=== PATIENT | female | born 1930 | race Caucasian/White ===

== ENCOUNTER → 2017-02-18 | Outpatient (CLI) | payer MEDICARE, BC ==
[2015-11-19 14:40] VITALS: BP 183/67
[~2017-02-18] MED LIST: AMLO10TA2 PO; ASPI-482 PO; ASPI325T8 PO; AZIT250T6 PO; CLOP75TA PO; DOXA2TAB2 PO; DOXA4TAB3 PO; ESOM20CA PO; EZET10TA18 PO; FURO-69 PO; FURO20TA3 PO; GABA-585 PO; GLIP-112 PO; GLIP10TA13 PO; INSU100C SQ; INSU100I13 SQ; LEVO125T5 PO; MECL25TA3 PO; METO100T5 PO; OLME40TA12 PO; SPIR25TA3 PO
[2017-02-18 12:57] LABS: BASO # 0.2 x10^3/uL (0.0-0.2); BASO % 2 % (0-3); EOS # 0.4 x10^3/uL (0.0-0.7); EOS % 6 % (0-3); HEMATOCRIT 36.6 % (36.0-47.0); HEMOGLOBIN 12.2 g/dL (12.0-15.5); LYMPH # 1.9 x10^3/uL (1.0-4.8); LYMPH % 26 % (24-48); MEAN CORPUSCULAR HEMOGLOBIN 30 pg (25-35); MEAN CORPUSCULAR HGB CONC 33 g/dL (31-37); MEAN CORPUSCULAR VOLUME 90 fL (79-100); MONO # 0.6 x10^3/uL (0.0-1.1); MONO % 9 % (0-9); NEUT % 57 % (31-73); PLATELET COUNT 223 x10^3/uL (140-400); RED BLOOD COUNT 4.05 x10^6/uL (3.50-5.40)
[2017-02-18 13:04] LABS: ALBUMIN 2.9 g/dL (3.4-5.0); CALCIUM 8.4 mg/dL (8.5-10.1); GFR 23.7; PHOSPHORUS 4.8 mg/dL (2.6-4.7); POTASSIUM 4.6 mmol/L (3.5-5.1)
[2017-02-19 05:13] LABS: CREAT RD UR 74.9 mg/dL (Not Estab.); MICRO CREAT RATIO 3200.8 mg/g creat (0.0-30.0); MICROALB RD UR 2397.4 ug/mL (Not Estab.)
[2017-02-19 08:10] LABS: CALCIUM PTH 8.7 mg/dL (8.7-10.3); CREATININE PTH 1.92 mg/dL (0.57-1.00); PTH INTACT 76 pg/mL (15-65)
== END | disposition home or self-care (01) ==
LOC: LAB 11:40
PROVIDERS: ATTEND Internal Medicine Nephrology
DX: I12.9 Hypertensive chronic kidney disease with stage 1 through stage 4 chronic kidney disease, or unspecified chronic kidney disease (principal); E11.29 Type 2 diabetes mellitus with other diabetic kidney complication; N18.4 Chronic kidney disease, stage 4 (severe); E21.3 Hyperparathyroidism, unspecified; E55.9 Vitamin D deficiency, unspecified; D50.9 Iron deficiency anemia, unspecified; D64.9 Anemia, unspecified; R80.9 Proteinuria, unspecified; R60.0 Localized edema; Z68.33 Body mass index [BMI] 33.0-33.9, adult
CPT/HCPCS: 36415; 80069; 82043; 82306; 82570; 82728; 83540; 83550; 83735; 83970; 84156; 85027

== ENCOUNTER → 2017-04-14 | Outpatient (CLI) | payer MEDICARE, BC ==
[2015-11-19 14:40] VITALS: BP 183/67
[2017-04-14 15:27] LABS: HEMOGLOBIN 12.2 g/dL (12.0-15.5)
[2017-04-14 15:35] LABS: ALBUMIN 2.8 g/dL (3.4-5.0); CALCIUM 8.2 mg/dL (8.5-10.1); GFR 23.7; PHOSPHORUS 4.6 mg/dL (2.6-4.7); POTASSIUM 4.8 mmol/L (3.5-5.1)
[2017-04-15 06:13] LABS: UR CREATININE RD 53.8 mg/dL (Not Estab.); UR PROTEIN RD 222.6 mg/dL (Not Estab.)
== END | disposition home or self-care (01) ==
LOC: LAB 14:39
PROVIDERS: ATTEND Internal Medicine Nephrology
DX: I12.9 Hypertensive chronic kidney disease with stage 1 through stage 4 chronic kidney disease, or unspecified chronic kidney disease (principal); N18.4 Chronic kidney disease, stage 4 (severe); E11.21 Type 2 diabetes mellitus with diabetic nephropathy; E16.2 Hypoglycemia, unspecified; E21.1 Secondary hyperparathyroidism, not elsewhere classified; E55.9 Vitamin D deficiency, unspecified; D50.9 Iron deficiency anemia, unspecified; R60.0 Localized edema; R80.9 Proteinuria, unspecified; Z68.33 Body mass index [BMI] 33.0-33.9, adult
CPT/HCPCS: 36415; 80069; 82306; 82570; 84156; 85014; 85018

== ENCOUNTER 2017-06-08 19:41 | Emergency (ER) | payer MEDICARE, BC ==
[~2017-06-08] VITALS: Ht 152.4 cm; Wt 71.4 kg
--- NOTE | 2017-06-08 19:59 | PHYS DOC ---
Past History Past Medical History: CVA, Diabetes, GERD, Hypertension, Hypothyroid, [place] Past Surgical History: Appendectomy, Coronary Bypass Surgery, Hysterectomy, Other Alcohol Use: Occasionally Drug Use: None Adult General HPI HPI Patient is a 86 year old F who presents with fall. Patient fell while carrying a bowl and sustained injuries to her head and left hand. Patient is currently on eloquent requests. Patient had no loss of consciousness. Patient had abrasions to her foreheadand a laceration to her left pinky. Patient denied any other injuries. Patient has no other complaints. Discussed the case and events with the daughters who state that the patient has been falling more and is weak and they're concerned she had a syncopal episode. Patient has been worked up for her elevated kidney function over the past couple months by her PCP. Family is concerned about the patient's unsteadiness on her feet. Review of Systems Review of Systems GEN: Denies fevers, chills, sweats HEENT: Abrasion to the forehead and nose CV: Denies chest pain RESP: Denies shortness of air, cough GI: Denies n/v/d NEURO: Denies confusion, dizziness MSK: Laceration to left pinky Allergies Allergies Allergies Coded Allergies Type Severity Reaction Last Updated Verified Sulfa (Sulfonamide Antibiotics) Adverse Reaction Intermediate 09/16/14 No captopril Adverse Reaction Intermediate 09/16/14 Yes Physical Exam Physical Exam GEN.: No apparent distress. Alert and oriented. HEENT: Minor abrasions to the forehead, swelling to the nose with bleeding from the left naris, no septal hematoma noted the left or right naris, swelling to the right upper lip, no identifiable oral lesions noted NECK: Supple. LUNGS: CTAB. HEART: Irregular irregular, S1, S2 present. Peripheral pulses intact ABDOMEN: Soft, nontender. Positive bowel sounds. EXTREMITIES: Without any cyanosis. 1 cm laceration over the distal phalanx of the left fifth digit NEUROLOGIC: Normal speech, normal tone PSYCHIATRIC: Normal affect, normal mood. SKIN: No ulcerations Current Patient Data Vital Signs Laboratory Tests Test 06/08/17 20:08 White Blood Count 6.6 x10^3/uL Red Blood Count 3.62 x10^6/uL Hemoglobin 11.0 g/dL Hematocrit 32.4 % Mean Corpuscular Volume 89 fL Mean Corpuscular Hemoglobin 31 pg Mean Corpuscular Hemoglobin Concent 34 g/dL Red Cell Distribution Width 14.4 % Platelet Count 230 x10^3/uL Neutrophils (%) (Auto) 56 % Lymphocytes (%) (Auto) 28 % Monocytes (%) (Auto) 11 % Eosinophils (%) (Auto) 4 % Basophils (%) (Auto) 1 % Neutrophils # (Auto) 3.7 x10^3uL Lymphocytes # (Auto) 1.9 x10^3/uL Monocytes # (Auto) 0.7 x10^3/uL Eosinophils # (Auto) 0.3 x10^3/uL Basophils # (Auto) 0.1 x10^3/uL Sodium Level 134 mmol/L Potassium Level 5.1 mmol/L Chloride Level 100 mmol/L Carbon Dioxide Level 25 mmol/L Anion Gap 9 Blood Urea Nitrogen 42 mg/dL Creatinine 2.1 mg/dL Estimated GFR (Cockcroft-Gault) 22.4 Glucose Level 144 mg/dL Calcium Level 8.3 mg/dL Current Medications Medications (Trade) Dose Ordered Sig/Brendan Route PRN Reason Start Time Stop Time Status Last Admin Dose Admin Diphtheria/ Tetanus/Acell Pertussis (Boostrix) 0.5 ml ONCE ONCE VAX IM 06/08/17 20:20 06/08/17 23:18 DC Fentanyl Citrate (Fentanyl 2ml Vial) 50 mcg 1X ONCE IV 06/08/17 22:15 06/08/17 22:27 DC 06/08/17 22:11 Lidocaine HCl 20 ml STK-MED ONCE .ROUTE 06/08/17 22:39 06/08/17 22:40 DC Lidocaine/Sodium Bicarbonate (Buffered Lidocaine 1%) 3 ml 1X ONCE IJ 06/08/17 22:45 06/08/17 22:46 DC 06/08/17 22:45 Tetanus/ Diphtheria Toxoids Adsorbed (Tenivac Vial) 0.5 ml ONCE ONCE VAX IM 06/08/17 23:30 06/08/17 23:31 DC 06/08/17 23:29 EKG EKG 0101: EKG shows A. fib rate of 69 no STEMI[] Radiology/Procedures Radiology/Procedures Left pinky ring was removed with a ring cutter[] Indication: Left fifth digit laceration Procedure: The patient was placed in the appropriate position and anesthesia around the was a digital block of the left fifth digit with 10 ML's of buffered 1% lidocaine. The area was then irrigated extensively with 2 L normal saline and scrubbed with a surgical scrub brush.. The laceration was closed with 5-0 nylon and 7 simple interrupted sutures were placed. The wound area was then dressed with Xeroform and gauze. Total repaired wound length: 3 cm. Other Items: None The patient tolerated the procedure none. Complications: [COMPLICATIONS]. CT maxillofacial Impression: 1. Acute bilateral nasal bone fractures. Comminuted nasal septum fracture. CT head/C-spine No intracranial bleed and no C-spine fracture Course & Med Decision Making Course & Med Decision Making Pertinent Labs and Imaging studies reviewed. (See chart for details) ED course: Patient was seen and examined emergency room CBC, CMP, CT scan of the head/ maxillofacial/C-spine and x-ray of the left hand were ordered Laceration to left fifth digit was sutured at bedside 2320: Discuss concerns with patient and family in regards to her having a syncopal episode and her persistent bleeding and nasal swelling. Family felt comfortable patient be admitted to the hospital 2327: Discussed CC/HP/PMH with Dr. Jacobs and recommends transfer 0000: Discussed CC/HP/PMH with Dr. Bond and recommends admit and accepts transfer MDM: After reviewing the chart, CC/HPI/PMH, physical exam, [lab results], [ radiological results], I do not believe the patient has intracranial bleed however has concerns with increased swelling and persistent bleeding from her to quite like medication I believe she needs to be observed for the hospital with serial H/H. Patient is stable for transfer. A [] Dragon Disclaimer Dragon Disclaimer This chart was dictated in whole or in part using Voice Recognition software in a busy, high-work load, and often noisy Emergency Department environment. It may contain unintended and wholly unrecognized errors or omissions. Departure Departure: Impression: Primary Impression: Nasal bones, closed fracture Additional Impressions: Anemia Laceration of finger of left hand Disposition: 02 XFER SHT-TRM HOSP (Dr. Bond) Condition: STABLE Referrals: CALIN MA MD (PCP) Problem Qualifiers ELLEN GILES DO Jun 08, 2017 19:59
[2017-06-08] MEDS ORDERED: DIPHTH,PERTUSS(ACELL),TET TOX 0.5 ML DISP.SYRIN. VAX IM ONE (20:20)
[2017-06-08 20:27] LABS: BASO # 0.1 x10^3/uL (0.0-0.2); BASO % 1 % (0-3); EOS # 0.3 x10^3/uL (0.0-0.7); EOS % 4 % (0-3); HEMATOCRIT 32.4 % (36.0-47.0); LYMPH # 1.9 x10^3/uL (1.0-4.8); LYMPH % 28 % (24-48); MEAN CORPUSCULAR HEMOGLOBIN 31 pg (25-35); MEAN CORPUSCULAR HGB CONC 34 g/dL (31-37); MEAN CORPUSCULAR VOLUME 89 fL (79-100); MONO # 0.7 x10^3/uL (0.0-1.1); MONO % 11 % (0-9); NEUT # 3.7 x10^3uL (1.8-7.7); NEUT % 56 % (31-73); PLATELET COUNT 230 x10^3/uL (140-400); RED BLOOD COUNT 3.62 x10^6/uL (3.50-5.40); RED CELL DISTRIBUTION WIDTH 14.4 % (11.5-14.5); WHITE BLOOD COUNT 6.6 x10^3/uL (4.0-11.0)
[2017-06-08 20:32] LABS: CALCIUM 8.3 mg/dL (8.5-10.1); CREATININE 2.1 mg/dL (0.6-1.0); GFR 22.4; POTASSIUM 5.1 mmol/L (3.5-5.1)
--- NOTE | 2017-06-08 21:27 | RAD ---
CT head without intravenous contrast History: Fall. Comparison: CT head January 07, 2015. Technique: Axial images are obtained of the head from the skull base through the vertex without IV contrast. Exposure: One or more of the following individualized dose reduction techniques were utilized for this examination: 1. Automated exposure control 2. Adjustment of the mA and/or kV according to patient size 3. Use of iterative reconstruction technique Findings: The ventricles are appropriate in size, shape, and location for the patient's age. No obvious intracranial mass, mass-effect, midline shift, hemorrhage or obvious acute infarction is identified. Basilar cisterns are patent. Nonspecific white matter low-attenuation is seen, probably from chronic microvascular ischemic disease. Bone windows demonstrate no acute calvarial abnormality. Impression: 1. No acute intracranial process. Please note that CT can be relatively insensitive to acute ischemic infarction for up to 24 hours after symptom onset. 2. Advanced nonspecific white matter changes, probably from chronic microvascular ischemic disease. CT cervical spine Comparison: None. Technique: Noncontrast CT of the cervical spine was performed using helical technique. Axial, sagittal, coronal reconstructions were obtained. Exposure: One or more of the following individualized dose reduction techniques were utilized for this examination: 1. Automated exposure control 2. Adjustment of the mA and/or kV according to patient size 3. Use of iterative reconstruction technique Findings: There is no evidence of acute fracture or acute malalignment involving the cervical spine. No prevertebral soft tissue swelling is identified. Multilevel degeneration is seen with facet and uncovertebral hypertrophy as well as degenerative disc disease. Impression: 1. No evidence of acute traumatic injury involving the cervical spine. 2. Degeneration. Electronically signed by: Willian Rodriguez MD (06/08/2017 9:24 PM) [facility]
--- NOTE | 2017-06-08 21:32 | RAD ---
CT face without contrast History: Fall. Technique: CT of the face was performed without intravenous contrast. Axial, sagittal, and coronal reconstructions were obtained. Exposure: One or more of the following individualized dose reduction techniques were utilized for this examination: 1. Automated exposure control 2. Adjustment of the mA and/or kV according to patient size 3. Use of iterative reconstruction technique Findings: Mildly displaced bilateral nasal bone fractures are seen. There is also comminuted fracture of the nasal septum. Hemorrhage product is seen involving the nasal passages as well as nasopharynx and oropharynx. Bilateral orbits and orbital contents appear intact. Small amount of hemorrhage involves the right maxillary sinus and sphenoid sinus. Patient is edentulous. Impression: 1. Acute bilateral nasal bone fractures. Comminuted nasal septum fracture. Electronically signed by: Willian Rodriguez MD (06/08/2017 9:28 PM) [facility]
[2017-06-08] MEDS ORDERED: LIDOCAINE 1% Multi-Dose 20 ML VIAL. ONE (22:39)
[2017-06-08 22:40] VITALS: BP 114/45
[2017-06-08] MEDS ORDERED: LIDOCAINE WITH 8.4% SOD BICARB 3 ML DISP.SYRIN. IJ ONE (22:45)
[2017-06-08] MEDS ORDERED: TETANUS AND DIPHTHERIA TOX/PF 0.5 ML VIAL. VAX IM ONE (23:30)
[2017-06-09] MEDS ORDERED: OXYMETAZOLINE 0.05% NASAL SPRAY 15ML BOTTLE. NS ONE (00:58)
--- NOTE | 2017-06-09 08:04 | RAD ---
Indication deep laceration to the fifth digit. AP oblique and lateral views of the left hand were obtained. Soft tissue injury associated with the distal aspect of the small finger is noted. On the lateral view there punctate opacities in the soft tissues. Some embedded debris in the soft tissues is not excluded. There are degenerative changes involving the hand. An acute bony finding is not seen. IMPRESSION: No acute bony finding. Soft tissue injury. Possible minimal debris in the soft tissues as outlined above
--- NOTE | 2017-06-09 10:04 | EKG ---
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
== END 2017-06-09 02:07 | disposition short-term general hospital (02) ==
LOC: ER 19:41
DX: S02.2XXA Fracture of nasal bones, initial encounter for closed fracture (principal); S61.217A Laceration without foreign body of left little finger without damage to nail, initial encounter; D64.9 Anemia, unspecified; E03.9 Hypothyroidism, unspecified; E11.9 Type 2 diabetes mellitus without complications; I10 Essential (primary) hypertension; K21.9 Gastro-esophageal reflux disease without esophagitis; I25.810 Atherosclerosis of coronary artery bypass graft(s) without angina pectoris; Z86.73 Personal history of transient ischemic attack (TIA), and cerebral infarction without residual deficits; Z88.2 Allergy status to sulfonamides; Z88.8 Allergy status to other drugs, medicaments and biological substances; W19.XXXA Unspecified fall, initial encounter; Y93.89 Activity, other specified; Y99.8 Other external cause status; Y92.89 Other specified places as the place of occurrence of the external cause
CPT/HCPCS: 12002; 36415; 70450; 70486; 72125; 73130; 80048; 82947; 85025; 90471; 90714; 93005; 96374; 99285; J3010

== ENCOUNTER 2017-07-06 12:34 | Emergency (ER) | payer MEDICARE, BC ==
[2017-07-06] MEDS ORDERED: FUROSEMIDE 40 MG/4 ML VIAL IVP ONE (13:00)
--- NOTE | 2017-07-06 14:34 | EKG ---
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 T ABNORMALITY IN INFEROLATERAL LEADS ABNORMAL ECG RI6.01 Unconfirmed report Electronically Signed On 07-06-2017 16:11:15 NEGATIVE RESTORER by Praveen aEgle
[2017-07-06] MEDS ORDERED: FURO-69 PO (14:49)
--- NOTE | 2017-07-06 15:02 | PHYS DOC ---
Past History Past Medical History: A-Fib, CVA, Diabetes, GERD, Hypertension, Hypothyroid, [place] Past Surgical History: Appendectomy, Coronary Bypass Surgery, Hysterectomy, Other Alcohol Use: Occasionally Drug Use: None Adult General Chief Complaint Chief Complaint: SHORTNESS OF BREATH HPI HPI Patient is a 87 year old F who presents with shortness of breath and weight gain over the past 2 weeks. 3 weeks ago she had a fall and was admitted to [facility]. While she is [facility] she had a stent placed in her coronary arteries. Thereafter she was discharged to [facility] for rehabilitation. Over the past 2 weeks she has gained 12 pounds and feels that her shortness of breath has been progressively worsening. She feels that her symptoms are worse when lying flat and with activity. She feels that her symptoms are improved by sitting up or standing. She denies chest pain. She has no other associated symptoms. She has no other exacerbating or alleviating factors. Review of Systems Review of Systems Constitutional: Denies fever or chills [] Eyes: Denies change in visual acuity, redness, or eye pain [] HENT: Denies nasal congestion or sore throat [] Respiratory: Negative except in history of present illness Cardiovascular: No additional information not addressed in HPI [] GI: Denies abdominal pain, nausea, vomiting, bloody stools or diarrhea [] : Denies dysuria or hematuria [] Musculoskeletal: Denies back pain or joint pain [] Integument: Denies rash or skin lesions [] Neurologic: Denies headache, focal weakness or sensory changes [] Endocrine: Denies polyuria or polydipsia [] All other systems were reviewed and found to be within normal limits, except as documented in this note. Family History Family History History reviewed Current Medications Current Medications Medications reviewed Current Medications Medications (Trade) Dose Ordered Sig/Brendan Start Time Stop Time Status Last Admin Dose Admin Furosemide (Lasix) 40 mg 1X ONCE 07/06/17 13:00 07/06/17 13:01 DC 07/06/17 13:24 40 MG Allergies Allergies Allergies Coded Allergies Type Severity Reaction Last Updated Verified Sulfa (Sulfonamide Antibiotics) Adverse Reaction Intermediate 09/16/14 No captopril Adverse Reaction Intermediate 09/16/14 Yes Physical Exam Physical Exam Constitutional: Well developed, well nourished, no acute distress, non-toxic appearance. [] HENT: Normocephalic, atraumatic Eyes: EOMI, conjunctiva normal, no discharge. [] Neck: Normal range of motion, no tenderness, supple, no stridor. [] Cardiovascular:Heart rate regular rhythm, trace edema Lungs & Thorax: Bilateral breath sounds clear to auscultation [] Crackles in both bases Abdomen: Bowel sounds normal, soft, no tenderness, no masses, no pulsatile masses. [] Skin: Warm, dry, no erythema, no rash. [] Back: No tenderness, no CVA tenderness. [] Extremities: No tenderness, no cyanosis, no clubbing, ROM intact, no edema. [] Neurologic: Alert and oriented X 3, normal motor function, normal sensory function, no focal deficits noted. [] Psychologic: Affect normal, judgement normal, mood normal. [] Current Patient Data Vital Signs Vital Signs Date Time Temp Pulse Resp B/P (MAP) Pulse Ox O2 Delivery O2 Flow Rate FiO2 07/06/17 13:45 60 12 165/77 (106) 94 07/06/17 12:34 97.9 Room Air Lab Results Laboratory Tests Test 07/06/17 13:00 Troponin I Quantitative 0.033 ng/mL (0-0.055) Radiology/Procedures Radiology/Procedures [] Course & Med Decision Making Course & Med Decision Making Pertinent Labs and Imaging studies reviewed. (See chart for details) Outside labs and imaging reviewed. Both Dr. Ma or and Dr. Mcginnis with cardiology was contacted and Margaret' s case was reviewed. Dragon Disclaimer Dragon Disclaimer This electronic medical record was generated, in whole or in part, using a voice recognition dictation system. Departure Departure: Impression: Primary Impression: Congestive heart failure Disposition: 01 HOME, SELF-CARE Condition: STABLE Referrals: CALIN MA MD (PCP) Patient Instructions: Heart Failure Additional Instructions: Margaret was seen in the emergency department for shortness of breath. No emergency medical condition was found on history or physical exam. Her labs from [place] were reviewed as well as the x-ray findings from [place]. She did have a normal EKG. Both her primary care doctor and her personal computer network analyst for contacted by phone. Her symptoms are most consistent with congestive heart failure for which she was started on Lasix, a water pill. She was advised to monitor her weight daily and follow-up with her primary care doctor tomorrow for further management. Scripts Furosemide (LASIX) 20 Mg Tablet 1 TAB PO DAILY for 7 Days, #7 TAB 1 Refill Prov: VITALIY YOUNG MD 07/06/17 Problem Qualifiers Primary Impression: Congestive heart failure Congestive heart failure type: unspecified congestive heart failure type Congestive heart failure chronicity: unspecified congestive heart failure chronicity Qualified Codes: I50.9 - Heart failure, unspecified VITALIY YOUNG MD Jul 06, 2017 15:02
[2017-07-06 15:10] VITALS: BP 163/57
== END 2017-07-06 15:10 | disposition home or self-care (01) ==
LOC: ER 12:34
DX: I11.0 Hypertensive heart disease with heart failure (principal); I50.9 Heart failure, unspecified; I48.91 Unspecified atrial fibrillation; E11.9 Type 2 diabetes mellitus without complications; K21.9 Gastro-esophageal reflux disease without esophagitis; E03.9 Hypothyroidism, unspecified; I25.2 Old myocardial infarction; Z86.73 Personal history of transient ischemic attack (TIA), and cerebral infarction without residual deficits; Z95.1 Presence of aortocoronary bypass graft; Z88.2 Allergy status to sulfonamides; Z88.8 Allergy status to other drugs, medicaments and biological substances
CPT/HCPCS: 36415; 84484; 93005; 96374; 99285; J1940

== ENCOUNTER → 2017-07-18 | Outpatient (CLI) | payer MEDICARE, BC ==
[2017-07-06 15:10] VITALS: BP 163/57
[2017-07-18 15:31] LABS: ALBUMIN 3.3 g/dL (3.4-5.0); CALCIUM 8.9 mg/dL (8.5-10.1); CREATININE 2.5 mg/dL (0.6-1.0); GFR 18.3; MAGNESIUM 2.8 mg/dL (1.8-2.4); PHOSPHORUS 3.9 mg/dL (2.6-4.7); POTASSIUM 4.4 mmol/L (3.5-5.1)
[2017-07-18 15:47] LABS: HEMATOCRIT 36.6 % (36.0-47.0)
[2017-07-19 04:12] LABS: CALCIUM PTH 8.8 mg/dL (8.7-10.3); CREATININE PTH 2.23 mg/dL (0.57-1.00); PTH INTACT 178 pg/mL (15-65)
[2017-07-20 06:10] LABS: MICRO CREAT RATIO 2256.8 mg/g creat (0.0-30.0); MICROALB RD UR 4125.4 ug/mL (Not Estab.); UR CREATININE RD 186.1 mg/dL (Not Estab.); UR PROTEIN RD 523.5 mg/dL (Not Estab.)
== END | disposition home or self-care (01) ==
LOC: LAB 14:34
PROVIDERS: ATTEND Internal Medicine Nephrology
DX: I12.9 Hypertensive chronic kidney disease with stage 1 through stage 4 chronic kidney disease, or unspecified chronic kidney disease (principal); N18.4 Chronic kidney disease, stage 4 (severe); E11.22 Type 2 diabetes mellitus with diabetic chronic kidney disease; E55.9 Vitamin D deficiency, unspecified; D64.9 Anemia, unspecified; Z68.32 Body mass index [BMI] 32.0-32.9, adult
CPT/HCPCS: 36415; 80069; 82043; 82570; 83735; 83970; 84156; 85014; 85018

== ENCOUNTER → 2017-10-06 | Outpatient (CLI) | payer MEDICARE, BC ==
--- NOTE | 2017-10-06 16:19 | RAD ---
EXAM: Carotid Doppler sonogram. HISTORY: Smoking history, cerebrovascular accident. TECHNIQUE: [place] scale and color Doppler sonographic evaluation of the neck with spectral waveform analysis was performed and static images are submitted for review. FINDINGS: RIGHT: The peak systolic velocity within the common carotid artery is 80 cm/sec. The peak systolic velocity within the internal carotid artery is 145 cm/sec and the end diastolic velocity within the internal carotid artery is 21 cm/sec. The ICA/CCA ratio is 1.81. Grayscale images demonstrate moderate calcified plaquing at the carotid bulb and proximal internal carotid artery. LEFT: The peak systolic velocity within the common carotid artery is 67 cm/sec. The peak systolic velocity within the internal carotid artery is 102 cm/sec and the end diastolic velocity within the internal carotid artery is 13 cm/sec. The ICA/CCA ratio is 1.5. Grayscale images demonstrate moderate calcified plaquing at the carotid bulb and proximal internal carotid artery. There is antegrade flow within both vertebral arteries. IMPRESSION: 1. 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 PQRS Compliance Statement - Stenosis calculations for CT, MR and conventional angiography are based upon measurement of the distal ICA diameter in accordance with the NASCET methodology. Stenosis calculations for carotid ultrasound studies are derived from validated velocity criteria which are known to correlate with the NASCET methodology.
== END | disposition home or self-care (01) ==
LOC: US 14:50
PROVIDERS: ATTEND Family Medicine
DX: I65.21 Occlusion and stenosis of right carotid artery (principal); Z86.73 Personal history of transient ischemic attack (TIA), and cerebral infarction without residual deficits; Z87.891 Personal history of nicotine dependence
CPT/HCPCS: 93880

== ENCOUNTER 2017-10-21 15:59 | Emergency (ER) | payer MEDICARE, BC ==
[~2017-10-21] VITALS: Ht 152.4 cm; Wt 75.5 kg
[2017-10-21] MEDS ORDERED: SODIUM POLYSTYRENE SULFONATE 15 GM/60 ML ORAL.SUSP. PO ONE (16:30)
[2017-10-21] MEDS ORDERED: DEXTROSE 50% 25 GM / 50ML DISP.SYRIN. IV ONE (16:30)
[2017-10-21] MEDS ORDERED: ALBUTEROL SULFATE 2.5 MG/3 ML NEBU. CONT NEB ONE (16:30)
[2017-10-21] MEDS ORDERED: INSULIN REGULAR 100 UNIT/ML 10ML VIAL. IV ONE (16:30)
[2017-10-21 16:37] LABS: BASO # 0.1 x10^3/uL (0.0-0.2); BASO % 1 % (0-3); EOS # 0.4 x10^3/uL (0.0-0.7); EOS % 5 % (0-3); HEMATOCRIT 35.2 % (36.0-47.0); HEMOGLOBIN 11.7 g/dL (12.0-15.5); LYMPH % 29 % (24-48); MEAN CORPUSCULAR HEMOGLOBIN 29 pg (25-35); MEAN CORPUSCULAR HGB CONC 33 g/dL (31-37); MEAN CORPUSCULAR VOLUME 87 fL (79-100); MONO # 0.6 x10^3/uL (0.0-1.1); MONO % 8 % (0-9); NEUT # 3.9 x10^3uL (1.8-7.7); NEUT % 57 % (31-73); PLATELET COUNT 232 x10^3/uL (140-400); RED BLOOD COUNT 4.03 x10^6/uL (3.50-5.40); RED CELL DISTRIBUTION WIDTH 15.8 % (11.5-14.5); WHITE BLOOD COUNT 6.9 x10^3/uL (4.0-11.0)
[2017-10-21 16:45] LABS: ALBUMIN 3.1 g/dL (3.4-5.0); ALBUMIN/GLOBULIN RATIO 0.8 (1.0-1.7); CALCIUM 8.4 mg/dL (8.5-10.1); CREATININE 1.9 mg/dL (0.6-1.0); GFR 25.1; MAGNESIUM 2.1 mg/dL (1.8-2.4); PHOSPHORUS 4.5 mg/dL (2.6-4.7); POTASSIUM 5.6 mmol/L (3.5-5.1); TOTAL BILIRUBIN 0.2 mg/dL (0.2-1.0); TOTAL PROTEIN 7.1 g/dL (6.4-8.2)
--- NOTE | 2017-10-21 17:05 | PHYS DOC ---
Past History Past Medical History: A-Fib, CVA, Diabetes, GERD, Hypertension, Hypothyroid, [place] Past Surgical History: Appendectomy, Coronary Bypass Surgery, Hysterectomy, Other Alcohol Use: Occasionally Drug Use: None Adult General Chief Complaint Chief Complaint: ABNORMAL LABS HPI HPI 87-year-old female patient with history of diabetes, atrial fibrillation on Xarelto, chronic renal insufficiency had blood test today by her primary care physician with potassium of 6.1 and instructed to come to emergency room. Patient denies nausea, vomiting, fever and chills, chest pain, shortness of breath, palpitation. Patient is on spironolactone and her engagement director recommended to decrease the dose of spironolactone from 50 mg to 25 mg but patient still taking 50 mg daily. Review of Systems Review of Systems Constitutional: Denies fever or chills [] Eyes: Denies change in visual acuity, redness, or eye pain [] HENT: Denies nasal congestion or sore throat [] Respiratory: Denies cough or shortness of breath [] Cardiovascular: No additional information not addressed in HPI [] GI: Denies abdominal pain, nausea, vomiting, bloody stools or diarrhea [] : Denies dysuria or hematuria [] Musculoskeletal: Denies back pain or joint pain [] Integument: Denies rash or skin lesions [] Neurologic: Denies headache, focal weakness or sensory changes [] Endocrine: Denies polyuria or polydipsia [] All other systems were reviewed and found to be within normal limits, except as documented in this note. Current Medications Current Medications Current Medications Medications (Trade) Dose Ordered Sig/Brendan Start Time Stop Time Status Last Admin Dose Admin Albuterol Sulfate (Ventolin) 10 mg 1X ONCE 10/21/17 16:30 10/21/17 16:31 DC 10/21/17 16:45 10 MG Dextrose 25 gm 1X ONCE 10/21/17 16:30 10/21/17 16:31 DC 10/21/17 16:41 25 GM Insulin Human Regular (NovoLIN R) 10 unit 1X ONCE 10/21/17 16:30 10/21/17 16:31 DC 10/21/17 16:43 10 UNIT Sodium Polystyrene Sulfonate (Kayexalate) 30 gm 1X ONCE 10/21/17 16:30 10/21/17 16:31 DC 10/21/17 16:45 30 GM Allergies Allergies Allergies Coded Allergies Type Severity Reaction Last Updated Verified Sulfa (Sulfonamide Antibiotics) Adverse Reaction Intermediate 09/16/14 No captopril Adverse Reaction Intermediate 09/16/14 Yes Physical Exam Physical Exam Constitutional: Well developed, well nourished, no acute distress, non-toxic appearance. [] HENT: Normocephalic, atraumatic, bilateral external ears normal, oropharynx moist, no oral exudates, nose normal. [] Eyes: PERRLA, EOMI, conjunctiva normal, no discharge. [] Neck: Normal range of motion, no tenderness, supple, no stridor. [] Cardiovascular:Heart rate regular rhythm, no murmur [] Lungs & Thorax: Bilateral breath sounds clear to auscultation [] Abdomen: Bowel sounds normal, soft, no tenderness, no masses, no pulsatile masses. [] Skin: Warm, dry, no erythema, no rash. [] Back: No tenderness, no CVA tenderness. [] Extremities: No tenderness, no cyanosis, no clubbing, ROM intact, no edema. [] Neurologic: Alert and oriented X 3, normal motor function, normal sensory function, no focal deficits noted. [] Psychologic: Affect normal, judgement normal, mood normal. [] Current Patient Data Lab Results Laboratory Tests Test 10/21/17 16:15 White Blood Count 6.9 x10^3/uL (4.0-11.0) Red Blood Count 4.03 x10^6/uL (3.50-5.40) Hemoglobin 11.7 g/dL (12.0-15.5) L Hematocrit 35.2 % (36.0-47.0) L Mean Corpuscular Volume 87 fL (79-100) Mean Corpuscular Hemoglobin 29 pg (25-35) Mean Corpuscular Hemoglobin Concent 33 g/dL (31-37) Red Cell Distribution Width 15.8 % (11.5-14.5) H Platelet Count 232 x10^3/uL (140-400) Neutrophils (%) (Auto) 57 % (31-73) Lymphocytes (%) (Auto) 29 % (24-48) Monocytes (%) (Auto) 8 % (0-9) Eosinophils (%) (Auto) 5 % (0-3) H Basophils (%) (Auto) 1 % (0-3) Neutrophils # (Auto) 3.9 x10^3uL (1.8-7.7) Lymphocytes # (Auto) 2.0 x10^3/uL (1.0-4.8) Monocytes # (Auto) 0.6 x10^3/uL (0.0-1.1) Eosinophils # (Auto) 0.4 x10^3/uL (0.0-0.7) Basophils # (Auto) 0.1 x10^3/uL (0.0-0.2) Sodium Level 135 mmol/L (136-145) L Potassium Level 5.6 mmol/L (3.5-5.1) H Chloride Level 102 mmol/L (98-107) Carbon Dioxide Level 22 mmol/L (21-32) Anion Gap 11 (6-14) Blood Urea Nitrogen 37 mg/dL (7-20) H Creatinine 1.9 mg/dL (0.6-1.0) H Estimated GFR (Cockcroft-Gault) 25.1 BUN/Creatinine Ratio 19 (6-20) Glucose Level 123 mg/dL (70-99) H Calcium Level 8.4 mg/dL (8.5-10.1) L Phosphorus Level 4.5 mg/dL (2.6-4.7) Magnesium Level 2.1 mg/dL (1.8-2.4) Total Bilirubin 0.2 mg/dL (0.2-1.0) Aspartate Amino Transferase (AST) 18 U/L (15-37) Alanine Aminotransferase (ALT) 15 U/L (14-59) Alkaline Phosphatase 66 U/L (46-116) Total Protein 7.1 g/dL (6.4-8.2) Albumin 3.1 g/dL (3.4-5.0) L Albumin/Globulin Ratio 0.8 (1.0-1.7) L EKG EKG EKG at 1641 showed sinus bradycardia at rate of 56, C6, no acute distress he abnormality, QTC 422 Radiology/Procedures Radiology/Procedures [] Course & Med Decision Making Course & Med Decision Making Pertinent Labs reviewed. (See chart for details) Evaluation of patient in ER showed 87-year-old female patient brought in because of high potassium of 6.1 that was done at PCP office today. Patient treated albuterol, Kayexalate, D50 and insulin and her repeat potassium was 4.9. Dr. Ma informed [id number] and agreed with discharge of patient. Patient instructed to take only 25 mg of spironolactone. Dragon Disclaimer Dragon Disclaimer This electronic medical record was generated, in whole or in part, using a voice recognition dictation system. Departure Departure: Impression: Primary Impression: Hyperkalemia Additional Impression: Chronic renal insufficiency Disposition: HOME, SELF-CARE (At 1742) Condition: IMPROVED Referrals: CALIN MA MD (PCP) Patient Instructions: Chronic Renal Insufficiency, Hyperkalemia Additional Instructions: Take spironolactone only 25 mg Follow-up with your doctor in one or 2 days Return to ER if not getting better Problem Qualifiers CHUCHO BROWN MD Oct 21, 2017 17:04
[2017-10-21 17:41] LABS: HEMOGLOBIN ISTAT 10.9 gm/dL; POTASSIUM ISTAT 4.9 mmol/L (3.5-5.0)
[2017-10-21 18:11] VITALS: BP 124/62
--- NOTE | 2017-10-23 11:24 | EKG ---
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
== END 2017-10-21 18:11 | disposition home or self-care (01) ==
LOC: ER 15:59
DX: E87.5 Hyperkalemia (principal); E11.22 Type 2 diabetes mellitus with diabetic chronic kidney disease; I12.9 Hypertensive chronic kidney disease with stage 1 through stage 4 chronic kidney disease, or unspecified chronic kidney disease; N18.9 Chronic kidney disease, unspecified; E03.9 Hypothyroidism, unspecified; I48.91 Unspecified atrial fibrillation; K21.9 Gastro-esophageal reflux disease without esophagitis; I25.2 Old myocardial infarction; Z86.73 Personal history of transient ischemic attack (TIA), and cerebral infarction without residual deficits; Z95.1 Presence of aortocoronary bypass graft; Z79.01 Long term (current) use of anticoagulants; Z88.2 Allergy status to sulfonamides; Z88.8 Allergy status to other drugs, medicaments and biological substances
CPT/HCPCS: 36415; 80047; 80053; 83735; 84100; 85025; 93005; 94640; 96374; 96375; 99285; J1815; J7613; 99284-25

== ENCOUNTER → 2017-10-21 | Outpatient (CLI) | payer MEDICARE, BC ==
[2017-10-21 14:11] LABS: ALBUMIN 2.9 g/dL (3.4-5.0); CALCIUM 8.2 mg/dL (8.5-10.1); GFR 23.7; MAGNESIUM 1.9 mg/dL (1.8-2.4); PHOSPHORUS 4.8 mg/dL (2.6-4.7)
[2017-10-21 14:12] LABS: HEMATOCRIT 34.7 % (36.0-47.0); HEMOGLOBIN 11.5 g/dL (12.0-15.5)
[2017-10-21 14:15] LABS: POTASSIUM 6.1 mmol/L (3.5-5.1)
== END | disposition home or self-care (01) ==
LOC: LAB 13:12
PROVIDERS: ATTEND Nurse Practitioner Family
DX: I12.9 Hypertensive chronic kidney disease with stage 1 through stage 4 chronic kidney disease, or unspecified chronic kidney disease (principal); E11.21 Type 2 diabetes mellitus with diabetic nephropathy; N18.4 Chronic kidney disease, stage 4 (severe); E55.9 Vitamin D deficiency, unspecified; D64.9 Anemia, unspecified; Z79.4 Long term (current) use of insulin; Z68.30 Body mass index [BMI] 30.0-30.9, adult
CPT/HCPCS: 80069; 83735; 85014; 85018

== ENCOUNTER → 2017-10-24 | Outpatient (CLI) | payer MEDICARE, BC ==
[2017-10-21 18:11] VITALS: BP 124/62
[2017-10-24 21:29] LABS: BILIRUBIN,URINE NEG (NEG); CLARITY,URINE HAZY; COLOR,URINE YELLOW; GLUCOSE,URINE 100 mg/dL (NEG)
[2017-10-24 21:30] LABS: BACTERIA,URINE 0 /HPF (0-FEW); NITRITE,URINE NEG (NEG); SQUAMOUS EPITHELIAL CELL,UR MOD /LPF; UROBILINOGEN,URINE 0.2 mg/dL (0.2 mg/dL); WBC,URINE OCC /HPF (0-4)
[2017-10-24 21:31] LABS: HYALINE CASTS, URINE FEW /HPF
[2017-10-25 10:09] LABS: UR CREATININE RD 127.8 mg/dL (Not Estab.)
== END | disposition home or self-care (01) ==
LOC: SPEC 16:15
PROVIDERS: ATTEND Nurse Practitioner Family
DX: I12.9 Hypertensive chronic kidney disease with stage 1 through stage 4 chronic kidney disease, or unspecified chronic kidney disease (principal); E11.21 Type 2 diabetes mellitus with diabetic nephropathy; N18.4 Chronic kidney disease, stage 4 (severe); E55.9 Vitamin D deficiency, unspecified; D64.9 Anemia, unspecified; Z79.4 Long term (current) use of insulin; Z68.30 Body mass index [BMI] 30.0-30.9, adult
CPT/HCPCS: 36415; 81001; 82570; 84156

== ENCOUNTER 2018-01-05 11:16 | Emergency (ER) | payer MEDICARE, BC ==
[~2018-01-05] VITALS: Ht 152.4 cm; Wt 73.9 kg
[2018-01-05] MEDS ORDERED: NITROGLYCERIN SUBLINGUAL 0.4 MG BOTTLE OF 25. SL PRN (11:30)
[2018-01-05] MEDS ORDERED: ASPIRIN 81 MG TAB.CHEW PO ONE (11:45)
--- NOTE | 2018-01-05 11:59 | RAD ---
INDICATION: Chest pain. TECHNIQUE: Upright portable chest radiograph was obtained. Comparison is from November 19, 2015. FINDINGS: Heart is upper limits of normal in size. There is no definite heart failure. There is atheromatous disease in the thoracic aorta. Median sternotomy wires are noted. There is no definite airway disease. There is scatter artifact from body habitus. IMPRESSION: Borderline cardiomegaly. Electronically signed by: Herbert Hobson MD (01/05/2018 11:55 AM) [id number]
[2018-01-05 12:10] LABS: BASO # 0.1 x10^3/uL (0.0-0.2); BASO % 1 % (0-3); EOS # 0.3 x10^3/uL (0.0-0.7); EOS % 5 % (0-3); HEMATOCRIT 33.8 % (36.0-47.0); HEMOGLOBIN 11.4 g/dL (12.0-15.5); LYMPH # 1.3 x10^3/uL (1.0-4.8); LYMPH % 23 % (24-48); MEAN CORPUSCULAR HEMOGLOBIN 30 pg (25-35); MEAN CORPUSCULAR HGB CONC 34 g/dL (31-37); MEAN CORPUSCULAR VOLUME 90 fL (79-100); MONO # 0.5 x10^3/uL (0.0-1.1); MONO % 9 % (0-9); NEUT # 3.5 x10^3uL (1.8-7.7); NEUT % 62 % (31-73); PLATELET COUNT 232 x10^3/uL (140-400); RED BLOOD COUNT 3.76 x10^6/uL (3.50-5.40); RED CELL DISTRIBUTION WIDTH 14.2 % (11.5-14.5); WHITE BLOOD COUNT 5.6 x10^3/uL (4.0-11.0)
--- NOTE | 2018-01-05 12:30 | EKG ---
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
[2018-01-05 12:33] LABS: ALBUMIN/GLOBULIN RATIO 0.8 (1.0-1.7); CALCIUM 8.4 mg/dL (8.5-10.1); GFR 23.7; MAGNESIUM 1.7 mg/dL (1.8-2.4); POTASSIUM 5.3 mmol/L (3.5-5.1); TOTAL BILIRUBIN 0.2 mg/dL (0.2-1.0); TOTAL PROTEIN 6.9 g/dL (6.4-8.2)
--- NOTE | 2018-01-05 13:02 | PHYS DOC ---
Past History Past Medical History: A-Fib, CVA, Diabetes, GERD, Hypertension, Hypothyroid, MD Past Surgical History: Appendectomy, Coronary Bypass Surgery, Hysterectomy, Other Alcohol Use: Rarely Drug Use: None Adult General Chief Complaint Chief Complaint: CHEST PAIN [facility] HPI 87-year-old female patient complaining of intermittent episodes of right chest pain as uncomfortable feeling for the last 3 days to check with activity and associated with mild shortness of breath. Patient denies radiation of pain, dizziness, generalized weakness, fever and chills, cough and congestion, urinary symptom. Patient was seen by her primary care physician yesterday but did not mention about her pain because it wasn't bothering her. Review of Systems Review of Systems Constitutional: Denies fever or chills [] Eyes: Denies change in visual acuity, redness, or eye pain [] HENT: Denies nasal congestion or sore throat [] Respiratory: Denies cough or shortness of breath [] Cardiovascular: No additional information not addressed in HPI [] GI: Denies abdominal pain, nausea, vomiting, bloody stools or diarrhea [] : Denies dysuria or hematuria [] Musculoskeletal: Denies back pain or joint pain [] Integument: Denies rash or skin lesions [] Neurologic: Denies headache, focal weakness or sensory changes [] Endocrine: Denies polyuria or polydipsia [] All other systems were reviewed and found to be within normal limits, except as documented in this note. Current Medications Current Medications Current Medications Medications (Trade) Dose Ordered Sig/Brendan Start Time Stop Time Status Last Admin Dose Admin Aspirin (Children'S Aspirin) 324 mg 1X ONCE 01/05/18 11:45 01/05/18 11:46 DC 01/05/18 11:35 324 MG Nitroglycerin (Nitrostat) 0.4 mg PRN Q5MIN PRN 01/05/18 11:30 01/06/18 11:29 01/05/18 11:37 0.4 MG Allergies Allergies Allergies Coded Allergies Type Severity Reaction Last Updated Verified Sulfa (Sulfonamide Antibiotics) Adverse Reaction Intermediate 09/16/14 No captopril Adverse Reaction Intermediate 09/16/14 Yes Physical Exam Physical Exam Constitutional: Well developed, well nourished, mild distress, non-toxic appearance. [] HENT: Normocephalic, atraumatic, bilateral external ears normal, oropharynx moist, no oral exudates, nose normal. [] Eyes: PERRLA, EOMI, conjunctiva normal, no discharge. [] Neck: Normal range of motion, no tenderness, supple, no stridor. [] Cardiovascular:Heart rate regular rhythm, no murmur [] Lungs & Thorax: Bilateral breath sounds clear to auscultation with mild right- sided chest wall reproducible pain[] Abdomen: Bowel sounds normal, soft, no tenderness, no masses, no pulsatile masses. [] Skin: Warm, dry, no erythema, no rash. [] Back: No tenderness, no CVA tenderness. [] Extremities: No tenderness, no cyanosis, no clubbing, ROM intact, no edema. [] Neurologic: Alert and oriented X 3, normal motor function, normal sensory function, no focal deficits noted. [] Psychologic: Affect normal, judgement normal, mood normal. [] Current Patient Data Vital Signs Vital Signs Date Time Temp Pulse Resp B/P (MAP) Pulse Ox O2 Delivery O2 Flow Rate FiO2 01/05/18 12:42 65 16 128/66 (86) 95 Room Air 01/05/18 11:20 98.4 Lab Results Laboratory Tests Test 01/05/18 11:50 White Blood Count 5.6 x10^3/uL (4.0-11.0) Red Blood Count 3.76 x10^6/uL (3.50-5.40) Hemoglobin 11.4 g/dL (12.0-15.5) L Hematocrit 33.8 % (36.0-47.0) L Mean Corpuscular Volume 90 fL (79-100) Mean Corpuscular Hemoglobin 30 pg (25-35) Mean Corpuscular Hemoglobin Concent 34 g/dL (31-37) Red Cell Distribution Width 14.2 % (11.5-14.5) Platelet Count 232 x10^3/uL (140-400) Neutrophils (%) (Auto) 62 % (31-73) Lymphocytes (%) (Auto) 23 % (24-48) L Monocytes (%) (Auto) 9 % (0-9) Eosinophils (%) (Auto) 5 % (0-3) H Basophils (%) (Auto) 1 % (0-3) Neutrophils # (Auto) 3.5 x10^3uL (1.8-7.7) Lymphocytes # (Auto) 1.3 x10^3/uL (1.0-4.8) Monocytes # (Auto) 0.5 x10^3/uL (0.0-1.1) Eosinophils # (Auto) 0.3 x10^3/uL (0.0-0.7) Basophils # (Auto) 0.1 x10^3/uL (0.0-0.2) Prothrombin Time 11.0 SEC (9.4-11.4) Prothrombin Time INR 1.1 (0.9-1.1) Sodium Level 136 mmol/L (136-145) Potassium Level 5.3 mmol/L (3.5-5.1) H Chloride Level 104 mmol/L (98-107) Carbon Dioxide Level 23 mmol/L (21-32) Anion Gap 9 (6-14) Blood Urea Nitrogen 34 mg/dL (7-20) H Creatinine 2.0 mg/dL (0.6-1.0) H Estimated GFR (Cockcroft-Gault) 23.7 BUN/Creatinine Ratio 17 (6-20) Glucose Level 166 mg/dL (70-99) H Calcium Level 8.4 mg/dL (8.5-10.1) L Magnesium Level 1.7 mg/dL (1.8-2.4) L Total Bilirubin 0.2 mg/dL (0.2-1.0) Aspartate Amino Transferase (AST) 17 U/L (15-37) Alanine Aminotransferase (ALT) 17 U/L (14-59) Alkaline Phosphatase 80 U/L (46-116) Creatine Kinase 166 U/L (26-192) Creatine Kinase MB (Mass) 4.5 ng/mL (0.0-3.6) H Creatine Kinase MB Relative Index 2.7 % (0-4) Troponin I Quantitative < 0.017 ng/mL (0-0.055) EX-Lok-U-Type Natriuretic Peptide 519 pg/mL (0-449) H Total Protein 6.9 g/dL (6.4-8.2) Albumin 3.0 g/dL (3.4-5.0) L Albumin/Globulin Ratio 0.8 (1.0-1.7) L EKG EKG EKG interpreted by me. EKG at 1128 showed normal sinus rhythm at rate of 80, left fourth axis deviation, ST and T wave abnormality in anteroseptal leads, poor R-wave progress in anterior leads, high lateral ischemia or left ventricular strain,[ acute ST and T wave abnormality] Radiology/Procedures Radiology/Procedures [][address] [address] IMAGING REPORT Signed PATIENT: YUNIOR GUIDO V ACCOUNT: [id number] : 1930 LOCATION: ER AGE: 87 SEX: F EXAM STATUS: REG ER ORD. PHYSICIAN: CHUCHO BROWN MD REASON: chest pain PROCEDURE: PORTABLE CHEST 1V INDICATION: Chest pain. TECHNIQUE: Upright portable chest radiograph was obtained. Comparison is from November 19, 2015. FINDINGS: Heart is upper limits of normal in size. There is no definite heart failure. There is atheromatous disease in the thoracic aorta. Median sternotomy wires are noted. There is no definite airway disease. There is scatter artifact from body habitus. IMPRESSION: Borderline cardiomegaly. Electronically signed by: Herbert Hobson MD (01/05/2018 11:55 AM) [id number] DICTATED AND SIGNED BY: HERBERT HOBSON MD DATE: 01/05/18 1153 CC: CALIN MA MD; CHUCHO BROWN MD ~ Course & Med Decision Making Course & Med Decision Making Pertinent Labs and Imaging studies reviewed. (See chart for details) Evaluation of patient in ER showed 87-year-old female patient with history of atrial fibrillation on Plavix and Eliquis complaining of right side of chest pain intermittently for the last 2 days that usually happen with activity. Patient had unremarkable physical exam. Labs showed chronic renal insufficiency without abnormal enzyme. Patient had stable O2 sat and potassium was 5.3 and treated with albuterol. I offered patient hospitalization but she wanted to go home and follow-up with her primary care physician. Dragon Disclaimer Dragon Disclaimer This electronic medical record was generated, in whole or in part, using a voice recognition dictation system. Departure Departure: Impression: Primary Impression: Right-sided chest pain Additional Impressions: Chronic renal insufficiency Hyperkalemia Disposition: HOME, SELF-CARE (At 1312) Condition: IMPROVED Referrals: CALIN MA MD (PCP) Patient Instructions: Chest Pain (Nonspecific), Chest Wall Pain, Hyperkalemia Additional Instructions: Follow-up with your primary care physician in 3-5 days Return to ER if not getting better Problem Qualifiers CHUCHO BROWN MD January 05, 2018 13:02
[2018-01-05 13:15] VITALS: BP 133/70
[2018-01-05] MEDS ORDERED: ALBUTEROL SULFATE 2.5 MG/3 ML NEBU. NEB ONE (13:15)
== END 2018-01-05 13:22 | disposition home or self-care (01) ==
LOC: ER 11:16
DX: R07.89 Other chest pain (principal); E87.5 Hyperkalemia; E11.22 Type 2 diabetes mellitus with diabetic chronic kidney disease; I12.9 Hypertensive chronic kidney disease with stage 1 through stage 4 chronic kidney disease, or unspecified chronic kidney disease; N18.9 Chronic kidney disease, unspecified; E03.9 Hypothyroidism, unspecified; I48.91 Unspecified atrial fibrillation; K21.9 Gastro-esophageal reflux disease without esophagitis; I25.2 Old myocardial infarction; Z86.73 Personal history of transient ischemic attack (TIA), and cerebral infarction without residual deficits; Z95.1 Presence of aortocoronary bypass graft; Z88.2 Allergy status to sulfonamides; Z88.8 Allergy status to other drugs, medicaments and biological substances
CPT/HCPCS: 36415; 71045; 80053; 82553; 83735; 83880; 84484; 85025; 85610; 93005; 94640; 99285; J7613

== ENCOUNTER → 2018-01-25 | Outpatient (CLI) | payer MEDICARE, BC ==
[2018-01-05 13:15] VITALS: BP 133/70
[2018-01-25 16:45] LABS: BASO # 0.1 x10^3/uL (0.0-0.2); BASO % 2 % (0-3); EOS # 0.3 x10^3/uL (0.0-0.7); EOS % 5 % (0-3); HEMATOCRIT 34.7 % (36.0-47.0); HEMOGLOBIN 11.5 g/dL (12.0-15.5); LYMPH # 1.9 x10^3/uL (1.0-4.8); LYMPH % 31 % (24-48); MEAN CORPUSCULAR HEMOGLOBIN 30 pg (25-35); MEAN CORPUSCULAR HGB CONC 33 g/dL (31-37); MEAN CORPUSCULAR VOLUME 91 fL (79-100); MONO # 0.6 x10^3/uL (0.0-1.1); MONO % 11 % (0-9); NEUT # 3.1 x10^3uL (1.8-7.7); NEUT % 51 % (31-73); PLATELET COUNT 239 x10^3/uL (140-400); RED BLOOD COUNT 3.84 x10^6/uL (3.50-5.40); RED CELL DISTRIBUTION WIDTH 14.5 % (11.5-14.5)
[2018-01-25 16:57] LABS: ALBUMIN 3.1 g/dL (3.4-5.0); CALCIUM 8.5 mg/dL (8.5-10.1); CREATININE 2.1 mg/dL (0.6-1.0); GFR 22.4; MAGNESIUM 1.8 mg/dL (1.8-2.4); PHOSPHORUS 4.4 mg/dL (2.6-4.7); POTASSIUM 4.4 mmol/L (3.5-5.1)
[2018-01-26 06:12] LABS: CALCIUM PTH 8.6 mg/dL (8.7-10.3); CREATININE PTH 1.97 mg/dL (0.57-1.00); PTH INTACT 119 pg/mL (15-65)
== END | disposition home or self-care (01) ==
LOC: LAB 16:06
PROVIDERS: ATTEND Internal Medicine Nephrology
DX: I12.9 Hypertensive chronic kidney disease with stage 1 through stage 4 chronic kidney disease, or unspecified chronic kidney disease (principal); N18.4 Chronic kidney disease, stage 4 (severe); Z68.31 Body mass index [BMI] 31.0-31.9, adult
CPT/HCPCS: 36415; 80069; 82306; 83735; 83970; 85025

== ENCOUNTER 2018-04-19 17:37 | Emergency (ER) | payer MEDICARE, BC ==
[~2018-04-19] VITALS: Ht 157.5 cm; Wt 71.1 kg
[~2018-04-19 17:37] MED LIST changes: -AMLO10TA2 PO; +AMLO10TA6 PO; -SPIR25TA3 PO; +SPIR25TA5 PO
--- NOTE | 2018-04-19 18:39 | ED.ADGEN ---
Past History Past Medical History: A-Fib, CVA, Diabetes, GERD, High Cholesterol, Hypertension, Hypothyroid, CA Past Surgical History: Appendectomy, Coronary Bypass Surgery, Hysterectomy, Other Alcohol Use: Rarely Drug Use: None Adult General Chief Complaint Chief Complaint Elevated blood pressure HPI HPI Patient presents with elevated blood pressure and lower extremity weakness( chronic). She was sent over from Dr. Espinosa's office for hypertension evaluation. The patient has a history of hypertension, atrial fibrillation, neuropathy and has not taken her medication properly for the past month or so. She's not taking her blood pressure medication this week. She denies any headache, shortness breath or chest pain. She's had difficulty walking since last May 2017 which is gotten worse over the last 2 days. She notes difficulty with her right lower extremity where she has weakness. She stop taking a cholesterol medication months ago secondary to muscle cramping. Review of Systems Review of Systems Constitutional: Denies fever or chills Eyes: Denies change in visual acuity, redness, or eye pain HENT: Denies nasal congestion or sore throat Respiratory: Denies cough or shortness of breath Cardiovascular: Denies chest pain or SOB GI: Denies abdominal pain, nausea, vomiting, bloody stools or diarrhea : Denies dysuria or hematuria Musculoskeletal: Denies back pain or joint pain. there is no LE edema. Integument: Denies rash or skin lesions Neurologic: Denies headache, focal weakness or sensory changes. Patient has chronic right LE weakness Endocrine: Denies polyuria or polydipsia All other systems were reviewed and found to be within normal limits, except as documented in this note. Current Medications Current Medications Current Medications Medications (Trade) Dose Ordered Sig/Brendan Start Time Stop Time Status Last Admin Dose Admin Amlodipine Besylate (Norvasc) 5 mg 1X ONCE 04/19/18 19:15 04/19/18 19:16 DC 04/19/18 19:26 5 MG Metoprolol Tartrate (Lopressor) 50 mg 1X ONCE 04/19/18 21:15 04/19/18 21:16 DC 04/19/18 21:29 50 MG Allergies Allergies Allergies Coded Allergies Type Severity Reaction Last Updated Verified Sulfa (Sulfonamide Antibiotics) Adverse Reaction Intermediate 09/16/14 No captopril Adverse Reaction Intermediate 09/16/14 Yes Physical Exam Physical Exam Constitutional: Well developed, well nourished, no acute distress, non-toxic appearance. HENT: Normocephalic, atraumatic, bilateral external ears normal, oropharynx moist, no oral exudates, nose normal. Eyes: PERRLA, EOMI, conjunctiva normal, no discharge. Neck: Normal range of motion, no tenderness, supple, no stridor. Cardiovascular:Heart rate regular rhythm, no murmur Lungs & Thorax: Bilateral breath sounds clear to auscultation Abdomen: Bowel sounds normal, soft, no tenderness, no masses, no pulsatile masses. Skin: Warm, dry, no erythema, no rash. Back: No tenderness, no CVA tenderness. Extremities: No tenderness, no cyanosis, no clubbing, ROM intact, no edema. Neurologic: Alert and oriented X 3, normal motor function, normal sensory function, no focal deficits noted. Cranial nerves II-XII are intact, strength 5 /5 upper extremity lower extremity symmetric bilaterally. Patient has no pronator drift. Sensation is intact to light touch and position sense, upper extremity, lower extremity symmetric bilaterally. Gait intact with assistance Psychologic: Affect normal, judgement normal, mood normal. Current Patient Data Vital Signs Vital Signs Date Time Temp Pulse Resp B/P (MAP) Pulse Ox O2 Delivery O2 Flow Rate FiO2 04/19/18 21:29 59 223/96 04/19/18 20:42 16 95 Room Air 04/19/18 17:56 98.2 Lab Results Laboratory Tests Test 04/19/18 17:45 04/19/18 18:53 04/19/18 18:55 Urine Collection Type Unknown Urine Color Straw Urine Clarity Clear Urine pH 6.5 Urine Specific Greer 1.020 Urine Protein >100 mg/dl (NEG-TRACE) Urine Glucose (UA) Neg mg/dL (NEG) Urine Ketones (Stick) Neg mg/dL (NEG) Urine Blood Small (NEG) Urine Nitrite Neg (NEG) Urine Bilirubin Neg (NEG) Urine Urobilinogen Dipstick 0.2 mg/dL (0.2 mg/dL) Urine Leukocyte Esterase Neg (NEG) Urine RBC Occ /HPF (0-2) Urine WBC Rare /HPF (0-4) Urine Squamous Epithelial Cells Occ /LPF Urine Bacteria 0 /HPF (0-FEW) Troponin I Quantitative < 0.017 ng/mL (0-0.055) White Blood Count 6.8 x10^3/uL (4.0-11.0) Red Blood Count 4.22 x10^6/uL (3.50-5.40) Hemoglobin 12.6 g/dL (12.0-15.5) Hematocrit 37.3 % (36.0-47.0) Mean Corpuscular Volume 88 fL (79-100) Mean Corpuscular Hemoglobin 30 pg (25-35) Mean Corpuscular Hemoglobin Concent 34 g/dL (31-37) Red Cell Distribution Width 13.6 % (11.5-14.5) Platelet Count 243 x10^3/uL (140-400) Neutrophils (%) (Auto) 59 % (31-73) Lymphocytes (%) (Auto) 26 % (24-48) Monocytes (%) (Auto) 10 % (0-9) H Eosinophils (%) (Auto) 4 % (0-3) H Basophils (%) (Auto) 1 % (0-3) Neutrophils # (Auto) 4.1 x10^3uL (1.8-7.7) Lymphocytes # (Auto) 1.8 x10^3/uL (1.0-4.8) Monocytes # (Auto) 0.7 x10^3/uL (0.0-1.1) Eosinophils # (Auto) 0.3 x10^3/uL (0.0-0.7) Basophils # (Auto) 0.1 x10^3/uL (0.0-0.2) Sodium Level 140 mmol/L (136-145) Potassium Level 3.9 mmol/L (3.5-5.1) Chloride Level 105 mmol/L (98-107) Carbon Dioxide Level 27 mmol/L (21-32) Anion Gap 8 (6-14) Blood Urea Nitrogen 42 mg/dL (7-20) H Creatinine 2.2 mg/dL (0.6-1.0) H Estimated GFR (Cockcroft-Gault) 21.2 BUN/Creatinine Ratio 19 (6-20) Glucose Level 137 mg/dL (70-99) H Calcium Level 9.0 mg/dL (8.5-10.1) Total Bilirubin 0.3 mg/dL (0.2-1.0) Aspartate Amino Transferase (AST) 21 U/L (15-37) Alanine Aminotransferase (ALT) 19 U/L (14-59) Alkaline Phosphatase 73 U/L (46-116) Creatine Kinase 249 U/L (26-192) H Total Protein 7.7 g/dL (6.4-8.2) Albumin 3.3 g/dL (3.4-5.0) L Albumin/Globulin Ratio 0.8 (1.0-1.7) L EKG EKG 18:08 ECG NSR @ 62 with LVH, poor R wave progression and T wave changes Radiology/Procedures Radiology/[place] [address] IMAGING REPORT Signed PATIENT: YUNIOR GUIDO V ACCOUNT: [id number] : 1930 LOCATION: ER AGE: 87 SEX: F EXAM STATUS: REG ER ORD. PHYSICIAN: JUDSON JONES MD REASON: Right LE weakness, headache, chills PROCEDURE: CT HEAD WO CONTRAST PQRS Compliance statement: One or more of the following individualized dose reduction techniques were utilized for this examination: 1. Automated exposure control. 2. Adjustment of the mA and/or kV according to patient size. 3. Use of iterative reconstruction technique. Indication:Right LE weakness, headache, chills TECHNIQUE: CT head without IV contrast COMPARISON:06/08/2017 FINDINGS: No pathologic extra-axial or intra-axial fluid collection. Mild diffuse cerebral atrophy with ex vacuo dilation of the ventricles. The basal cisterns are within normal limits. Confluent low-attenuation is seen in the periventricular and deep white matter. No acute intracranial bleed. No focal loss of lugo-white differentiation. Orbits within normal limits. No suspicious calvarial lesions. Visualized paranasal sinuses and mastoid air cells are clear. IMPRESSION: 1. No acute intracranial process. If concern for acute ischemic stroke is high, please consider MRI brain. 2. Advanced white matter changes likely secondary to chronic microvascular ischemic disease. Electronically signed by: Vince Robb DO (04/19/2018 7:43 PM) [facility] DICTATED AND SIGNED BY: VINCE ROBB DO DATE: 04/19/181939 CC: CALIN ESPINOSA MD; JUDSON JONES MD ~ Course & Med Decision Making Course & Med Decision Making Emergency Department course Patient presents with elevated blood pressure and RLE neuropathy DDx- hypertensive emergency, CVA, TIA, dehydration, electrolyte abnormality The patient was hypertensive emergency department. She had no complaints. She was ambulatory with assistance. Patient walk with walker. Labs remarkable for elevated BUN/creatinine unchanged from baseline. Head CT showed no acute process. ECG and troponin showed no evidence of acute coronary syndrome. Patient was given her daily blood pressure medications with Norvasc and metoprolol. She had improved BP and was sent home. Patient advised to follow-u with Dr. Espinosa tomorrow for repeat blood pressure testing. Patient was advised to comply with her medication regimen Final Impression Final Impression Clinical Impression Uncontrolled Hypertension Renal Insufficiency Chronic neuropathy Dragon Disclaimer Dragon Disclaimer This electronic medical record was generated, in whole or in part, using a voice recognition dictation system. Departure Departure: Impression: Primary Impression: Uncontrolled hypertension Additional Impressions: Renal insufficiency Chronic neuropathic pain Disposition: HOME, SELF-CARE Condition: STABLE Referrals: CALIN ESPINOSA MD Follow-up tomorrow for further evaluation Patient Instructions: Hypertension, Kidney Failure Additional Instructions: Follow-up with Dr. Espinosa tomorrow for further evaluation and recheck her blood pressure Take your blood pressure medication and other medications as prescribed If you develop pain, shortness of breath, weakness, numbness, lightheadedness return to the emergency department immediately JUDSON JONES MD Apr 19, 2018 18:39
[2018-04-19 18:54] LABS: BILIRUBIN,URINE NEG (NEG); CLARITY,URINE CLEAR; COLOR,URINE STRAW; GLUCOSE,URINE NEG (NEG)
[2018-04-19 18:55] LABS: BACTERIA,URINE 0 /HPF (0-FEW); NITRITE,URINE NEG (NEG); RBC,URINE OCC /HPF (0-2); SQUAMOUS EPITHELIAL CELL,UR OCC /LPF; UROBILINOGEN,URINE 0.2 mg/dL (0.2 mg/dL); WBC,URINE RARE /HPF (0-4)
[2018-04-19] MEDS ORDERED: amLODIPine BESYLATE 5 MG TABLET PO ONE (19:15)
[2018-04-19 19:20] LABS: BASO # 0.1 x10^3/uL (0.0-0.2); BASO % 1 % (0-3); EOS # 0.3 x10^3/uL (0.0-0.7); EOS % 4 % (0-3); HEMATOCRIT 37.3 % (36.0-47.0); HEMOGLOBIN 12.6 g/dL (12.0-15.5); LYMPH # 1.8 x10^3/uL (1.0-4.8); LYMPH % 26 % (24-48); MEAN CORPUSCULAR HEMOGLOBIN 30 pg (25-35); MEAN CORPUSCULAR HGB CONC 34 g/dL (31-37); MEAN CORPUSCULAR VOLUME 88 fL (79-100); MONO # 0.7 x10^3/uL (0.0-1.1); MONO % 10 % (0-9); NEUT # 4.1 x10^3uL (1.8-7.7); NEUT % 59 % (31-73); PLATELET COUNT 243 x10^3/uL (140-400); RED BLOOD COUNT 4.22 x10^6/uL (3.50-5.40); RED CELL DISTRIBUTION WIDTH 13.6 % (11.5-14.5); WHITE BLOOD COUNT 6.8 x10^3/uL (4.0-11.0)
[2018-04-19 19:26] LABS: ALBUMIN 3.3 g/dL (3.4-5.0); ALBUMIN/GLOBULIN RATIO 0.8 (1.0-1.7); CREATININE 2.2 mg/dL (0.6-1.0); GFR 21.2; POTASSIUM 3.9 mmol/L (3.5-5.1); TOTAL BILIRUBIN 0.3 mg/dL (0.2-1.0); TOTAL PROTEIN 7.7 g/dL (6.4-8.2)
--- NOTE | 2018-04-19 19:46 | RAD ---
PQRS Compliance statement: One or more of the following individualized dose reduction techniques were utilized for this examination: 1. Automated exposure control. 2. Adjustment of the mA and/or kV according to patient size. 3. Use of iterative reconstruction technique. Indication:Right LE weakness, headache, chills TECHNIQUE: CT head without IV contrast COMPARISON:06/08/2017 FINDINGS: No pathologic extra-axial or intra-axial fluid collection. Mild diffuse cerebral atrophy with ex vacuo dilation of the ventricles. The basal cisterns are within normal limits. Confluent low-attenuation is seen in the periventricular and deep white matter. No acute intracranial bleed. No focal loss of lugo-white differentiation. Orbits within normal limits. No suspicious calvarial lesions. Visualized paranasal sinuses and mastoid air cells are clear. IMPRESSION: 1. No acute intracranial process. If concern for acute ischemic stroke is high, please consider MRI brain. 2. Advanced white matter changes likely secondary to chronic microvascular ischemic disease. Electronically signed by: Vince Robb DO (04/19/2018 7:43 PM) [facility]
[2018-04-19] MEDS ORDERED: METOPROLOL TART IMMED RELEASE 50 MG TABLET PO ONE (20:45)
[2018-04-19] MEDS ORDERED: METOPROLOL TART IMMED RELEASE 25 MG TABLET PO ONE (21:15)
[2018-04-19 21:29] VITALS: BP 223/96
--- NOTE | 2018-04-19 22:01 | EKG ---
[address] [address] Test Date: 2018-04-19 Test Time: 18:06:53 Pat Name: YUNIOR GUIDO Department: Room: Gender: F Offline Editor: : 1930 Requested By: JUDSON JONES Order Number: [id number] Reading MD: Slim Dalton Measurements Intervals [place] Rate: 62 P: 161 HI: 192 QRS: -24 QRSD: 94 T: 160 QT: 422 QTc: 431 Interpretive Statements SINUS RHYTHM LEFTWARD AXIS LVH WITH REPOLARIZATION ABNORMALITY QRS(T) CONTOUR ABNORMALITY CONSIDER ANTEROSEPTAL MYOCARDIAL DAMAGE ABNORMAL ECG Electronically Signed On 04-21-2018 13:06:53 CDT by Slim Dalton
== END 2018-04-19 21:35 | disposition home or self-care (01) ==
LOC: ER 17:37
DX: I10 Essential (primary) hypertension (principal); N28.9 Disorder of kidney and ureter, unspecified; G62.89 Other specified polyneuropathies; I48.91 Unspecified atrial fibrillation; E11.9 Type 2 diabetes mellitus without complications; K21.9 Gastro-esophageal reflux disease without esophagitis; E78.00 Pure hypercholesterolemia, unspecified; E03.9 Hypothyroidism, unspecified; I25.2 Old myocardial infarction; Z86.73 Personal history of transient ischemic attack (TIA), and cerebral infarction without residual deficits; Z95.1 Presence of aortocoronary bypass graft; Z88.2 Allergy status to sulfonamides; Z88.8 Allergy status to other drugs, medicaments and biological substances
CPT/HCPCS: 36415; 70450; 80053; 81001; 82550; 84484; 85025; 93005; 99285

== ENCOUNTER → 2018-05-08 | Outpatient (CLI) | payer MEDICARE, BC ==
[2018-04-19 21:29] VITALS: BP 223/96
[2018-05-08 17:11] LABS: HEMATOCRIT 33.8 % (36.0-47.0); HEMOGLOBIN 11.4 g/dL (12.0-15.5)
[2018-05-08 17:27] LABS: CALCIUM 8.5 mg/dL (8.5-10.1); CREATININE 2.1 mg/dL (0.6-1.0); GFR 22.4; PHOSPHORUS 4.6 mg/dL (2.6-4.7); POTASSIUM 4.5 mmol/L (3.5-5.1)
[2018-05-09 05:09] LABS: CALCIUM PTH 8.8 mg/dL (8.7-10.3); CREATININE PTH 1.93 mg/dL (0.57-1.00); PTH INTACT 63 pg/mL (15-65)
== END | disposition home or self-care (01) ==
LOC: LAB 16:30
PROVIDERS: ATTEND Internal Medicine Nephrology
DX: I13.0 Hypertensive heart and chronic kidney disease with heart failure and stage 1 through stage 4 chronic kidney disease, or unspecified chronic kidney disease (principal); E11.22 Type 2 diabetes mellitus with diabetic chronic kidney disease; I50.9 Heart failure, unspecified; N18.4 Chronic kidney disease, stage 4 (severe); N04.9 Nephrotic syndrome with unspecified morphologic changes; E87.5 Hyperkalemia; D64.9 Anemia, unspecified; E03.9 Hypothyroidism, unspecified; E78.00 Pure hypercholesterolemia, unspecified; I25.2 Old myocardial infarction; K21.9 Gastro-esophageal reflux disease without esophagitis; E66.9 Obesity, unspecified; N25.81 Secondary hyperparathyroidism of renal origin; E55.9 Vitamin D deficiency, unspecified; Z68.31 Body mass index [BMI] 31.0-31.9, adult; Z86.73 Personal history of transient ischemic attack (TIA), and cerebral infarction without residual deficits; Z68.30 Body mass index [BMI] 30.0-30.9, adult
CPT/HCPCS: 36415; 80069; 82306; 82607; 82728; 83540; 83550; 83735; 83970; 84100; 85014; 85018

== ENCOUNTER → 2018-06-21 | Outpatient (CLI) | payer MEDICARE, BC ==
[2018-06-21 12:50] LABS: HEMATOCRIT 35.4 % (36.0-47.0); HEMOGLOBIN 11.9 g/dL (12.0-15.5)
[2018-06-21 13:17] LABS: ALBUMIN 2.9 g/dL (3.4-5.0); CALCIUM 8.2 mg/dL (8.5-10.1); CREATININE 2.3 mg/dL (0.6-1.0); GFR 20.2; PHOSPHORUS 4.7 mg/dL (2.6-4.7); POTASSIUM 4.3 mmol/L (3.5-5.1)
[2018-06-22 04:22] LABS: CALCIUM PTH 8.4 mg/dL (8.7-10.3); CREATININE PTH 2.09 mg/dL (0.57-1.00); PTH INTACT 116 pg/mL (15-65)
== END | disposition home or self-care (01) ==
LOC: LAB 11:33
PROVIDERS: ATTEND Internal Medicine Nephrology
DX: I12.9 Hypertensive chronic kidney disease with stage 1 through stage 4 chronic kidney disease, or unspecified chronic kidney disease (principal); E11.22 Type 2 diabetes mellitus with diabetic chronic kidney disease; N18.4 Chronic kidney disease, stage 4 (severe); E87.5 Hyperkalemia; D64.9 Anemia, unspecified; N25.81 Secondary hyperparathyroidism of renal origin; E55.9 Vitamin D deficiency, unspecified; Z68.31 Body mass index [BMI] 31.0-31.9, adult
CPT/HCPCS: 36415; 80069; 82306; 82607; 82728; 83540; 83550; 83735; 83970; 85014; 85018

== ENCOUNTER → 2018-09-16 | Outpatient (CLI) | payer MEDICARE, BC ==
[~2018-09-16] MED LIST changes: -GLIP-112 PO; +GLIP10TA24 PO
[2018-09-16 10:33] LABS: BASO # 0.1 x10^3/uL (0.0-0.2); BASO % 1 % (0-3); EOS # 0.4 x10^3/uL (0.0-0.7); EOS % 7 % (0-3); HEMATOCRIT 36.3 % (36.0-47.0); LYMPH # 1.6 x10^3/uL (1.0-4.8); LYMPH % 27 % (24-48); MEAN CORPUSCULAR HEMOGLOBIN 29 pg (25-35); MEAN CORPUSCULAR HGB CONC 33 g/dL (31-37); MEAN CORPUSCULAR VOLUME 89 fL (79-100); MONO # 0.6 x10^3/uL (0.0-1.1); MONO % 10 % (0-9); NEUT # 3.3 x10^3uL (1.8-7.7); NEUT % 55 % (31-73); PLATELET COUNT 206 x10^3/uL (140-400); RED BLOOD COUNT 4.09 x10^6/uL (3.50-5.40); RED CELL DISTRIBUTION WIDTH 14.3 % (11.5-14.5)
[2018-09-16 10:43] LABS: ALBUMIN 2.9 g/dL (3.4-5.0); ALBUMIN/GLOBULIN RATIO 0.7 (1.0-1.7); CALCIUM 8.5 mg/dL (8.5-10.1); CREATININE 2.3 mg/dL (0.6-1.0); GFR 20.1; MAGNESIUM 2.2 mg/dL (1.8-2.4); POTASSIUM 4.7 mmol/L (3.5-5.1); TOTAL BILIRUBIN 0.2 mg/dL (0.2-1.0); TOTAL PROTEIN 7.3 g/dL (6.4-8.2)
[2018-09-16 22:09] LABS: CALCIUM PTH 8.5 mg/dL (8.7-10.3); PTH INTACT 136 pg/mL (15-65)
[2018-09-17 00:09] LABS: HEMOGLOBIN A1C 7.6 % (4.8-5.6)
== END | disposition home or self-care (01) ==
LOC: LAB 09:46
PROVIDERS: ATTEND Family Medicine
DX: E11.40 Type 2 diabetes mellitus with diabetic neuropathy, unspecified (principal); N25.81 Secondary hyperparathyroidism of renal origin
CPT/HCPCS: 36415; 80053; 80061; 83036; 83735; 83970; 85025

== ENCOUNTER 2018-10-18 19:17 | Inpatient (IN) | payer MEDICARE, BC ==
[~2018-10-18] VITALS: Ht 157.5 cm; Wt 76.2 kg
[~2018-10-18 19:17] MED LIST changes: -AMLO10TA6 PO; +AMLO10TA8 PO
--- NOTE | 2018-10-18 19:38 | PHYS DOC ---
Past History Past Medical History: A-Fib, CVA, Diabetes, GERD, High Cholesterol, Hypertension, Hypothyroid, MS Past Surgical History: Appendectomy, Coronary Bypass Surgery, Hysterectomy, Other Alcohol Use: Rarely Drug Use: None Adult General Chief Complaint Chief Complaint: WEAKNESS/GENERALIZED HPI HPI 88-year-old female presents via EMS with strokelike symptoms. The patient was sitting at her kitchen table eating when her daughter turned and looked at her and noticed that the right side of her face was drooping and the patient was drooling. The only thing the patient noticed was that she had a mouthful of age and could not swallow. The patient also made some strange movements with her right arm with all of her fingers together, but she was able to move all 4 extremities. She was having difficulty speaking even after spitting out the eighth. At the time EMS arrived, the patient's symptoms were getting better. During transport she seemed to go back to baseline. This entire episode started at 1845. The patient feels completely normal now. Her daughter states that her voice sounds normal and she appears to be at baseline. The patient has had a stroke in the past that left her with decreased coordination, but no other focal findings. Patient has been feeling well lately. She denies fever or chills. Review of Systems Review of Systems Constitutional: Denies fever or chills [] Eyes: Denies change in visual acuity, redness, or eye pain [] HENT: Denies nasal congestion or sore throat [] Respiratory: Denies cough or shortness of breath [] Cardiovascular: No additional information not addressed in HPI [] GI: Denies abdominal pain, nausea, vomiting, bloody stools or diarrhea [] : Denies dysuria or hematuria [] Musculoskeletal: Denies back pain or joint pain [] Integument: Denies rash or skin lesions [] Neurologic: Denies headache. Facial droop, slurred speech [] Endocrine: Denies polyuria or polydipsia [] All other systems were reviewed and found to be within normal limits, except as documented in this note. Allergies Allergies Allergies Coded Allergies Type Severity Reaction Last Updated Verified Sulfa (Sulfonamide Antibiotics) Adverse Reaction Intermediate 09/16/14 No captopril Adverse Reaction Intermediate 09/16/14 Yes Physical Exam Physical Exam Constitutional: Well developed, well nourished, no acute distress, non-toxic appearance. [] HENT: Normocephalic, atraumatic, bilateral external ears normal, oropharynx moist, no oral exudates, nose normal. [] Eyes: PERRLA, EOMI, conjunctiva normal, no discharge. [] Neck: Normal range of motion, no tenderness, supple, no stridor. [] Cardiovascular:Heart rate regular rhythm, no murmur [] Lungs & Thorax: Bilateral breath sounds clear to auscultation [] Abdomen: Bowel sounds normal, soft, no tenderness, no masses, no pulsatile masses. [] Skin: Warm, dry, no erythema, no rash. [] Back: No tenderness, no CVA tenderness. [] Extremities: No tenderness, no cyanosis, no clubbing, ROM intact, no edema. [] Neurologic: Alert and oriented X 3, normal motor function, normal sensory function, no focal deficits noted. [] Psychologic: Affect normal, judgement normal, mood normal. [] Current Patient Data Vital Signs Vital Signs Date Time Temp Pulse Resp B/P (MAP) Pulse Ox O2 Delivery O2 Flow Rate FiO2 10/18/18 19:24 98.2 72 18 96 Room Air EKG EKG Sinus rhythm, rate 65, normal axis, no ST elevations or depressions.[] Radiology/Procedures Radiology/Procedures [] Impressions: PQRS Compliance statement: One or more of the following individualized dose reduction techniques were utilized for this examination: 1. Automated exposure control. 2. Adjustment of the mA and/or kV according to patient size. 3. Use of iterative reconstruction technique. Indication:RIGHT SIDED FACIAL DROOPING, MENTAL STATUS CHANGES TECHNIQUE: CT head without IV contrast COMPARISON:04/19/2018 FINDINGS: No pathologic extra-axial or intra-axial fluid collection. Stable ventriculomegaly. No acute intracranial bleed. The basal cisterns are within normal limits. Confluent low-attenuation is seen in the periventricular and deep white matter. No focal loss of lugo-white differentiation. Visualized orbits within normal limits. No suspicious bony lesion. Visualized paranasal sinuses and mastoid air cells are clear. IMPRESSION: 1. No acute intracranial bleed. 2. Advanced white matter changes likely secondary to chronic microvascular ischemic disease. If concern for acute ischemic stroke is high, please consider MRI brain. Electronically signed by: Vince Robb DO (10/18/2018 8:19 PM) [facility] DICTATED AND SIGNED BY: VINCE ROBB DO DATE: 10/18/182016 CC: CALIN MA MD; BRANDAN ALMONTE DO PROCEDURE: CHEST AP ONLY CLINICAL INDICATION: RIGHT SIDED FACIAL DROOPING, MENTAL STATUS CHANGES COMPARISON: 01/05/2018 FINDINGS: CABG changes noted. No pneumothorax identified. Cardiac and mediastinal contours unremarkable. No pulmonary consolidation or acute airspace disease. No acute osseous abnormalities identified. IMPRESSION: No pulmonary consolidation or acute airspace disease. Electronically signed by: Vince Robb DO (10/18/2018 8:42 PM) [facility] DICTATED AND SIGNED BY: VINCE ROBB DO DATE: 10/18/182040 CC: CALIN MA MD; BRANDAN ALMONTE DO Course & Med Decision Making Course & Med Decision Making Pertinent Labs and Imaging studies reviewed. (See chart for details) On arrival the patient's NIH score was 0. She does not have any findings at this time. Her labs and workup are pending. Asians head CT is negative for acute findings. Labs are unremarkable. Her chest x-ray is negative for acute findings. I discussed the patient with Dr. Diaz and he has accepted the patient for further observation and workup. [] Dragon Disclaimer Dragon Disclaimer This electronic medical record was generated, in whole or in part, using a voice recognition dictation system. Departure Departure: Impression: Primary Impression: TIA (transient ischemic attack) Disposition: ADMITTED INPATIENT Admitting Physician: Sofia Diaz Condition: STABLE Referrals: CALIN MA MD (PCP) BRANDAN ALMONTE DO Oct 18, 2018 19:38
[2018-10-18 19:40] LABS: BASO # 0.1 x10^3/uL (0.0-0.2); BASO % 1 % (0-3); EOS # 0.4 x10^3/uL (0.0-0.7); EOS % 6 % (0-3); HEMATOCRIT 35.4 % (36.0-47.0); LYMPH # 1.7 x10^3/uL (1.0-4.8); LYMPH % 28 % (24-48); MEAN CORPUSCULAR HEMOGLOBIN 31 pg (25-35); MEAN CORPUSCULAR HGB CONC 34 g/dL (31-37); MEAN CORPUSCULAR VOLUME 91 fL (79-100); MONO # 0.6 x10^3/uL (0.0-1.1); MONO % 10 % (0-9); NEUT # 3.3 x10^3uL (1.8-7.7); NEUT % 55 % (31-73); PLATELET COUNT 228 x10^3/uL (140-400); RED BLOOD COUNT 3.91 x10^6/uL (3.50-5.40); WHITE BLOOD COUNT 5.9 x10^3/uL (4.0-11.0)
[2018-10-18 19:53] LABS: ALBUMIN 2.9 g/dL (3.4-5.0); ALBUMIN/GLOBULIN RATIO 0.8 (1.0-1.7); CALCIUM 8.3 mg/dL (8.5-10.1); CREATININE 2.3 mg/dL (0.6-1.0); GFR 20.1; POTASSIUM 4.6 mmol/L (3.5-5.1); TOTAL BILIRUBIN 0.2 mg/dL (0.2-1.0); TOTAL PROTEIN 6.5 g/dL (6.4-8.2)
--- NOTE | 2018-10-18 20:22 | RAD ---
PQRS Compliance statement: One or more of the following individualized dose reduction techniques were utilized for this examination: 1. Automated exposure control. 2. Adjustment of the mA and/or kV according to patient size. 3. Use of iterative reconstruction technique. Indication:RIGHT SIDED FACIAL DROOPING, MENTAL STATUS CHANGES TECHNIQUE: CT head without IV contrast COMPARISON:04/19/2018 FINDINGS: No pathologic extra-axial or intra-axial fluid collection. Stable ventriculomegaly. No acute intracranial bleed. The basal cisterns are within normal limits. Confluent low-attenuation is seen in the periventricular and deep white matter. No focal loss of lugo-white differentiation. Visualized orbits within normal limits. No suspicious bony lesion. Visualized paranasal sinuses and mastoid air cells are clear. IMPRESSION: 1. No acute intracranial bleed. 2. Advanced white matter changes likely secondary to chronic microvascular ischemic disease. If concern for acute ischemic stroke is high, please consider MRI brain. Electronically signed by: Vince Robb DO (10/18/2018 8:19 PM) [facility]
[2018-10-18 20:45] LABS: BILIRUBIN,URINE NEG (NEG); CLARITY,URINE CLOUDY; COLOR,URINE YELLOW; GLUCOSE,URINE NEG (NEG); UROBILINOGEN,URINE 0.2 mg/dL (0.2 mg/dL)
--- NOTE | 2018-10-18 20:45 | RAD ---
PROCEDURE: CHEST AP ONLY CLINICAL INDICATION: RIGHT SIDED FACIAL DROOPING, MENTAL STATUS CHANGES COMPARISON: 01/05/2018 FINDINGS: CABG changes noted. No pneumothorax identified. Cardiac and mediastinal contours unremarkable. No pulmonary consolidation or acute airspace disease. No acute osseous abnormalities identified. IMPRESSION: No pulmonary consolidation or acute airspace disease. Electronically signed by: Vince Robb DO (10/18/2018 8:42 PM) [facility]
[2018-10-18 20:46] LABS: BACTERIA,URINE MANY /HPF (0-FEW); NITRITE,URINE NEG (NEG); SQUAMOUS EPITHELIAL CELL,UR MOD /LPF; WBC,URINE 20-40 /HPF (0-4)
[2018-10-18] MEDS ORDERED: ONDANSETRON PF 4 MG/2 ML VIAL. IV PRN (21:00)
[2018-10-18 22:09] VITALS: BP 150/70
[2018-10-18] MEDS ORDERED: DOCUSATE SODIUM 100 MG CAPSULE PO PRN (22:30)
[2018-10-18] MEDS ORDERED: SIMV20TA3 PO (23:12)
[2018-10-18] MEDS ORDERED: GABA600T7 PO (23:12)
[2018-10-18] MEDS ORDERED: DOXA4TAB3 PO (23:12)
[2018-10-18] MEDS ORDERED: ERGO500027 PO (23:12)
[2018-10-18] MEDS ORDERED: POLY17PO5 PO (23:12)
[2018-10-18] MEDS ORDERED: HYDR-2868 PO (23:12)
[2018-10-18] MEDS ORDERED: APIX2.5T PO (23:12)
[2018-10-18] MEDS ORDERED: DOCU-109 PO (23:12)
[2018-10-18] MEDS ORDERED: METO-247 PO (23:12)
[2018-10-18] MEDS ORDERED: MECL25TA3 PO (23:12)
[2018-10-18] MEDS ORDERED: GABA300C8 PO (23:12)
[2018-10-18] MEDS ORDERED: MECLIZINE 12.5 MG TABLET. PO PRN (23:30)
[2018-10-18] MEDS: METOPROLOL SUCC 24HR ER 50 MG TAB.ER.24H. PO SCH (23:43)
[2018-10-18] MEDS: APIXABAN 2.5 MG TABLET PO SCH (23:43)
[2018-10-19] MEDS ORDERED: POLYETHYLENE GLYCOL 3350 17 GM PACKET. PO PRN
[2018-10-19] MEDS ORDERED: GABAPENTIN 300 MG CAPSULE. PO SCH
[2018-10-19] MEDS ORDERED: INSULIN GLARGINE 300 UNITS/3 ML INSULN.PEN. SQ SCH
[2018-10-19] MEDS ORDERED: SIMVASTATIN 20 MG TABLET PO SCH
[2018-10-19] MEDS ORDERED: hydrALAZINE 25 MG TABLET PO PRN
[2018-10-19] MEDS ORDERED: ANTI-COAG MONITOR BY PHARMACY. MC PRN (00:15)
[2018-10-19 04:46] VITALS: BP 176/63
[2018-10-19] MEDS ORDERED: LEVOTHYROXINE 125 MCG TABLET PO SCH (06:00)
[2018-10-19 06:50] LABS: ALBUMIN 2.6 g/dL (3.4-5.0); ALBUMIN/GLOBULIN RATIO 0.7 (1.0-1.7); CALCIUM 8.4 mg/dL (8.5-10.1); CREATININE 2.2 mg/dL (0.6-1.0); GFR 21.2; POTASSIUM 4.3 mmol/L (3.5-5.1); TOTAL BILIRUBIN 0.2 mg/dL (0.2-1.0); TOTAL PROTEIN 6.4 g/dL (6.4-8.2)
[2018-10-19 06:51] LABS: BASO # 0.1 x10^3/uL (0.0-0.2); BASO % 2 % (0-3); EOS # 0.3 x10^3/uL (0.0-0.7); EOS % 6 % (0-3); HEMATOCRIT 32.6 % (36.0-47.0); HEMOGLOBIN 11.1 g/dL (12.0-15.5); LYMPH # 1.6 x10^3/uL (1.0-4.8); LYMPH % 32 % (24-48); MEAN CORPUSCULAR HEMOGLOBIN 31 pg (25-35); MEAN CORPUSCULAR HGB CONC 34 g/dL (31-37); MEAN CORPUSCULAR VOLUME 90 fL (79-100); MONO # 0.6 x10^3/uL (0.0-1.1); MONO % 11 % (0-9); NEUT # 2.4 x10^3uL (1.8-7.7); NEUT % 49 % (31-73); PLATELET COUNT 192 x10^3/uL (140-400); RED BLOOD COUNT 3.61 x10^6/uL (3.50-5.40); WHITE BLOOD COUNT 4.9 x10^3/uL (4.0-11.0)
[2018-10-19] MEDS: INSULIN LISPRO 300 UNITS/3 ML INSULN.PEN. SQ SCH ×3 (07:54→17:07)
[2018-10-19] MEDS ORDERED: NON FORMULARY ITEM (Gabapentin 300 MG) PO SCH (08:00)
[2018-10-19] MEDS ORDERED: FUROSEMIDE 20 MG TABLET PO SCH (09:00)
[2018-10-19] MEDS ORDERED: amLODIPine BESYLATE 10 MG TABLET PO SCH (09:00)
[2018-10-19] MEDS ORDERED: CLOPIDOGREL BISULFATE 75 MG TABLET PO SCH (09:00)
[2018-10-19] MEDS ORDERED: LOSARTAN 50 MG TABLET. PO SCH (09:00)
[2018-10-19] MEDS ORDERED: DOXAZOSIN MESYLATE 4 MG TABLET PO SCH (09:00)
[2018-10-19] MEDS: APIXABAN 2.5 MG TABLET PO SCH (09:22)
[2018-10-19] MEDS: METOPROLOL SUCC 24HR ER 50 MG TAB.ER.24H. PO SCH (09:23)
[2018-10-19 11:17] VITALS: BP 164/68
--- NOTE | 2018-10-19 12:02 | HP ---
ADMIT DATE: 10/18/2018 HISTORY OF PRESENT ILLNESS: The patient is an 88-year-old female patient, who came to the Emergency Room with stroke-like symptom. The patient was sitting at her kitchen table eating when her daughter there and looked at her noted that her right side of her face was drooping. The patient was drooling. The only thing the patient noticed was that she had a mouthful of egg that she could not swallow. The patient also made some strange movements with her right arm and with all of her fingers together and she was able to move all her extremities. She was having difficulty speaking even after spitting out the eggs. At that time, EMS arrived, the patient's symptom was getting better. During transport, she seemed to go back to baseline. This entire episode started at 1845. The patient feels completely normal by the time she arrived to the Emergency Room. Her daughter stated that her voice sounds normal and she appears to be at baseline. The patient had strokes in the past that left her with decreased coordination, but no other focal finding. She was extensively investigated in the Emergency Room. She has had a CT scan done, which showed no acute intracranial bleed, advanced white matter changes, likely secondary to chronic microvascular ischemic disease. She has had a chest x-ray, which showed no pneumothorax, cardiac and mediastinal contours unremarkable. The patient was admitted with possible transient ischemic attack. We will arrange for her to have check her fasting lipid profile as well as check the carotid Doppler and consult Dr. Mejia. PAST MEDICAL HISTORY: Significant for type 2 diabetes mellitus, hypertension, hyperlipidemia, and coronary artery disease, status post coronary artery bypass graft surgery in 2000. She had PCI with stent deployment in 2009 and 2016. She has chronic kidney disease, hypothyroidism, TIAs and osteoarthritis. She also has deafness, chronic constipation and urinary incontinence. PAST SURGICAL HISTORY: Significant for coronary artery bypass graft surgery and stent deployment, bilateral cataract extraction, total abdominal hysterectomy, bilateral salpingo-oophorectomy, appendectomy as well as colonoscopy. ALLERGIES: She is allergic to Capoten. MEDICATIONS: She is currently on following medications: She is on apixaban 2.5 mg twice a day, Plavix 75 mg once a day, simvastatin 20 mg p.o. at bedtime, hydralazine 25 mg 3 times a day, doxazosin 4 mg daily, metoprolol succinate 100 mg twice a day, amlodipine besylate 10 mg daily, olmesartan medoxomil for Benicar 40 mg once a day, gabapentin 300 mg 3 times a day, gabapentin 600 mg at bedtime. She is on furosemide 20 mg daily, Colace 100 mg twice a day, polyethylene glycol 17 grams daily p.r.n. for constipation. She is on meclizine 25 mg 3 times a day. She is on Lantus insulin 20 units at bedtime, Humalog insulin 4-12 units before meals. She is on levothyroxine sodium 125 mcg once a day, vitamin D for ergocalciferol 50,000 units p.o. weekly. REVIEW OF SYSTEMS: The patient has had bilateral cataract extraction, but denied any glaucoma or macular degeneration. She is deaf in her ears. Denied any nosebleeds, stuffy nose or postnasal drip. Denied any sore throat, sore tongue, toothache, hoarseness of voice or difficulty swallowing. Denied any nausea, vomiting, or diarrhea, but did complain that she has chronic constipation. Denied any hematemesis, melena or hematochezia. Denied any dysuria, frequency or hematuria. Denied any chest pain, shortness of breath, orthopnea, or paroxysmal nocturnal dyspnea. Denied any cough, phlegm or hemoptysis. Denied any chills, rigors, or fever. Denied any dizziness, lightheadedness, or vertigo. PHYSICAL EXAMINATION: GENERAL: On arrival to the Emergency Room, the patient looked pale. No jaundice, cyanosis, or thyromegaly. No jugular venous distension. No lower limb edema. VITAL SIGNS: Her heart rate was 72, blood pressure was 121/75, temperature was 96.2, respiratory rate was 18 and oxygen saturation was 96% on room air. HEAD, EYES, EARS, NOSE, and THROAT: Showed normocephalic, atraumatic. NECK: Supple. HEART: Showed normal first and second heart sounds. No gallop, rub or murmur. CHEST: Clear to auscultation. No crepitation or rhonchi. ABDOMEN: Distended, soft, and nontender. No guarding or rigidity. No organomegaly. Hernial orifice intact. Bowel sounds normal. NEUROLOGIC: She was apparently awake, alert, responding appropriately. All her symptoms according to the ER physician have largely subsided and she has no obvious neurological deficits. LABORATORY DATA: Her EKG showed that she was in sinus rhythm with a heart rate of 65 beats per minute, with no ST segment elevation or depression. Her chest x-ray showed that no pulmonary consolidation or acute airspace disease and CT scan of the head showed no acute intracranial bleed. ASSESSMENT AND PLAN: The patient was admitted with transient ischemic attack as on arrival, her [place] of Health score was only 0. She was not having any finding at that time. Her labs and workup were unremarkable and her CT scan was negative. We will continue with all her medication. We will consult Dr. Mejia. We will arrange for her to have bilateral carotid Doppler as well as fasting lipid profile and decide the further management accordingly. We will also consult PT, OT and speech therapy. JAIRO GRANT MD DR: ANGEL/ludmila JOB#: [id number] / [id number]
[2018-10-19 15:23] VITALS: BP 152/67
--- NOTE | 2018-10-19 18:18 | RAD ---
DOPPLER CAROTID BILAT Clinical Indication: RIGHT FACIAL DROOP. Procedure: Pulsed wave and color-flow duplex imaging was utilized to evaluate the extracranial carotid arteries. Comparison: None. Findings: RIGHT SIDE: Moderate atherosclerotic plaque on lugo-scale images. Distal CCA peak systolic velocity 67 cm/sec. ICA peak systolic velocity 128 cm/sec. The right ICA/CCA ratio is 2.0. Flow within the right vertebral artery and right ECA is directed antegrade. Mildly elevated velocity seen in the ECA. LEFT SIDE: Moderate atherosclerotic plaque on lugo-scale images. Distal CCA peak systolic velocity 69 cm/sec. ICA peak systolic velocity 103 cm/sec. The left ICA/CCA ratio is 1.5. Flow within the left vertebral artery and left ECA is directed antegrade. Mildly elevated velocity seen in the ECA. Carotid legend: CCA = common carotid artery ICA = internal carotid artery ECA = external carotid artery IMPRESSION: 1. Moderate bilateral atherosclerotic disease with approximately 50-69 percent stenosis in the right ICA. Less than 50 percent stenosis in the left ICA. Electronically signed by: Vicne Robb DO (10/19/2018 6:16 PM) [facility]
--- NOTE | 2018-10-20 02:34 | CONS ---
DATE OF CONSULTATION: 10/18/2018 NEUROLOGY CONSULTATION REFERRING PHYSICIAN: Sofia Diaz MD REASON FOR CONSULTATION: Rule out stroke versus TIA. HISTORY OF PRESENT ILLNESS: This is an 88-year-old right-handed female who was admitted through Emergency Room after she presented with a sudden onset of right facial drooping and right upper extremity weakness associated with fine movements of the right hand. The symptoms started around 6:45 p.m. yesterday and lasted approximately 10-15 minutes. The patient was sitting at the dinner table and her mouth was full of food when the episode started. She spilled all her food out. The patient did recall the event. She was somewhat confused and disoriented. She denies any chest pain, shortness of breath or palpitation. Her speech was a little bit dysarthric at that time. The daughter activated EMS, but when the paramedics arrived, the symptoms had completely resolved. Currently, the patient denies any other medical or neurological complaints; however, she has had intermittent numbness and paresthesia of the lower extremities, more prominent on the right side. Initial nonenhanced head CT scan revealed no evidence of acute intracranial process, but shows chronic small vessel ischemic changes. PAST MEDICAL HISTORY: Past medical history significant for stroke 10 year ago and possible new TIAs a few months ago. The patient had multiple medical problems that include atrial fibrillation, coronary artery disease, diabetes mellitus, GERD, hyperlipidemia, hypertension and hypothyroidism. PAST SURGICAL HISTORY: Significant for appendectomy, coronary artery bypass graft, and hysterectomy. SOCIAL HISTORY: The patient lives with her daughter. She denies smoking, alcohol drinking, or illicit drug use. CURRENT HOME MEDICATIONS: Vitamin D, losartan 100 mg daily, Cardura 4 mg daily, amlodipine 10 mg p.o. daily, furosemide 20 mg daily, Plavix 75 mg daily, insulin, levothyroxine 125 mcg daily, simvastatin 20 mg daily, metoprolol 100 mg b.i.d., hydralazine 25 mg t.i.d., gabapentin 600 mg at bedtime, Eliquis 2.5 mg b.i.d., meclizine 25 mg t.i.d. ALLERGIES: SULFA DRUGS. REVIEW OF SYSTEMS: A 10-point review of systems as mentioned above was performed as mentioned above in history of present illness, otherwise unremarkable. PHYSICAL EXAMINATION: GENERAL: A well-developed, well-nourished female, not in acute distress. She weighs 168 pounds, height 62 inches. VITAL SIGNS: Blood pressure 176/63, respiratory rate 55, oxygen saturation is 94% on room air and temperature 98.1 with respiratory rate of 20. HEENT: Normocephalic, atraumatic, otherwise unremarkable. NECK: Supple. Negative for carotid bruit, lymphadenopathy or thyromegaly. LUNGS: Clear to A and P. CARDIOVASCULAR: Regular rhythm, normal S1, S2, without murmur. ABDOMEN: Soft. Bowel sounds positive. EXTREMITIES: Negative for cyanosis, clubbing or edema. NEUROLOGICAL EXAM: Mental Status: The patient is alert and oriented x 3. Speech is fluent. There is no language dysfunction. Memory, judgment, and abstracting thinking are fair. The patient denies hallucination or delusion. CRANIAL NERVES: Visual nelson are full. The pupils are reactive to light and accommodation. The extraocular movements are intact. There is no nystagmus. There is no facial motor or sensory deficit. Hearing is intact bilaterally. The palate is elevated symmetrically. Sternocleidomastoid muscles are powerful bilaterally. The patient shrugs her shoulders symmetrically, protrudes her tongue in the midline without fasciculation or atrophy. MOTOR: No focal muscle bulk was seen. The strength was 4/5 throughout. Sensory examination revealed diminished pinprick and light touch senses in patchy distributions in both lower extremities. Deep tendon reflexes were symmetric and hypoactive with absent Achilles responses bilaterally. Gait: The stance is steady; however, the patient sometimes uses a walker for ambulation. LABORATORY DATA: CBC revealed white blood cells of 4.9 thousand, hemoglobin 11.1, hematocrit 32.6, platelet count 192,000. Chemistry revealed sodium of 142, potassium 4.3, chloride 108, CO2 of 26, BUN 38, creatinine 2.2, glucose 126, calcium 8.4. Troponin level is normal and albumin level is low at 2.6. Urinalysis is consistent with urinary tract infections with white blood cells of 20-40 and trace urine leukocyte esterase. DIAGNOSTIC: Initial nonenhanced head CT scan revealed no acute intracranial process, but shows chronic small vessel ischemic changes and chest x-ray revealed no evidence of acute cardiopulmonary process. IMPRESSION: 1. Acute onset of right facial drooping and upper extremity paresis with abnormal movements, lasted 10-15 minutes, rule out transient ischemic attack and rule out focal seizure. 2. Multiple medical problems include multiple risks of stroke as diabetes mellitus, hypertension, hyperlipidemia, age, and recurrent transient ischemic attack along with coronary artery disease. 3. 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 RECOMMENDATIONS: 1. We will continue with current management and home medications. 2. To obtain previous carotid Doppler study if it has been done in the last 6 months. Otherwise, if it is not available, we will obtain a new carotid Doppler study. 3. Physical therapy evaluation. 4. We will arrange for EEG/EMG/nerve conduction study of the lower extremities to rule out peripheral neuropathy and seizure. M Bret CISNEROS MD DR: ELISA/ludmila JOB#: [id number] / [id number]
--- NOTE | 2018-10-20 16:34 | DS ---
DATE OF DISCHARGE: 10/19/2018 HOSPITAL COURSE: The patient is an 88-year-old female patient who presented to the Emergency Room with sudden onset of right facial drooping, right upper extremity weakness ____ movement of her right hand. Her symptoms started around 6:45 p.m., lasted approximately 10-15 minutes. The patient was sitting at the dinner table and her mouth was full of food. When the emesis started, she spilled all of her food out. She did recall these events and she was somewhat confused and disoriented. Her speech was also dysarthric. Her daughter called the emergency medical service, but when the center director arrived, her symptom had completely resolved and the patient was seen and evaluated in the Emergency Room. Her CT scan was unremarkable. Her CT scan was done which showed no acute intracranial bleed, advanced white matter changes likely secondary to chronic microvascular ischemic disease. Her chest x-ray showed no pneumothorax. Cardiac and mediastinal contours unremarkable. The patient was admitted for possible transient ischemic attack. We have arranged for her to check her fasting lipid profile, carotid Doppler and consulted Dr. Mejia. By the time I saw her, obviously her symptoms are completely subsided. Her lab work showed that her triglycerides were 107, total cholesterol 195, LDL was 119, VLDL was 21, and HDL cholesterol 55, ratio was 3. She did have a bilateral carotid Doppler, which showed that the patient has moderate bilateral atherosclerotic disease with approximately 50-69% stenosis in the right internal carotid artery, less than 50% stenosis in the left internal carotid artery. Her neurological status was back to normal and in consultation with Dr. Mejia, the patient was discharged home to continue on her Plavix as well as her apixaban 2.5 mg twice a day. PHYSICAL EXAMINATION: GENERAL: When she was discharged home, she looked well and was clearly in no apparent respiratory failure. VITAL SIGNS: Her heart rate was 95, blood pressure was 152/67, temperature was 98.2, respiratory rate 20 and oxygen saturation was 93%. HEENT: Examination of the head, eyes, ears, nose and throat showed normocephalic, atraumatic. NECK: Supple. HEART: Showed normal first and second heart sounds. No gallop, rub or murmur. CHEST: Clear to auscultation. No crepitation or rhonchi. ABDOMEN: Distended, soft, nontender. NEUROLOGIC: She is awake, alert, responding appropriately. All her cranial nerves are intact. EXTREMITIES: She moves extremities without difficulty. She ambulates without assistance or assistive devices. DISCHARGE MEDICATIONS: The patient was discharged home to continue on her apixaban 2.5 mg twice a day, Plavix 75 mg once a day, simvastatin 20 mg at bedtime, hydralazine 25 mg 3 times a day, doxazosin mesylate 4 mg daily, metoprolol succinate 100 mg twice a day, amlodipine 10 mg once a day, olmesartan medoxomil 40 mg once a day, gabapentin 300 mg 3 times a day, gabapentin 600 mg at bedtime, furosemide 20 mg daily, and docusate sodium 100 mg daily. She was also discharged on MiraLax 17 grams daily as needed for constipation, meclizine 25 mg 3 times a day, Lantus insulin 20 units at bedtime and NovoLog insulin 42 units, levothyroxine 125 mcg once a day, and ergocalciferol 50,000 international units once a week. FINAL DISCHARGE DIAGNOSES: 1. Transient ischemic attack, resolved. 2. Type 2 diabetes mellitus. 3. Hypertension. 4. Hyperlipidemia. 5. Coronary artery disease, status post coronary bypass graft surgery as well as percutaneous coronary intervention with stent deployment, chronic kidney disease, hypothyroidism, transient ischemic attack as well as chronic constipation. JAIRO GRANT MD DR: ANGEL/ludmila JOB#: [id number] / [id number]
--- NOTE | 2018-10-20 21:43 | EKG ---
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
[2018-10-25] MEDS ORDERED: CHOLECALCIFEROL (VITAMIN D3) 50,000 UNIT CAPSULE PO SCH (09:00)
== END 2018-10-19 18:59 | disposition home or self-care (01) | DRG 69 ==
LOC: ER 19:17 → 1 SOUTH 21:00 → ER 21:34
PROVIDERS: ADMIT Internal Medicine; ATTEND Internal Medicine
DX: G45.9 Transient cerebral ischemic attack, unspecified (principal); N18.4 Chronic kidney disease, stage 4 (severe); E03.9 Hypothyroidism, unspecified; E11.22 Type 2 diabetes mellitus with diabetic chronic kidney disease; E78.00 Pure hypercholesterolemia, unspecified; E78.5 Hyperlipidemia, unspecified; H91.90 Unspecified hearing loss, unspecified ear; I12.9 Hypertensive chronic kidney disease with stage 1 through stage 4 chronic kidney disease, or unspecified chronic kidney disease; I25.10 Atherosclerotic heart disease of native coronary artery without angina pectoris; I48.91 Unspecified atrial fibrillation; K21.9 Gastro-esophageal reflux disease without esophagitis; Z79.01 Long term (current) use of anticoagulants; Z79.02 Long term (current) use of antithrombotics/antiplatelets; Z79.890 Hormone replacement therapy; Z79.4 Long term (current) use of insulin; M19.90 Unspecified osteoarthritis, unspecified site; Z79.899 Other long term (current) drug therapy; Z86.73 Personal history of transient ischemic attack (TIA), and cerebral infarction without residual deficits; Z90.49 Acquired absence of other specified parts of digestive tract; Z90.710 Acquired absence of both cervix and uterus; Z95.1 Presence of aortocoronary bypass graft; Z98.41 Cataract extraction status, right eye; Z98.42 Cataract extraction status, left eye; K59.09 Other constipation
CPT/HCPCS: 36415; 70450; 71045; 80053; 80061; 81001; 82947; 84484; 85025; 87086; 87186; 93005; 93880; J1815; 92610

== ENCOUNTER 2019-05-01 16:15 | Inpatient (IN) | payer MEDICARE, BC ==
[~2019-05-01] VITALS: Ht 157.5 cm; Wt 75.3 kg
[~2019-05-01 16:15] MED LIST changes: +APIX2.5T PO; +DOCU-109 PO; +ERGO500027 PO; -EZET10TA18 PO; +EZET10TA20 PO; +GABA300C8 PO; +GABA600T7 PO; +HYDR-2868 PO; +METO-247 PO; +POLY17PO5 PO; +SIMV20TA3 PO
[2019-05-01 17:16] LABS: BASO # 0.1 x10^3/uL (0.0-0.2); BASO % 1 % (0-3); EOS # 0.5 x10^3/uL (0.0-0.7); EOS % 6 % (0-3); HEMOGLOBIN 12.2 g/dL (12.0-15.5); LYMPH # 1.7 x10^3/uL (1.0-4.8); LYMPH % 21 % (24-48); MEAN CORPUSCULAR HEMOGLOBIN 29 pg (25-35); MEAN CORPUSCULAR HGB CONC 33 g/dL (31-37); MEAN CORPUSCULAR VOLUME 89 fL (79-100); MONO # 0.7 x10^3/uL (0.0-1.1); MONO % 9 % (0-9); NEUT # 5.1 x10^3uL (1.8-7.7); NEUT % 63 % (31-73); PLATELET COUNT 281 x10^3/uL (140-400); RED BLOOD COUNT 4.16 x10^6/uL (3.50-5.40); RED CELL DISTRIBUTION WIDTH 14.8 % (11.5-14.5)
--- NOTE | 2019-05-01 17:17 | RAD ---
Exam: CT head INDICATION: Weakness, history of A. fib, intermittent word difficulty TECHNIQUE: Sequential axial images through the head were obtained without the administration of IV contrast. Comparisons: 10/18/2018 FINDINGS: No focal parenchymal lesion or hemorrhage is identified. There is no midline shift or sulcal effacement. Since patchy hypodensity within the periventricular and subcortical white matter bilaterally which appears similar when compared to the prior exam. No acute vascular territory infarction is identified. [place]-white distinction is preserved. The ventricular system is within normal limits without compression hydrocephalus. The basal cisterns are well maintained. The visualized portions of the paranasal sinuses and mastoid air cells are well-pneumatized. No acute fractures. IMPRESSION: Extensive Chronic small vessel ischemic change which appears similar when compared to prior exam however given heavy burden of disease if there is concern for acute ischemia MRI should be performed. Exposure: One or more of the following in the visualized dose reduction techniques were utilized for this examination: 1. Automated exposure control 2. Adjustment of the MA and/or KV according to patient size Use of iterative of reconstructive technique Electronically signed by: Justice Tomlin MD (05/01/2019 5:14 PM) [facility]
--- NOTE | 2019-05-01 17:22 | PHYS DOC ---
Past History Past Medical History: A-Fib, CVA, Diabetes, GERD, High Cholesterol, Hypertension, Hypothyroid, [place] Past Surgical History: Appendectomy, Coronary Bypass Surgery, Hysterectomy, Other Alcohol Use: Rarely Drug Use: None Adult General Chief Complaint Chief Complaint: FATIGUE HPI HPI 88 yo female presents to [facility] ER with complaints of weakness, falling to one side. Patient has a history of afib, chronic anticoagulation, HTN, TIA. Previous admission in September for similar thing. She denies nausea, vomiting, chest pain, or SOB. She does describe gait disturbance, falling to the left. Dizzyiness at times. Review of Systems Review of Systems Constitutional: Denies fever or chills [] Respiratory: Denies cough or shortness of breath [] Cardiovascular: No additional information not addressed in HPI [] GI: Denies abdominal pain, nausea, vomiting, bloody stools or diarrhea [] Musculoskeletal: Denies back pain or joint pain [] Integument: Denies rash or skin lesions [] Neurologic: Denies headache, focal weakness or sensory changes, gait disturbance, general weakness All other systems were reviewed and found to be within normal limits, except as documented in this note. Allergies Allergies Allergies Coded Allergies Type Severity Reaction Last Updated Verified I S O L A T I O N *CONTACT* Allergy Unknown 10/23/18 Yes Sulfa (Sulfonamide Antibiotics) Adverse Reaction Intermediate 09/16/14 No captopril Adverse Reaction Intermediate 09/16/14 Yes Physical Exam Physical Exam Constitutional: Well developed, well nourished, no acute distress, non-toxic appearance. [] HENT: Normocephalic, atraumatic, bilateral external ears normal, oropharynx moist, no oral exudates, nose normal. [] Eyes: PERRLA, EOMI, conjunctiva normal, no discharge. [] Neck: Normal range of motion, no tenderness, supple, no stridor. [] Cardiovascular:Heart rate regular rhythm, no murmur [] Lungs & Thorax: Bilateral breath sounds clear to auscultation [] Abdomen: Bowel sounds normal, soft, no tenderness, no masses, no pulsatile masses. [] Skin: Warm, dry, no erythema, no rash. [] Back: No tenderness, no CVA tenderness. [] Extremities: No tenderness, no cyanosis, no clubbing, ROM intact, no edema. [] Neurologic: Alert and oriented X 3, normal motor function, normal sensory function, no focal deficits noted. [] Psychologic: Affect normal, judgement normal, mood normal. [] Current Patient Data Vital Signs Blood Pressure Assessment Label 229/79 * Mean 129 Blood Pressure Systolic * 229 mm Hg (100-140) H Blood Pressure Diastolic * 79 mm Hg (60-100) Pulse Rate * 57 beats per minute (60-90) L Bedside Pulse Oximetry * 95 % Lab Results Laboratory Tests Test 05/01/19 16:45 White Blood Count 8.0 x10^3/uL (4.0-11.0) Red Blood Count 4.16 x10^6/uL (3.50-5.40) Hemoglobin 12.2 g/dL (12.0-15.5) Hematocrit 37.0 % (36.0-47.0) Mean Corpuscular Volume 89 fL (79-100) Mean Corpuscular Hemoglobin 29 pg (25-35) Mean Corpuscular Hemoglobin Concent 33 g/dL (31-37) Red Cell Distribution Width 14.8 % (11.5-14.5) H Platelet Count 281 x10^3/uL (140-400) Neutrophils (%) (Auto) 63 % (31-73) Lymphocytes (%) (Auto) 21 % (24-48) L Monocytes (%) (Auto) 9 % (0-9) Eosinophils (%) (Auto) 6 % (0-3) H Basophils (%) (Auto) 1 % (0-3) Neutrophils # (Auto) 5.1 x10^3uL (1.8-7.7) Lymphocytes # (Auto) 1.7 x10^3/uL (1.0-4.8) Monocytes # (Auto) 0.7 x10^3/uL (0.0-1.1) Eosinophils # (Auto) 0.5 x10^3/uL (0.0-0.7) Basophils # (Auto) 0.1 x10^3/uL (0.0-0.2) EKG EKG EKG reviewed, 1654 with NSR, LVH, normal axis, no changes as compared to previous[] Radiology/Procedures Radiology/Procedures [address] [address] IMAGING REPORT Signed PATIENT: YUNIOR GUIDO V ACCOUNT: [id number] : 1930 LOCATION: ER AGE: 88 SEX: F EXAM STATUS: REG ER ORD. PHYSICIAN: LILIA GARCIA MD REASON: weakness, history of afib, intermittent word difficulty PROCEDURE: CT HEAD WO CONTRAST Exam: CT head INDICATION: Weakness, history of A. fib, intermittent word difficulty TECHNIQUE: Sequential axial images through the head were obtained without the administration of IV contrast. Comparisons: 10/18/2018 FINDINGS: No focal parenchymal lesion or hemorrhage is identified. There is no midline shift or sulcal effacement. Since patchy hypodensity within the periventricular and subcortical white matter bilaterally which appears similar when compared to the prior exam. No acute vascular territory infarction is identified. [place]-white distinction is preserved. The ventricular system is within normal limits without compression hydrocephalus. The basal cisterns are well maintained. The visualized portions of the paranasal sinuses and mastoid air cells are well-pneumatized. No acute fractures. IMPRESSION: Extensive Chronic small vessel ischemic change which appears similar when compared to prior exam however given heavy burden of disease if there is concern for acute ischemia MRI should be performed. Exposure: One or more of the following in the visualized dose reduction techniques were utilized for this examination: 1. Automated exposure control 2. Adjustment of the MA and/or KV according to patient size Use of iterative of reconstructive technique Electronically signed by: Justice Patel MD (05/01/2019 5:14 PM) [facility] DICTATED AND SIGNED BY: JUSTICE PATEL MD DATE: 05/01/19 1714 CC: CALIN MA MD; LILIA GARCIA MD ~ [] Course & Med Decision Making Course & Med Decision Making Pertinent Labs and Imaging studies reviewed. (See chart for details) [] Dragon Disclaimer Dragon Disclaimer This electronic medical record was generated, in whole or in part, using a voice recognition dictation system. Departure Departure: Impression: Primary Impression: Gait disturbance Additional Impressions: Weakness Chronic renal insufficiency Disposition: ADMITTED INPATIENT Admitting Physician: Sofia Diaz Condition: STABLE Referrals: CALIN MA MD (PCP) NIHSS - ED NIH Stroke Scale: NIH Stroke Scale Response (Comments) Value Level of Consciousness: 0 Alert/Responsive 0 LOC Questions: 0 Answers both correctly 0 LOC Commands: 0 Performs both tasks 0 Best Gaze: 0 Normal 0 Visual: 0 No visual loss 0 Facial Palsy: 0 Normal, symmetrical 0 Motor - Left Arm 1 Drifts, but can hold 1 Motor - Right Arm 0 No drift 0 Motor - Left Leg 0 No drift 0 Motor: Right Leg 0 No drift 0 Limb Ataxia: 1 One limb 1 Sensory: 0 No loss 0 Best Language: 0 Normal 0 Dysathria: 0 Normal 0 Extinction and Inattention: 0 Normal 0 Total 2 Problem Qualifiers Additional Impressions: Chronic renal insufficiency Chronic kidney disease stage: stage 3 (moderate) Qualified Codes: N18.3 - Chronic kidney disease, stage 3 (moderate) LILIA GARCIA MD May 01, 2019 17:22
[2019-05-01 17:29] LABS: ALBUMIN 2.5 g/dL (3.4-5.0); ALBUMIN/GLOBULIN RATIO 0.6 (1.0-1.7); CALCIUM 8.2 mg/dL (8.5-10.1); CREATININE 2.6 mg/dL (0.6-1.0); GFR 17.5; POTASSIUM 4.3 mmol/L (3.5-5.1); TOTAL BILIRUBIN 0.2 mg/dL (0.2-1.0); TOTAL PROTEIN 6.8 g/dL (6.4-8.2)
[2019-05-01] MEDS ORDERED: ONDANSETRON PF 4 MG/2 ML VIAL. IV PRN (18:00)
[2019-05-01] MEDS ORDERED: hydrALAZINE 20 MG/ML VIAL. IV ONE (18:15)
[2019-05-01 20:05] VITALS: BP 227/108
[2019-05-01 20:45] VITALS: BP 217/71
[2019-05-01] MEDS ORDERED: POLYETHYLENE GLYCOL 3350 17 GM PACKET. PO PRN (20:45)
[2019-05-01] MEDS ORDERED: DOCUSATE SODIUM 100 MG CAPSULE PO PRN (20:45)
[2019-05-01] MEDS ORDERED: hydrALAZINE 25 MG TABLET PO PRN (20:45)
[2019-05-01] MEDS ORDERED: DONE5TAB7 PO (21:14)
[2019-05-01] MEDS ORDERED: HYDR30CR30 TOP (21:14)
[2019-05-01 21:15] VITALS: BP 225/92
[2019-05-01] MEDS ORDERED: METOPROLOL SUCC 24HR ER 50 MG TAB.ER.24H. PO SCH (21:30)
[2019-05-01 21:33] LABS: BACTERIA,URINE FEW /HPF (0-FEW); BILIRUBIN,URINE NEG (NEG); CLARITY,URINE CLEAR; GLUCOSE,URINE 100 mg/dL (NEG); NITRITE,URINE NEG (NEG); RBC,URINE 0 /HPF (0-2); SQUAMOUS EPITHELIAL CELL,UR OCC /LPF; UROBILINOGEN,URINE 0.2 mg/dL (0.2 mg/dL)
[2019-05-01 21:34] LABS: COLOR,URINE YELLOW
[2019-05-01] MEDS: DONEPEZIL HCL 5 MG TABLET. PO SCH (21:51)
[2019-05-01] MEDS: APIXABAN 2.5 MG TABLET PO SCH (21:51)
[2019-05-01] MEDS: GABAPENTIN 300 MG CAPSULE. PO SCH (21:52)
[2019-05-01] MEDS: amLODIPine BESYLATE 10 MG TABLET PO SCH (21:53)
[2019-05-01] MEDS: SIMVASTATIN 20 MG TABLET PO SCH (21:53)
[2019-05-01] MEDS: MECLIZINE 12.5 MG TABLET. PO PRN (21:53)
[2019-05-01] MEDS: INSULIN GLARGINE SYRINGE. SQ SCH (21:56)
[2019-05-01 22:00] VITALS: BP 202/92
[2019-05-01] MEDS ORDERED: DEXTROSE 50% 25 GM / 50ML DISP.SYRIN. IV PRN (22:15)
[2019-05-01 23:00] VITALS: BP 252/128
[2019-05-01] MEDS: hydrALAZINE 20 MG/ML VIAL. IV PRN (23:05)
[2019-05-01 23:25] VITALS: BP 153/61
[2019-05-02] VITALS (15 sets, daily range): BP systolic 96–218; BP diastolic 43–87
[2019-05-02] MEDS: hydrALAZINE 20 MG/ML VIAL. IV PRN (04:21)
[2019-05-02] MEDS: LEVOTHYROXINE 125 MCG TABLET PO SCH (05:32)
--- NOTE | 2019-05-02 06:50 | EKG ---
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
[2019-05-02 07:03] LABS: BASO # 0.1 x10^3/uL (0.0-0.2); BASO % 2 % (0-3); EOS # 0.5 x10^3/uL (0.0-0.7); EOS % 7 % (0-3); HEMATOCRIT 38.2 % (36.0-47.0); HEMOGLOBIN 12.5 g/dL (12.0-15.5); LYMPH # 1.9 x10^3/uL (1.0-4.8); LYMPH % 26 % (24-48); MEAN CORPUSCULAR HEMOGLOBIN 29 pg (25-35); MEAN CORPUSCULAR HGB CONC 33 g/dL (31-37); MEAN CORPUSCULAR VOLUME 89 fL (79-100); MONO # 0.7 x10^3/uL (0.0-1.1); MONO % 9 % (0-9); NEUT # 4.2 x10^3uL (1.8-7.7); NEUT % 57 % (31-73); PLATELET COUNT 294 x10^3/uL (140-400); WHITE BLOOD COUNT 7.4 x10^3/uL (4.0-11.0)
[2019-05-02 07:29] LABS: ALBUMIN 2.4 g/dL (3.4-5.0); ALBUMIN/GLOBULIN RATIO 0.6 (1.0-1.7); CALCIUM 8.4 mg/dL (8.5-10.1); CREATININE 2.6 mg/dL (0.6-1.0); GFR 17.5; POTASSIUM 3.8 mmol/L (3.5-5.1); TOTAL BILIRUBIN 0.3 mg/dL (0.2-1.0); TOTAL PROTEIN 6.7 g/dL (6.4-8.2)
[2019-05-02] MEDS ORDERED: NON FORMULARY ITEM (Insulin Lispro (Humalog) 0 UNIT) SQ SCH (08:00)
[2019-05-02] MEDS: INSULIN LISPRO 300 UNITS/3 ML VIAL. SQ SCH ×3 (08:00→17:36)
--- NOTE | 2019-05-02 08:49 | PDOC2 ---
CARDIAC CONSULT DATE OF CONSULT Date Of Consult DATE: 05/02/19 TIME: 08:46 REASON FOR CONSULT Reason for Consult Hypertension R/o TIA REFERRING PHYSICIAN Referring Physician Dr. Diaz SOURCE Source: Chart review, Patient HPI History of Present Illness This is an 88 yo female, with a history of AFIB, HTN, CVA, and TIA, who presented secondary to dizziness and weakness. Patient reports symptoms began yesterday. Began having significant dizziness and was lead to the left with ambulation. [place] weak in her lower extremity. Symptoms persisted so she came to the ED for further evaluation and treatment. Denies any shortness of breath, chest pain, palpitations, or nausea/vomiting. Is feeling better this morning. Follows with [facility]iology, Dr. Mejia PAST MEDICAL HISTORY Cardiovascular: AFIB, CAD, HTN, hyperipidemia CENTRAL NERVOUS SYSTEM: CVA, Periperal neuropathy, TIA GI: GERD Musculoskeletal: Osteoarthritis Renal/: Chronic renal insuff Endocrine: Diabetes, Hypothyroidism PAST SURGICAL HISTORY Past Surgical History: Appendectomy, CABG, Hysterectomy FAMILY HISTORY Family History: Cancer, Coronary Artery Disease, Diabetes, Hypertension SOCIAL HISTORY Smoke: No ALCOHOL: none Drugs: None Lives: with Family CURRENT MEDICATIONS Current Medications Current Medications Ondansetron HCl (Zofran) 4 mg PRN Q4HRS PRN IV NAUSEA/VOMITING; Start 05/01/19 at 18:00; Stop 05/02/19 at 17:59 Hydralazine HCl (Apresoline) 10 mg 1X ONCE IV Last administered on 05/01/19at 18:47; Start 05/01/19 at 18:15; Stop 05/01/19 at 18:16; Status DC Hydralazine HCl (Apresoline) 10 mg PRN Q4HRS PRN IV ELEVATED BP, SEE COMMENTS Last administered on 05/02/19at 04:21; Start 05/01/19 at 20:45 Amlodipine Besylate (Norvasc) 10 mg DAILY PO Last administered on 05/01/19at 21:59; Start 05/01/19 at 21:30 Apixaban (Eliquis) 2.5 mg BID PO Last administered on 05/01/19at 21:59; Start 05/01/19 at 21:30 Clopidogrel Bisulfate (Plavix) 75 mg DAILY PO ; Start 05/02/19 at 09:00 Docusate Sodium (Colace) 100 mg PRN DAILY PRN PO CONSTIPATION; Start 05/01/19 at 20:45 Donepezil HCl (Aricept) 5 mg HS PO Last administered on 05/01/19at 21:59; Start 05/01/19 at 21:30 Doxazosin Mesylate (Cardura) 4 mg DAILY PO ; Start 05/02/19 at 09:00 Furosemide (Lasix) 20 mg DAILY PO ; Start 05/02/19 at 09:00 Gabapentin (Neurontin) 300 mg TIDWMEALS PO ; Start 05/02/19 at 08:00 Hydralazine HCl (Apresoline) 25 mg PRN TID PRN PO Hypertension BP above 180 Last administered on 05/01/19 21:59; Start 05/01/19 at 20:45 Levothyroxine Sodium (Synthroid) 125 mcg DAILY06 PO Last administered on 05/02/19at 05:32; Start 05/02/19 at 06:00 Polyethylene Glycol (miraLAX) 17 gm PRN DAILY PRN PO CONSTIPATION; Start 05/01/19 at 20:45 Simvastatin (Zocor) 20 mg HS PO Last administered on 05/01/19at 21:59; Start 05/01/19 at 21:30 Vitamin D (Vitamin D3) 50,000 unit WEEKLY PO ; Start 05/07/19 at 09:00 Gabapentin (Neurontin) 600 mg QHS PO Last administered on 05/01/19at 21:59; Start 05/01/19 at 21:30 Non-Formulary Medication (Hydrocortisone/ Pramoxine (Hydrocort-Pramoxine 1%-1% Crm)) 1 bianca PRN TID PRN TOP Rectal pain; Start 05/01/19 at 20:45; Status UNV Insulin Glargine (Lantus Syringe) 20 unit QHS SQ Last administered on 05/01/19at 21:59; Start 05/01/19 at 21:30 Meclizine HCl (Antivert) 25 mg PRN TID PRN PO DIZZINESS Last administered on 05/01/19 21:59; Start 05/01/19 at 21:45 Metoprolol Succinate (Toprol Xl) 100 mg BID PO ; Start 05/01/19 at 21:30 Losartan Potassium (Cozaar) 100 mg DAILY PO ; Start 05/02/19 at 09:00 Non-Formulary Medication (Insulin Lispro (Humalog)) Blood sugar ra... TIDWMEALS SQ ; Start 05/02/19 at 08:00; Status UNV Insulin Human Lispro (HumaLOG) 0-7 UNITS TIDWMEALS SQ ; Start 05/02/19 at 08:00 Dextrose (Dextrose 50%-Water Syringe) 12.5 gm PRN Q15MIN PRN IV SEE COMMENTS; Start 05/01/19 at 22:15 Active Scripts Active Reported Hydrocort-Pramoxine 1%-1% Crm (Hydrocortisone/Pramoxine) 30 Gm Cream.appl 1 Bianca TOP PRN TID PRN LAST DOSE GIVEN: DATE: TIME: NEXT DOSE DUE: DATE: TIME: Donepezil Hcl 5 Mg Tablet 5 Mg PO HS LAST DOSE GIVEN: DATE: TIME: NEXT DOSE DUE: DATE: TIME: Vitamin D2 (Ergocalciferol (Vitamin D2)) 50,000 Unit Capsule 50,000 Unit PO WEEKLY LAST DOSE GIVEN: DATE: TIME: NEXT DOSE DUE: DATE: TIME: Colace (Docusate Sodium) 100 Mg Capsule 100 Mg PO PRN DAILY PRN LAST DOSE GIVEN: DATE: TIME: NEXT DOSE DUE: DATE: TIME: Miralax (Polyethylene Glycol 3350) 17 Gm Powd.pack 17 Gm PO PRN DAILY PRN LAST DOSE GIVEN: DATE: TIME: NEXT DOSE DUE: DATE: TIME: Gabapentin 600 Mg Tablet 600 Mg PO HS LAST DOSE GIVEN: DATE: TIME: NEXT DOSE DUE: DATE: TIME: Gabapentin 300 Mg Capsule 300 Mg PO TIDWMEALS LAST DOSE GIVEN: DATE: TIME: NEXT DOSE DUE: DATE: TIME: Hydralazine Hcl 25 Mg Tablet 25 Mg PO PRN TID PRN LAST DOSE GIVEN: DATE: TIME: NEXT DOSE DUE: DATE: TIME: Meclizine Hcl 25 Mg Tablet 25 Mg PO PRN TID LAST DOSE GIVEN: DATE: TIME: NEXT DOSE DUE: DATE: TIME: Simvastatin 20 Mg Tablet 20 Mg PO HS LAST DOSE GIVEN: DATE: TIME: NEXT DOSE DUE: DATE: TIME: Doxazosin Mesylate 4 Mg Tablet 4 Mg PO DAILY LAST DOSE GIVEN: DATE: TIME: NEXT DOSE DUE: DATE: TIME: Metoprolol Succinate ( Xl ) (Metoprolol Succinate) 100 Mg Tab.er.24h 100 Mg PO BID LAST DOSE GIVEN: DATE: TIME: NEXT DOSE DUE: DATE: TIME: Eliquis (Apixaban) 2.5 Mg Tablet 2.5 Mg PO BID LAST DOSE GIVEN: DATE: TIME: NEXT DOSE DUE: DATE: TIME: Furosemide 20 Mg Tablet 20 Mg PO DAILY LAST DOSE GIVEN: DATE: TIME: NEXT DOSE DUE: DATE: TIME: Humalog (Insulin Lispro) 100 Unit/1 Ml Cartridge 4-12 Unit SQ TIDWMEALS LAST DOSE GIVEN: DATE: TIME: NEXT DOSE DUE: DATE: TIME: Clopidogrel (Clopidogrel Bisulfate) 75 Mg Tablet 75 Mg PO DAILY LAST DOSE GIVEN: DATE: TIME: NEXT DOSE DUE: DATE: TIME: Lantus Solostar (Insulin Glargine,Hum.rec.anlog) 100 Unit/1 Ml Insuln.pen 20 Unit SQ QHS LAST DOSE GIVEN: DATE: TIME: NEXT DOSE DUE: DATE: TIME: Amlodipine Besylate 10 Mg Tablet 10 Tab PO DAILY LAST DOSE GIVEN: DATE: TIME: NEXT DOSE DUE: DATE: TIME: Benicar (Olmesartan Medoxomil) 40 Mg Tablet 40 Mg PO DAILY Levothyroxine Sodium 125 Mcg Tablet 125 Mcg PO DAILY LAST DOSE GIVEN: DATE: TIME: NEXT DOSE DUE: DATE: TIME: ALLERGIES Allergies: Coded Allergies: I S O L A T I O N *CONTACT* (Verified Allergy, Unknown, 10/23/18) ESBL Sulfa (Sulfonamide Antibiotics) (Unverified Adverse Reaction, Int ermediate, 09/16/14) captopril (Verified Adverse Reaction, Intermediate, 09/16/14) ROS Review of Systems 14 point ROS conducted with pertinent positives noted above in HPI. PHYSICAL EXAM General: Alert, Oriented X3, Cooperative, No acute distress HEENT: Atraumatic, Mucous membr. moist/pink Lungs: Clear to auscultation, Normal air movement Heart: Regular rate, Normal S1, Normal S2, Other (2/6 systolic murmur ) Abdomen: Soft, No tenderness Extremities: No edema, Normal pulses Neuro: Normal speech, Sensation intact Psych/Mental Status: Mental status NL, Mood NL MUSCULOSKELETAL: Osteoarthritic changes both hands VITALS Vital Signs Vital Signs Date Time Temp Pulse Resp B/P (MAP) Pulse Ox O2 Delivery O2 Flow Rate FiO2 05/02/19 06:05 57 20 183/87 (119) 94 Room Air 05/02/19 05:10 98.1 LABS LABS Laboratory Tests Test 05/01/19 16:45 05/01/19 20:35 05/01/19 21:30 05/02/19 05:50 White Blood Count 8.0 x10^3/uL (4.0-11.0) 7.4 x10^3/uL (4.0-11.0) Red Blood Count 4.16 x10^6/uL (3.50-5.40) 4.30 x10^6/uL (3.50-5.40) Hemoglobin 12.2 g/dL (12.0-15.5) 12.5 g/dL (12.0-15.5) Hematocrit 37.0 % (36.0-47.0) 38.2 % (36.0-47.0) Mean Corpuscular Volume 89 fL (79-100) 89 fL (79-100) Mean Corpuscular Hemoglobin 29 pg (25-35) 29 pg (25-35) Mean Corpuscular Hemoglobin Concent 33 g/dL (31-37) 33 g/dL (31-37) Red Cell Distribution Width 14.8 % (11.5-14.5) 15.0 % (11.5-14.5) Platelet Count 281 x10^3/uL (140-400) 294 x10^3/uL (140-400) Neutrophils (%) (Auto) 63 % (31-73) 57 % (31-73) Lymphocytes (%) (Auto) 21 % (24-48) 26 % (24-48) Monocytes (%) (Auto) 9 % (0-9) 9 % (0-9) Eosinophils (%) (Auto) 6 % (0-3) 7 % (0-3) Basophils (%) (Auto) 1 % (0-3) 2 % (0-3) Neutrophils # (Auto) 5.1 x10^3uL (1.8-7.7) 4.2 x10^3uL (1.8-7.7) Lymphocytes # (Auto) 1.7 x10^3/uL (1.0-4.8) 1.9 x10^3/uL (1.0-4.8) Monocytes # (Auto) 0.7 x10^3/uL (0.0-1.1) 0.7 x10^3/uL (0.0-1.1) Eosinophils # (Auto) 0.5 x10^3/uL (0.0-0.7) 0.5 x10^3/uL (0.0-0.7) Basophils # (Auto) 0.1 x10^3/uL (0.0-0.2) 0.1 x10^3/uL (0.0-0.2) Sodium Level 138 mmol/L (136-145) 140 mmol/L (136-145) Potassium Level 4.3 mmol/L (3.5-5.1) 3.8 mmol/L (3.5-5.1) Chloride Level 103 mmol/L (98-107) 105 mmol/L (98-107) Carbon Dioxide Level 24 mmol/L (21-32) 23 mmol/L (21-32) Anion Gap 11 (6-14) 12 (6-14) Blood Urea Nitrogen 28 mg/dL (7-20) 28 mg/dL (7-20) Creatinine 2.6 mg/dL (0.6-1.0) 2.6 mg/dL (0.6-1.0) Estimated GFR (Cockcroft-Gault) 17.5 17.5 BUN/Creatinine Ratio 11 (6-20) 11 (6-20) Glucose Level 250 mg/dL (70-99) 125 mg/dL (70-99) Calcium Level 8.2 mg/dL (8.5-10.1) 8.4 mg/dL (8.5-10.1) Total Bilirubin 0.2 mg/dL (0.2-1.0) 0.3 mg/dL (0.2-1.0) Aspartate Amino Transf (AST/SGOT) 20 U/L (15-37) 19 U/L (15-37) Alanine Aminotransferase (ALT/SGPT) 14 U/L (14-59) 12 U/L (14-59) Alkaline Phosphatase 82 U/L (46-116) 79 U/L (46-116) Total Protein 6.8 g/dL (6.4-8.2) 6.7 g/dL (6.4-8.2) Albumin 2.5 g/dL (3.4-5.0) 2.4 g/dL (3.4-5.0) Albumin/Globulin Ratio 0.6 (1.0-1.7) 0.6 (1.0-1.7) Urine Collection Type Unknown Urine Color Yellow Urine Clarity Clear Urine pH 6.0 Urine Specific [place] 1.025 Urine Protein >100 mg/dl (NEG-TRACE) Urine Glucose (UA) 100 mg/dL (NEG) Urine Ketones (Stick) Neg mg/dL (NEG) Urine Blood Neg (NEG) Urine Nitrite Neg (NEG) Urine Bilirubin Neg (NEG) Urine Urobilinogen Dipstick 0.2 mg/dL (0.2 mg/dL) Urine Leukocyte Esterase Neg (NEG) Urine RBC 0 /HPF (0-2) Urine WBC 1-4 /HPF (0-4) Urine Squamous Epithelial Cells Occ /LPF Urine Bacteria Few /HPF (0-FEW) Urine Mucus Slight /LPF Glucose (Fingerstick) 207 mg/dL (70-99) ECHOCARDIOGRAM Echocardiogram <Conclusion> The left ventricle is normal size. Left ventricle systolic function is normal. The Ejection Fraction is 55-60%. There is borderline concentric left ventricular hypertrophy. The interatrial septum is intact with no evidence for an atrial septal defect or patent foramen ovale as noted on 2-D or Doppler imaging. Technically difficult bubble study shows no interatrial shunt. There is no significant aortic valvular stenosis. Doppler and Color Flow revealed trace aortic regurgitation. Doppler and Color-flow revealed moderate mitral regurgitation. Doppler and Color Flow revealed mild to moderate tricuspid regurgitation. The PA pressure was estimated at 58 mmHg. There is no evidence of significant pericardial effusion. DATE: 01/08/15 1135 ASSESSMENT/PLAN Assessment/Plan 1. ? TIA with h/o CVA. CT head without acute changes 2. PAFIB; maintaining SR/SB. HR lowest 45. Mean 58. No pauses. 3. CAD s/p CABG 2000 and subsequent PCI/stent. Stable. CP free. Follows with [facility]. 4. Accelerated hypertension; remains labile 5. Hyperlipidemia 6. Diabetes, II; as per PCP 7. PUMA on CKD 8. Hypothyroidism Recommendations Lipids Resume home antiHTN therapy Decrease metoprolol due to bradycardia. Add scheduled hydralazine. Consider renal duplex to r/o ROMERO if not previously done. Secondary prevention measures Continue OAC Follow neuro KIN Ceja APRN May 02, 2019 08:49
[2019-05-02] MEDS: APIXABAN 2.5 MG TABLET PO SCH ×2 (09:24→20:41)
[2019-05-02] MEDS: METOPROLOL SUCC 24HR ER 50 MG TAB.ER.24H. PO SCH ×2 (09:24→20:41)
[2019-05-02] MEDS: amLODIPine BESYLATE 10 MG TABLET PO SCH (09:25)
[2019-05-02] MEDS: FUROSEMIDE 20 MG TABLET PO SCH (09:25)
[2019-05-02] MEDS: LOSARTAN 50 MG TABLET. PO SCH (09:25)
[2019-05-02] MEDS: GABAPENTIN 300 MG CAPSULE. PO SCH ×4 (09:25→20:41)
[2019-05-02] MEDS: DOXAZOSIN MESYLATE 4 MG TABLET PO SCH (09:26)
[2019-05-02] MEDS: CLOPIDOGREL BISULFATE 75 MG TABLET PO SCH (09:26)
[2019-05-02] MEDS ORDERED: HYDROCORTISONE RC PRN (10:15)
[2019-05-02] MEDS ORDERED: PRAMOXINE RC PRN (10:15)
[2019-05-02] MEDS ORDERED: ACETAMINOPHEN 325 MG TABLET PO PRN (16:30)
[2019-05-02] MEDS: MECLIZINE 12.5 MG TABLET. PO PRN (16:43)
--- NOTE | 2019-05-02 18:01 | HP ---
ADMIT DATE: 05/01/2019 HISTORY OF PRESENT ILLNESS: The patient is an 88-year-old female patient who came to the Emergency Room complaining of weakness, falling to one side. The patient has a history of AFib on chronic anticoagulation. She stated that she is feeling dizzy and does describe a gait disturbance and falling to the left side, feeling dizzy most of time since last Tuesday. She was evaluated in the Emergency Room. Her EKG showed that she was in normal sinus rhythm, left ventricular hypertrophy, normal axis, no changes compared to previous ones. She has had a CT scan of the head without contrast, which showed that the patient has extensive chronic small vessel ischemic changes which appears similar compared to previous exams. However, given heavy burden of disease, there is concern for acute ischemia. MRI should be performed. Her lab work showed that her impaired kidney function seems to be chronic in nature; however, her white cell count, hemoglobin, hematocrit and platelets are all within normal range. Urinalysis was essentially unremarkable and the patient was admitted with dizziness, gait disturbances, weakness, and chronic renal insufficiency. We did consult Dr. Mejia to assist in her management. PAST MEDICAL HISTORY: Significant for type 2 diabetes mellitus, hypertension, hyperlipidemia, coronary artery disease, status post coronary artery bypass graft surgery in 2000. She did have a PCI with stent deployment in 2009 and 2016. She has chronic kidney disease, hypothyroidism, TIAs, and osteoarthritis. She also has deafness, chronic constipation, and urinary incontinence. PAST SURGICAL HISTORY: Significant for coronary artery bypass graft surgery and stent deployment, bilateral cataract extraction, total abdominal hysterectomy, bilateral salpingo-oophorectomy, appendectomy, as well as colonoscopy. ALLERGIES: She is allergic to CAPOTEN. SOCIAL HISTORY: The patient lives with her daughter. She does not smoke, drink alcohol, or use any recreational drugs. FAMILY HISTORY: Probably noncontributory. MEDICATIONS: She is currently on following medications: She is on Aricept 5 mg at bedtime, apixaban 2.5 mg twice a day, Plavix 75 mg daily, simvastatin 20 mg at bedtime, hydralazine 25 mg 3 times a day, doxazosin mesylate 4 mg daily, metoprolol succinate 100 mg twice a day, amlodipine 10 mg daily, olmesartan, medoxomil 40 mg daily. She is on gabapentin 300 mg 3 times a day with meals and gabapentin 600 mg at bedtime. She is on furosemide 20 mg once a day, Colace 100 mg daily as needed for constipation, MiraLax 17 grams daily as needed for constipation. She is on meclizine 25 mg 3 times a day. She is on Lantus 20 units at bedtime and Humalog insulin 4-12 units subcutaneous 3 times a day with meals. She is on levothyroxine 125 mcg once a day, hydrocortisone/pramoxine cream apply topically 3 times a day, ergocalciferol for vitamin D2 50,000 international unit once a day. PHYSICAL EXAMINATION: GENERAL: On arrival to the Emergency Room, the patient looked pale, not jaundiced, cyanosis or thyromegaly. No jugular venous distention. No lower limb edema. VITAL SIGNS: Her heart rate was 57, blood pressure was 125/66, temperature was 98.4, respiratory rate was 22, and oxygen saturation was 94%. HEAD, EYES, EARS, NOSE, AND THROAT: Normocephalic, atraumatic. NECK: Supple. HEART: Showed normal first and second heart sounds with no gallop, rub, or murmur. CHEST: Clear to auscultation. No crepitation or rhonchi. ABDOMEN: Distended, soft, nontender. No guarding or rigidity. No organomegaly. All hernial orifice intact. Bowel sounds normal. NEUROLOGIC: She is alert, oriented x 3 with normal motor function, no focal deficit. LABORATORY DATA: She was extensively investigated. Her lab work showed that her white cell count was 8000, hemoglobin 12, hematocrit 37, MCV 89, and platelet count 281,000. Her chemistry showed her serum sodium 138, potassium 4.3, chloride 103, bicarbonate 24, anion gap of 11, BUN 28, creatinine 2.6, estimated GFR was 70 mL per minute. Her glucose was 150, calcium was 8.2. Total bilirubin, AST, ALT, alkaline phosphatase were normal. Her total protein was 6.8, albumin was 2.5. Her urinalysis showed the urine was yellow, clear with a pH of 6, specific gravity of 1.025. There was large amount of protein, small amount of glucose, negative for ketones, blood, nitrite, and leukocyte esterase. There are no rbc's, very few wbc's and no bacteria. Her nasal screen for MRSA PCR was negative and her CT scan of the head without contrast showed that the patient has no focal parenchymal lesion or hemorrhage identified. There is no midline shift or sulcal effacement, some patchy hypodensity within the periventricular subcortical white matter bilaterally, which appears similar when compared to prior exam. No acute vascular territory infarction identified. [place] white distinction is preserved. Ventricular system is within normal limits without compression hydrocephalus. The basal cisterns are well maintained. The visualized portion of the paranasal sinuses and mastoid air cells are well normal size, no acute fracture. ASSESSMENT AND PLAN: The patient was admitted with a gait disturbance, weakness, and chronic renal insufficiency currently. On her last admission in September of this year, at that time, we did actually a carotid Doppler ultrasound, which showed that the patient has moderate bilateral atherosclerotic disease with approximately 50-69% stenosis in the right internal carotid artery and less than 50% stenosis in the left internal carotid artery. We will basically resume all her medications. We will consult Dr. Mejia and decide on further management accordingly. JAIRO GRANT MD DR: ANGEL/ludmila JOB#: [id number] / [id number]
[2019-05-02] MEDS: SIMVASTATIN 20 MG TABLET PO SCH (20:40)
[2019-05-02] MEDS: DONEPEZIL HCL 5 MG TABLET. PO SCH (20:41)
[2019-05-02] MEDS: INSULIN GLARGINE SYRINGE. SQ SCH (20:45)
[2019-05-03] VITALS (10 sets, daily range): BP systolic 109–185; BP diastolic 45–83
--- NOTE | 2019-05-03 01:51 | PN ---
DATE: 05/02/2019 SUBJECTIVE: The patient is resting, slightly propped up in bed, in no apparent respiratory distress. She continued to complain of being dizzy since last Tuesday. Apparently when she came to the hospital, she complained of weakness with gait disturbance, tendency to fall to the left side. We did her carotid Doppler last year. She has a 50-70% stenosis of the right internal carotid artery. She apparently did very well this morning and at one point in time, she became completely unresponsive. Blood sugar was within normal range at that time and once she was put back to bed, she became more awake again. She continued to be somewhat confused and disoriented in time and place. PHYSICAL EXAMINATION: GENERAL: When I examined her this afternoon, she looked well and was clearly in no apparent respiratory distress, pale, but no jaundice, cyanosis or thyromegaly. No jugular venous distention. No limb edema. VITAL SIGNS: Her heart rate was 65, blood pressure was 198/58, temperature was 98, respiratory rate was 20, and oxygen saturation was 94% on room air. HEAD, EYES, EARS, NOSE AND THROAT: Showed normocephalic, atraumatic. NECK: Supple. HEART: Showed normal first and second heart sounds. No gallop or murmur. CHEST: Clear to auscultation. No crepitation or rhonchi. ABDOMEN: Distended, soft, nontender. No guarding or rigidity. No organomegaly. All hernial orifice intact. Bowel sounds normal. NEUROLOGIC: She is awake, alert, responding at times appropriately. All her cranial nerves intact. She moves extremities without difficulty. She has some residual left-sided weakness. LABORATORY DATA: Her lab work this morning showed white cell count of 7400, hemoglobin was 12.5, hematocrit 38, MCV 89 and platelet count 294,000. Her serum sodium was 140, potassium 3.8, chloride 105, bicarbonate 23, anion gap of 12, BUN 28, creatinine 2.6, estimated GFR was 17.5 mL. Her glucose was 125, calcium was 8.4. Total bilirubin, AST, ALT, alkaline phosphatase were normal. Total protein 6.7, albumin 2.4. Her serum triglyceride was 125. Total cholesterol was 172, LDL cholesterol 183, VLDL was 25, and HDL cholesterol was 64, ratio was 4. ASSESSMENT: In summary, the patient is coming with weakness, tendency to fall to the left side. She has recurrent TIAs with her CT scan of the head showed no acute changes. Paroxysmal atrial fibrillation; however, she is actually maintaining her sinus rhythm, sinus bradycardia, coronary artery disease, status post coronary artery bypass graft in 2000, subsequent PCI and stent deployment. She is chest pain free, accelerated hypertension, hyperlipidemia, type 2 diabetes, acute on chronic kidney injury, hypothyroidism. PLAN: I will repeat her carotid Doppler ultrasound that she has had narrowing in the range of 50-70 on the right side before. JAIRO GRANT MD DR: ANGEL/ludmila JOB#: [id number] / [id number]
[2019-05-03] MEDS: LEVOTHYROXINE 125 MCG TABLET PO SCH (06:14)
[2019-05-03] MEDS: INSULIN LISPRO 300 UNITS/3 ML VIAL. SQ SCH ×3 (07:51→17:00)
--- NOTE | 2019-05-03 08:21 | PDOC ---
CARDIO Progress Notes Date & Time Date of Service DATE: 05/03/19 TIME: 08:11 Time of Evaluation 08:11 Subjective Notes dizziness improved, but persists intermittently. Not associated with position. Vitals Vitals Vital Signs Date Time Temp Pulse Resp B/P (MAP) Pulse Ox O2 Delivery O2 Flow Rate FiO2 05/03/19 06:12 98.0 62 20 167/55 (92) 95 Room Air Weight Weight [ ] Input and Output I.O. Intake and Output 05/03/19 07:00 Intake Total 920 ml Output Total 400 ml Balance 520 ml Intake Oral 920 ml Output Urine Total 400 ml # Voids 1 Laboratory Labs Laboratory Tests Test 05/01/19 16:45 05/01/19 20:20 05/01/19 20:35 05/01/19 21:30 White Blood Count 8.0 x10^3/uL (4.0-11.0) Red Blood Count 4.16 x10^6/uL (3.50-5.40) Hemoglobin 12.2 g/dL (12.0-15.5) Hematocrit 37.0 % (36.0-47.0) Mean Corpuscular Volume 89 fL (79-100) Mean Corpuscular Hemoglobin 29 pg (25-35) Mean Corpuscular Hemoglobin Concent 33 g/dL (31-37) Red Cell Distribution Width 14.8 % (11.5-14.5) Platelet Count 281 x10^3/uL (140-400) Neutrophils (%) (Auto) 63 % (31-73) Lymphocytes (%) (Auto) 21 % (24-48) Monocytes (%) (Auto) 9 % (0-9) Eosinophils (%) (Auto) 6 % (0-3) Basophils (%) (Auto) 1 % (0-3) Neutrophils # (Auto) 5.1 x10^3uL (1.8-7.7) Lymphocytes # (Auto) 1.7 x10^3/uL (1.0-4.8) Monocytes # (Auto) 0.7 x10^3/uL (0.0-1.1) Eosinophils # (Auto) 0.5 x10^3/uL (0.0-0.7) Basophils # (Auto) 0.1 x10^3/uL (0.0-0.2) Sodium Level 138 mmol/L (136-145) Potassium Level 4.3 mmol/L (3.5-5.1) Chloride Level 103 mmol/L (98-107) Carbon Dioxide Level 24 mmol/L (21-32) Anion Gap 11 (6-14) Blood Urea Nitrogen 28 mg/dL (7-20) Creatinine 2.6 mg/dL (0.6-1.0) Estimated GFR (Cockcroft-Gault) 17.5 BUN/Creatinine Ratio 11 (6-20) Glucose Level 250 mg/dL (70-99) Calcium Level 8.2 mg/dL (8.5-10.1) Total Bilirubin 0.2 mg/dL (0.2-1.0) Aspartate Amino Transf (AST/SGOT) 20 U/L (15-37) Alanine Aminotransferase (ALT/SGPT) 14 U/L (14-59) Alkaline Phosphatase 82 U/L (46-116) Total Protein 6.8 g/dL (6.4-8.2) Albumin 2.5 g/dL (3.4-5.0) Albumin/Globulin Ratio 0.6 (1.0-1.7) Nasal Screen MRSA (PCR) Negative (Negative) Urine Collection Type Unknown Urine Color Yellow Urine Clarity Clear Urine pH 6.0 Urine Specific [place] 1.025 Urine Protein >100 mg/dl (NEG-TRACE) Urine Glucose (UA) 100 mg/dL (NEG) Urine Ketones (Stick) Neg mg/dL (NEG) Urine Blood Neg (NEG) Urine Nitrite Neg (NEG) Urine Bilirubin Neg (NEG) Urine Urobilinogen Dipstick 0.2 mg/dL (0.2 mg/dL) Urine Leukocyte Esterase Neg (NEG) Urine RBC 0 /HPF (0-2) Urine WBC 1-4 /HPF (0-4) Urine Squamous Epithelial Cells Occ /LPF Urine Bacteria Few /HPF (0-FEW) Urine Mucus Slight /LPF Glucose (Fingerstick) 207 mg/dL (70-99) Test 05/02/19 05:50 05/02/19 09:05 05/02/19 12:38 05/02/19 17:29 White Blood Count 7.4 x10^3/uL (4.0-11.0) Red Blood Count 4.30 x10^6/uL (3.50-5.40) Hemoglobin 12.5 g/dL (12.0-15.5) Hematocrit 38.2 % (36.0-47.0) Mean Corpuscular Volume 89 fL (79-100) Mean Corpuscular Hemoglobin 29 pg (25-35) Mean Corpuscular Hemoglobin Concent 33 g/dL (31-37) Red Cell Distribution Width 15.0 % (11.5-14.5) Platelet Count 294 x10^3/uL (140-400) Neutrophils (%) (Auto) 57 % (31-73) Lymphocytes (%) (Auto) 26 % (24-48) Monocytes (%) (Auto) 9 % (0-9) Eosinophils (%) (Auto) 7 % (0-3) Basophils (%) (Auto) 2 % (0-3) Neutrophils # (Auto) 4.2 x10^3uL (1.8-7.7) Lymphocytes # (Auto) 1.9 x10^3/uL (1.0-4.8) Monocytes # (Auto) 0.7 x10^3/uL (0.0-1.1) Eosinophils # (Auto) 0.5 x10^3/uL (0.0-0.7) Basophils # (Auto) 0.1 x10^3/uL (0.0-0.2) Sodium Level 140 mmol/L (136-145) Potassium Level 3.8 mmol/L (3.5-5.1) Chloride Level 105 mmol/L (98-107) Carbon Dioxide Level 23 mmol/L (21-32) Anion Gap 12 (6-14) Blood Urea Nitrogen 28 mg/dL (7-20) Creatinine 2.6 mg/dL (0.6-1.0) Estimated GFR (Cockcroft-Gault) 17.5 BUN/Creatinine Ratio 11 (6-20) Glucose Level 125 mg/dL (70-99) Calcium Level 8.4 mg/dL (8.5-10.1) Total Bilirubin 0.3 mg/dL (0.2-1.0) Aspartate Amino Transf (AST/SGOT) 19 U/L (15-37) Alanine Aminotransferase (ALT/SGPT) 12 U/L (14-59) Alkaline Phosphatase 79 U/L (46-116) Total Protein 6.7 g/dL (6.4-8.2) Albumin 2.4 g/dL (3.4-5.0) Albumin/Globulin Ratio 0.6 (1.0-1.7) Triglycerides Level 125 mg/dL (0-150) Cholesterol Level 272 mg/dL (0-200) LDL Cholesterol, Calculated 183 mg/dL (0-100) VLDL Cholesterol, Calculated 25 mg/dL (0-40) Non-HDL Cholesterol Calculated 208 mg/dL (0-129) HDL Cholesterol 64 mg/dL (40-60) Cholesterol/HDL Ratio 4.0 Glucose (Fingerstick) 121 mg/dL (70-99) 152 mg/dL (70-99) 183 mg/dL (70-99) Test 05/02/19 20:44 05/03/19 07:50 Glucose (Fingerstick) 165 mg/dL (70-99) 132 mg/dL (70-99) Physical Exams HEENT: Neck Supple W Full Motion Chest: Symmetric Lungs: Clear to Auscultation Heart: S1S2, RRR Abdomen: Soft N/T Extremities: No Edema Neurology: alert, oriented, follow commands Assessment Assessment 1. ? TIA with h/o CVA. CT head without acute changes 2. PAFIB; maintaining SR/SB. HR lowest 44. Mean 55-58. No pauses. 3. CAD s/p CABG 2000 and subsequent PCI/stent. Stable. CP free. Follows with [facility] Cardiology. 4. Accelerated hypertension; blood pressure better controlled 5. Hyperlipidemia; LDL 183 6. Diabetes, II; as per PCP 7. PUMA on CKD 8. Hypothyroidism Recommendations Increase hydralazine Decrease metoprolol with ongoing bradycardia Secondary prevention measures Continue OAC Follow neuro recs Consider outpatient event monitor; will defer to primary cardiovascular rn. Follow up with Dr. Mejia within 1-2 weeks upon discharge KIN HENDRICKSON APRN May 03, 2019 08:21
[2019-05-03] MEDS: METOPROLOL SUCC 24HR ER 25 MG TAB.ER.24H. PO SCH ×2 (09:25→20:45)
[2019-05-03] MEDS: amLODIPine BESYLATE 10 MG TABLET PO SCH (09:25)
[2019-05-03] MEDS: DOXAZOSIN MESYLATE 4 MG TABLET PO SCH (09:26)
[2019-05-03] MEDS: APIXABAN 2.5 MG TABLET PO SCH ×2 (09:26→20:45)
[2019-05-03] MEDS: CLOPIDOGREL BISULFATE 75 MG TABLET PO SCH (09:26)
[2019-05-03] MEDS: GABAPENTIN 300 MG CAPSULE. PO SCH ×4 (09:30→20:45)
[2019-05-03] MEDS: MECLIZINE 12.5 MG TABLET. PO PRN (09:30)
[2019-05-03] MEDS: FUROSEMIDE 20 MG TABLET PO SCH (09:30)
[2019-05-03] MEDS: LOSARTAN 50 MG TABLET. PO SCH (09:30)
[2019-05-03 13:18] LABS: CREATININE 3.3 mg/dL (0.6-1.0); GFR 13.3; POTASSIUM 4.7 mmol/L (3.5-5.1)
--- NOTE | 2019-05-03 13:52 | RAD ---
Carotid doppler ultrasound History : Weakness, unsteady gait Multiple grayscale, color, and duplex spectral analysis waveform sonographic images were acquired of the carotid, subclavian, and vertebral arteries. Comparison: 10/19/2018 Findings: RIGHT: PSV cm/sec EDV cm/sec Common carotid artery 64 10 Maximal internal carotid artery 146 24 External carotid artery 256 Vertebral artery 42 ICA/CCA ratio 2.28 LEFT: PSV cm/sec EDV cm/sec Common carotid artery 74 10 Maximum internal carotid artery 141 35 External carotid artery 139 Vertebral artery 35 ICA/CCA ratio 1.91 Velocities used to determine stenosis are known to correlate with NASCET angiographic criteria. There is antegrade flow in the bilateral vertebral arteries. There is moderate plaque of the bilateral carotid bulbs, scattered plaque of the common carotid arteries, also of the proximal internal and external carotid arteries somewhat greater on the left. Impression: 1. There is moderate plaque bilaterally. There is no velocity elevation suggestive of a hemodynamically significant stenosis, velocities of the proximal internal carotid arteries bilaterally which may be seen with 50-69% luminal diameter reduction. Electronically signed by: Rock Pineda MD (05/03/2019 1:49 PM) [facility]
--- NOTE | 2019-05-03 13:55 | RAD ---
RENAL DUPLEX History: Malignant hypertension Comparison: 09/25/2013 renal ultrasound Findings: Multiple grayscale, color, duplex spectral analysis waveform images of the kidneys and region of the renal arteries are submitted. Right renal artery could not be visualized due to bowel gas and patient's body cavernous. Left middle renal artery PSV was estimated at 66 cm/s, distally 20 cm/s. Left RA/AO ratio 0.6. Proximal left renal artery could not be visualized. Left renal resistive index 0.8. Abdominal aortic peak systolic velocity 160 m/s. Right kidney measured 9.2 x 3 x 3.7 cm from the kidney measured 11 x 3.9 x 5.37 m. There is no hydronephrosis of either kidney. There is a hypoechoic lesion of the mid left kidney about 1.5 x 1 x 0.8 cm. Urinary bladder morphology is grossly maintained, poorly evaluated. Impression: 1. Right renal artery could not be visualized, no significant velocity elevation of visualized left renal artery to suggest hemodynamically significant stenosis although proximal left renal artery also could not be visualized. 2. There is no hydronephrosis of either kidney. There is a left renal cyst. Electronically signed by: Rock Pineda MD (05/03/2019 1:52 PM) [facility]
[2019-05-03] MEDS: DONEPEZIL HCL 5 MG TABLET. PO SCH (20:45)
[2019-05-03] MEDS: SIMVASTATIN 20 MG TABLET PO SCH (20:45)
[2019-05-03] MEDS: INSULIN GLARGINE SYRINGE. SQ SCH (20:56)
--- NOTE | 2019-05-03 21:42 | PN ---
DATE: SUBJECTIVE: The patient denies any new medical or neurological complaints. She denies headache, but she continues to have dizziness described as lightheadedness. She denies spinning, nausea, vomiting, chest pain, shortness of breath or palpitation. OBJECTIVE: GENERAL: Well developed, well-nourished female, in no acute distress. VITAL SIGNS: Blood pressure 198/58, respiratory rate 11, pulse is 65 and regular, oxygen saturation is 95% and temperature is 98. HEENT: Normocephalic, atraumatic, otherwise unremarkable. NECK: Supple. Negative for carotid bruit, JVD or thyromegaly. LUNGS: Clear to A and P. CARDIOVASCULAR: Regular rhythm, normal S1, S2. There is no S3, S4 or murmur. ABDOMEN: Soft. Bowel sounds positive. EXTREMITIES: Negative for cyanosis, clubbing or pitting edema. NEUROLOGICAL: The patient is alert and oriented x 3. Speech is fluent. There is no language dysfunction. She recalled 2/3 immediately and 1/3 after 1 and 3 minutes. Judgment and abstract thinking are fair. The patient denies hallucination or delusion. Cranial nerves are intact. No focal motor or sensory deficit. Deep tendon reflexes were asymmetric and hypoactive with absent Achilles responses. Gait not tested. IMPRESSION: 1. Dizziness, described as lightheadedness, no nystagmus and no focal neurological deficit. 2. Multiple medical problems include hypertension, hyperlipidemia, hypothyroidism, osteoarthritis, gait disturbance, chronic kidney disease and possible peripheral neuropathy in the lower extremities. RECOMMENDATION: 1. Continue with current management with meclizine and other home medications. 2. Physical therapy evaluation. M Bret CISNEROS MD DR: ELISA/ludmila JOB#: [id number] / [id number]
--- NOTE | 2019-05-03 22:52 | CONS ---
DATE OF CONSULTATION: 05/02/2019 REFERRING PHYSICIAN: Dr. Diaz. REASON FOR CONSULTATION: Generalized weakness and dizziness. HISTORY OF PRESENT ILLNESS: This is an 88-year-old right-handed female who was admitted through Emergency Room after she presented with 3-4 days history of intermittent dizziness described as lightheadedness. She denies nausea, headaches, vomiting, chest pain, shortness of breath or palpitation. The patient has recently noticed increased weakness, had weakness of the lower extremities and tendency to fall to the left side. She has not had any fall recently. The patient has a walker, but she has not been using it. Initial nonenhanced head CT scan revealed evidence of extensive chronic small vessel ischemic changes, otherwise unremarkable. The patient denies any bowel or bladder dysfunctions. PAST MEDICAL HISTORY: Significant for diabetes mellitus type 2, hyperlipidemia, hypertension, coronary artery disease, status post coronary artery bypass graft, status post stent placement in 2009 and 2016, chronic kidney disease, hypothyroidism, osteoarthritis. The patient has history of TIA as well. PAST SURGICAL HISTORY: As described above. Additionally, she has hysterectomy, appendectomy and bilateral cataract extraction. SOCIAL HISTORY: The patient lives with her daughter. She denies smoking, alcohol drinking, or illicit drug use. FAMILY HISTORY: Noncontributory. CURRENT MEDICATIONS: Include vitamin D3, metoprolol, hydralazine, Tylenol, losartan, furosemide, Plavix, insulin, meclizine, gabapentin, simvastatin, donepezil, Eliquis, amlodipine, hydralazine. ALLERGIES: SULFA DRUGS, CAPTOPRIL. REVIEW OF SYSTEMS: A 10-point review of system was performed as mentioned above in history of present illness, otherwise unremarkable. PHYSICAL EXAMINATION: GENERAL: Well-developed, well-nourished female, not in acute distress. She weighs 71.9 kilos. VITAL SIGNS: Blood pressure 198/58, respiratory rate 11, pulse is 66 and regular, oxygen saturation is 95% on room air. HEENT: Normocephalic, atraumatic, otherwise unremarkable. NECK: Supple. Negative for carotid bruit, lymphadenopathy or thyromegaly. LUNGS: Clear to A and P. CARDIOVASCULAR: Regular rhythm, normal S1, S2. ABDOMEN: Soft. Bowel sounds positive. EXTREMITIES: Negative for cyanosis, clubbing, pitting edema. NEUROLOGICAL EXAMINATION: 1. MENTAL STATUS: The patient is alert and oriented x 2. The speech is fluent. There is no language dysfunction. The patient recalls 2/3 immediately and 1/3 after 1 and 3 minutes. Judgment and abstracting thinking are fair. The patient denies hallucination or delusion. 2. CRANIAL NERVES: Visual nelson are full. The pupils are equal and reactive to light and accommodation. The extraocular movements are intact. There is no nystagmus. There is no facial motor or sensory deficit. Hearing is intact bilaterally. The palate is elevated symmetrically. Sternocleidomastoid muscles are powerful bilaterally. The patient shrugs her shoulders symmetrically, protrudes her tongue in the midline without fasciculation or atrophy. 3. MOTOR EXAMINATION: No focal muscle bulk was seen. The tone is normal. The strength is 4/5 throughout. 4. SENSORY EXAMINATION: Revealed normal pinprick, light touch, vibratory and position senses. 5. DEEP TENDON REFLEXES: Asymmetric and hypoactive with absent Achilles responses. 6. GAIT: The stance is unsteady. The patient had tendency to fall to one side. DIAGNOSTIC DATA: Nonenhanced head CT scan revealed no evidence of acute intracranial process, but excessive chronic small vessel ischemic changes. LABORATORY DATA: CBC revealed white blood cells of 7.4 thousand, hemoglobin 12.5, hematocrit 10.9, platelet count 294,000. Chemistry revealed sodium of 140, potassium 4.9, chloride 107, CO2 of 23, BUN 28, creatinine 2.6, glucose 125. Hemoglobin A1c 7.6, uric acid is high as 7.3, calcium 9.4. Iron is normal at 61. Liver enzymes is not elevated, creatinine kinase is 249 with normal troponin level and high BNP at 519. Lipid profile revealed elevated cholesterol at 272 with elevated LDL at 183, EGFR is low at 22. Vitamin B12 is 325 and total vitamin D is low at 25.1. Urinalysis, no evidence of urinary tract infection. IMPRESSION: 1. Generalized weakness with dizziness described as lightheadedness without evidence of acute stroke. 2. Generalized weakness, probably multifactorial including possible peripheral neuropathy in the lower extremity due to diabetes mellitus. 3. Multiple medical problems include diabetes mellitus, hypertension, hyperlipidemia, hypothyroidism, and vitamin D deficiency, chronic kidney disease, history of paroxysmal atrial fibrillation with normal sinus rhythm at this time. RECOMMENDATIONS: 1. Continue with current management initiated by Dr. Diaz. 2. Physical therapy evaluation. 3. Continue with current home medications. M Bret CISNEROS MD DR: ELISA/ludmila JOB#: [id number] / [id number]
--- NOTE | 2019-05-03 23:21 | PN ---
DATE: 05/03/2019 SUBJECTIVE: The patient is resting slightly propped up in bed, in no apparent distress. She denied any chest pain or shortness of breath. She has been complaining of being dizzy whether she is lying, sitting or standing. It happens in all positions, not associated with any nausea or vomiting. However, she is generally feeling much better today, has worked with physical therapy and walked with a walker with a standby assist for a short distance today. PHYSICAL EXAMINATION: GENERAL: When I examined her, she looked pale, but no jaundice, cyanosis or thyromegaly. No jugular venous distention. No lower limb edema. VITAL SIGNS: Her heart rate was 65, blood pressure was 168/51, temperature was 98, respiratory rate was 20, and oxygen saturation was 95% on room air. HEAD, EYES, EARS, NOSE AND THROAT: Showed normocephalic, atraumatic. NECK: Supple. HEART: Showed normal first and second heart sounds with no gallop or murmur. CHEST: Clear to auscultation. No crepitation or rhonchi. ABDOMEN: Distended, soft, nontender. NEUROLOGIC: She was awake, alert, responding appropriately. All cranial nerves intact. She moves extremities without difficulty. She ambulates with a walker. Her intake over the last 24 hours was 920, output was 1100. LABORATORY DATA: She has no lab work today. Her blood sugar has been well controlled. As of yesterday, her serum sodium 140, potassium 3.8, chloride 105, bicarbonate 23, anion gap of 12, BUN 28, creatinine 2.6, estimated GFR was 17 mL per minute. Her glucose was 125, calcium was 8.4. Total bilirubin, AST, ALT, alkaline phosphatase were normal. Total protein 6.7, albumin 2.4. White cell count was 7400, hemoglobin 12.5, hematocrit 38, MCV 89 and platelet count 294,000. Urinalysis was essentially unremarkable. Her nasal screen for MRSA PCR was negative. She did have bilateral carotid Doppler ultrasound as well as renal duplex ultrasound, the results of which are still pending at the time of this dictation. ASSESSMENT: 1. 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 2. The patient has had 70% right carotid artery stenosis, paroxysmal atrial fibrillation, maintaining sinus rhythm, sinus bradycardia. Her heart rate is much better today after cutting down the metoprolol. 3. Coronary artery disease, status post coronary artery bypass graft in 2000, status post PCI with stent deployment stable. She is chest pain free. 4. Accelerated hypertension, much improved today, although she has wide pulse pressure. 5. Hyperlipidemia, poorly controlled. She does not tolerate statins. 6. Type 2 diabetes, seems to be much better controlled. 7. Acute kidney injury, stable. 8. Hypothyroidism. PLAN: To continue with current plan of management. Continue with physical and occupational therapy. Await the result of the carotid Doppler as well as the renal duplex to rule out the possibility of renal artery stenosis. JAIRO GRANT MD DR: ANGEL/ludmila JOB#: [id number] / [id number]
[2019-05-04] MEDS: LEVOTHYROXINE 125 MCG TABLET PO SCH (05:34)
[2019-05-04 05:41] VITALS: BP 169/52
[2019-05-04 06:52] LABS: HEMATOCRIT 32.5 % (36.0-47.0); HEMOGLOBIN 10.7 g/dL (12.0-15.5); RED BLOOD COUNT 3.65 x10^6/uL (3.50-5.40); RED CELL DISTRIBUTION WIDTH 14.9 % (11.5-14.5); WHITE BLOOD COUNT 6.3 x10^3/uL (4.0-11.0)
[2019-05-04] MEDS: GABAPENTIN 300 MG CAPSULE. PO SCH ×4 (08:00→21:51)
[2019-05-04] MEDS: FUROSEMIDE 20 MG TABLET PO SCH (08:37)
[2019-05-04] MEDS: DOXAZOSIN MESYLATE 4 MG TABLET PO SCH (08:39)
[2019-05-04] MEDS: METOPROLOL SUCC 24HR ER 25 MG TAB.ER.24H. PO SCH ×2 (08:40→22:00)
[2019-05-04] MEDS: CLOPIDOGREL BISULFATE 75 MG TABLET PO SCH (08:41)
[2019-05-04] MEDS: amLODIPine BESYLATE 10 MG TABLET PO SCH (08:41)
[2019-05-04] MEDS: LOSARTAN 50 MG TABLET. PO SCH (08:42)
[2019-05-04] MEDS: APIXABAN 2.5 MG TABLET PO SCH ×2 (08:42→21:51)
[2019-05-04] MEDS: INSULIN LISPRO 300 UNITS/3 ML VIAL. SQ SCH ×3 (08:53→17:49)
[2019-05-04] MEDS ORDERED: BISACODYL 10 MG SUPP.RECT PR PRN (10:30)
[2019-05-04 14:43] VITALS: BP 129/43
[2019-05-04 19:30] VITALS: BP 129/51
[2019-05-04] MEDS: DONEPEZIL HCL 5 MG TABLET. PO SCH (21:51)
[2019-05-04] MEDS: SIMVASTATIN 20 MG TABLET PO SCH (21:51)
[2019-05-04] MEDS: INSULIN GLARGINE SYRINGE. SQ SCH (21:58)
[2019-05-04 22:00] VITALS: BP 135/69
--- NOTE | 2019-05-04 22:53 | PN ---
DATE: 05/04/2019 SUBJECTIVE: The patient is resting slightly propped up in bed, in no apparent distress. She is definitely more awake, alert. Denied any further episode of dizziness and Dr. Mejia has discontinued her Neurontin. She also had severe constipation that required digital disimpaction, and she is feeling much improved. PHYSICAL EXAMINATION: GENERAL: When I examined her, she looked pale, but no jaundice, cyanosis or thyromegaly. No jugular venous distention. No limb edema. VITAL SIGNS: Her heart rate was 63, blood pressure was 146/68, temperature was 98.1, respiratory rate was 21 and oxygen saturation was 94%. HEAD, EYES, EARS, NOSE AND THROAT: Showed normocephalic, atraumatic. NECK: Supple. HEART: Showed normal first and second heart sounds with no gallop or murmur. CHEST: Clear to auscultation. No crepitation, rhonchi. ABDOMEN: Distended, soft, nontender. NEUROLOGIC: She was awake, alert, responding appropriately. All cranial nerves intact. She moves extremities without difficulty. She requires 2-person assist. She does not manage to get out of the bed to bedside commode. Her intake over the last 24 hours was 920, output was 400. LABORATORY DATA: Showed a white cell count of 6300, hemoglobin 11, hematocrit 33, MCV 89 and platelet count of 247,000. Her chemistry showed a serum sodium 136, potassium 4.8, chloride 103, bicarbonate 24, anion gap of 9, BUN 43, creatinine 3.4, estimated GFR was 12.8. Glucose 174, calcium was 7.8. Total bilirubin, AST, ALT, alkaline phosphatase were normal. Total protein 6, albumin 2.1. ASSESSMENT: 1. 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 2. The patient has had 70% right carotid artery stenosis, paroxysmal atrial fibrillation, maintaining sinus rhythm and sinus bradycardia. Her heart rate is much better today after cutting down her metoprolol. 3. Coronary artery disease, status post coronary artery bypass graft in 2000, status post PCI with stent deployment, stable. She is chest pain free. 4. Accelerated hypertension, much improved, although she has wide pulse pressure. 5. Hyperlipidemia, poorly controlled. She does not tolerate statins. 6. Type 2 diabetes, seems to be much better controlled. 7. Aosqr-fm-hpjpjrl kidney injury. 8. Hypothyroidism. PLAN: I will discontinue her losartan and furosemide for now. We will monitor her lab work on a daily basis as her kidney function has definitely worsened with a creatinine that has risen from 2.6 to 3.4. JAIRO GRANT MD DR: ANGEL/ludmila JOB#: [id number] / [id number]
[2019-05-05] VITALS (9 sets, daily range): BP systolic 124–171; BP diastolic 40–73
--- NOTE | 2019-05-05 02:15 | PN ---
DATE: 05/04/2019 SUBJECTIVE: The patient denies any new medical or neurological complaints. OBJECTIVE: GENERAL: Well-developed, well-nourished female, not in acute distress. VITAL SIGNS: Blood pressure 146/68, respiratory rate 21, pulse is 63 and regular, oxygen saturation is 94% on room air, and temperature is 98.1, otherwise unremarkable. NECK: Supple. Negative for carotid bruits, lymphadenopathy or thyromegaly. LUNGS: Clear to A and P. CARDIOVASCULAR: Regular rate and rhythm, normal S1, S2. There is no S3, S4 or murmur. ABDOMEN: Soft. Bowel sounds positive. EXTREMITIES: Negative for cyanosis, clubbing or edema. NEUROLOGICAL EXAMINATION: Mental Status: The patient is alert and oriented x 3. Speech is fluent. There is no language dysfunction. Memory, judgment, and abstract thinking are fair. The patient denies hallucination or delusion. Cranial nerves are intact. No focal motor or sensory deficit. The strength is 4/5 throughout. Deep tendon reflexes were symmetric and hypoactive with absent Achilles responses. Gait not tested. DIAGNOSTIC DATA: A carotid Doppler study revealed evidence of bilateral stenosis of the proximal carotid artery, estimated 50-69, otherwise unremarkable. IMPRESSION: 1. Generalized weakness and dizziness with stable neurological examination. 2. Multiple medical problems and high risk of stroke factors include hypertension, hyperlipidemia, diabetes mellitus, aging and previous stroke with history of paroxysmal atrial fibrillation. RECOMMENDATIONS: 1. Continue with current conservative management and home medications and the care initiated by Dr. Diaz. 2. Continue with physical therapy as tolerated. M Bret CISNEROS MD DR: ELISA/ludmila JOB#: [id number] / [id number]
[2019-05-05] MEDS: LEVOTHYROXINE 125 MCG TABLET PO SCH (05:25)
[2019-05-05 07:00] LABS: CALCIUM 7.5 mg/dL (8.5-10.1); CREATININE 3.5 mg/dL (0.6-1.0); GFR 12.4; POTASSIUM 4.7 mmol/L (3.5-5.1)
[2019-05-05] MEDS: INSULIN LISPRO 300 UNITS/3 ML VIAL. SQ SCH ×3 (08:00→17:00)
[2019-05-05] MEDS: DOXAZOSIN MESYLATE 4 MG TABLET PO SCH (09:00)
[2019-05-05] MEDS: amLODIPine BESYLATE 10 MG TABLET PO SCH (09:00)
[2019-05-05] MEDS: METOPROLOL SUCC 24HR ER 25 MG TAB.ER.24H. PO SCH ×2 (09:00→21:36)
[2019-05-05] MEDS: APIXABAN 2.5 MG TABLET PO SCH ×2 (10:06→21:37)
[2019-05-05] MEDS: GABAPENTIN 300 MG CAPSULE. PO SCH ×4 (10:07→21:35)
[2019-05-05] MEDS: CLOPIDOGREL BISULFATE 75 MG TABLET PO SCH (10:07)
[2019-05-05] MEDS: IV NORMAL SALINE 1,000ML 1,000 ML IV SCH (12:59)
--- NOTE | 2019-05-05 18:56 | PN ---
DATE: 05/05/2019 SUBJECTIVE: The patient is resting slightly propped up in bed, in no apparent distress. On questioning her, she denies any complaints, has been up and about, walked with a walker to the bathroom. Denied any chest pain or shortness of breath. PHYSICAL EXAMINATION: GENERAL: When I examined her, she looked pale, but no jaundice, cyanosis, or thyromegaly. No jugular venous distention. No lower limb edema. VITAL SIGNS: Her heart rate was 73, blood pressure 124/65, temperature was 97.4, respiratory rate was 20, and oxygen saturation was 92% on room air. HEAD, EYES, EARS, NOSE, AND THROAT: Normocephalic, atraumatic. NECK: Supple. HEART: Showed normal first and second heart sounds. No gallop or murmur. CHEST: Clear to auscultation. No crepitation or rhonchi. ABDOMEN: Distended, soft, nontender. NEUROLOGIC: She was awake, alert, responding appropriately. All cranial nerves intact. She moves extremities without difficulty. She did ambulate with a walker with standby assist. Her intake over the last 24 hours was 1200, output was 300. LABORATORY DATA: Her lab work this morning showed a serum sodium of 135, potassium 4.7, chloride 103, bicarbonate 24, anion gap of 8, BUN 46, creatinine 3.5, estimated GFR was 12.4 mL per minute. Her glucose 179, calcium was 7.5. Her white cell count was 6300, hemoglobin 11, hematocrit 33, MCV 89, and platelet count 247,000. ASSESSMENT: 1. 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 2. The patient has 70% right carotid artery stenosis, paroxysmal atrial fibrillation, maintaining sinus rhythm and sinus bradycardia. Her heart rate is much better after cutting down her metoprolol. 3. Coronary artery disease, status post coronary artery bypass graft in 2000, status post PCI with stent deployment, stable. She is chest pain free. 4. Accelerated hypertension, much improved. 5. Hyperlipidemia, poorly controlled. The patient is actually on simvastatin. 6. Type 2 diabetes mellitus, much better controlled. 7. Qahrv-fp-pdjktwh kidney injury, worsening. Her creatinine has risen from 2.6 to 3.5 8. Hypothyroidism. PLAN: My plan is to hold her losartan and furosemide. I will start her on normal saline at 75 mL per hour. I will monitor her kidney function closely. JAIRO GRANT MD DR: ANGEL/ludmila JOB#: [id number] / [id number]
[2019-05-05] MEDS: SIMVASTATIN 20 MG TABLET PO SCH (21:36)
[2019-05-05] MEDS: DONEPEZIL HCL 5 MG TABLET. PO SCH (21:36)
[2019-05-05] MEDS: INSULIN GLARGINE SYRINGE. SQ SCH (22:55)
[2019-05-06] MEDS: IV NORMAL SALINE 1,000ML 1,000 ML IV SCH ×2 (03:00→15:54)
[2019-05-06 05:06] VITALS: BP 152/70
[2019-05-06] MEDS: LEVOTHYROXINE 125 MCG TABLET PO SCH (06:08)
[2019-05-06 06:36] LABS: HEMATOCRIT 33.1 % (36.0-47.0); HEMOGLOBIN 10.8 g/dL (12.0-15.5); RED BLOOD COUNT 3.7 x10^6/uL (3.50-5.40); RED CELL DISTRIBUTION WIDTH 14.5 % (11.5-14.5); WHITE BLOOD COUNT 5.2 x10^3/uL (4.0-11.0)
[2019-05-06 06:48] LABS: ALBUMIN 2.1 g/dL (3.4-5.0); ALBUMIN/GLOBULIN RATIO 0.5 (1.0-1.7); CALCIUM 7.7 mg/dL (8.5-10.1); CREATININE 2.8 mg/dL (0.6-1.0); POTASSIUM 4.5 mmol/L (3.5-5.1); TOTAL BILIRUBIN 0.2 mg/dL (0.2-1.0)
[2019-05-06] MEDS: INSULIN LISPRO 300 UNITS/3 ML VIAL. SQ SCH ×3 (08:00→18:06)
[2019-05-06] MEDS: METOPROLOL SUCC 24HR ER 25 MG TAB.ER.24H. PO SCH ×2 (09:00→20:54)
[2019-05-06] MEDS: CLOPIDOGREL BISULFATE 75 MG TABLET PO SCH (09:26)
[2019-05-06] MEDS: amLODIPine BESYLATE 10 MG TABLET PO SCH (09:27)
[2019-05-06] MEDS: GABAPENTIN 300 MG CAPSULE. PO SCH ×4 (09:27→20:55)
[2019-05-06] MEDS: DOXAZOSIN MESYLATE 4 MG TABLET PO SCH (09:27)
[2019-05-06] MEDS: APIXABAN 2.5 MG TABLET PO SCH ×2 (09:29→20:54)
[2019-05-06 09:41] VITALS: BP 128/67
[2019-05-06 15:32] VITALS: BP 154/62
[2019-05-06 20:08] VITALS: BP 145/66
[2019-05-06] MEDS: SIMVASTATIN 20 MG TABLET PO SCH (20:54)
[2019-05-06] MEDS: DONEPEZIL HCL 5 MG TABLET. PO SCH (20:55)
[2019-05-06] MEDS: INSULIN GLARGINE SYRINGE. SQ SCH (21:01)
[2019-05-06 22:58] VITALS: BP 162/66
--- NOTE | 2019-05-07 03:27 | PN ---
DATE: 05/06/2019 SUBJECTIVE: The patient is sitting comfortably in her chair, eating her lunch, in no apparent distress. On questioning her, she stated that she is doing very well. Continued to have episodes of dizziness, but generally seems to be much better. This started on IV fluids and her kidney function is trending down. In fact, her BUN is down to 41 and creatinine is down to 2.8. PHYSICAL EXAMINATION: GENERAL: When I examined her, she looked pale, not jaundiced, cyanosed, no thyromegaly. No jugular venous distention. No limb edema. VITAL SIGNS: Her heart rate was 68, blood pressure was 128/67, temperature was 97.8, respiratory rate was 20, and oxygen saturation was 95%. HEAD, EYES, EARS, NOSE AND THROAT: Showed normocephalic, atraumatic. NECK: Supple. HEART: Showed normal first and second heart sounds, no gallop or murmur. CHEST: Clear to auscultation. No crepitation or rhonchi. ABDOMEN: Distended, soft, nontender. NEUROLOGIC: She is definitely awake, alert, responding appropriately, feeding herself. All her cranial nerves intact. She moves extremities without difficulty. She ambulates with a walker. Her intake was 2215, no output was recorded. LABORATORY DATA: Her lab work this morning showed a serum sodium 138, potassium 4.5, chloride 106, bicarbonate 23, anion gap of 9, BUN 41, creatinine was 2.8. Estimated GFR was 16 mL per minute. Her glucose 135, calcium was 7.7. Total bilirubin, AST, ALT, alkaline phosphatase were normal. Total protein 6, albumin 2.1. Her white cell count was 5200, hemoglobin 11, hematocrit 33, MCV 89 and platelet count 240,000. ASSESSMENT: 1. 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 2. She has 70% right carotid stenosis, paroxysmal atrial fibrillation, maintaining sinus rhythm and sinus bradycardia. Her heart rate is much better after cutting down her metoprolol. 3. Coronary artery disease, status post coronary artery bypass graft in 2000, status post PCI with stent deployment. She is chest pain free. 4. Accelerated hypertension, much improved. 5. Hyperlipidemia, poorly controlled. 6. Type 2 diabetes mellitus, reasonably controlled. 7. Gecjq-uu-glkxpdt kidney injury, improving. Her creatinine is down to 2.8. 8. Hypothyroidism. She is both clinically and biochemically euthyroid. PLAN: To continue with gentle hydration. We will evaluate her again tomorrow and we will discuss with the family the options of discharging her home with home health and/or swing bed or [facility] facility. JAIRO GRANT MD DR: ANGEL/ludmila JOB#: [id number] / [id number]
[2019-05-07 05:41] VITALS: BP 161/57
[2019-05-07] MEDS: IV NORMAL SALINE 1,000ML 1,000 ML IV SCH (05:45)
[2019-05-07 06:32] LABS: CALCIUM 7.7 mg/dL (8.5-10.1); CREATININE 2.6 mg/dL (0.6-1.0); GFR 17.5; POTASSIUM 4.5 mmol/L (3.5-5.1)
[2019-05-07] MEDS: LEVOTHYROXINE 125 MCG TABLET PO SCH (06:41)
[2019-05-07] MEDS: INSULIN LISPRO 300 UNITS/3 ML VIAL. SQ SCH ×2 (08:00→12:00)
[2019-05-07] MEDS: DOXAZOSIN MESYLATE 4 MG TABLET PO SCH (08:52)
[2019-05-07] MEDS: APIXABAN 2.5 MG TABLET PO SCH (08:53)
[2019-05-07] MEDS: METOPROLOL SUCC 24HR ER 25 MG TAB.ER.24H. PO SCH (08:53)
[2019-05-07] MEDS: CLOPIDOGREL BISULFATE 75 MG TABLET PO SCH (08:53)
[2019-05-07] MEDS: GABAPENTIN 300 MG CAPSULE. PO SCH ×2 (08:54→14:28)
[2019-05-07] MEDS: amLODIPine BESYLATE 10 MG TABLET PO SCH (08:54)
[2019-05-07] MEDS ORDERED: CHOLECALCIFEROL (VITAMIN D3) 50,000 UNIT CAPSULE PO SCH (09:00)
[2019-05-07 10:16] VITALS: BP 149/61
[2019-05-07] MEDS ORDERED: HYDR-2869 PO (13:22)
[2019-05-07] MEDS ORDERED: METO-239 PO (13:22)
[2019-05-07] MEDS ORDERED: FURO40TA4 PO (13:26)
--- NOTE | 2019-05-07 13:30 | DISCH ---
HOME HEALTH DISCHARGE/MEDS DISCHARGE INFORMATION: Discharge Date: May 07, 2019 Final Diagnosis: Problems Medical Problems: (1) Chronic renal insufficiency Status: Acute (2) Gait disturbance Status: Acute (3) Hypertension Status: Acute (4) Weakness Status: Acute Condition on Discharge: Stable CODE STATUS: Code Status: DNR/DNI HOME HEALTH: Face to Face: I certify this patient is under my care and that I, or a nurse practitioner or physician's certified physician's assistant working with me, had a face to face encounter that meets the physician face to face encounter requirements with this patient on 05/07/2019 Medical Condition(s): CHF, HTN Custodial For: Admin/Educate Injections, Assess Cardiopulm Status Physical Therapy For: Evalulation/Treatment Occupational Therapy For: Evaluation/Treatment Homebound Status Met By: Poor coordination w/ amb., Limited distance walking POST DISCHARGE ORDERS: Activity Instructions for Disc: Resume previous activity DIET AFTER DISCHARGE: Cardiac CERTIFICATION STATEMENT: Certification Statement: Based on the above finding, I certify that this patient is confined to the home and needs intermittent [facility] care, physical therapy and/or speech therapy, or continues to need occupational therapy.~ This patient is under my care, and I have initiated the establishment of the plan of care.~ This patient will be followed by myself or a community physician who will periodically review the plan of care. DISCHARGE MEDICATIONS: Home Meds Active Scripts Furosemide (FUROSEMIDE) 40 Mg Tablet, 1 TAB PO DAILY for chf, #30 TAB 5 Refills Prov:JAIRO GRANT MD 05/07/19 Hydralazine Hcl (HYDRALAZINE HCL) 50 Mg Tablet, 1 TAB PO TID for htn for 30 Days, #90 TAB 5 Refills Prov:JAIRO GRANT MD 05/07/19 Metoprolol Succinate (METOPROLOL SUCCINATE ( XL )) 25 Mg Tab.er.24h, 1 TAB PO BID for htn for 30 Days, #60 TAB 5 Refills Prov:JAIRO GRANT MD 05/07/19 Reported Medications Hydrocortisone/Pramoxine (HYDROCORT-PRAMOXINE 1%-1% CRM) 30 Gm Cream.appl, 1 SINCERE TOP PRN TID PRN for Rectal pain LAST DOSE GIVEN: DATE: TIME: NEXT DOSE DUE: DATE: TIME: 05/01/19 Donepezil Hcl (DONEPEZIL HCL) 5 Mg Tablet, 5 MG PO HS for Memory Loss LAST DOSE GIVEN: DATE: TIME: NEXT DOSE DUE: DATE: TIME: 05/01/19 Ergocalciferol (Vitamin D2) (VITAMIN D2) 50,000 Unit Capsule, 67048 UNIT PO WEEKLY for Supplement LAST DOSE GIVEN: DATE: TIME: NEXT DOSE DUE: DATE: TIME: 10/18/18 Docusate Sodium (COLACE) 100 Mg Capsule, 100 MG PO PRN DAILY PRN for CONSTIPATION LAST DOSE GIVEN: DATE: TIME: NEXT DOSE DUE: DATE: TIME: 10/18/18 Polyethylene Glycol 3350 (MIRALAX) 17 Gm Powd.pack, 17 GM PO PRN DAILY PRN for CONSTIPATION LAST DOSE GIVEN: DATE: TIME: NEXT DOSE DUE: DATE: TIME: 10/18/18 Gabapentin (GABAPENTIN) 600 Mg Tablet, 600 MG PO HS for NEUROGENIC PAIN LAST DOSE GIVEN: DATE: TIME: NEXT DOSE DUE: DATE: TIME: 10/18/18 Gabapentin (Gabapentin) 300 Mg Capsule, 300 MG PO TIDWMEALS for Nerve pain LAST DOSE GIVEN: DATE: TIME: NEXT DOSE DUE: DATE: TIME: 10/18/18 Meclizine Hcl (MECLIZINE HCL) 25 Mg Tablet, 25 MG PO PRN TID for Dizziness LAST DOSE GIVEN: DATE: TIME: NEXT DOSE DUE: DATE: TIME: 10/18/18 Simvastatin (SIMVASTATIN) 20 Mg Tablet, 20 MG PO HS for FOR CHOLESTEROL LAST DOSE GIVEN: DATE: TIME: NEXT DOSE DUE: DATE: TIME: 10/18/18 Doxazosin Mesylate (DOXAZOSIN MESYLATE) 4 Mg Tablet, 4 MG PO DAILY for Urine Retention LAST DOSE GIVEN: DATE: TIME: NEXT DOSE DUE: DATE: TIME: 10/18/18 Apixaban (ELIQUIS) 2.5 Mg Tablet, 2.5 MG PO BID for Blood thinner LAST DOSE GIVEN: DATE: TIME: NEXT DOSE DUE: DATE: TIME: 10/18/18 Insulin Lispro (HUMALOG) 100 Unit/1 Ml Cartridge, 4-12 UNIT SQ TIDWMEALS for Diabetes LAST DOSE GIVEN: DATE: TIME: NEXT DOSE DUE: DATE: TIME: 12/09/14 Clopidogrel Bisulfate (CLOPIDOGREL) 75 Mg Tablet, 75 MG PO DAILY for Blood thinner LAST DOSE GIVEN: DATE: TIME: NEXT DOSE DUE: DATE: TIME: 4/20/15 Insulin Glargine,Hum.rec.anlog (LANTUS SOLOSTAR) 100 Unit/1 Ml Insuln.pen, 20 UNIT SQ QHS for Diabetes LAST DOSE GIVEN: DATE: TIME: NEXT DOSE DUE: DATE: TIME: 09/16/14 Amlodipine Besylate (AMLODIPINE BESYLATE) 10 Mg Tablet, 10 TAB PO DAILY for Hypertension LAST DOSE GIVEN: DATE: TIME: NEXT DOSE DUE: DATE: TIME: 09/16/14 Levothyroxine Sodium (LEVOTHYROXINE SODIUM) 125 Mcg Tablet, 125 MCG PO DAILY for Hypothyroidism LAST DOSE GIVEN: DATE: TIME: NEXT DOSE DUE: DATE: TIME: 09/16/14 Discontinued Reported Medications Hydralazine Hcl (HYDRALAZINE HCL) 25 Mg Tablet, 25 MG PO PRN TID PRN for Hypertension BP above 180 LAST DOSE GIVEN: DATE: TIME: NEXT DOSE DUE: DATE: TIME: 10/18/18 Metoprolol Succinate (METOPROLOL SUCCINATE ( XL )) 100 Mg Tab.er.24h, 100 MG PO BID for Hypertension LAST DOSE GIVEN: DATE: TIME: NEXT DOSE DUE: DATE: TIME: 10/18/18 Furosemide (FUROSEMIDE) 20 Mg Tablet, 20 MG PO DAILY for Fluid retention LAST DOSE GIVEN: DATE: TIME: NEXT DOSE DUE: DATE: TIME: 01/08/15 Olmesartan Medoxomil (BENICAR) 40 Mg Tablet, 40 MG PO DAILY for High Cholesterol, #30 TAB 5 Refills 09/16/14 JAIRO GRANT MD May 07, 2019 13:30
[2019-05-07 14:29] VITALS: BP 149/65
--- NOTE | 2019-05-07 20:28 | DS ---
DATE OF DISCHARGE: 05/07/2019 HOSPITAL COURSE: The patient is an 88-year-old female patient who was admitted originally on 05/02/2019 complaining of weakness, falling to one side, had a history of atrial fibrillation, on chronic anticoagulation. She stated that she has been feeling dizzy, does describe a gait disturbance and falling to the left side. The last time she fell was on Tuesday. She was evaluated in the Emergency Room. Her EKG showed that she was normal sinus rhythm, left ventricular hypertrophy, normal axis, no change compared to previous ones. The CT scan of the head without contrast showed that the patient has extensive chronic small vessel ischemic changes, which appear similar compared to previous exam; however, given the heavy burden of disease there is concern for acute ischemia. MRI should be performed. Her lab work showed that she has impaired kidney function seems to be chronic in nature; however, her white cell count, hemoglobin, hematocrit, platelets are all within normal range. Urinalysis essentially unremarkable. The patient was admitted with dizziness, gait disturbances, weakness and chronic renal insufficiency. We did consult Dr. Mejia to assist in her management. She was in fact seen in consultation by Dr. Mejia and also the floor sander and several adjustments were made to her medication. She clearly developed acute on chronic kidney injury. Her Benicar was discontinued. She has bradycardia, so her metoprolol was cut down and she continued on her amlodipine. Her hydralazine was increased also to 50 mg 3 times a day. I did start her on some IV fluid and her symptoms have dramatically improved, has had no further episode of dizziness or lightheadedness. Her blood pressure has been well controlled and has been able to walk with a walker without any dizziness or lightheadedness and a decision was made to discharge her home with home health. PHYSICAL EXAMINATION: GENERAL: When I saw her this afternoon, she was sitting comfortably in her chair, in no apparent respiratory distress, slightly pale, no jaundice, cyanosis or thyromegaly. No jugular venous distention or limb edema. VITAL SIGNS: Her heart rate was 76, blood pressure was 149/61, temperature was 97.5, respiratory rate 20, and oxygen saturation was 97%. HEAD, EYES, EARS, NOSE AND THROAT: Showed normocephalic, atraumatic. NECK: Supple. HEART: Showed normal first and second heart sounds. No gallop or murmur. CHEST: Clear to auscultation. No crepitation or rhonchi. ABDOMEN: Distended, soft, nontender. No guarding or rigidity. No organomegaly. All hernial orifice intact. Bowel sounds normal. NEUROLOGIC: She is definitely awake, alert, responding appropriately. All cranial nerves are intact. She moves extremities without difficulty. She ambulates with a walker. Her intake over the last 24 hours was 2250, no output was recorded. LABORATORY WORK: Showed a white cell count 5200, hemoglobin 11, hematocrit 33, MCV 89 and platelet count 240,000. Her chemistry showed a serum sodium 138, potassium 4.5, chloride 107, bicarbonate 21, anion gap of 10, BUN 40, creatinine 2.6. Estimated GFR was 17.5 mL. Her glucose 135, calcium was 7.7. DISCHARGE MEDICATIONS: She was discharged to go home on hydralazine 50 mg 3 times a day, metoprolol succinate 25 mg twice a day, furosemide 40 mg once a day as needed. Should continue on amlodipine 10 mg once a day, apixaban 2.5 mg twice a day, Plavix 75 mg once a day, docusate sodium 100 mg daily as needed, Aricept 5 mg daily, doxazosin 4 mg daily, ergocalciferol for vitamin D2 50,000 units once a week, gabapentin 300 mg 3 times a day and gabapentin 600 mg at bedtime, hydrocortisone/pramoxine cream apply topically 3 times a day for rectal pain. She is on Lantus insulin 20 units at bedtime. She is on insulin lispro 4-12 units subcutaneously 3 times a day before meals, levothyroxine 125 mcg once a day, meclizine 25 mg once a day, polyethylene glycol 17 grams daily p.r.n. for constipation, simvastatin 20 mg daily for hypercholesterolemia. FINAL DISCHARGE DIAGNOSES: 1. Generalized weakness and dizziness has resolved. 2. 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 3. She has 70% right carotid stenosis, paroxysmal atrial fibrillation, maintaining her sinus rhythm and sinus bradycardia. Her heart rate is much better improved after we cut down her metoprolol. 4. Coronary artery disease, status post coronary artery bypass graft surgery in 2000, status post PCI stent deployment. She is chest pain free. 5. Accelerated hypertension, much improved. 6. Hyperlipidemia, poorly controlled. 7. Type 2 diabetes mellitus, reasonably controlled. 8. Dgrwp-lv-ngbketp kidney injury, improving. Her creatinine is down to 2.6. 9. Hyperlipidemia. 10. Hypothyroidism. She is both clinically and biochemically euthyroid. The patient will be discharged home with home health. She should have her weight daily and only use Lasix if she gained more than 3 pounds a day. JAIRO GRANT MD DR: ANGEL/ludmila JOB#: [id number] / [id number]
[2019-05-08] MEDS ORDERED: FURO40TA4 PO (03:18)
== END 2019-05-07 16:03 | disposition home or self-care (01) | DRG 682 ==
LOC: ER 16:15 → ICU 17:20 → 1 SOUTH 05-05 06:00
PROVIDERS: ADMIT Internal Medicine; ATTEND Internal Medicine
DX: N17.9 Acute kidney failure, unspecified (principal); E43 Unspecified severe protein-calorie malnutrition; I13.0 Hypertensive heart and chronic kidney disease with heart failure and stage 1 through stage 4 chronic kidney disease, or unspecified chronic kidney disease; N18.4 Chronic kidney disease, stage 4 (severe); R26.9 Unspecified abnormalities of gait and mobility; E11.22 Type 2 diabetes mellitus with diabetic chronic kidney disease; I25.10 Atherosclerotic heart disease of native coronary artery without angina pectoris; I48.0 Paroxysmal atrial fibrillation; R00.1 Bradycardia, unspecified; E03.9 Hypothyroidism, unspecified; E78.00 Pure hypercholesterolemia, unspecified; E78.5 Hyperlipidemia, unspecified; H91.90 Unspecified hearing loss, unspecified ear; G62.9 Polyneuropathy, unspecified; K21.9 Gastro-esophageal reflux disease without esophagitis; K59.00 Constipation, unspecified; M19.90 Unspecified osteoarthritis, unspecified site; R29.6 Repeated falls; K59.09 Other constipation; Z79.01 Long term (current) use of anticoagulants; Z82.49 Family history of ischemic heart disease and other diseases of the circulatory system; Z90.49 Acquired absence of other specified parts of digestive tract; Z90.710 Acquired absence of both cervix and uterus; Z86.73 Personal history of transient ischemic attack (TIA), and cerebral infarction without residual deficits; Z95.1 Presence of aortocoronary bypass graft; Z83.3 Family history of diabetes mellitus; Z95.5 Presence of coronary angioplasty implant and graft; Z98.41 Cataract extraction status, right eye; Z98.42 Cataract extraction status, left eye; Z88.2 Allergy status to sulfonamides; Z88.8 Allergy status to other drugs, medicaments and biological substances; Z68.30 Body mass index [BMI] 30.0-30.9, adult
CPT/HCPCS: 36415; 70450; 80048; 80053; 80061; 81001; 82947; 85025; 85027; 87641; 93005; 93880; 93975; 96374; J0360; J1815; J8597; 97110; 97116; 97530; 99285-25; J7030

== ENCOUNTER 2019-05-07 22:40 | Observation (INO) | payer MEDICARE, BC ==
[~2019-05-07] VITALS: Ht 157.5 cm; Wt 80.4 kg
[~2019-05-07 22:40] MED LIST changes: +DONE5TAB7 PO; +FURO40TA4 PO; +HYDR-2869 PO; +HYDR30CR30 TOP; +METO-239 PO
--- NOTE | 2019-05-07 23:08 | ED.ADGEN ---
Past History Past Medical History: A-Fib, Anemia, CAD, CVA, Dementia, Diabetes, GERD, Heart Disease, Hypertension, Hypothyroid, PR, Other Past Surgical History: Appendectomy, Cholecystectomy, Coronary Bypass Surgery, Hysterectomy Alcohol Use: None Drug Use: None Adult General Chief Complaint Chief Complaint "...We just left the hospital.. about 4 pm.. but she would not respond... so I called the ambulance... "...She'sawake now.. but is so weak..." Daughter [facility] HPI Patient is a 88 year old female who presents with above hx and mental status change.. Pt. awaken after receiving Narcan from paramedics. Patient recently discharged from [facility]. Patient has a history of diabetes, hypertension, hyperlipidemia, coronary artery disease, patient has had coronary artery bypass and angioplasty with stents in the past. He has a history of chronic kidney disease, hypothyroidism TIAs. Has a history of osteoarthritis, diabetes, chronic constipation, urinary incontinence, depression, anemia, gait disorder and deconditioning. Patient recently admitted on 05/01/2019 for generalized weakness and falling. Patient currently lives with her daughter who is at her bedside currently. Daughter called ambulance because her mother would not respond to not noxious stimuli. Reportedly patient had only received Tylenol tonight. Review of Systems Review of Systems Constitutional: Denies fever or chills [] Eyes: Denies change in visual acuity, redness, or eye pain [] HENT: Denies nasal congestion or sore throat [] Respiratory: Denies cough or shortness of breath [] Cardiovascular: No additional information not addressed in HPI [] GI: Denies abdominal pain, nausea, vomiting, bloody stools or diarrhea [] : Denies dysuria or hematuria [] Musculoskeletal: Denies back pain or joint pain [] Integument: Denies rash or skin lesions [] Neurologic: Denies headache, focal weakness or sensory changes [] Endocrine: Denies polyuria or polydipsia [] All other systems were reviewed and found to be within normal limits, except as documented in this note. Family History Family History Noncontributory Current Medications Current Medications Current Medications Medications (Trade) Dose Ordered Sig/Brendan Start Time Stop Time Status Last Admin Dose Admin Aspirin (Children'S Aspirin) 324 mg 1X ONCE 05/07/19 23:30 05/07/19 23:31 DC 05/08/19 00:01 324 MG Lactated Ringer's 1,000 ml @ 100 mls/hr Q10H 05/07/19 23:30 05/08/19 04:42 DC 05/08/19 00:01 100 MLS/HR See nursing for home meds Allergies Allergies Allergies Coded Allergies Type Severity Reaction Last Updated Verified I S O L A T I O N *CONTACT* Allergy Unknown 10/23/18 Yes Sulfa (Sulfonamide Antibiotics) Adverse Reaction Intermediate 09/16/14 No captopril Adverse Reaction Intermediate 09/16/14 Yes Physical Exam Physical Exam Constitutional: no acute distress, sedate in appearance. [] HENT: Normocephalic, atraumatic, bilateral external ears normal, oropharynx moist, no oral exudates, nose normal. [] Eyes: PERRLA, EOMI, conjunctiva normal, no discharge. [] Neck: Normal range of motion, no tenderness, supple, no stridor. [] Cardiovascular:Heart rate regular rhythm, no murmur , PMI to the left Lungs & Thorax: Bilateral breath sounds bilateral basilar crackles auscultation []few scattered wheezes. Old midline scar Abdomen: Bowel sounds normal, soft, no tenderness, no masses, no pulsatile masses. [] Obese. Old surgery scars Skin: Warm, dry, no erythema, no rash. Poor turgor Back: No tenderness, no CVA tenderness. [] Extremities: No tenderness, no cyanosis, no clubbing, ROM intact, bilateral lower leg edema. [] Neurologic: Alert and oriented X 3, lose extremities with noxious stimuli. Decrease plantar sensation, no focal deficits from her baseline currently per her daughter Psychologic: Affect flat judgement appears to be limited, mood depressed Current Patient Data Vital Signs Vital Signs Date Time Temp Pulse Resp B/P (MAP) Pulse Ox O2 Delivery O2 Flow Rate FiO2 05/08/19 01:17 62 18 133/65 (87) 95 Room Air 05/07/19 22:40 98.4 Lab Results Laboratory Tests Test 05/07/19 23:10 05/07/19 23:25 White Blood Count 6.6 x10^3/uL (4.0-11.0) Red Blood Count 3.58 x10^6/uL (3.50-5.40) Hemoglobin 10.4 g/dL (12.0-15.5) L Hematocrit 32.2 % (36.0-47.0) L Mean Corpuscular Volume 90 fL (79-100) Mean Corpuscular Hemoglobin 29 pg (25-35) Mean Corpuscular Hemoglobin Concent 32 g/dL (31-37) Red Cell Distribution Width 14.6 % (11.5-14.5) H Platelet Count 255 x10^3/uL (140-400) Neutrophils (%) (Auto) 63 % (31-73) Lymphocytes (%) (Auto) 21 % (24-48) L Monocytes (%) (Auto) 9 % (0-9) Eosinophils (%) (Auto) 6 % (0-3) H Basophils (%) (Auto) 2 % (0-3) Neutrophils # (Auto) 4.1 x10^3uL (1.8-7.7) Lymphocytes # (Auto) 1.4 x10^3/uL (1.0-4.8) Monocytes # (Auto) 0.6 x10^3/uL (0.0-1.1) Eosinophils # (Auto) 0.4 x10^3/uL (0.0-0.7) Basophils # (Auto) 0.1 x10^3/uL (0.0-0.2) Prothrombin Time 10.2 SEC (9.4-11.4) Prothrombin Time INR 1.0 (0.9-1.1) Activated Partial Thromboplast Time 34 SEC (23-33) H D-Dimer (Mariel) 0.50 mg/L (0.00-0.50) Sodium Level 134 mmol/L (136-145) L Potassium Level 4.7 mmol/L (3.5-5.1) Chloride Level 100 mmol/L (98-107) Carbon Dioxide Level 21 mmol/L (21-32) Anion Gap 13 (6-14) Blood Urea Nitrogen 40 mg/dL (7-20) H Creatinine 2.6 mg/dL (0.6-1.0) H Estimated GFR (Cockcroft-Gault) 17.5 Glucose Level 229 mg/dL (70-99) H Calcium Level 7.8 mg/dL (8.5-10.1) L Magnesium Level 2.3 mg/dL (1.8-2.4) Total Bilirubin 0.2 mg/dL (0.2-1.0) Direct Bilirubin 0.1 mg/dL (0.0-0.2) Aspartate Amino Transferase (AST) 24 U/L (15-37) Alanine Aminotransferase (ALT) 14 U/L (14-59) Alkaline Phosphatase 86 U/L (46-116) Creatine Kinase 337 U/L (26-192) H Troponin I Quantitative 0.156 ng/mL (0-0.055) H SA-Dhz-T-Type Natriuretic Peptide 2384 pg/mL (0-449) H Total Protein 6.4 g/dL (6.4-8.2) Albumin 2.4 g/dL (3.4-5.0) L Lipase 286 U/L (73-393) Urine Collection Type Unknown Urine Color Yellow Urine Clarity Clear Urine pH 6.0 Urine Specific [place] 1.020 Urine Protein >100 mg/dl (NEG-TRACE) Urine Glucose (UA) 100 mg/dL (NEG) Urine Ketones (Stick) Neg mg/dL (NEG) Urine Blood Neg (NEG) Urine Nitrite Neg (NEG) Urine Bilirubin Neg (NEG) Urine Urobilinogen Dipstick 0.2 mg/dL (0.2 mg/dL) Urine Leukocyte Esterase Neg (NEG) Urine RBC 0 /HPF (0-2) Urine WBC Occ /HPF (0-4) Urine Squamous Epithelial Cells Mod /LPF Urine Bacteria 0 /HPF (0-FEW) Urine Opiates Screen Neg (NEG) Urine Methadone Screen Neg (NEG) Urine Barbiturates Neg (NEG) Urine Phencyclidine Screen Neg (NEG) Urine Amphetamine/Methamphetamine Neg (NEG) Urine Benzodiazepines Screen Neg (NEG) Urine Cocaine Screen Neg (NEG) Urine Cannabinoids Screen Neg (NEG) Urine Ethyl Alcohol Neg (NEG) EKG EKG My interpretation EKG shows a sinus rhythm at 61. Left axis. Some nonspecific ST and T-wave changes. No finding to acute STEMI of contralateral changes.[] Radiology/Procedures Radiology/Procedures My interpretation of chest x-ray shows cardiomegaly with some increased cephalization. Atelectasis. Old coronary artery bypass graft wires[][address] [address] IMAGING REPORT Signed PATIENT: YUNIOR GUIDO V ACCOUNT: [id number] : 1930 LOCATION: ER AGE: 88 SEX: F EXAM STATUS: REG ER ORD. PHYSICIAN: NAOMY DOUGLASS MD REASON: mental status change PROCEDURE: CT HEAD WO CONTRAST CT head without contrast PQRS statement: CT scans at this facility use dose reduction including either automated exposure control, iterative reconstructions, and /or weight based radiation dosing via mA and kV modification when appropriate to reduce radiation dose to as low as reasonably achievable. HISTORY: Altered mental status. COMPARISON: CT head May 01, 2019. TECHNIQUE: Noncontrast CT imaging skull base to vertex. FINDINGS: Ventriculomegaly likely due to generalized brain atrophy. Normal pressure hydrocephalus would be a secondary consideration. Extensive cerebral white matter hypoattenuation is similar the prior exam presumably representing advanced chronic microvascular ischemic disease. No intracranial hemorrhage, mass, obstructive hydrocephalus or infarction. Calcified plaque cavernous carotid arteries and of the left vertebral artery. Orbits, mastoids, cranial sinuses and bones are unremarkable. IMPRESSION: No acute abnormality. Stable exam. Electronically signed by: Maryjane Menard MD (05/08/2019 12:50 AM) [facility] DICTATED AND SIGNED BY: MARYJANE MENARD MD DATE: 05/08/19 0050 CC: CALIN MA MD; NAOMY DOUGLASS MD ~ Course & Med Decision Making Course & Med Decision Making Pertinent Labs and Imaging studies reviewed. (See chart for details) Currently daughters extremely anxious about her mother's change in mental status after arriving home tonight. Will admit for observation and serial enzymes since troponin is elevated 0.156. And BNP is 2384. Admit to Dr. Diaz with cardiology and neurology consult. Unsure why patient responded to Narcan unless some mixup in meds after she got home. [] Final Impression Final Impression 1. Mental Status Change[] 2. Weakness 3. Anemia 10.4 Hgb 4.. Elevat. Trop. 0.156 5. DM 229 6. CHF Acute/ Chronic BNP 2384 7. Malnutrition 2.4 alb 8. Acute/Chronic Renal Failure Dragon Disclaimer Dragon Disclaimer This electronic medical record was generated, in whole or in part, using a voice recognition dictation system. Dragon Disclaimer This chart was dictated in whole or in part using Voice Recognition software in a busy, high-work load, and often noisy Emergency Department environment. It may contain unintended and wholly unrecognized errors or omissions. NAOMY DOUGLASS MD May 07, 2019 23:08
--- NOTE | 2019-05-07 23:17 | EKG ---
[address] [address] Test Date: 2019-05-07 Test Time: 23:14:37 Pat Name: YUNIOR GUIDO Department: Room: Gender: F Nurse Transitional: : 1930 Requested By: NAOMY DOUGLASS Order Number: [id number] Reading MD: Measurements Intervals [place] Rate: 61 P: 0 WA: 216 QRS: -7 QRSD: 94 T: 146 QT: 440 QTc: 444 Interpretive Statements SINUS RHYTHM LEFTWARD AXIS ST & T ABNORMALITY, CONSIDER HIGH LATERAL ISCHEMIA OR LEFT VENTRICULAR STRAIN ABNORMAL ECG RI6.01 Compared to ECG 10/18/2018 19:39:29 First degree AV block no longer present T-wave abnormality still present Possible ischemia still present
[2019-05-07] MEDS ORDERED: IV RINGERS SOLUTION,LACTATED 1,000 ML IV SCH (23:30)
[2019-05-07] MEDS ORDERED: ASPIRIN 81 MG TAB.CHEW PO ONE (23:30)
[2019-05-07 23:51] LABS: BASO # 0.1 x10^3/uL (0.0-0.2); BASO % 2 % (0-3); EOS # 0.4 x10^3/uL (0.0-0.7); EOS % 6 % (0-3); HEMATOCRIT 32.2 % (36.0-47.0); HEMOGLOBIN 10.4 g/dL (12.0-15.5); LYMPH # 1.4 x10^3/uL (1.0-4.8); LYMPH % 21 % (24-48); MEAN CORPUSCULAR HEMOGLOBIN 29 pg (25-35); MEAN CORPUSCULAR HGB CONC 32 g/dL (31-37); MEAN CORPUSCULAR VOLUME 90 fL (79-100); MONO # 0.6 x10^3/uL (0.0-1.1); MONO % 9 % (0-9); NEUT # 4.1 x10^3uL (1.8-7.7); NEUT % 63 % (31-73); PLATELET COUNT 255 x10^3/uL (140-400); RED BLOOD COUNT 3.58 x10^6/uL (3.50-5.40); RED CELL DISTRIBUTION WIDTH 14.6 % (11.5-14.5); WHITE BLOOD COUNT 6.6 x10^3/uL (4.0-11.0)
[2019-05-07 23:58] LABS: BILIRUBIN,URINE NEG (NEG); CLARITY,URINE CLEAR; COLOR,URINE YELLOW; GLUCOSE,URINE 100 mg/dL (NEG)
[2019-05-07 23:59] LABS: BACTERIA,URINE 0 /HPF (0-FEW); NITRITE,URINE NEG (NEG); RBC,URINE 0 /HPF (0-2); SQUAMOUS EPITHELIAL CELL,UR MOD /LPF; UROBILINOGEN,URINE 0.2 mg/dL (0.2 mg/dL); WBC,URINE OCC /HPF (0-4)
[2019-05-08 00:11] LABS: ALBUMIN 2.4 g/dL (3.4-5.0); CALCIUM 7.8 mg/dL (8.5-10.1); CREATININE 2.6 mg/dL (0.6-1.0); DIRECT BILIRUBIN 0.1 mg/dL (0.0-0.2); GFR 17.5; MAGNESIUM 2.3 mg/dL (1.8-2.4); POTASSIUM 4.7 mmol/L (3.5-5.1); TOTAL BILIRUBIN 0.2 mg/dL (0.2-1.0); TOTAL PROTEIN 6.4 g/dL (6.4-8.2)
[2019-05-08 00:27] LABS: BARBITURATES NEG (NEG); BENZODIAZEPINES NEG (NEG); CANNABINOIDS NEG (NEG); COCAINE NEG (NEG); METHADONE NEG (NEG); OPIATES NEG (NEG); PHENCYCLIDINE NEG (NEG)
[2019-05-08 00:28] LABS: AMPHETAMINE/METHAMPHETAMINE NEG (NEG)
--- NOTE | 2019-05-08 00:53 | RAD ---
CT head without contrast PQRS statement: CT scans at this facility use dose reduction including either automated exposure control, iterative reconstructions, and /or weight based radiation dosing via mA and kV modification when appropriate to reduce radiation dose to as low as reasonably achievable. HISTORY: Altered mental status. COMPARISON: CT head May 01, 2019. TECHNIQUE: Noncontrast CT imaging skull base to vertex. FINDINGS: Ventriculomegaly likely due to generalized brain atrophy. Normal pressure hydrocephalus would be a secondary consideration. Extensive cerebral white matter hypoattenuation is similar the prior exam presumably representing advanced chronic microvascular ischemic disease. No intracranial hemorrhage, mass, obstructive hydrocephalus or infarction. Calcified plaque cavernous carotid arteries and of the left vertebral artery. Orbits, mastoids, cranial sinuses and bones are unremarkable. IMPRESSION: No acute abnormality. Stable exam. Electronically signed by: Cody Menard MD (05/08/2019 12:50 AM) [facility]
[2019-05-08] MEDS ORDERED: ONDANSETRON PF 4 MG/2 ML VIAL. IV PRN (01:45)
[2019-05-08] MEDS ORDERED: FUROSEMIDE 40 MG/4 ML VIAL IVP ONE (02:00)
[2019-05-08 03:10] VITALS: BP 137/72
[2019-05-08] MEDS ORDERED: FURO40TA4 PO (03:18)
[2019-05-08] MEDS ORDERED: FUROSEMIDE 40 MG TABLET PO PRN (04:15)
[2019-05-08] MEDS ORDERED: POLYETHYLENE GLYCOL 3350 17 GM PACKET. PO PRN (04:15)
[2019-05-08] MEDS ORDERED: DOCUSATE SODIUM 100 MG CAPSULE PO PRN (04:15)
[2019-05-08] MEDS ORDERED: DEXTROSE 50% 25 GM / 50ML DISP.SYRIN. IV PRN (04:15)
--- NOTE | 2019-05-08 04:22 | RAD ---
AP chest x-ray HISTORY: Mental status change. COMPARISON: Chest x-ray October 18, 2018. FINDINGS: Median sternotomy and coronary bypass. Cardiomegaly is stable. No pneumothorax. Mild right pleural effusion along lateral diaphragm. Pulmonary interstitial reticulation likely edema at the lung bases. Nodular opacities of the basilar lower lobes could be atelectasis, pulmonary edema or pneumonia. IMPRESSION: Probable congestive heart failure with mild cardiomegaly, pulmonary interstitial edema and a mild right pleural effusion. Nodular opacities of the basilar lower lobes could represent atelectasis, alveolar edema, or pneumonia. Consider follow-up x-rays after treatment. Electronically signed by: Cody Menard MD (05/08/2019 4:19 AM) [facility]
--- NOTE | 2019-05-08 04:42 | NUR ---
The patient, YUNIOR GUIDO V, 88 y/o, F admitted by JAIRO GRANT MD, was given written information regarding hospital policies, unit procedures and contact persons. Pt accompanied by EMS, nursing supervisor elementary education and daughter. Pt assisted onto the unit via gurney. Pt transferred to the bed with assistance. VSS. Pt daughter reports that pt was sitting in her chair this evening napping, but when she try to wake pt to take evening medication pt would not arouse. EMS called and pt brought to the ED. Pt's daughter reports that her mother is weak and tired all the time, "she just can't do anything for herself anymore". Pt is A&O x2, pleasant and cooperative with staff. Pt able to ambulate with walker x1 assist easily. Oriented pt to room and plan of care. Valuables were checked and left in room with pt.
[2019-05-08] MEDS ORDERED: MECLIZINE 12.5 MG TABLET. PO PRN (04:45)
[2019-05-08] MEDS ORDERED: HYDROCORTISONE ACETATE RC PRN (04:45)
[2019-05-08 05:00] VITALS: BP 147/66
[2019-05-08] MEDS ORDERED: ANTI-COAG MONITOR BY PHARMACY. MC PRN (05:00)
[2019-05-08] MEDS: LEVOTHYROXINE 125 MCG TABLET PO SCH ×2 (05:07→09:03)
[2019-05-08] MEDS ORDERED: HYDROCORTISONE 2.5% RECTAL CREAM 30GM TUBE. RC PRN (07:30)
[2019-05-08] MEDS: IPRATRPIUM/ALBUTEROL 0.5/2.5MG 3 ML NEBU. NEB SCH ×2 (08:00→11:01)
[2019-05-08] MEDS: INSULIN LISPRO 300 UNITS/3 ML VIAL. SQ SCH ×2 (08:00→12:40)
[2019-05-08] MEDS ORDERED: GABAPENTIN 300 MG CAPSULE. PO SCH ×2 (08:00→21:00)
[2019-05-08] MEDS ORDERED: CLOPIDOGREL BISULFATE 75 MG TABLET PO SCH (09:00)
[2019-05-08] MEDS ORDERED: APIXABAN 2.5 MG TABLET PO SCH (09:00)
[2019-05-08] MEDS ORDERED: FLU VAX QS 2019-20 (36MOS+)/PF 0.5 ML SYRINGE. VAX IM ONE (09:00)
[2019-05-08] MEDS ORDERED: LEVOTHYROXINE 125 MCG TABLET PO SCH (09:00)
[2019-05-08] MEDS ORDERED: METOPROLOL TART IMMED RELEASE 25 MG TABLET PO SCH (09:00)
[2019-05-08] MEDS ORDERED: amLODIPine BESYLATE 10 MG TABLET PO SCH (09:00)
[2019-05-08] MEDS ORDERED: DOXAZOSIN MESYLATE 4 MG TABLET PO SCH (09:00)
[2019-05-08] MEDS ORDERED: CHOLECALCIFEROL (VITAMIN D3) 50,000 UNIT CAPSULE PO SCH (09:00)
[2019-05-08 11:21] VITALS: BP 92/52
--- NOTE | 2019-05-08 12:38 | NUR ---
IP: patient has hx of ESBL in [place], requires contact precautions until 2 negative results 7 days apart.
--- NOTE | 2019-05-08 12:46 | SSS ---
ADMIT DATE: HISTORY OF PRESENT ILLNESS: The patient is an 88-year-old female patient who was discharged yesterday. She was brought back to the Emergency Room last night as according to her daughter she slipped in her recliner and she was unable to wake up. As per her daughter, the ambulance was called. The patient was awakened after receiving Narcan from paramedics. She was again extensively investigated in the Emergency Room and has received a liter of lactated Ringer as well as furosemide IV, hydrocortisone and levothyroxine. LABORATORY DATA: Showed that her white cell count was normal. Her chemistry showed her kidney function still the same. The patient's serum sodium was 134, potassium 4.7, chloride 100, bicarbonate 21, anion gap of 13, BUN 40, creatinine 2.6. Estimated GFR was 17.5, glucose was 229 and calcium was 7.8. Her beta natriuretic peptide was 2384. Urinalysis was unremarkable and toxic screen was essentially negative. Was admitted for overnight observation. PAST MEDICAL HISTORY: Significant for type 2 diabetes mellitus, hypertension, hyperlipidemia, coronary artery disease, status post coronary artery bypass graft surgery in 2000, did have a PCI stent deployment in 2009 and 2016. She has chronic kidney disease, hypothyroidism, TIA, osteoarthritis, has also sensorineural deafness, chronic constipation, urinary incontinence. PAST SURGICAL HISTORY: Significant for coronary artery bypass graft surgery and stent deployment, bilateral cataract extraction, total abdominal hysterectomy, bilateral salpingo-oophorectomy, appendectomy as well as colonoscopy. ALLERGIES: She is allergic to CAPOTEN. SOCIAL HISTORY: The patient lives with her daughter. She does not smoke, drink alcohol or use any recreational drugs. She usually ambulates with a walker. FAMILY HISTORY: Noncontributory. MEDICATIONS: She was discharged to continue on following medications: Aricept 5 mg at bedtime, apixaban 2.5 mg twice a day, Plavix 75 mg daily, simvastatin 20 mg at bedtime, hydralazine 50 mg 3 times a day, doxazosin mesylate 4 mg daily, metoprolol succinate 25 mg twice a day, amlodipine besylate 10 mg daily, gabapentin 300 mg 3 times a day with meals, gabapentin 600 mg at bedtime, furosemide 40 mg daily as needed for weight gain of more than 2-3 pounds, Colace 100 mg daily p.r.n. for constipation, polyethylene glycol 17 grams daily p.r.n. for constipation. She is on meclizine 25 mg 3 times a day. She is on Lantus insulin 20 units at bedtime, Humalog insulin as per insulin sliding scale, levothyroxine 125 mcg once a day. She is on Preparation-H applied topically to the rectal pain as needed and ergocalciferol 50,000 international unit once a week. PHYSICAL EXAMINATION: GENERAL: On arrival to the Emergency Room, she looked pale, but no jaundice, cyanosis or thyromegaly. No jugular venous distention. No limb edema. VITAL SIGNS: Her heart rate was 80, blood pressure 147/56, temperature was 97.6, respiratory rate was 18 and oxygen saturation was 95% on room air. HEAD, EYES, EARS, NOSE AND THROAT: Showed normocephalic, atraumatic. NECK: Supple. HEART: Showed normal first and second heart sounds with no gallop or murmur. CHEST: Clear to auscultation. No crepitation or rhonchi. ABDOMEN: Soft, nontender with normal bowel sounds. NEUROLOGIC: She was alert, oriented x 3. She moves all extremities without difficulty. No focal deficit from her baseline as per her daughter. She has had a CT scan of the head, which showed that the patient has ventriculomegaly, likely due to generalized atrophy, normal pressure hydrocephalus will be a secondary consideration, extensive cerebral white matter hypoattenuation is similar to prior exams presumably representing advanced chronic microvascular ischemic change, no intracranial hemorrhage, mass, obstructive hydrocephalus or infarction. Calcified plaque cavernous carotid arteries and of the left vertebral artery. Orbits, mastoids, cranial sinuses and bones are unremarkable. Her chest x-ray showed probably congestive heart failure, mild cardiomegaly. Pulmonary interstitial edema and mild right-sided pleural effusion, nodular opacities, bibasilar lower lobes could represent atelectasis, alveolar edema or pneumonia. Consider followup x-ray after treatment. LABORATORY WORK: Showed a white cell count of 6600, hemoglobin 10, hematocrit 32, MCV 90 and platelet count 255,000. Her chemistry showed a serum sodium 134, potassium 4.7, chloride 100, bicarbonate 21, anion gap of 13, BUN 40, creatinine was 2.6, estimated GFR was 17.5 mL per minute. Her glucose was 229, calcium 7.8, magnesium 2.3. Total bilirubin, AST, ALT, alkaline phosphatase were normal. Her beta natriuretic peptide was 2384. Total protein 6.4, albumin 2.4. She has 3 sets of cardiac enzymes that are trending down. Her prothrombin time, INR, aPTT and D-dimer are all within normal range. Urinalysis showed the urine was yellow, clear with a pH of 6, specific gravity of 1.020. There was large amount of protein, large amount of glucose, negative for ketones, blood, nitrite and bilirubin as well as leukocyte esterase, no rbc's, no wbc's, and no bacteria. Toxic screen was negative. ASSESSMENT AND PLAN: The patient was admitted with altered mental status. She remained stable throughout her stay. She was awake, alert, and when I saw her this morning, denied any complaint, has been up and about, walked with a walker without any difficulty and a decision was made to discharge her to [place] to continue with physical and occupational therapy. FINAL DISCHARGE DIAGNOSES: 1. Altered mental status, resolved. 2. Generalized weakness and dizziness has resolved. 3. 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 4. She has 70% right carotid stenosis. 5. Paroxysmal atrial fibrillation, maintaining her sinus rhythm and sinus bradycardia. Her heart rate is much better improved after we cut down her metoprolol. 6. Coronary artery disease, status post coronary artery bypass graft surgery in 2000, status post PCI and stent deployment. She has been chest pain free. 7. Accelerated hypertension, much improved. 8. Hyperlipidemia, poorly controlled. 9. Type 2 diabetes mellitus, reasonably controlled. 10. Acute on chronic kidney injury, improving. Her creatinine is down to 2.6 mg/dL. 11. Hyperlipidemia, stable. 12. Hypothyroidism. She is both clinically and biochemically euthyroid. JAIRO GRANT MD DR: ANGEL/ludmila JOB#: [id number] / [id number]
--- NOTE | 2019-05-08 14:40 | NUR ---
Nursing Discharge Note Patient A&O x 3 at time of discharge. Belongings with patient. Discharge instruction reviewed with patient.IV removed. Were conducted out of the facility in a wheelchair by ball ground staff. Discharge package given to ball ground staff. Had the opportunity to ask question and has no further comments/concerns at this time.
[2019-05-08] MEDS ORDERED: DONEPEZIL HCL 5 MG TABLET. PO SCH (21:00)
[2019-05-08] MEDS ORDERED: SIMVASTATIN 20 MG TABLET PO SCH (21:00)
[2019-05-08] MEDS ORDERED: INSULIN GLARGINE SYRINGE. SQ SCH (21:00)
== END 2019-05-08 13:00 | disposition home health service (06) ==
LOC: ER 22:40 → INTOOBSV 05-08 01:30 → 1 SOUTH 05-08 01:30
PROVIDERS: ADMIT Internal Medicine; ATTEND Internal Medicine
DX: R41.82 Altered mental status, unspecified (principal); E03.9 Hypothyroidism, unspecified; E78.5 Hyperlipidemia, unspecified; H90.5 Unspecified sensorineural hearing loss; I25.10 Atherosclerotic heart disease of native coronary artery without angina pectoris; I48.0 Paroxysmal atrial fibrillation; K21.9 Gastro-esophageal reflux disease without esophagitis; F03.90 Unspecified dementia, unspecified severity, without behavioral disturbance, psychotic disturbance, mood disturbance, and anxiety; E11.22 Type 2 diabetes mellitus with diabetic chronic kidney disease; I12.9 Hypertensive chronic kidney disease with stage 1 through stage 4 chronic kidney disease, or unspecified chronic kidney disease; N18.9 Chronic kidney disease, unspecified; N17.9 Acute kidney failure, unspecified; I65.21 Occlusion and stenosis of right carotid artery; G45.9 Transient cerebral ischemic attack, unspecified; Z86.73 Personal history of transient ischemic attack (TIA), and cerebral infarction without residual deficits; Z90.49 Acquired absence of other specified parts of digestive tract; Z90.710 Acquired absence of both cervix and uterus; Z95.1 Presence of aortocoronary bypass graft; Z95.5 Presence of coronary angioplasty implant and graft; Z98.41 Cataract extraction status, right eye; Z98.42 Cataract extraction status, left eye; K59.09 Other constipation; D63.1 Anemia in chronic kidney disease; F32.9 Major depressive disorder, single episode, unspecified; R32 Unspecified urinary incontinence; M19.90 Unspecified osteoarthritis, unspecified site; R26.9 Unspecified abnormalities of gait and mobility; E46 Unspecified protein-calorie malnutrition; R53.1 Weakness; R42 Dizziness and giddiness; R00.1 Bradycardia, unspecified; Z98.890 Other specified postprocedural states
CPT/HCPCS: 36415; 70450; 71045; 80048; 80076; 80307; 81001; 82550; 82947; 83690; 83735; 83880; 84443; 84484; 85025; 85379; 85610; 85730; 93005; 94640; 96361; 96372; 96374; 97110; 97162; 97166; 97530; 97535; 99284; G0378; J1815; J1940; J7120; J7620; G0379

== ENCOUNTER 2019-05-14 16:44 | Inpatient (IN) | payer MEDICARE, BC ==
[~2019-05-14] VITALS: Ht 154.9 cm; Wt 73.6 kg
--- NOTE | 2019-05-14 17:07 | PHYS DOC ---
Past History Past Medical History: A-Fib, Anemia, CAD, CHF, CVA, Dementia, Diabetes, GERD, Heart Disease, Hypertension, Hypothyroid, VT, Renal Disease, Other Past Surgical History: Appendectomy, Cholecystectomy, Coronary Bypass Surgery, Hysterectomy Alcohol Use: None Drug Use: None Adult General Chief Complaint Chief Complaint: WEAKNESS/GENERALIZED HPI HPI Patient is an 88-year-old female who arrives in the emergency department via EMS. According to residential report which was called to this facility, the patient had an episode of unresponsiveness lasting about 15 minutes. According to the nurse, at the facility, the patient has had several such episodes since she arrived at the nursing facility several weeks ago. She did receive Narcan about a week or so ago during a similar episode, although it does not appear she is on any opiate medications. Today's episode was witnessed by the patient's family, alerted staff, and tried to stimulate the patient and EMS was called. By the time EMS arrived, the patient was back at her baseline. She denies any complaints at this time. She denies any headache, chest pain, shortness of breath, abdominal pain, nausea, vomiting, or malaise. She has numerous past medical problems, including history of atrial fibrillation, and she is on Eliquis and Plavix among other medications. Her medication list from the nursing facility has been reviewed. There are no alleviating or exacerbating factors to the patient's symptoms. The patient has no complaints at this time. Review of Systems Review of Systems Constitutional: Denies fever or chills [] Eyes: Denies change in visual acuity, redness, or eye pain [] HENT: Denies nasal congestion or sore throat [] Respiratory: Denies cough or shortness of breath [] Cardiovascular: No additional information not addressed in HPI [] GI: Denies abdominal pain, nausea, vomiting, bloody stools or diarrhea [] : Denies dysuria or hematuria [] Musculoskeletal: Denies back pain or joint pain [] Integument: Denies rash or skin lesions [] Neurologic: Denies headache, focal weakness or sensory changes [] Endocrine: Denies polyuria or polydipsia [] All other systems were reviewed and found to be within normal limits, except as documented in this note. Allergies Allergies Allergies Coded Allergies Type Severity Reaction Last Updated Verified I S O L A T I O N *CONTACT* Allergy Unknown 10/23/18 Yes Sulfa (Sulfonamide Antibiotics) Adverse Reaction Intermediate 09/16/14 No captopril Adverse Reaction Intermediate 09/16/14 Yes Physical Exam Physical Exam PHYSICAL EXAM: CONSTITUTIONAL: Well developed, well nourished HEAD: normocephalic, atraumatic EENT: PERRL, EOMI. Conjunctivae normal color, sclerae non-icteric; moist mucous membranes. NECK: Supple, non-tender; no meningismus. LUNGS: Lungs CTA, breathing even and unlabored. Normal air movement. HEART: Regular rate and rhythm, no murmur CHEST: No deformity; non-tender ABDOMEN: The abdomen is soft, and non-tender, no masses or bruits. EXTREM: Normal ROM; no deformity, no calf tenderness. Normal pulses palpable in all extremities. There is no pedal edema. SKIN: No rash; no diaphoresis NEURO: Alert; normal speech and cognition; CN's grossly intact; strength grossly intact without focal deficit. BACK: No CVA TTP. Current Patient Data Vital Signs Vital Signs Date Time Temp Pulse Resp B/P (MAP) Pulse Ox O2 Delivery O2 Flow Rate FiO2 05/14/19 16:50 97.6 56 24 95 Room Air 05/14/19 16:44 115/53 (73) EKG EKG Normal sinus rhythm at a rate of 58 bpm, normal axis, normal intervals, there is lateral T wave inversion, there are no acute ischemic ST/T changes noted.[] Radiology/Procedures Radiology/Procedures [] Course & Med Decision Making Course & Med Decision Making Pertinent Labs and Imaging studies reviewed. (See chart for details) []6:00 PM: Pt condition remains stable. Care was turned over to Dr Charles at shift change, pending labs, imaging, and final disposition. Report given. Dragon Disclaimer Dragon Disclaimer This electronic medical record was generated, in whole or in part, using a voice recognition dictation system. Departure Departure: Disposition: HOME/RESIDENCE PRIOR TO ADM Condition: STABLE Referrals: CALIN MA MD (PCP) MARY CARMEN SUAZO MD May 14, 2019 17:07
--- NOTE | 2019-05-14 17:09 | EKG ---
[address] [address] Test Date: 2019-05-14 Test Time: 17:02:39 Pat Name: YUNIOR GUIDO Department: Room: Gender: F Head Host/Hostess: MAIKEL : 1930 Requested By: MARY CARMEN SUAZO Order Number: [id number] Reading MD: Guilherme Brewster MD Measurements Intervals [place] Rate: 58 P: 90 WA: 196 QRS: 68 QRSD: 96 T: -163 QT: 450 QTc: 446 Interpretive Statements SINUS RHYTHM LEFT VENTRICULAR HYPERTROPHY Electronically Signed On 05-16-2019 17:29:37 CDT by Guilherme Brewster MD
[2019-05-14 17:27] LABS: BASO # 0.1 x10^3/uL (0.0-0.2); BASO % 1 % (0-3); EOS # 0.4 x10^3/uL (0.0-0.7); EOS % 6 % (0-3); HEMATOCRIT 33.4 % (36.0-47.0); HEMOGLOBIN 10.7 g/dL (12.0-15.5); LYMPH % 29 % (24-48); MEAN CORPUSCULAR HEMOGLOBIN 29 pg (25-35); MEAN CORPUSCULAR HGB CONC 32 g/dL (31-37); MEAN CORPUSCULAR VOLUME 90 fL (79-100); MONO # 0.7 x10^3/uL (0.0-1.1); MONO % 10 % (0-9); NEUT # 3.8 x10^3uL (1.8-7.7); NEUT % 55 % (31-73); PLATELET COUNT 282 x10^3/uL (140-400); RED CELL DISTRIBUTION WIDTH 15.3 % (11.5-14.5); WHITE BLOOD COUNT 6.9 x10^3/uL (4.0-11.0)
[2019-05-14 17:49] LABS: ALBUMIN 2.7 g/dL (3.4-5.0); ALBUMIN/GLOBULIN RATIO 0.7 (1.0-1.7); CALCIUM 8.3 mg/dL (8.5-10.1); CREATININE 3.1 mg/dL (0.6-1.0); GFR 14.2; MAGNESIUM 2.7 mg/dL (1.8-2.4); POTASSIUM 4.3 mmol/L (3.5-5.1); TOTAL BILIRUBIN 0.3 mg/dL (0.2-1.0); TOTAL PROTEIN 6.8 g/dL (6.4-8.2)
[2019-05-14 18:02] LABS: BILIRUBIN,URINE NEG (NEG); CLARITY,URINE CLEAR; COLOR,URINE YELLOW; GLUCOSE,URINE 100 mg/dL (NEG)
[2019-05-14 18:03] LABS: AMORPHOUS SEDIMENT,UR PRESENT /HPF; BACTERIA,URINE 0 /HPF (0-FEW); NITRITE,URINE NEG (NEG); RBC,URINE OCC /HPF (0-2); SQUAMOUS EPITHELIAL CELL,UR MOD /LPF; UROBILINOGEN,URINE 0.2 mg/dL (0.2 mg/dL)
--- NOTE | 2019-05-14 18:23 | RAD ---
CT head without contrast dated 05/14/2019. Comparison made to 05/07/2019. CLINICAL INDICATION: Altered mental status. TECHNIQUE: Contiguous axial imaging the head was performed from skull base to vertex. No contrast administered. One or more of the following individualized dose reduction techniques were utilized for this examination: 1. Automated exposure control 2. Adjustment of the mA and/or kV according to patient size 3. Use of iterative reconstruction technique. FINDINGS: Ventricles and sulci are moderately prominent for age. No midline shift or mass effect. Moderate patchy low density in the deep/subcortical periventricular white matter. No hemorrhage or extra-axial collection. Posterior fossa and brainstem unremarkable. Visualized paranasal sinuses and mastoid air cells are clear. No apparent calvarial abnormality. IMPRESSION: 1. No evidence of acute intracranial hemorrhage or mass. 2. Moderate chronic small vessel ischemic changes and atrophy. Electronically signed by: Willian Caban MD (05/14/2019 6:20 PM) [facility]
--- NOTE | 2019-05-14 18:34 | RAD ---
Indication:Altered mental status. TECHNIQUE:Portable AP chest X-ray COMPARISON: 05/07/2019. FINDINGS: CABG changes noted. Heart is moderately enlarged in size. Diffuse interstitial opacities bilaterally. No pneumothorax or large. Effusion. Visualized bony thorax within normal limits. IMPRESSION: Mild interval improvement in previously seen interstitial opacities suggesting improving pulmonary edema or atypical/viral infection. Electronically signed by: Vince Robb DO (05/14/2019 6:30 PM) [facility]
[2019-05-15] MEDS ORDERED: [UNRECOGNIZED DRUG - CODE] INH (00:13)
[2019-05-15] MEDS ORDERED: DONE10TA7 PO (00:13)
[2019-05-15] MEDS ORDERED: TYLENOL ER PO (00:13)
[2019-05-15] MEDS ORDERED: MAGN2400 PO (00:19)
[2019-05-15] MEDS ORDERED: GABA-586 PO (00:21)
[2019-05-15] MEDS ORDERED: proctosol RC (00:25)
[2019-05-15] MEDS ORDERED: POLYETHYLENE GLYCOL 3350 17 GM PACKET. PO PRN (08:45)
[2019-05-15] MEDS ORDERED: [UNRECOGNIZED DRUG - OTHER] INH SCH (09:00)
[2019-05-15] MEDS ORDERED: MAGNESIUM HYDROXIDE 2,400 MG/30 ML ORAL.SUSP. PO PRN (09:00)
[2019-05-15] MEDS ORDERED: HYDROCORTISONE 2.5% RECTAL CREAM 30GM TUBE. RC PRN (09:00)
[2019-05-15] MEDS ORDERED: MECLIZINE 12.5 MG TABLET. PO PRN (09:00)
[2019-05-15 09:33] VITALS: BP 131/79
[2019-05-15] MEDS ORDERED: IPRATRPIUM/ALBUTEROL 0.5/2.5MG 3 ML NEBU. NEB PRN (12:00)
[2019-05-15] MEDS ORDERED: IPRATRPIUM/ALBUTEROL 0.5/2.5MG 3 ML NEBU. NEB SCH (12:00)
[2019-05-15] MEDS ORDERED: NON FORMULARY ITEM (Insulin Lispro (Humalog) 0 UNIT) SQ SCH (12:00)
[2019-05-15] MEDS: INSULIN LISPRO 300 UNITS/3 ML VIAL. SQ SCH ×2 (12:15→17:00)
[2019-05-15] MEDS ORDERED: DEXTROSE 50% 25 GM / 50ML DISP.SYRIN. IV PRN (12:15)
[2019-05-15] MEDS: METOPROLOL SUCC 24HR ER 25 MG TAB.ER.24H. PO SCH ×2 (12:52→21:18)
[2019-05-15] MEDS: DOXAZOSIN MESYLATE 4 MG TABLET PO SCH (12:52)
[2019-05-15] MEDS: amLODIPine BESYLATE 10 MG TABLET PO SCH (12:53)
[2019-05-15] MEDS: LEVOTHYROXINE 125 MCG TABLET PO SCH (12:53)
[2019-05-15] MEDS: CLOPIDOGREL BISULFATE 75 MG TABLET PO SCH (12:53)
[2019-05-15] MEDS: DOCUSATE SODIUM 100 MG CAPSULE PO PRN (12:53)
[2019-05-15] MEDS: APIXABAN 2.5 MG TABLET PO SCH ×2 (12:53→21:18)
[2019-05-15] MEDS: IV NORMAL SALINE 1,000ML 1,000 ML IV SCH (12:57)
[2019-05-15 14:52] VITALS: BP 174/55
--- NOTE | 2019-05-15 17:14 | RAD ---
CT PELVIS WO CONTRAST Indication: Severe left hip pain. Groin pain. Exposure: One or more of the following individualized dose reduction techniques were utilized for this examination: 1. Automated exposure control 2. Adjustment of the mA and/or kV according to patient size 3. Use of iterative reconstruction technique. Technique: Standard imaging without intravenous contrast. Findings: No evidence of an acute fracture. No aggressive bone destruction. Mild degenerative changes at both hips hips and sacroiliac joints. Degenerative changes at the pubic symphysis with chondrocalcinosis. Bone demineralization. Limited visualization of the lumbar spine demonstrates severe degenerative spondylosis and facet joint degenerative change with stenosis. Mild retrolisthesis of L3 on L4. Limited soft tissue evaluation due to the technique. Vascular calcification. Colonic diverticulosis is noted. IMPRESSION: 1. No definite acute fracture is seen. Note that MR is more sensitive for detection of a fracture of the skeletal pelvis or hip, and is recommended if symptoms do not improve or if there is persistent concern for occult fracture. 2. Degenerative lumbar spondylosis with stenosis. Electronically signed by: Willian Chandra MD (05/15/2019 5:11 PM) [facility]
[2019-05-15 19:36] VITALS: BP 169/53
[2019-05-15] MEDS: GABAPENTIN 300 MG CAPSULE. PO SCH (21:18)
[2019-05-15] MEDS: SIMVASTATIN 20 MG TABLET PO SCH (21:19)
[2019-05-15] MEDS: DONEPEZIL HCL 10 MG TABLET PO SCH (21:19)
[2019-05-15] MEDS: INSULIN GLARGINE SYRINGE. SQ SCH (21:33)
--- NOTE | 2019-05-15 22:41 | PDOC ---
Exam Note: Pritesh Note: Please also refer to the separate dictated note~for this date of service dictated separately.~Patient seen individually. Discussed the patient with Nursing staff reviewed the chart.~Reviewed interim history and current functioning. Reviewed vital signs,~Labs/ Radiology~and current medications noted below. Continue current treatment with the changes noted in the dictated addendum note Assessment: Vital Signs/I&O: Vital Signs Date Time Temp Pulse Resp B/P (MAP) Pulse Ox O2 Delivery O2 Flow Rate FiO2 05/15/19 21:33 68 169/53 05/15/19 19:36 98.3 20 92 Room Air Labs: Laboratory Tests Test 05/15/19 07:26 05/15/19 16:55 05/15/19 21:17 Glucose (Fingerstick) 91 mg/dL (70-99) 103 mg/dL (70-99) H 161 mg/dL (70-99) H Current Medications: Meds: Current Medications Medications (Trade) Dose Ordered Sig/Brendan Route PRN Reason Start Time Stop Time Status Last Admin Dose Admin Sodium Chloride 1,000 ml @ 75 mls/hr [id number] IV 05/15/19 08:45 05/15/19 12:57 Amlodipine Besylate (Norvasc) 10 mg DAILY PO 05/15/19 09:00 05/15/19 12:57 Apixaban (Eliquis) 2.5 mg BID PO 05/15/19 09:00 05/15/19 21:33 Clopidogrel Bisulfate (Plavix) 75 mg DAILY PO 05/15/19 09:00 05/15/19 12:57 Docusate Sodium (Colace) 100 mg PRN DAILY PRN PO 1ST CHOICE FOR CONSTIPATION 05/15/19 08:45 05/15/19 12:57 Donepezil HCl (Aricept) 10 mg QHS PO 05/15/19 21:00 05/15/19 21:33 Doxazosin Mesylate (Cardura) 4 mg DAILY PO 05/15/19 09:00 05/15/19 12:57 Hydralazine HCl (Apresoline) 50 mg TID PO 05/15/19 09:00 05/15/19 21:33 Levothyroxine Sodium (Synthroid) 125 mcg DAILY06 PO 05/15/19 09:00 9/24/19 12:57 Metoprolol Succinate (Toprol Xl) 25 mg BID PO 05/15/19 09:00 05/15/19 21:33 Simvastatin (Zocor) 20 mg HS PO 05/15/19 21:00 05/15/19 21:33 Gabapentin (Neurontin) 600 mg QHS PO 05/15/19 21:00 05/15/19 21:33 Insulin Glargine (Lantus Syringe) 20 unit QHS SQ 05/15/19 21:00 05/15/19 21:33 I have reviewed the current psychotropics carefully including drug interactions. Risk benefit ratio favors no change other than as noted in my dictated progress note. Diagnosis: Problems: (1) Daboc-ei-pypvegn kidney injury (2) Accelerated hypertension (3) Xkkuy-fo-bmsyyvh kidney injury (4) Altered mental status (5) Weakness (6) Elevated serum creatinine (7) Gait disturbance (8) Weakness (9) NSTEMI (non-ST elevated myocardial infarction) (10) Lightheadedness (11) Hypertension (12) Hyperkalemia (13) Chronic renal insufficiency (14) Right-sided chest pain HANS GARCÍA MD May 15, 2019 22:41
[2019-05-15 22:45] VITALS: BP 169/65
[2019-05-16] VITALS (7 sets, daily range): BP systolic 151–172; BP diastolic 62–79
[2019-05-16] MEDS: IV NORMAL SALINE 1,000ML 1,000 ML IV SCH ×2 (02:01→11:06)
--- NOTE | 2019-05-16 03:06 | HP ---
ADMIT DATE: 05/15/2019 HISTORY OF PRESENT ILLNESS: The patient is an 88-year-old female patient, a resident at [facility] who was apparently brought to the Emergency Room with generalized weakness. The emergency medical service personnel were called to the facility as the patient has an episode of unresponsiveness, lasting about 15 minutes. According to the nurse at the facility, the patient has had several such episodes since she arrived. At the nursing facility several weeks ago, she did receive Narcan about a week or so ago during a similar episode, although it does not appear that she is not on any opiate medication. Today's episode was witnessed by the patient's family, alerted staff and tried to stimulate the patient and EMS was called. By the time the EMS arrived, the patient was back at her baseline. She denies any complaint at this time. She denied any headache, chest pain, shortness of breath, abdominal pain, nausea, vomiting, malaise. She has numerous past medical history and apparently during this episode she did not bite her tongue and did not wet herself. She was evaluated in the Emergency Room extensively. Her lab work was mostly unremarkable except that her BUN and creatinine has risen. Her most recent lab work prior to discharge showed her BUN was 40, creatinine 2.6 and today's labs showed her creatinine has risen up to 3.1. Her urinalysis was essentially unremarkable. She did have a CT scan of the head, which shows that there is no evidence of acute intracranial hemorrhage or mass, moderate chronic small vessel ischemic changes and atrophy. I did see her last Tuesday and the patient was extremely depressed, stating that there is nothing to live for. She was hopeless, helpless, probably thinking that she was abandoned by her family in the [facility], although I tried to assure her at that time that this is not the case. She also complained of severe pain in her left hip joint and I actually did an x-ray of her left hip joint, which showed no evidence of fracture, although she has severe osteoarthritis of that joint. When I questioned her today, she continued to complain of pain in her left hip joint. The patient was admitted for further evaluation and treatment. She will be started on gentle rehydration and will consult Dr. Mejia also for possible non-convulsive seizures as well as Dr. Gudino, as she seemed to be extremely depressed. PAST MEDICAL HISTORY: Significant for type 2 diabetes mellitus, hypertension, hyperlipidemia, coronary artery disease status post coronary artery bypass graft surgery in 2000. She did have a PCI with stent deployment in 2009 and 2016. She has chronic kidney disease, hypothyroidism, TIA, osteoarthritis, severe sensorineural deafness, chronic constipation and urinary incontinence. PAST SURGICAL HISTORY: Significant for coronary artery bypass graft surgery and PCI with stent deployment, bilateral cataract extraction, total abdominal hysterectomy, bilateral salpingo-oophorectomy, appendectomy as well as colonoscopy. ALLERGIES: She is allergic to ____. FAMILY HISTORY: Noncontributory. SOCIAL HISTORY: The patient usually lives with her daughter. She is currently at [facility] for rehabilitation. She does not smoke, drink alcohol or use any recreational drugs. She usually is able to ambulate with a walker. MEDICATIONS: She is currently on following medications: She is on Aricept 10 mg at bedtime, apixaban 2.5 mg twice a day, Plavix 75 mg daily, simvastatin 20 mg at bedtime, hydralazine 50 mg 3 times a day, doxazosin mesylate 4 mg daily, metoprolol succinate 25 mg twice a day, amlodipine besylate 10 mg daily, gabapentin 600 mg at bedtime, furosemide 40 mg daily, Colace 100 mg daily p.r.n. for constipation, milk of magnesia 30 mL p.o. daily p.r.n. for constipation, polyethylene glycol for MiraLax 17 grams daily, meclizine 25 mg 3 times a day. She is on Lantus insulin 20 units at bedtime, Humalog insulin 4-12 units before meals. She is on levothyroxine 125 mcg daily. She is on ipratropium bromide-albuterol sulfate 0.5-2.5 mg by nebulizer 4 times a day. She is on Proctosol rectally 3 times a day for itching and Tylenol extended release 650 mg every 6 hours. REVIEW OF SYSTEMS: As per history of present illness. PHYSICAL EXAMINATION GENERAL: When I examined her, she was pale, but no jaundice, cyanosis or thyromegaly. No jugular venous distention. No limb edema. VITAL SIGNS: Her heart rate was 64, blood pressure was 131/79, temperature was 98.4, respiratory rate was 18, and oxygen saturation was 92% on room air. HEAD, EYES, EARS, NOSE AND THROAT: Showed normocephalic, atraumatic. NECK: Supple. HEART: Showed normal first and second heart sounds with no gallop, rub or murmur. CHEST: Clear to auscultation. No crepitation or rhonchi. ABDOMEN: Distended, soft, nontender. NEUROLOGIC: She is awake, alert, responding appropriately. All cranial nerves intact. EXTREMITIES: She moves extremities without difficulty, continued to complain of pain in her left hip joint. LABORATORY DATA: Her lab work showed a white cell count of 6900, hemoglobin 11, hematocrit 33, MCV 90, and platelet count of 282,000. Her chemistry showed a serum sodium 139, potassium 4.3, chloride 106, bicarbonate 22, anion gap of 11, BUN 41, creatinine 3.1, estimated GFR was 14 mL per minute. Her glucose was 69, calcium was 3.3, magnesium 2.7. Total bilirubin, AST, ALT, alkaline phosphatase were normal. Her beta natriuretic peptide was 2600. Total protein was 6.8, albumin was 2.7. Her troponin was less than 0.017. Her prothrombin time was 11.3, INR 1.1, aPTT was 54. Urinalysis was essentially unremarkable. CT scan of the head showed the ventricles and sulci are moderately prominent for age, no midline shift or mass effect. She has moderate patchy low density in the deep subcortical periventricular white matter, no hemorrhage or extraaxial fluid collection. Posterior fossa and brainstem are unremarkable. Visualized paranasal sinuses and mastoid air cells are clear, no apparent calvarial abnormality with the impression that the patient has no evidence of acute intracranial hemorrhage or mass, moderate chronic small vessel ischemic changes and atrophy. Her chest x-ray showed mild interval improvement in the previously seen interstitial opacities suggesting improving pulmonary edema or atypical/viral infection. My plan is to rehydrate her gently for her byshd-av-ipcewof kidney injury. We will resume all her medications. I would consult Dr. Mejia for possible nonconvulsive seizures and Dr. Gudino for severe depression. JAIRO GRANT MD DR: ANGEL/ludmila JOB#: [id number] / [id number]
[2019-05-16] MEDS: LEVOTHYROXINE 125 MCG TABLET PO SCH (05:13)
[2019-05-16 06:41] LABS: CALCIUM 7.6 mg/dL (8.5-10.1); CREATININE 2.6 mg/dL (0.6-1.0); GFR 17.5
[2019-05-16] MEDS: INSULIN LISPRO 300 UNITS/3 ML VIAL. SQ SCH ×3 (07:44→17:00)
[2019-05-16] MEDS: DOXAZOSIN MESYLATE 4 MG TABLET PO SCH (07:50)
[2019-05-16] MEDS: CLOPIDOGREL BISULFATE 75 MG TABLET PO SCH (07:51)
[2019-05-16] MEDS: APIXABAN 2.5 MG TABLET PO SCH ×2 (07:51→20:57)
[2019-05-16] MEDS: METOPROLOL SUCC 24HR ER 25 MG TAB.ER.24H. PO SCH ×2 (07:51→22:11)
[2019-05-16] MEDS: amLODIPine BESYLATE 10 MG TABLET PO SCH (07:51)
[2019-05-16] MEDS: ACETAMINOPHEN 325 MG TABLET PO PRN (15:39)
--- NOTE | 2019-05-16 16:45 | RAD ---
Examination: FOOT LEFT 3V History: Severe pain involving the left foot Comparison/Correlation: None Findings: Total of 3 images of the foot were obtained. Osteopenia noted. Vascular consultation study. Tarsal-metatarsal joint space narrowing is evident. Moderate sized calcaneal spur is present. Surgical clip is present overlying the distal tibial level on the lateral view. Curvilinear sclerotic density is noted involving the anterior mid calcaneus. This is of indeterminate significance. No displaced fracture identified. Impression: Degenerative changes and osteopenia. No evidence of fracture. Consider further imaging if occult fracture is a persistent concern. Electronically signed by: Stoney Dean MD (05/16/2019 4:42 PM) [facility]
--- NOTE | 2019-05-16 17:41 | CONS ---
DATE OF CONSULTATION: 05/16/2019 REASON FOR CONSULTATION: Weakness. CONSULTING PHYSICIAN: Dr. Diaz. HISTORY OF PRESENT ILLNESS: The patient is a pleasant 88-year-old woman who was actually admitted to the hospital several weeks ago in the setting of multiple complaints and the Cardiology at that time was consulted for bradycardia. In her evaluation at that time, she was found to have a history of atrial fibrillation, hypertension, CVA and overall her bradycardia was felt to be not contributing to any of her symptoms. Her telemetry did not reveal any pathology, but she was ultimately advised to decrease her metoprolol dose and follow up with an outpatient primary cardiology provider. Unfortunately, she returns here again with recurrent weakness. She specifically does not have any chest pain or dyspnea and she is not able to elaborate to me exactly her reason for admission to the hospital, but review of the medical record reveals that the EMS was called to her facility apparently because the patient had an episode of 15 minutes of unresponsiveness. When she originally arrived to the Emergency Department, her vital signs were fairly unremarkable with a heart rate of 56 and blood pressure 115/53. Presently, the patient is denying any other acute issues. PAST MEDICAL HISTORY: 1. Paroxysmal atrial fibrillation, on anticoagulation. 2. Remote coronary artery disease, status post coronary artery bypass graft, unknown bypass anatomy. 3. Hypertension. 4. Dyslipidemia. 5. Peripheral neuropathy. SOCIAL HISTORY: No alcohol, tobacco or illicit drug use. She lives with her daughter, but most recently apparently she was in the rehab facility. ALLERGIES: SULFA AND CAPTOPRIL. FAMILY HISTORY: Noncontributory. REVIEW OF SYSTEMS: Negative unless otherwise mentioned above in HPI. PHYSICAL EXAMINATION: VITAL SIGNS: Afebrile, 63, 18, 147/59, 93% on room air. GENERAL: She is alert and oriented, no acute distress. HEAD AND NECK: Unremarkable. CARDIAC: Regular rate and rhythm without any murmurs, rubs or gallops. LUNGS: Clear to auscultation bilaterally. ABDOMEN: Soft, nontender, nondistended. EXTREMITIES: No edema. She has 2+ radial pulses and diminished pedal pulses. Feet are warm to touch. SKIN: No obvious rashes. NEUROLOGIC: No focal deficits, but she does have some weakness bilaterally in the lower extremities. DIAGNOSTIC STUDIES: Her hemoglobin is 10.7, which is stable compared to previous admission. Her creatinine is elevated at 2.6, which is known for her given her history of chronic kidney disease. Her INR is 1.1. Chest x-ray from 05/14/2019 reveals possible atypical infection versus pneumonia. Previous carotid Doppler study reveals moderate plaquing bilaterally, but no focal high-grade stenosis. Overall, suggestive of 50-69% stenosis by velocity criteria in the bilateral internal carotid arteries. She had renal artery duplex which demonstrated no clear hemodynamically significant stenosis. She has not had a recent echocardiogram. Her EKG demonstrates a sinus rhythm with prior septal infarct and LVH pattern. IMPRESSION: 1. Bradycardia: It is unclear if her weakness is really related to her bradycardia. Her lowest heart rate thus far has been in the mid 40s. She has appropriate chronotropic response when she walks with the physical therapist. Nonetheless, given her age, cannot rule out any bradycardia causing her to have some weakness. Ultimately though no obvious correlation has been established between her rhythm and her syncopal episodes. Therefore, at this present time, no clear indication for pacemaker. If the patient and family wished to proceed, we could consider an implantable loop recorder for long-term monitoring. Thank you for this consultation. Please call with any further questions. Continue present dose of her medical therapy and we may consider decreasing metoprolol after monitoring overnight. ARNOLD STEIN MD DR: ARTUR/ludmila JOB#: [id number] / [id number]
[2019-05-16] MEDS: SIMVASTATIN 20 MG TABLET PO SCH (20:56)
[2019-05-16] MEDS: GABAPENTIN 300 MG CAPSULE. PO SCH (20:57)
[2019-05-16] MEDS: DONEPEZIL HCL 10 MG TABLET PO SCH (20:57)
--- NOTE | 2019-05-16 21:40 | PDOC ---
Exam Note: Pritesh Note: Please also refer to the separate dictated note~for this date of service dictated separately.~Patient seen individually. Discussed the patient with Nursing staff reviewed the chart.~Reviewed interim history and current functioning. Reviewed vital signs,~Labs/ Radiology~and current medications noted below. Continue current treatment with the changes noted in the dictated addendum note Assessment: Vital Signs/I&O: Vital Signs Date Time Temp Pulse Resp B/P (MAP) Pulse Ox O2 Delivery O2 Flow Rate FiO2 05/16/19 20:58 65 178/63 05/16/19 20:24 98.0 18 96 Nasal Cannula 2.0 I & O 05/15/19 05/15/19 05/16/19 15:00 23:00 07:00 Intake Total 120 ml 488 ml 1316 ml Balance 120 ml 488 ml 1316 ml Labs: Laboratory Tests Test 05/16/19 06:12 05/16/19 07:21 05/16/19 11:32 05/16/19 16:27 Sodium Level 140 mmol/L (136-145) Potassium Level 4.0 mmol/L (3.5-5.1) Chloride Level 109 mmol/L (98-107) H Carbon Dioxide Level 21 mmol/L (21-32) Anion Gap 10 (6-14) Blood Urea Nitrogen 35 mg/dL (7-20) H Creatinine 2.6 mg/dL (0.6-1.0) H Estimated GFR (Cockcroft-Gault) 17.5 Glucose Level 85 mg/dL (70-99) Calcium Level 7.6 mg/dL (8.5-10.1) L Glucose (Fingerstick) 73 mg/dL (70-99) 71 mg/dL (70-99) 105 mg/dL (70-99) H Test 05/16/19 20:29 Glucose (Fingerstick) 114 mg/dL (70-99) H Current Medications: I have reviewed the current psychotropics carefully including drug interactions. Risk benefit ratio favors no change other than as noted in my dictated progress note. Diagnosis: Problems: (1) Anxiety disorder (2) Major depressive disorder, recurrent episode (3) Altered mental status (4) Mild cognitive impairment HANS GARCÍA MD May 16, 2019 21:40
[2019-05-16] MEDS: INSULIN GLARGINE SYRINGE. SQ SCH (22:14)
--- NOTE | 2019-05-16 23:35 | CONS ---
DATE OF CONSULTATION: 05/15/2019 This is a late entry of 05/15/2019 covers the elements not covered in my initial note of 05/15/2019. I met with the patient in room #113 in the evening of 05/15/2019 and also met with the patient's daughter. Discussed with nursing staff, reviewed the chart including ER records. IDENTIFYING DATA: The patient is an 88-year-old female who presented to the ER from [facility] following episode of unresponsiveness, lasting about 15 minutes. Reportedly, the patient has had several such episodes since she arrived at the alf several weeks ago. Nothing specific has been found to entirely explain this and in the meantime, she has appeared more depressed, hopeless, helpless and made statements to the nursing staff that she would prefer she never wakes up. She denies active suicidal ideation, but the reason for the consultation is on account of worsening symptoms of depression with passive suicidal ideation. CHIEF COMPLAINT: "Yes, I've been depressed." Daughter states patient has been depressed, anxious, irritable, specifically with the daughter, making frequent statements that the daughter does not care about her. HISTORY OF PRESENT ILLNESS: As noted, the patient has a history of depression, low mood, feeling hopeless, worthless, more anxious, irritable, labile. She has had passive suicidal ideation; no plans, intent or attempt, however. She has had some sleep and appetite changes. No clear symptoms of bipolar disorder. Cognitively, she is reasonably intact, though she does have some short-term memory deficits. PAST PSYCHIATRIC HISTORY: As noted above. PAST MEDICAL HISTORY: Positive for the seizure-like episodes noted above, atrial fibrillation, anemia, coronary artery disease, CHF, status post cerebrovascular accident, mild cognitive impairment, diabetes mellitus, GERD, heart disease, hypertension, hypothyroidism, status post CT, renal disease. PAST SURGICAL HISTORY: Appendectomy, cholecystectomy, coronary bypass surgery, hysterectomy. CT head showed changes consistent with her TIAs/CVA. ALLERGIES: SULFA and CAPTOPRIL. CURRENT PSYCHOTROPICS: Aricept 10 mg a day. FAMILY HISTORY: Positive for depression in her daughter who has responded well to Prozac. 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 No alcohol or drug abuse history. She has been at the [facility] recently and prior to that lived in her home and the daughter was living at the patient's home to assist the patient. MENTAL STATUS EXAMINATION: The patient was seen individually in the evening of 05/15/2019. She is oriented to herself and situation. She is quite anxious and prior to my visit was complaining of some shortness of breath. Nursing staff did address this. No objective evidence of shortness of breath, though subjective part of her anxiety exacerbating it. She does have some short-term memory deficit, short attention span No active suicidal or homicidal ideation. Mood is depressed and anxious. Affect is mood congruent. IMPRESSION: Major depressive disorder, recurrent; anxiety disorder, unspecified; mild cognitive impairment. Rest diagnoses as above. RECOMMENDATIONS: From a Psychiatric standpoint, the patient does have symptoms of depression and anxiety. She is not on any antidepressants. Her daughter has done well on Prozac. Given the family history, I would suggest starting Prozac 10 mg a day for now. This may need to be increased gradually. No further changes for now. Dr. Diaz, thank you for the opportunity to participate in your patient's care. We will follow with you. MAN Soco GARCÍA MD DR: CIARA/ludmila JOB#: [id number] / [id number]
--- NOTE | 2019-05-17 03:39 | CONS ---
DATE OF CONSULTATION: 05/16/2019 NEUROLOGY CONSULTATION REFERRING PHYSICIAN: Dr. Diaz. REASON FOR CONSULTATION: Rule out seizure. HISTORY OF PRESENT ILLNESS: This is an 88-year-old right-handed female who is a [facility] resident, has been admitted several times to [facility] in the last few weeks. [facility]. The patient was readmitted through Emergency Room after she was witnessed having a spell when she became unresponsive. The last episode was on the day of admission and lasted 15 minutes. The patient did not bite her tongue or have any bowel or bladder incontinence. EMS was activated and transferred the patient to Emergency Room when she was found to be alert and oriented. Initial head CT scan revealed no evidence of acute intracranial process, but showed chronic small vessel ischemic changes. The patient complains of generalized weakness and pain confined to the left hip. Recent x-ray revealed evidence of arthritis, but no fracture or dislocations. The patient stated she has been depressed. PAST MEDICAL HISTORY: Significant for hypertension, hyperlipidemia, diabetes mellitus type 2, coronary artery disease, status post coronary artery bypass graft in 2010, status post stent placement in 2009 and 2016, chronic kidney disease, TIA, osteoarthritis, severe hearing loss bilaterally, urinary incontinence, and hypothyroidism. PAST SURGICAL HISTORY: Significant for coronary artery bypass graft, cardiac stent placements, cataract extraction, hysterectomy, and appendectomy. SOCIAL HISTORY: The patient is . Currently, she is in [facility]. She denies smoking, alcohol drinking, or illicit drug use. CURRENT MEDICATIONS: Prozac, insulin, gabapentin, simvastatin, donepezil, albuterol inhaler, Tylenol, hydrocortisone, meclizine, metoprolol succinate, levothyroxine, hydralazine 50 mg t.i.d., Plavix 75 mg daily, Eliquis 2.5 mg twice daily, amlodipine 10 mg daily. ALLERGIES: SULFA DRUGS AND CAPTOPRIL. . REVIEW OF SYSTEMS: A 10-point review of system was performed, as mentioned above in history of present illness. PHYSICAL EXAMINATION: GENERAL: Well-developed, well-nourished female, not in acute distress. She weighs 75.4 kilograms. VITAL SIGNS: Blood pressure 163/65, respiratory rate 20, pulse is 53, oxygen saturation 89% on 2 liters by nasal cannula. HEENT: Normocephalic, atraumatic, otherwise unremarkable. NECK: Supple. Negative for carotid bruit, lymphadenopathy or thyromegaly. LUNGS: Clear to A and P. CARDIOVASCULAR: Regular rate and rhythm, normal S1, S2. ABDOMEN: Soft. Bowel sounds positive. EXTREMITIES: Negative for cyanosis, clubbing or edema. NEUROLOGICAL: Mental status: The patient is alert and oriented x 2. The speech is fluent. There is no language dysfunction. The patient recalls 1/3 immediately and 0/3 after 1 and 3 minutes. Judgment and abstract thinking are fair. The patient denies hallucination or delusion. Cranial nerves: Visual nelson appeared to be intact. The pupils are reactive to light and accommodation. Extraocular movements are intact. There is no nystagmus. There is no facial motor or sensory deficit. Hearing is intact bilaterally. The palate is elevated symmetrically. Sternocleidomastoid muscles are powerful bilaterally. The patient shrugs her shoulders symmetrically, protrudes her tongue in the midline without fasciculation or atrophy. Motor: No focal muscle bulk was seen. The tone is normal. The strength is 4/5 throughout. Sensory examination revealed normal pinprick and light touch senses throughout. Deep tendon reflexes were symmetric and hypoactive with absent Achilles responses. Gait not tested. DIAGNOSTIC DATA: Head CT scan revealed no acute intracranial process, but chronic small vessel ischemic changes. Chest x-ray revealed no cardiopulmonary process. CT of the pelvis revealed degenerative lumbar spondylosis with stenosis. LABORATORY DATA: CBC revealed white blood cells of 6.9 thousand, hemoglobin 10.7, hematocrit 33.4, platelet count 282,000. Chemistry revealed sodium 140, potassium 4, chloride 109, CO2 of 21, BUN 23, creatinine 2.6 and glucose 85 with low calcium at 7.6. Urinalysis negative for urinary tract infection. IMPRESSION: 1. Recurrent episodes of unresponsiveness without evidence of seizure-like activities; however, no recurrent spells since admission. 2. Multiple medical problems including hypertension, hyperlipidemia, diabetes mellitus, coronary artery disease, status post coronary artery bypass graft and stent placement, hypothyroidism, chronic kidney disease, and osteoarthritis. RECOMMENDATIONS: 1. Continue with current management initiated by Dr. Diaz including careful hydration. 2. We will arrange for EEG to be done on an outpatient basis after discharge. 3. Continue with current psychiatric recommendations. M Bret CISNEROS MD DR: Marylin JOB#: [id number] / [id number]
[2019-05-17] MEDS: IV NORMAL SALINE 1,000ML 1,000 ML IV SCH (04:30)
--- NOTE | 2019-05-17 05:08 | PN ---
DATE: 05/16/2019 SUBJECTIVE: The patient sitting in her chair, eating her lunch comfortably. She, however, is complaining of severe pain in her left foot and left hip joint. We did x-ray and CT scan of the pelvis, which showed mild degenerative changes in both hip joints and sacroiliac joint. She has had also degenerative changes at the pubic symphysis with chondrocalcinosis and marked demineralization. PHYSICAL EXAMINATION: GENERAL: When I examined her, she was pale, but no jaundice, cyanosis or thyromegaly. No jugular venous distention. No limb edema. VITAL SIGNS: Her heart rate was 68, blood pressure was 162/79, temperature was 98 degrees Fahrenheit, respiratory rate was 18 and oxygen saturation was 93% on 2 liters of oxygen. She has no evidence of postural drop, although the patient continued to complain of dizzy spells. HEAD, EYES, EARS, NOSE AND THROAT: Showed normocephalic, atraumatic. NECK: Supple. HEART: Showed normal first and second heart sounds. No gallop or murmur. CHEST: Clear to auscultation. No crepitation or rhonchi. ABDOMEN: Distended, soft, nontender. No guarding or rigidity. No organomegaly. All hernial orifice intact. Bowel sounds normal. NEUROLOGIC: She is awake, alert, responding appropriately. All cranial nerves intact. She moves extremities without difficulty. She is able to ambulate with a walker with standby assist. ASSESSMENT: 1. Altered mental status with possible non-convulsive seizures for which we have consulted Dr. Mejia. 2. Severe depression for which we have consulted Dr. Gudino. 3. She has [id number] kidney injury. She was gently rehydrated. Her creatinine is down from 3.1 to 2.6. 4. She has multiple other medical problems including: A. Hypertension. B. Type 2 diabetes mellitus. C. Hyperlipidemia. D. Coronary artery disease, status post coronary artery bypass graft surgery as well as PCI with stent deployment. E. Chronic kidney disease. F. Hypothyroidism. PLAN: My plan is to arrange for her to have an x-ray of her left foot. I have also ordered total body bone scan and await evaluation by Dr. Mejia and Dr. Gudino. JAIRO GRANT MD DR: Toan JOB#: [id number] / [id number]
[2019-05-17 06:19] LABS: HEMOGLOBIN 9.6 g/dL (12.0-15.5); RED BLOOD COUNT 3.31 x10^6/uL (3.50-5.40); RED CELL DISTRIBUTION WIDTH 15.3 % (11.5-14.5); WHITE BLOOD COUNT 7.7 x10^3/uL (4.0-11.0)
[2019-05-17 06:33] LABS: ALBUMIN 2.4 g/dL (3.4-5.0); ALBUMIN/GLOBULIN RATIO 0.6 (1.0-1.7); C REACTIVE PROTEIN 33.7 mg/L (0-3.3); CALCIUM 7.8 mg/dL (8.5-10.1); CREATININE 2.4 mg/dL (0.6-1.0); GFR 19.1; POTASSIUM 3.8 mmol/L (3.5-5.1); TOTAL BILIRUBIN 0.3 mg/dL (0.2-1.0); TOTAL PROTEIN 6.2 g/dL (6.4-8.2); URIC ACID 7.9 mg/dL (2.6-6.0)
[2019-05-17] MEDS: LEVOTHYROXINE 125 MCG TABLET PO SCH (06:39)
[2019-05-17] MEDS: INSULIN LISPRO 300 UNITS/3 ML VIAL. SQ SCH ×3 (08:15→17:00)
[2019-05-17] MEDS: CLOPIDOGREL BISULFATE 75 MG TABLET PO SCH (08:22)
[2019-05-17] MEDS: DOXAZOSIN MESYLATE 4 MG TABLET PO SCH (08:22)
[2019-05-17] MEDS: amLODIPine BESYLATE 10 MG TABLET PO SCH (08:22)
[2019-05-17] MEDS: APIXABAN 2.5 MG TABLET PO SCH ×2 (08:22→20:19)
--- NOTE | 2019-05-17 08:22 | PDOC ---
CARDIO Progress Notes Date & Time Date of Service DATE: 05/17/19 TIME: 08:14 Time of Evaluation 08:14 Subjective Notes No dizziness, diaphoresis, or chest pain. Would like to be left alone Vitals Vitals Vital Signs Date Time Temp Pulse Resp B/P (MAP) Pulse Ox O2 Delivery O2 Flow Rate FiO2 05/16/19 23:58 98.6 65 20 151/66 (94) 93 Nasal Cannula 2.0 Weight Weight [ ] Input and Output I.O. Intake and Output 05/17/19 06:59 Intake Total 2622 ml Balance 2622 ml Intake Oral 800 ml IV Total 1822 ml # Voids 6 Laboratory Labs Laboratory Tests Test 05/15/19 16:55 05/15/19 21:17 05/16/19 06:12 05/16/19 07:21 Glucose (Fingerstick) 103 mg/dL (70-99) 161 mg/dL (70-99) 73 mg/dL (70-99) Sodium Level 140 mmol/L (136-145) Potassium Level 4.0 mmol/L (3.5-5.1) Chloride Level 109 mmol/L (98-107) Carbon Dioxide Level 21 mmol/L (21-32) Anion Gap 10 (6-14) Blood Urea Nitrogen 35 mg/dL (7-20) Creatinine 2.6 mg/dL (0.6-1.0) Estimated GFR (Cockcroft-Gault) 17.5 Glucose Level 85 mg/dL (70-99) Calcium Level 7.6 mg/dL (8.5-10.1) Test 05/16/19 11:32 05/16/19 16:27 05/16/19 20:29 05/17/19 05:53 Glucose (Fingerstick) 71 mg/dL (70-99) 105 mg/dL (70-99) 114 mg/dL (70-99) White Blood Count 7.7 x10^3/uL (4.0-11.0) Red Blood Count 3.31 x10^6/uL (3.50-5.40) Hemoglobin 9.6 g/dL (12.0-15.5) Hematocrit 30.0 % (36.0-47.0) Mean Corpuscular Volume 91 fL (79-100) Mean Corpuscular Hemoglobin 29 pg (25-35) Mean Corpuscular Hemoglobin Concent 32 g/dL (31-37) Red Cell Distribution Width 15.3 % (11.5-14.5) Platelet Count 249 x10^3/uL (140-400) Erythrocyte Sedimentation Rate 58 (0-25) Sodium Level 142 mmol/L (136-145) Potassium Level 3.8 mmol/L (3.5-5.1) Chloride Level 110 mmol/L (98-107) Carbon Dioxide Level 21 mmol/L (21-32) Anion Gap 11 (6-14) Blood Urea Nitrogen 27 mg/dL (7-20) Creatinine 2.4 mg/dL (0.6-1.0) Estimated GFR (Cockcroft-Gault) 19.1 BUN/Creatinine Ratio 11 (6-20) Glucose Level 98 mg/dL (70-99) Uric Acid 7.9 mg/dL (2.6-6.0) Calcium Level 7.8 mg/dL (8.5-10.1) Total Bilirubin 0.3 mg/dL (0.2-1.0) Aspartate Amino Transf (AST/SGOT) 20 U/L (15-37) Alanine Aminotransferase (ALT/SGPT) 11 U/L (14-59) Alkaline Phosphatase 62 U/L (46-116) C-Reactive Protein 33.7 mg/L (0-3.3) Total Protein 6.2 g/dL (6.4-8.2) Albumin 2.4 g/dL (3.4-5.0) Albumin/Globulin Ratio 0.6 (1.0-1.7) Test 05/17/19 07:27 Glucose (Fingerstick) 85 mg/dL (70-99) Physical Exams HEENT: Neck Supple W Full Motion Chest: Symmetric Lungs: Other (fine bibasilar crackles, tachypnea ) Heart: S1S2, RRR (SR/SB) Abdomen: Soft N/T Extremities: Other (trace bilateral LE edema ) Neurology: alert, oriented, follow commands Assessment Assessment 1. Syncope, weakness 2. Bradycardia, sinus. lowest 44. No pauses 3. Mild acute diastolic CHF 4. PAFIB 5. CAD s/p previous CABG 6. PUMA on CKD 7. Hypertension; mildly elevated 8. Hyperlipidemia; statin 9. Diabetes, II 10. Depression Recommendations Stop IVFs CXR Lasix Decrease metoprolol to 12.5mg BID Continue amlodipine. Increase hydralazine No ACEi with renal disease Secondary prevention Eliquis for stroke prophylaxis Consider outpatient loop recorder KIN HENDRICKSON APRN May 17, 2019 08:22
[2019-05-17] MEDS: METOPROLOL SUCC 24HR ER 25 MG TAB.ER.24H. PO SCH ×3 (08:23→20:20)
--- NOTE | 2019-05-17 09:59 | RAD ---
CHEST AP ONLY Clinical Indication: Tachypnea, shortness of breath Comparison: 05/14/2019 Portable Chest X-ray Exam. Findings: Upright frontal view chest was obtained. Sternal wires and mediastinal clips noted. Heart size mildly enlarged. Pulmonary vasculature congestion noted. Minimal right basilar opacification evident. There is no pneumothorax. Small pleural effusions are present greater on the right. No acute bone abnormality. IMPRESSION: Mild increase in pleural effusions and right basilar atelectasis. Pulmonary vasculature congestion is again noted. Electronically signed by: Stoney Dean MD (05/17/2019 9:56 AM) [facility]
[2019-05-17] MEDS ORDERED: FUROSEMIDE 40 MG/4 ML VIAL IVP ONE (10:45)
[2019-05-17 11:14] VITALS: BP 176/65
[2019-05-17 15:32] VITALS: BP 174/65
--- NOTE | 2019-05-17 17:40 | RAD ---
Examination: BONE SCAN WHOLE BODY History: Multiple sites of pain. Comparison/Correlation: 05/17/2019 AP view of the chest Findings: 25 mCi technetium 99m MDP was intravenously administered for purposes of the whole-body bone scintigraphy. Uptake of radiotracer is unremarkable with no regions of abnormal increased or decreased radiotracer accumulation. Uptake involving the knees and the feet are compatible with degenerative change. Kidneys and urinary bladder are noted. Impression: No abnormal uptake of radiotracer to suggest a suspicious process. Electronically signed by: Stoney Dean MD (05/17/2019 5:37 PM) [facility]
[2019-05-17 19:37] VITALS: BP 108/64
[2019-05-17] MEDS: INSULIN GLARGINE SYRINGE. SQ SCH (20:17)
[2019-05-17] MEDS: GABAPENTIN 300 MG CAPSULE. PO SCH (20:19)
[2019-05-17] MEDS: DONEPEZIL HCL 10 MG TABLET PO SCH (20:19)
[2019-05-17] MEDS: SIMVASTATIN 20 MG TABLET PO SCH (20:20)
[2019-05-17] MEDS: FLUoxetine HCL 10 MG CAPSULE PO SCH (20:24)
[2019-05-17 21:03] VITALS: BP 171/69
--- NOTE | 2019-05-17 22:01 | PDOC ---
Exam Note: Pritesh Note: Please also refer to the separate dictated note~for this date of service dictated separately.~Patient seen individually. Discussed the patient with Nursing staff reviewed the chart.~Reviewed interim history and current functioning. Reviewed vital signs,~Labs/ Radiology~and current medications noted below. Continue current treatment with the changes noted in the dictated addendum note Assessment: Vital Signs/I&O: Vital Signs Date Time Temp Pulse Resp B/P (MAP) Pulse Ox O2 Delivery O2 Flow Rate FiO2 05/17/19 21:03 58 171/69 (103) 05/17/19 20:00 Room Air 05/17/19 19:37 98.1 28 92 2.0 I & O 05/16/19 05/16/19 05/17/19 14:59 22:59 06:59 Intake Total 360 ml 1387 ml 875 ml Balance 360 ml 1387 ml 875 ml Labs: Laboratory Tests Test 05/17/19 05:53 05/17/19 07:27 05/17/19 11:26 05/17/19 16:54 White Blood Count 7.7 x10^3/uL (4.0-11.0) Red Blood Count 3.31 x10^6/uL (3.50-5.40) L Hemoglobin 9.6 g/dL (12.0-15.5) L Hematocrit 30.0 % (36.0-47.0) L Mean Corpuscular Volume 91 fL (79-100) Mean Corpuscular Hemoglobin 29 pg (25-35) Mean Corpuscular Hemoglobin Concent 32 g/dL (31-37) Red Cell Distribution Width 15.3 % (11.5-14.5) H Platelet Count 249 x10^3/uL (140-400) Erythrocyte Sedimentation Rate 58 (0-25) H Sodium Level 142 mmol/L (136-145) Potassium Level 3.8 mmol/L (3.5-5.1) Chloride Level 110 mmol/L (98-107) H Carbon Dioxide Level 21 mmol/L (21-32) Anion Gap 11 (6-14) Blood Urea Nitrogen 27 mg/dL (7-20) H Creatinine 2.4 mg/dL (0.6-1.0) H Estimated GFR (Cockcroft-Gault) 19.1 BUN/Creatinine Ratio 11 (6-20) Glucose Level 98 mg/dL (70-99) Uric Acid 7.9 mg/dL (2.6-6.0) H Calcium Level 7.8 mg/dL (8.5-10.1) L Total Bilirubin 0.3 mg/dL (0.2-1.0) Aspartate Amino Transferase (AST) 20 U/L (15-37) Alanine Aminotransferase (ALT) 11 U/L (14-59) L Alkaline Phosphatase 62 U/L (46-116) C-Reactive Protein 33.7 mg/L (0-3.3) H Total Protein 6.2 g/dL (6.4-8.2) L Albumin 2.4 g/dL (3.4-5.0) L Albumin/Globulin Ratio 0.6 (1.0-1.7) L Glucose (Fingerstick) 85 mg/dL (70-99) 69 mg/dL (70-99) L 70 mg/dL (70-99) Test 05/17/19 19:32 Glucose (Fingerstick) 150 mg/dL (70-99) H Current Medications: Meds: Current Medications Medications (Trade) Dose Ordered Sig/Brendan Route PRN Reason Start Time Stop Time Status Last Admin Dose Admin Fluoxetine HCl (PROzac) 10 mg DAILY PO 05/17/19 20:00 05/17/19 20:24 Hydralazine HCl (Apresoline) 75 mg TID PO 05/17/19 09:00 05/17/19 20:21 Furosemide (Lasix) 40 mg 1X ONCE IVP 05/17/19 10:45 05/17/19 10:46 DC 05/17/19 11:32 I have reviewed the current psychotropics carefully including drug interactions. Risk benefit ratio favors no change other than as noted in my dictated progress note. Diagnosis: Problems: (1) Major depressive disorder, recurrent episode (2) Mild cognitive impairment (3) Altered mental status (4) Anxiety disorder HANS GARCÍA MD May 17, 2019 22:01
[2019-05-17 22:29] VITALS: BP 143/62
--- NOTE | 2019-05-18 00:41 | PN ---
DATE: 05/16/2019 PSYCHIATRIC PROGRESS NOTE This late entry, 05/16/2019, covers elements not covered in my initial note. SUBJECTIVE: I met with the patient in the evening. Per nursing reports, she remains somewhat withdrawn, depressed and anxious. She has been started on Prozac 10 mg a day. REVIEW OF SYSTEMS: Positive for some tiredness. No CV, , pulmonary, eye system symptoms on review. MENTAL STATUS EXAM: Reasonably oriented. Speech is coherent, has some latency. Abstraction fair, computation impaired, language function intact. Mood and affect somewhat withdrawn. She does have short term memory deficits. IMPRESSION: Major depressive disorder, recurrent; anxiety disorder, unspecified; mild cognitive impairment. PLAN: Continue Prozac 10 mg a day. Rest unchanged from a psychiatric standpoint. MAN Soco GARCÍA MD DR: CIARA/ludmila JOB#: [id number] / [id number]
--- NOTE | 2019-05-18 03:59 | PN ---
DATE: 05/17/2019 SUBJECTIVE: The patient is resting slightly propped up in bed, no apparent distress. She apparently is extremely depressed, does not want to participate in anything, wishes to . She was seen by Dr. Gudino and was diagnosed with major depressive disorder, recurrent; anxiety disorder with mild cognitive impairment and recommended starting her on Prozac 10 mg once a day. PHYSICAL EXAMINATION: GENERAL: When I examined her this afternoon, she was resting slightly propped up in bed, in no apparent respiratory distress, pale, but no jaundice, cyanosis or thyromegaly. No jugular venous distention. No limb edema. VITAL SIGNS: Her heart rate was 64, blood pressure was 174/65, temperature was 97.5, respiratory rate was 20, and oxygen saturation was 92%. HEAD, EYES, EARS, NOSE AND THROAT: Showed normocephalic, atraumatic. NECK: Supple. HEART: Showed normal first and second heart sounds. No gallop, rub or murmur. CHEST: Clear to auscultation. No crepitation, rhonchi. ABDOMEN: Distended, soft, nontender. NEUROLOGIC: She was sleepy, but arousable. All cranial nerves intact. She moves extremities without difficulty. Her intake over the last 24 hours was 1900, no output was recorded. LABORATORY DATA: Her lab work this morning showed a white cell count 7700, hemoglobin 10, hematocrit 30, MCV 91, and platelet count ____. Her sed rate was 58 mm/hour. Her serum sodium 142, potassium 3.8, chloride 110, bicarbonate 21, anion gap of 11, BUN 27, creatinine 2.4, estimated GFR was 19 mL per minute. Her glucose ____. Her total bilirubin, AST, ALT, alkaline phosphatase are normal. C-reactive protein was high at 33 mg/dL. Total protein was 6.2, albumin 2.4. ASSESSMENT: 1. Altered mental status with possible non-convulsive seizures for which we have consulted Dr. Mejia. 2. Severe depression for which we have consulted Dr. Gudino and now she is on Prozac. 3. Acute on chronic kidney injury. She was gently hydrated. Her creatinine is down from 3.1 to 2.4. 4. She has multiple other medical problems including: A. Hypertension. B. Type 2 diabetes mellitus. C. Hyperlipidemia. D. Coronary artery disease, status post coronary artery bypass graft surgery as well as PCI and stent deployment. E. Chronic kidney disease. F. Hypothyroidism. PLAN: I did an x-ray of her left foot, which did show only degenerative changes and osteopenia, no evidence of fracture. I did a total body bone scan, the results of which is still pending at the time of this dictation. She has a chest x-ray done this morning showed mild increase in pleural effusion, right basilar atelectasis, pulmonary vasculature congestion is again noted. Her IV fluids were stopped. She was given 40 mg of Lasix. The patient herself wanted to ____ were exploring the possibility of perhaps palliative care as she is not a candidate for hospice care. I will discuss this with our case filler tomorrow. JAIRO GRANT MD DR: ANGEL/ludmila JOB#: [id number] / [id number]
[2019-05-18] MEDS: LEVOTHYROXINE 125 MCG TABLET PO SCH (05:04)
[2019-05-18 06:23] VITALS: BP 144/73
[2019-05-18 06:25] LABS: HEMATOCRIT 29.5 % (36.0-47.0); HEMOGLOBIN 9.6 g/dL (12.0-15.5); RED BLOOD COUNT 3.27 x10^6/uL (3.50-5.40); RED CELL DISTRIBUTION WIDTH 14.9 % (11.5-14.5); WHITE BLOOD COUNT 7.1 x10^3/uL (4.0-11.0)
[2019-05-18 06:27] LABS: CALCIUM 8.1 mg/dL (8.5-10.1); CREATININE 2.6 mg/dL (0.6-1.0); GFR 17.5; POTASSIUM 4.1 mmol/L (3.5-5.1)
--- NOTE | 2019-05-18 08:02 | PN ---
DATE: 05/17/2019 PSYCHIATRIC PROGRESS NOTE This late entry 05/17/2019 covers elements not covered in my initial note. I met with the patient in the evening in her room. Per nursing staff, the patient still remains depressed, somewhat withdrawn and she was sedated, tired as I met with her in the evening. She has been started on Prozac and so far tolerating it reasonably well. No CV, , pulmonary, eye system symptoms on review. Does admit to some tiredness. MENTAL STATUS EXAM: Reasonably oriented. Speech coherent, often responses monosyllabic. Abstraction fair, computation impaired, language function intact. Mood and affect still depressed, but subjectively states she is feeling a little better. No suicidal ideation. Labs reviewed. IMPRESSION: Major depressive disorder, recurrent, anxiety disorder, unspecified. PLAN: No change from initial note. Continue Prozac 10 mg a day. Rest unchanged for now. MAN Soco GARCÍA MD DR: CIARA/ludmila JOB#: [id number] / [id number]
--- NOTE | 2019-05-18 08:31 | PDOC ---
CARDIO Progress Notes Date & Time Date of Service DATE: 05/18/19 TIME: 08:27 Time of Evaluation 08:27 Subjective Notes No CP, SOA, dizziness, diaphoresis, or nausea/vomiting. Vitals Vitals Vital Signs Date Time Temp Pulse Resp B/P (MAP) Pulse Ox O2 Delivery O2 Flow Rate FiO2 05/18/19 06:23 98.3 60 20 144/73 (96) 93 Nasal Cannula 2.0 Weight Weight [ ] Input and Output I.O. Intake and Output 05/18/19 06:59 # Voids 7 Laboratory Labs Laboratory Tests Test 05/16/19 11:32 05/16/19 16:27 05/16/19 20:29 05/17/19 05:53 Glucose (Fingerstick) 71 mg/dL (70-99) 105 mg/dL (70-99) 114 mg/dL (70-99) White Blood Count 7.7 x10^3/uL (4.0-11.0) Red Blood Count 3.31 x10^6/uL (3.50-5.40) Hemoglobin 9.6 g/dL (12.0-15.5) Hematocrit 30.0 % (36.0-47.0) Mean Corpuscular Volume 91 fL (79-100) Mean Corpuscular Hemoglobin 29 pg (25-35) Mean Corpuscular Hemoglobin Concent 32 g/dL (31-37) Red Cell Distribution Width 15.3 % (11.5-14.5) Platelet Count 249 x10^3/uL (140-400) Erythrocyte Sedimentation Rate 58 (0-25) Sodium Level 142 mmol/L (136-145) Potassium Level 3.8 mmol/L (3.5-5.1) Chloride Level 110 mmol/L (98-107) Carbon Dioxide Level 21 mmol/L (21-32) Anion Gap 11 (6-14) Blood Urea Nitrogen 27 mg/dL (7-20) Creatinine 2.4 mg/dL (0.6-1.0) Estimated GFR (Cockcroft-Gault) 19.1 BUN/Creatinine Ratio 11 (6-20) Glucose Level 98 mg/dL (70-99) Uric Acid 7.9 mg/dL (2.6-6.0) Calcium Level 7.8 mg/dL (8.5-10.1) Total Bilirubin 0.3 mg/dL (0.2-1.0) Aspartate Amino Transf (AST/SGOT) 20 U/L (15-37) Alanine Aminotransferase (ALT/SGPT) 11 U/L (14-59) Alkaline Phosphatase 62 U/L (46-116) C-Reactive Protein 33.7 mg/L (0-3.3) Total Protein 6.2 g/dL (6.4-8.2) Albumin 2.4 g/dL (3.4-5.0) Albumin/Globulin Ratio 0.6 (1.0-1.7) Test 05/17/19 07:27 05/17/19 11:26 05/17/19 16:54 05/17/19 19:32 Glucose (Fingerstick) 85 mg/dL (70-99) 69 mg/dL (70-99) 70 mg/dL (70-99) 150 mg/dL (70-99) Test 05/18/19 05:47 05/18/19 07:29 White Blood Count 7.1 x10^3/uL (4.0-11.0) Red Blood Count 3.27 x10^6/uL (3.50-5.40) Hemoglobin 9.6 g/dL (12.0-15.5) Hematocrit 29.5 % (36.0-47.0) Mean Corpuscular Volume 90 fL (79-100) Mean Corpuscular Hemoglobin 29 pg (25-35) Mean Corpuscular Hemoglobin Concent 33 g/dL (31-37) Red Cell Distribution Width 14.9 % (11.5-14.5) Platelet Count 240 x10^3/uL (140-400) Sodium Level 140 mmol/L (136-145) Potassium Level 4.1 mmol/L (3.5-5.1) Chloride Level 107 mmol/L (98-107) Carbon Dioxide Level 22 mmol/L (21-32) Anion Gap 11 (6-14) Blood Urea Nitrogen 29 mg/dL (7-20) Creatinine 2.6 mg/dL (0.6-1.0) Estimated GFR (Cockcroft-Gault) 17.5 Glucose Level 128 mg/dL (70-99) Calcium Level 8.1 mg/dL (8.5-10.1) Glucose (Fingerstick) 122 mg/dL (70-99) Physical Exams HEENT: Neck Supple W Full Motion Chest: Symmetric Lungs: Other (diminished bases ) Heart: S1S2, RRR (SR/SB) Abdomen: Soft N/T Extremities: Other (trace bilateral LE edema ) Neurology: alert, oriented, follow commands Assessment Assessment 1. Syncope, weakness 2. Bradycardia, sinus. lowest 44 this morning. No tachyarrhythmias noted 3. Mild acute diastolic CHF; better compensated 4. PAFIB; maintaining SR 5. CAD s/p previous CABG. Stable. CP free 6. PUMA on CKD; Cr near baseline per review 7. Hypertension; mildly elevated 8. Hyperlipidemia; statin 9. Diabetes, II 10. Depression Recommendations Continue metoprolol at present dose Secondary prevention Eliquis for stroke prophylaxis She is considering palliative care at this time. Consider outpatient loop recorder if patient would like aggressive care. Supportive care KIN HENDRICKSON APRN May 18, 2019 08:30
[2019-05-18] MEDS: INSULIN LISPRO 300 UNITS/3 ML VIAL. SQ SCH ×3 (08:59→17:00)
[2019-05-18] MEDS: DOXAZOSIN MESYLATE 4 MG TABLET PO SCH (09:48)
[2019-05-18] MEDS: CLOPIDOGREL BISULFATE 75 MG TABLET PO SCH (09:48)
[2019-05-18] MEDS: APIXABAN 2.5 MG TABLET PO SCH ×2 (09:48→21:47)
[2019-05-18] MEDS: amLODIPine BESYLATE 10 MG TABLET PO SCH (09:48)
[2019-05-18] MEDS: DOCUSATE SODIUM 100 MG CAPSULE PO PRN (09:49)
[2019-05-18] MEDS: METOPROLOL SUCC 24HR ER 25 MG TAB.ER.24H. PO SCH ×2 (09:50→21:48)
[2019-05-18] MEDS: FLUoxetine HCL 10 MG CAPSULE PO SCH (09:50)
[2019-05-18 11:07] VITALS: BP 181/63
[2019-05-18 15:11] VITALS: BP 147/61
[2019-05-18 18:56] LABS: BILIRUBIN,URINE NEG (NEG); CLARITY,URINE TURBID; COLOR,URINE YELLOW; GLUCOSE,URINE NEG (NEG); NITRITE,URINE NEG (NEG); RBC,URINE 0 /HPF (0-2); UROBILINOGEN,URINE 0.2 mg/dL (0.2 mg/dL)
[2019-05-18 18:57] LABS: BACTERIA,URINE MANY /HPF (0-FEW); HYALINE CASTS, URINE OCC /HPF; SQUAMOUS EPITHELIAL CELL,UR OCC /LPF; WBC,URINE 20-40 /HPF (0-4)
[2019-05-18 19:39] VITALS: BP 122/69
[2019-05-18] MEDS: INSULIN GLARGINE SYRINGE. SQ SCH (21:00)
--- NOTE | 2019-05-18 21:36 | PDOC ---
Exam Note: Pritesh Note: Please also refer to the separate dictated note~for this date of service dictated separately.~Patient seen individually. Discussed the patient with Nursing staff reviewed the chart.~Reviewed interim history and current functioning. Reviewed vital signs,~Labs/ Radiology~and current medications noted below. Continue current treatment with the changes noted in the dictated addendum note Assessment: Vital Signs/I&O: Vital Signs Date Time Temp Pulse Resp B/P (MAP) Pulse Ox O2 Delivery O2 Flow Rate FiO2 05/18/19 19:39 98.0 62 22 122/69 (86) 92 Nasal Cannula 2.0 Labs: Laboratory Tests Test 05/18/19 05:47 05/18/19 07:29 05/18/19 11:38 05/18/19 16:41 White Blood Count 7.1 x10^3/uL (4.0-11.0) Red Blood Count 3.27 x10^6/uL (3.50-5.40) L Hemoglobin 9.6 g/dL (12.0-15.5) L Hematocrit 29.5 % (36.0-47.0) L Mean Corpuscular Volume 90 fL (79-100) Mean Corpuscular Hemoglobin 29 pg (25-35) Mean Corpuscular Hemoglobin Concent 33 g/dL (31-37) Red Cell Distribution Width 14.9 % (11.5-14.5) H Platelet Count 240 x10^3/uL (140-400) Sodium Level 140 mmol/L (136-145) Potassium Level 4.1 mmol/L (3.5-5.1) Chloride Level 107 mmol/L (98-107) Carbon Dioxide Level 22 mmol/L (21-32) Anion Gap 11 (6-14) Blood Urea Nitrogen 29 mg/dL (7-20) H Creatinine 2.6 mg/dL (0.6-1.0) H Estimated GFR (Cockcroft-Gault) 17.5 Glucose Level 128 mg/dL (70-99) H Calcium Level 8.1 mg/dL (8.5-10.1) L Glucose (Fingerstick) 122 mg/dL (70-99) H 201 mg/dL (70-99) H 127 mg/dL (70-99) H Test 05/18/19 18:25 05/18/19 19:57 Urine Collection Type Unknown Urine Color Yellow Urine Clarity Turbid Urine pH 5.5 Urine Specific [place] 1.025 Urine Protein >100 mg/dl (NEG-TRACE) Urine Glucose (UA) Neg mg/dL (NEG) Urine Ketones (Stick) Neg mg/dL (NEG) Urine Blood Neg (NEG) Urine Nitrite Neg (NEG) Urine Bilirubin Neg (NEG) Urine Urobilinogen Dipstick 0.2 mg/dL (0.2 mg/dL) Urine Leukocyte Esterase Trace (NEG) Urine RBC 0 /HPF (0-2) Urine WBC 20-40 /HPF (0-4) Urine Squamous Epithelial Cells Occ /LPF Urine Bacteria Many /HPF (0-FEW) Urine Hyaline Casts Occ /HPF Glucose (Fingerstick) 144 mg/dL (70-99) H Current Medications: I have reviewed the current psychotropics carefully including drug interactions. Risk benefit ratio favors no change other than as noted in my dictated progress note. Diagnosis: Problems: (1) Major depressive disorder, recurrent episode (2) Mild cognitive impairment (3) Altered mental status (4) Anxiety disorder HANS GARCÍA MD May 18, 2019 21:36
[2019-05-18] MEDS: GABAPENTIN 300 MG CAPSULE. PO SCH (21:47)
[2019-05-18] MEDS: SIMVASTATIN 20 MG TABLET PO SCH (21:47)
[2019-05-18] MEDS: DONEPEZIL HCL 10 MG TABLET PO SCH (21:52)
[2019-05-18 22:41] VITALS: BP 145/69
--- NOTE | 2019-05-19 00:30 | PN ---
DATE: 05/18/2019 SUBJECTIVE: The patient is resting slightly propped up in bed, no apparent distress. She continues to be depressed, stated that there is nothing left to live for, although she seemed to be slightly in good spirits today. She has according to her working with physical therapy and has eaten some of her breakfast and lunch. We have had discussion with her daughters and we are screening her to go upstairs as she continued to be extremely depressed and not motivated. PHYSICAL EXAMINATION: GENERAL: When I saw her today, she was pale, but no jaundice, cyanosis or thyromegaly. No jugular venous distention. No limb edema. VITAL SIGNS: Her heart rate was 56, blood pressure was 147/61, her temperature was 97.7, respiratory rate 20, and oxygen saturation was 92% on 2 liters of oxygen. HEAD, EYES, EARS, NOSE AND THROAT: Showed normocephalic, atraumatic. NECK: Supple. HEART: Showed normal first and second heart sounds. No gallop or murmur. CHEST: Clear to auscultation. No crepitation or rhonchi. ABDOMEN: Distended, soft, nontender. NEUROLOGIC: She is awake, alert, responding appropriately. All cranial nerves intact. She moves extremities without difficulty. She managed to ambulate with a walker. LABORATORY DATA: Her lab work this morning showed a BUN of 29, creatinine 2.6. White cell count was 7100, hemoglobin 10, hematocrit 30, MCV 90 and platelet count 240,000. ASSESSMENT: 1. The patient continued to be depressed and unmotivated. We will screen her to see whether she qualifies to go to [facility] for [facility]. 2. Sinus bradycardia, slightly better. 3. Acute on chronic diastolic congestive heart failure, much improved with paroxysmal atrial fibrillation and currently in sinus rhythm. 4. Coronary artery disease, status post coronary artery bypass graft. 5. Acute on chronic kidney injury. Creatinine is near baseline. 6. Hypertension, mildly inflated, hyperlipidemia, type 2 diabetes mellitus. PLAN: To continue with her Eliquis for stroke prevention. Apparently, she is not a candidate for hospice care. We will screen her for inpatient psychiatric stabilization. JAIRO GRANT MD DR: ANGEL/ludmila JOB#: [id number] / [id number]
[2019-05-19 05:23] VITALS: BP 135/63
[2019-05-19] MEDS: LEVOTHYROXINE 125 MCG TABLET PO SCH (06:24)
[2019-05-19] MEDS: INSULIN LISPRO 300 UNITS/3 ML VIAL. SQ SCH ×3 (08:00→17:00)
[2019-05-19] MEDS: DOCUSATE SODIUM 100 MG CAPSULE PO PRN (08:19)
[2019-05-19] MEDS: CLOPIDOGREL BISULFATE 75 MG TABLET PO SCH (08:20)
[2019-05-19] MEDS: amLODIPine BESYLATE 10 MG TABLET PO SCH (08:20)
[2019-05-19] MEDS: DOXAZOSIN MESYLATE 4 MG TABLET PO SCH (08:21)
[2019-05-19] MEDS: FLUoxetine HCL 10 MG CAPSULE PO SCH (08:21)
[2019-05-19] MEDS: APIXABAN 2.5 MG TABLET PO SCH ×2 (08:21→21:05)
[2019-05-19] MEDS: METOPROLOL SUCC 24HR ER 25 MG TAB.ER.24H. PO SCH ×2 (08:21→21:05)
[2019-05-19 11:05] VITALS: BP 115/55
--- NOTE | 2019-05-19 12:25 | PN ---
DATE: 05/19/2019 SUBJECTIVE: The patient is resting, slightly propped up in bed, in no apparent respiratory distress. She is sleepy, but arousable. On questioning her, denied any complaint. She apparently was sitting in her chair. She apparently was accepted at [facility] for inpatient psychiatric stabilization given his severe depression; however, we are waiting for the urine culture as she has grown extended-spectrum beta-lactamase bacteria before. PHYSICAL EXAMINATION: GENERAL: When I examined her this morning, she looked pale, but no jaundice, cyanosis, or thyromegaly. No jugular venous distention or limb edema. VITAL SIGNS: Her heart rate was 58, blood pressure 135/63, temperature was 98.2, respiratory rate 22, and oxygen saturation was 95% on 2 liters of oxygen. HEAD, EYES, EARS, NOSE AND THROAT: Showed normocephalic, atraumatic. NECK: Supple. HEART: Showed normal first and second heart sounds. No gallop or murmur. CHEST: Clear to auscultation. No crepitation or rhonchi. ABDOMEN: Distended, soft, nontender. No guarding or rigidity. No organomegaly. All hernial orifice intact. Bowel sounds normal. NEUROLOGIC: She was sleepy, but arousable. All cranial nerves are intact. She moves extremities without difficulty. She managed to ambulate with a walker. Her intake and output are incompletely recorded. LABORATORY DATA: Her blood sugar seems to be reasonably controlled as of the yesterday, her BUN was 29, creatinine 2.6, hemoglobin 9.6, hematocrit 29.5 with normal white cell count and platelets. ASSESSMENT: 1. Severe depression. The patient continued to be poorly motivated. She was screened for admission to [facility] and was accepted for inpatient psychiatric stabilization. However, we are waiting for the urine culture and sensitivity. 2. Sinus bradycardia, slightly better. 3. Acute on chronic diastolic congestive heart failure, much improved. 4. Paroxysmal atrial fibrillation, currently in sinus rhythm. 5. Coronary artery disease, status post coronary artery bypass graft surgery. 6. Acute on chronic kidney injury. Creatinine is near baseline. 7. Hypertension. 8. Hyperlipidemia. 9. Type 2 diabetes. PLAN: Continue with Eliquis for stroke prevention. Continue with all his other medication. Once we have the urine culture and if she is negative for ESBL, she can be discharged and transferred up to [facility]. JAIRO GRANT MD DR: ANGEL/ludmila JOB#: [id number] / [id number]
--- NOTE | 2019-05-19 15:14 | PN ---
DATE: 05/17/2019 SUBJECTIVE: The patient denies any new medical or neurological complaints, but she appears to be very depressed this morning. She denies headaches, visual disturbances, nausea, vomiting, chest pain, shortness of breath or palpitation. OBJECTIVE: GENERAL: Well-developed, well-nourished female, not in acute distress. VITAL SIGNS: Blood pressure 151/66, respiratory rate 24, pulse is 65 and regular, oxygen saturation is 92% on 2 liters by nasal cannula. HEENT: Normocephalic, atraumatic, otherwise unremarkable. NECK: Supple. Negative for carotid bruit, lymphadenopathy or thyromegaly. LUNGS: Clear to A and P. CARDIOVASCULAR: Regular rate and rhythm, normal S1, S2. ABDOMEN: Soft. Bowel sounds positive. EXTREMITIES: Negative for cyanosis, clubbing or pitting edema. NEUROLOGICAL EXAM: The patient is alert and oriented x 2. Speech is fluent. There is no language dysfunction. Cranial nerves are intact except for mild bilateral hearing loss. She moves upper and lower extremities equally. Deep tendon reflexes are symmetric and hypoactive with absent Achilles responses. Gait not tested. LABORATORY DATA: CBC revealed white blood cells of 7.7, hemoglobin 9.6, hematocrit 30, platelet count 249,000. IMPRESSION: 1. Recurrent spells of unresponsiveness. The patient has not had any new spells since admission. 2. Multiple medical problems include hypertension, diabetes mellitus type 2, hyperlipidemia, coronary artery disease, chronic kidney disease, and hypothyroidism. 3. Anemia of chronic type. 4. Depression. RECOMMENDATIONS: Continue with current management. Physical therapy evaluation. M Bret CISNEROS MD DR: ELISA/ludmila JOB#: [id number] / [id number]
--- NOTE | 2019-05-19 15:19 | PN ---
DATE: 05/18/2019 SUBJECTIVE: The patient denies any new neurological complaints; however, she complained of pain of the left foot. An x-ray revealed degenerative changes without fracture and body bone scan revealed no evidence of abnormal process. OBJECTIVE: GENERAL: Well-developed, well-nourished female, not in acute distress. VITAL SIGNS: Blood pressure 144/73, respiratory rate 20, pulse is 60 and regular, temperature 98.3, oxygen saturation 93% on 2 liters by nasal cannula. HEENT: Normocephalic, atraumatic, otherwise unremarkable. NECK: Supple. Negative for carotid bruit, lymphadenopathy or thyromegaly. LUNGS: Clear to A and P. CARDIOVASCULAR: Regular rate and rhythm, normal S1, S2. ABDOMEN: Soft. Bowel sounds positive. EXTREMITIES: Negative for cyanosis, clubbing or edema. NEUROLOGICAL EXAM: Mental Status: The patient is alert and oriented x 2. Speech is fluent. There is no language dysfunction. Memory, judgment, and abstract thinking are fair. The patient denies hallucination or delusion. Cranial nerves are intact except for bilateral mild bilateral hearing loss. Motor examination: No focal muscle bulk was seen. The tone is normal. The strength is 4/5 throughout. Sensory examination: Revealed normal pinprick, light touch, vibratory senses. Deep tendon reflexes were symmetric and hypoactive with absent Achilles responses. Gait not tested. LABORATORY DATA: CBC revealed white blood cells of 7.1 thousand, hemoglobin 9.6, hematocrit 29.5, platelet 240,000. Chemistry revealed sodium of 140, potassium 4.9, chloride 107, CO2 is 23, BUN is 29, creatinine 2.6, glucose 128. Uric acid is high at 7.9. IMPRESSION: 1. Recurrent spells of unresponsive. However, she has not had similar spells since admission. 2. Anemia of chronic type. 3. Multiple medical problems include hypertension, hyperlipidemia, diabetes mellitus, acute and chronic renal disease, coronary artery disease. 4. Depression. RECOMMENDATIONS: 1. Continue with current medical and psychiatric care. 2. We will arrange for EEG to be done on an outpatient basis. M Bret CISNEROS MD DR: ELISA/ludmila JOB#: [id number] / [id number]
[2019-05-19 16:17] VITALS: BP 167/67
[2019-05-19 19:00] VITALS: BP 187/61
[2019-05-19] MEDS: INSULIN GLARGINE SYRINGE. SQ SCH (21:00)
[2019-05-19] MEDS: SIMVASTATIN 20 MG TABLET PO SCH (21:03)
[2019-05-19] MEDS: GABAPENTIN 300 MG CAPSULE. PO SCH (21:04)
[2019-05-19] MEDS: DONEPEZIL HCL 10 MG TABLET PO SCH (21:05)
--- NOTE | 2019-05-19 22:06 | PDOC ---
Exam Note: Pritesh Note: Please also refer to the separate dictated note~for this date of service dictated separately.~Patient seen individually. Discussed the patient with Nursing staff reviewed the chart.~Reviewed interim history and current functioning. Reviewed vital signs,~Labs/ Radiology~and current medications noted below. Continue current treatment with the changes noted in the dictated addendum note Assessment: Vital Signs/I&O: Vital Signs Date Time Temp Pulse Resp B/P (MAP) Pulse Ox O2 Delivery O2 Flow Rate FiO2 05/19/19 21:05 64 187/61 05/19/19 19:52 Nasal Cannula 2.0 05/19/19 19:00 98.0 12 92 I & O 0 05/18/19 05/18/19 05/19/19 15:00 23:00 07:00 Intake Total 360 ml 270 ml Balance 360 ml 270 ml Labs: Laboratory Tests Test 05/19/19 07:50 05/19/19 12:19 05/19/19 17:03 05/19/19 21:09 Glucose (Fingerstick) 127 mg/dL (70-99) H 148 mg/dL (70-99) H 140 mg/dL (70-99) H 174 mg/dL (70-99) H Current Medications: I have reviewed the current psychotropics carefully including drug interactions. Risk benefit ratio favors no change other than as noted in my dictated progress note. Diagnosis: Problems: (1) Mild cognitive impairment (2) Altered mental status (3) Anxiety disorder HANS GARCÍA MD May 19, 2019 22:06
[2019-05-19 23:00] VITALS: BP 169/72
[2019-05-20] MEDS: LEVOTHYROXINE 125 MCG TABLET PO SCH (05:44)
[2019-05-20 06:52] VITALS: BP 198/68
[2019-05-20] MEDS: INSULIN LISPRO 300 UNITS/3 ML VIAL. SQ SCH ×3 (08:00→17:00)
[2019-05-20] MEDS: CLOPIDOGREL BISULFATE 75 MG TABLET PO SCH (08:05)
[2019-05-20] MEDS: DOCUSATE SODIUM 100 MG CAPSULE PO PRN (08:05)
[2019-05-20] MEDS: DOXAZOSIN MESYLATE 4 MG TABLET PO SCH (08:06)
[2019-05-20] MEDS: APIXABAN 2.5 MG TABLET PO SCH ×2 (08:06→20:32)
[2019-05-20] MEDS: amLODIPine BESYLATE 10 MG TABLET PO SCH (08:07)
[2019-05-20] MEDS: FLUoxetine HCL 10 MG CAPSULE PO SCH (08:07)
[2019-05-20] MEDS: METOPROLOL SUCC 24HR ER 25 MG TAB.ER.24H. PO SCH ×2 (08:08→20:32)
--- NOTE | 2019-05-20 09:02 | PN ---
DATE: 05/18/2019 PSYCHIATRIC PROGRESS NOTE This late entry 05/18/2019 covers elements not covered in my initial note. SUBJECTIVE: I met with the patient evening of 05/18/2019. I also met with the patient's daughter and several other family members who were in the room including great grandchildren. Overall, family states she is doing better, mood is improved, she is more interactive and verbal. She is tolerating the Prozac. REVIEW OF SYSTEMS: Positive for tiredness. No CV, , pulmonary, eye, ENT system symptoms on review. MENTAL STATUS EXAM: The patient is reasonably oriented. Speech has some latency, coherent. Abstraction fair, computation impaired, language function intact, attention span short. Mood and affect somewhat dysphoric, but better than before. No suicidal or homicidal ideation. LABORATORY DATA: Reviewed. IMPRESSION: Unchanged from initial note. PLAN: No change from initial note. MAN Soco GARCÍA MD DR: CIARA/ludmila JOB#: [id number] / [id number]
[2019-05-20 11:00] VITALS: BP 198/68
[2019-05-20 15:00] VITALS: BP 154/72
[2019-05-20 18:33] VITALS: BP 148/53
[2019-05-20] MEDS: SIMVASTATIN 20 MG TABLET PO SCH (20:31)
[2019-05-20] MEDS: CYPROHEPTADINE 4 MG TABLET. PO SCH (20:32)
[2019-05-20] MEDS: DONEPEZIL HCL 10 MG TABLET PO SCH (20:32)
[2019-05-20] MEDS: GABAPENTIN 300 MG CAPSULE. PO SCH (20:32)
[2019-05-20] MEDS: INSULIN GLARGINE SYRINGE. SQ SCH (20:41)
--- NOTE | 2019-05-20 21:36 | PN ---
DATE: 05/20/2019 SUBJECTIVE: The patient is resting, slightly propped up in bed, in no apparent respiratory distress. She continued to be depressed, poorly motivated, sleeping most of the time. However, she denied any chest pain or shortness of breath. OBJECTIVE: GENERAL: When I examined her, she looked pale, not jaundice, cyanosed. No thyromegaly. No jugular venous distention. No limb edema. VITAL SIGNS: Her heart rate was 70, blood pressure was 198/68, temperature was 97.9, respiratory rate was 14 and oxygen saturation was 92% on 2 liters of oxygen. HEAD, EYES, EARS, NOSE AND THROAT: Showed normocephalic, atraumatic. NECK: Supple. HEART: Showed normal first and second heart sounds with no gallop or murmur. CHEST: Clear to auscultation. No crepitation or rhonchi. ABDOMEN: Distended, soft, nontender. No guarding or rigidity. No organomegaly. All hernial orifices intact. Bowel sounds normal. NEUROLOGIC: She is awake, alert, responding appropriately. All cranial nerves intact. She moves extremities without difficulty. Her intake over the last 24 hours was 613, no output was recorded. ASSESSMENT: 1. Severe depression. The patient continued to be poorly motivated. She was screened for admission to [facility] and was accepted for inpatient psychiatric stabilization. However, we are waiting for urine culture and sensitivity. 2. Sinus bradycardia, slightly better. 3. Acute on chronic diastolic congestive heart failure, clinically much improved. 4. Paroxysmal atrial fibrillation, currently in sinus rhythm. 5. Coronary artery disease, status post coronary artery bypass graft surgery. 6. Acute on chronic kidney injury. Creatinine is near baseline. 7. Hypertension. 8. Hyperlipidemia. 9. Type 2 diabetes mellitus with blood sugars that seem to be well within acceptable range. PLAN: To continue her current medication. Once we have the urine culture and her ESBL organism is no longer growing in the urine, the patient can be discharged to [facility] for inpatient psychiatric stabilization. JAIRO GRANT MD DR: ANEGL/ludmila JOB#: [id number] / [id number]
--- NOTE | 2019-05-20 21:39 | PDOC ---
Exam Note: Pritesh Note: Please also refer to the separate dictated note~for this date of service dictated separately.~Patient seen individually. Discussed the patient with Nursing staff reviewed the chart.~Reviewed interim history and current functioning. Reviewed vital signs,~Labs/ Radiology~and current medications noted below. Continue current treatment with the changes noted in the dictated addendum note Assessment: Vital Signs/I&O: Vital Signs Date Time Temp Pulse Resp B/P (MAP) Pulse Ox O2 Delivery O2 Flow Rate FiO2 05/20/19 20:32 67 148/53 05/20/19 18:33 98.4 20 93 2.0 05/20/19 15:00 Nasal Cannula I & O 0 05/19/19 05/19/19 05/20/19 15:00 23:00 07:00 Intake Total 360 ml 220 ml 20 ml Balance 360 ml 220 ml 20 ml Labs: Laboratory Tests Test 05/20/19 08:20 05/20/19 12:00 05/20/19 17:00 05/20/19 20:30 Glucose (Fingerstick) 152 mg/dL (70-99) H 176 mg/dL (70-99) H 165 mg/dL (70-99) H 197 mg/dL (70-99) H Current Medications: Meds: Current Medications Medications (Trade) Dose Ordered Sig/Brendan Route PRN Reason Start Time Stop Time Status Last Admin Dose Admin Cyproheptadine HCl (Periactin) 2 mg HS PO 05/20/19 21:00 05/20/19 20:32 I have reviewed the current psychotropics carefully including drug interactions. Risk benefit ratio favors no change other than as noted in my dictated progress note. Diagnosis: Problems: (1) Anxiety disorder (2) Major depressive disorder, recurrent episode (3) Mild cognitive impairment (4) Altered mental status HANS GARCÍA MD May 20, 2019 21:39
--- NOTE | 2019-05-20 22:20 | PN ---
DATE: SUBJECTIVE: The patient denies any new medical or neurological complaints. She looks very cheerful and happy. She continues to have mild shortness of breath; however, she is on oxygen via nasal cannula. OBJECTIVE: GENERAL: Well-developed, well-nourished female, not in acute distress. VITAL SIGNS: Blood pressure 198/68, respiratory rate 14, pulse is 70 and regular, oxygen saturation is 92% on 2 liters via nasal cannula. HEENT: Normocephalic, atraumatic, otherwise unremarkable. NECK: Supple. Negative for carotid bruit, lymphadenopathy or thyromegaly. LUNGS: Diminished breath sounds, but no wheezing. CARDIOVASCULAR: Regular rate and rhythm. Normal S1, S2. ABDOMEN: Soft. Bowel sounds positive. EXTREMITIES: Negative for cyanosis, clubbing or edema. NEUROLOGICAL EXAM: Mental status: The patient is alert and oriented x 3. Speech is fluent. There is no language dysfunction. The patient recalls 2/3 immediately after 1 at 3 minutes. Judgment and abstract thinking are fair. The patient denies hallucination or delusion. Cranial nerves are intact. No focal motor or sensory deficit. The strength is 4/5 throughout. Sensory examination revealed normal pinprick, light touch, vibratory and position senses. Deep tendon reflexes were asymmetric and hypoactive with absent Achilles responses. Gait not tested. IMPRESSION: 1. Intermittent mental status changes with frequent episode of unresponsiveness, but no seizure-like activities, etiology uncertain, probably due to prolonged syncope versus nonconvulsive seizure. 2. Multiple medical problems include diabetes mellitus, hypertension, hyperlipidemia, coronary artery disease, history of paroxysmal atrial fibrillation, congestive heart failure, and anemia. RECOMMENDATION: Continue with current management and physical therapy evaluation as tolerated. The patient is neurologically stable. M Bret CISNEROS MD DR: ELISA/ludmila JOB#: [id number] / [id number]
--- NOTE | 2019-05-20 22:37 | PN ---
DATE: 05/19/2019 SUBJECTIVE: The patient denies any new medical or neurological complaints. She is drowsy, but arousable. She denies any headaches, visual disturbances, nausea, vomiting, chest pain, shortness of breath or palpitation. The patient feels less depressed today. OBJECTIVE: GENERAL: Well-developed, well-nourished female, not in acute distress. VITAL SIGNS: Blood pressure 150/55, respiratory rate 24, pulse is 60, temperature 98.2, oxygen saturation 92% on 2 liters by nasal cannula. HEENT: Normocephalic, atraumatic, otherwise unremarkable. NECK: Supple. Negative for carotid bruit, lymphadenopathy or thyromegaly. LUNGS: Clear to A and P. CARDIOVASCULAR: Normal S1, S2. There is no S3, S4 or murmurs. ABDOMEN: Soft. Bowel sounds positive. EXTREMITIES: Negative for cyanosis, clubbing or pitting edema. NEUROLOGICAL EXAM: Mental Status: The patient is alert and oriented x 2. The speech is fluent. There is no language dysfunction. Memory, judgment, and abstract thinking are fair. The patient denies hallucination or delusion. Cranial nerves are intact. Motor examination: No focal muscle bulk was seen. The tone is normal. The strength is 4/5 throughout. Sensory examination revealed normal pinprick and light touch senses throughout. Deep tendon reflexes were symmetric and hypoactive with absent Achilles responses. Gait not tested. IMPRESSION: 1. Recurrent episodes of unresponsiveness. The patient has not had any spells since admission. 2. Multiple medical problems include hypertension, hyperlipidemia, diabetes mellitus, anemia of chronic type, acute on chronic kidney disease, coronary artery disease, depressions, anxiety. RECOMMENDATIONS: Continue with current management initiated by Dr. Diaz and we will arrange for EEG on an outpatient basis. The patient is neurologically stable. M Bret CISNEROS MD DR: ELISA/ludmila JOB#: [id number] / [id number]
[2019-05-20 23:00] VITALS: BP 119/66
--- NOTE | 2019-05-21 01:50 | PN ---
DATE: 05/19/2019 PSYCHIATRIC PROGRESS NOTE The patient was seen on rounds evening of 05/19. This note covers elements not covered in my initial note 05/19. SUBJECTIVE: I met with the patient in the evening in her room. Per nursing staff, the patient still remains depressed, but minimizes her mood symptoms. She has been tired, withdrawn, does perk up when family visits. REVIEW OF SYSTEMS: No CV, , pulmonary, eye, ENT system symptoms on review. MENTAL STATUS EXAM: Reasonably oriented. Speech is coherent, has some latency, low in volume, often responses monosyllabic. Abstraction fair, computation impaired, language function intact. Mood and affect somewhat withdrawn. LABORATORY DATA: Reviewed. IMPRESSION: Unchanged from initial note. PLAN: No change from initial note. MAN Soco GARCÍA MD DR: CIARA/ludmila JOB#: [id number] / [id number]
[2019-05-21] MEDS: LEVOTHYROXINE 125 MCG TABLET PO SCH (05:48)
[2019-05-21 06:10] VITALS: BP 137/69
[2019-05-21 06:23] LABS: HEMATOCRIT 28.8 % (36.0-47.0); HEMOGLOBIN 9.4 g/dL (12.0-15.5); RED BLOOD COUNT 3.19 x10^6/uL (3.50-5.40); RED CELL DISTRIBUTION WIDTH 15.2 % (11.5-14.5); WHITE BLOOD COUNT 7.4 x10^3/uL (4.0-11.0)
[2019-05-21 06:36] LABS: CALCIUM 8.2 mg/dL (8.5-10.1); CREATININE 2.6 mg/dL (0.6-1.0); GFR 17.5; POTASSIUM 4.1 mmol/L (3.5-5.1)
[2019-05-21] MEDS: CLOPIDOGREL BISULFATE 75 MG TABLET PO SCH (07:59)
[2019-05-21] MEDS: DOXAZOSIN MESYLATE 4 MG TABLET PO SCH (07:59)
[2019-05-21] MEDS: FLUoxetine HCL 10 MG CAPSULE PO SCH (07:59)
[2019-05-21] MEDS: APIXABAN 2.5 MG TABLET PO SCH ×2 (08:00→20:48)
[2019-05-21] MEDS: METOPROLOL SUCC 24HR ER 25 MG TAB.ER.24H. PO SCH (08:00)
[2019-05-21] MEDS: amLODIPine BESYLATE 10 MG TABLET PO SCH (08:00)
[2019-05-21] MEDS: INSULIN LISPRO 300 UNITS/3 ML VIAL. SQ SCH ×3 (08:21→17:15)
[2019-05-21] MEDS: ACETAMINOPHEN 325 MG TABLET PO PRN (08:24)
[2019-05-21 12:02] VITALS: BP 153/54
[2019-05-21 15:16] VITALS: BP 168/55
[2019-05-21 19:39] VITALS: BP 168/53
[2019-05-21] MEDS: CYPROHEPTADINE 4 MG TABLET. PO SCH (20:47)
[2019-05-21] MEDS: DONEPEZIL HCL 10 MG TABLET PO SCH (20:48)
[2019-05-21] MEDS: SIMVASTATIN 20 MG TABLET PO SCH (20:48)
[2019-05-21] MEDS: GABAPENTIN 300 MG CAPSULE. PO SCH (20:48)
[2019-05-21] MEDS: INSULIN GLARGINE SYRINGE. SQ SCH (20:54)
--- NOTE | 2019-05-21 21:30 | PDOC ---
Exam Note: Pritesh Note: Please also refer to the separate dictated note~for this date of service dictated separately.~Patient seen individually. Discussed the patient with Nursing staff reviewed the chart.~Reviewed interim history and current functioning. Reviewed vital signs,~Labs/ Radiology~and current medications noted below. Continue current treatment with the changes noted in the dictated addendum note Assessment: Vital Signs/I&O: Vital Signs Date Time Temp Pulse Resp B/P (MAP) Pulse Ox O2 Delivery O2 Flow Rate FiO2 05/21/19 20:49 61 168/53 05/21/19 20:01 Nasal Cannula 2.0 05/21/19 19:39 98.0 18 93 I & O 0 05/20/19 05/20/19 05/21/19 15:00 23:00 07:00 Intake Total 320 ml 100 ml Output Total 550 ml Balance 320 ml -450 ml Labs: Laboratory Tests Test 05/21/19 06:06 05/21/19 08:19 05/21/19 08:48 05/21/19 11:33 White Blood Count 7.4 x10^3/uL (4.0-11.0) Red Blood Count 3.19 x10^6/uL (3.50-5.40) L Hemoglobin 9.4 g/dL (12.0-15.5) L Hematocrit 28.8 % (36.0-47.0) L Mean Corpuscular Volume 90 fL (79-100) Mean Corpuscular Hemoglobin 30 pg (25-35) Mean Corpuscular Hemoglobin Concent 33 g/dL (31-37) Red Cell Distribution Width 15.2 % (11.5-14.5) H Platelet Count 216 x10^3/uL (140-400) Sodium Level 140 mmol/L (136-145) Potassium Level 4.1 mmol/L (3.5-5.1) Chloride Level 108 mmol/L (98-107) H Carbon Dioxide Level 24 mmol/L (21-32) Anion Gap 8 (6-14) Blood Urea Nitrogen 37 mg/dL (7-20) H Creatinine 2.6 mg/dL (0.6-1.0) H Estimated GFR (Cockcroft-Gault) 17.5 Glucose Level 156 mg/dL (70-99) H Calcium Level 8.2 mg/dL (8.5-10.1) L Glucose (Fingerstick) 141 mg/dL (70-99) H 183 mg/dL (70-99) H 213 mg/dL (70-99) H Test 05/21/19 17:14 05/21/19 20:19 Glucose (Fingerstick) 120 mg/dL (70-99) H 131 mg/dL (70-99) H Current Medications: I have reviewed the current psychotropics carefully including drug interactions. Risk benefit ratio favors no change other than as noted in my dictated progress note. Diagnosis: Problems: (1) Major depressive disorder, recurrent episode (2) Altered mental status (3) Anxiety disorder HANS GARCÍA MD May 21, 2019 21:30
[2019-05-21 23:00] VITALS: BP 178/54
--- NOTE | 2019-05-21 23:27 | PN ---
DATE: 05/20/2019 PSYCHIATRIC PROGRESS NOTE This late entry 05/20/2019 covers elements not covered in my initial note. SUBJECTIVE: I met with the patient in the evening of 05/20/2019. Per report from nursing staff, the patient still remains withdrawn, but seems to perk up more animated when her family visits. Daughter had just left a short while prior to my visiting the patient, evening of 05/20/2019, and spends quite some time with the patient. REVIEW OF SYSTEMS: Positive for tiredness. No CV, , pulmonary, eye system symptoms on review. MENTAL STATUS EXAM: The patient is reasonably oriented. Speech is coherent, abstraction fair, computation impaired, language function intact, attention span short. Mood and affect somewhat withdrawn, though she minimizes being depressed. LABORATORY DATA: Reviewed. IMPRESSION: Unchanged from initial note. PLAN: No change from initial note. Maintain Prozac, increase gradually as tolerated. HANS GARCÍA MD DR: CIARA/ludmila JOB#: [id number] / [id number]
--- NOTE | 2019-05-22 01:16 | PN ---
DATE: 05/21/2019 SUBJECTIVE: The patient is resting, slightly propped up in bed. She had one of the episodes of became unresponsive, sleepy. She does open her eyes, responds, then drifts back to sleep. Her blood sugar was 230. Vital signs are stable. Her heart rate is 50, blood pressure is normal. Nursing staff stated that she has been sitting in chair throughout this morning without any problem and she became unresponsive. PHYSICAL EXAMINATION: GENERAL: When I examined her, she was pale, not jaundiced, cyanosed or thyromegaly. No jugular venous distention. No limb edema. VITAL SIGNS: Her heart rate was 50, blood pressure was 153/54, temperature was 97.5, respiratory rate was 16, and oxygen saturation was 93% on 2 liters of oxygen. HEAD, EYES, EARS, NOSE AND THROAT: Shows normocephalic, atraumatic. NECK: Supple. HEART: Showed normal first and second heart sounds. No gallop or murmur. CHEST: Clear to auscultation. No crepitation or rhonchi. ABDOMEN: Distended, soft, nontender. NEUROLOGIC: She is very lethargic, but arousable. She opens eyes, tracks and responds verbally and drifts back to sleep. All cranial nerves intact. She moves upper extremities to much good extent than lower extremities, mostly bed bound. She is able when she is awake to ambulate with a walker. Her intake was 600, no output was recorded. LABORATORY DATA: Her lab work this morning showed a white cell count of 7400, hemoglobin 9.4, hematocrit 28.8, MCV 90 and platelet count 216,000. Her serum sodium was 140, potassium 4.1, chloride 108, bicarbonate 24, anion gap of 8, BUN 37, creatinine 2.6, estimated GFR was 70 mL per minute. Her glucose 158, calcium was 8.2. Her urinalysis showed the urine was yellow, turbid with a pH of 5.5, specific gravity of 1.025. There is more than 100 mg of protein. The urine was negative for glucose, ketones, blood, nitrite, trace of leukocyte esterase, 0 rbc's, 20-40 wbc's, and many bacteria. Her urine culture is still pending at the time of this dictation. ASSESSMENT: 1. Recurrent episodes of unresponsiveness. The patient has not had any spells since admission except today. 2. Severe depression. The patient continued to be poorly motivated. She was screened for [facility] and was accepted for inpatient psychiatric stabilization. However, we are waiting for urine culture and sensitivity. 3. Sinus bradycardia, slightly better, although her heart rate continues to fluctuates. 4. Acute on chronic diastolic congestive heart failure, clinically much improved. 5. Paroxysmal atrial fibrillation. She is currently in sinus rhythm. 6. Coronary artery disease, status post coronary artery bypass surgery. 7. Acute on chronic kidney injury. Creatinine is near baseline. 8. Hypertension. 9. Hyperlipidemia. 10. Type 2 diabetes mellitus with blood sugars that seems to be well within acceptable range. PLAN: To continue with all her current medications. Continue with physical and occupational therapy. Await the culture and sensitivity, and if it is negative for ESBL Escherichia coli, she can be transferred upstairs for inpatient psychiatric stabilization. JAIRO GRANT MD DR: ANGEL/ludmila JOB#: [id number] / [id number]
[2019-05-22] MEDS: LEVOTHYROXINE 125 MCG TABLET PO SCH (06:05)
[2019-05-22 06:15] VITALS: BP 182/63
[2019-05-22] MEDS: INSULIN LISPRO 300 UNITS/3 ML VIAL. SQ SCH ×3 (08:00→17:00)
[2019-05-22] MEDS: FLUoxetine HCL 10 MG CAPSULE PO SCH (08:09)
[2019-05-22] MEDS: DOXAZOSIN MESYLATE 4 MG TABLET PO SCH (08:10)
[2019-05-22] MEDS: APIXABAN 2.5 MG TABLET PO SCH (08:11)
[2019-05-22] MEDS: CLOPIDOGREL BISULFATE 75 MG TABLET PO SCH (08:11)
[2019-05-22] MEDS: amLODIPine BESYLATE 10 MG TABLET PO SCH (08:11)
[2019-05-22 11:34] VITALS: BP 160/54
[2019-05-22 13:13] LABS: HEMATOCRIT 28.4 % (36.0-47.0); HEMOGLOBIN 9.1 g/dL (12.0-15.5); RED BLOOD COUNT 3.14 x10^6/uL (3.50-5.40); RED CELL DISTRIBUTION WIDTH 15.3 % (11.5-14.5); WHITE BLOOD COUNT 6.9 x10^3/uL (4.0-11.0)
--- NOTE | 2019-05-22 13:21 | PN ---
PROGRESS NOTES Assessment Acute encephalopathy secondary to E. coli UTI -Continue Rocephin--treatment started -cont monitoring for fevers or change in mental status Acute on chronic kidney disease -Continue monitoring BMP and creatinine Unresponsiveness--likely secondary to above -Neurology consult-appreciate recommendations Diabetes type 2 -Continue current regimen -SSI Hypertension/hyperlipidemia -Continue current regimen Severe depression -Continue current regimen Acute on chronic diastolic heart failure--stable Coronary artery disease status post history of CABG DISP- needs to continue Rocephin, and likely needs SNF on discharge Subjective the patient is sitting on the chair, confused at baseline. Denies any complaints at this time, no fevers, no chills, no nausea, no vomiting, no constipation no chest pain or shortness of breath Objective Vital Signs Date Time Temp Pulse Resp B/P (MAP) Pulse Ox O2 Delivery O2 Flow Rate FiO2 05/22/19 11:34 97.9 65 24 160/54 (89) 92 Nasal Cannula 2.0 Intake and Output 05/22/19 07:00 Intake Total 180 ml Output Total 750 ml Balance -570 ml Intake Oral 180 ml Output Urine Total 750 ml Physical Exam alert and oriented 2--person and place, not time PERRLA, EOMI Regular rate and rhythm Clear to auscultation bilateral positive bowel sounds, nontender, nondistended Cranial nerves II to XII grossly intact Review of Relevant I have reviewed the following items jc (where applicable) has been applied. Labs Laboratory Tests Test 05/20/19 17:00 05/20/19 20:30 05/21/19 06:06 05/21/19 08:19 Glucose (Fingerstick) 165 mg/dL (70-99) 197 mg/dL (70-99) 141 mg/dL (70-99) White Blood Count 7.4 x10^3/uL (4.0-11.0) Red Blood Count 3.19 x10^6/uL (3.50-5.40) Hemoglobin 9.4 g/dL (12.0-15.5) Hematocrit 28.8 % (36.0-47.0) Mean Corpuscular Volume 90 fL (79-100) Mean Corpuscular Hemoglobin 30 pg (25-35) Mean Corpuscular Hemoglobin Concent 33 g/dL (31-37) Red Cell Distribution Width 15.2 % (11.5-14.5) Platelet Count 216 x10^3/uL (140-400) Sodium Level 140 mmol/L (136-145) Potassium Level 4.1 mmol/L (3.5-5.1) Chloride Level 108 mmol/L (98-107) Carbon Dioxide Level 24 mmol/L (21-32) Anion Gap 8 (6-14) Blood Urea Nitrogen 37 mg/dL (7-20) Creatinine 2.6 mg/dL (0.6-1.0) Estimated GFR (Cockcroft-Gault) 17.5 Glucose Level 156 mg/dL (70-99) Calcium Level 8.2 mg/dL (8.5-10.1) Test 05/21/19 08:48 05/21/19 11:33 05/21/19 17:14 05/21/19 20:19 Glucose (Fingerstick) 183 mg/dL (70-99) 213 mg/dL (70-99) 120 mg/dL (70-99) 131 mg/dL (70-99) Test 05/22/19 07:40 05/22/19 11:24 05/22/19 13:04 Glucose (Fingerstick) 71 mg/dL (70-99) 193 mg/dL (70-99) White Blood Count 6.9 x10^3/uL (4.0-11.0) Red Blood Count 3.14 x10^6/uL (3.50-5.40) Hemoglobin 9.1 g/dL (12.0-15.5) Hematocrit 28.4 % (36.0-47.0) Mean Corpuscular Volume 90 fL (79-100) Mean Corpuscular Hemoglobin 29 pg (25-35) Mean Corpuscular Hemoglobin Concent 32 g/dL (31-37) Red Cell Distribution Width 15.3 % (11.5-14.5) Platelet Count 203 x10^3/uL (140-400) Microbiology 05/18/19 Urine Culture - Final, Complete 05/18/19 Urine Culture Result 1 (JOON) - Final, Complete 05/18/19 Antimicrobic Susceptibility - Final, Complete Medications Current Medications Sodium Chloride 1,000 ml @ 75 mls/hr [id number] IV Last administered on 05/17/19at 04:30; Start 05/15/19 at 08:45; Stop 05/17/19 at 08:38; Status DC Amlodipine Besylate (Norvasc) 10 mg DAILY PO Last administered on 05/22/19 08:11; Start 05/15/19 at 09:00 Apixaban (Eliquis) 2.5 mg BID PO Last administered on 05/22/19 08:11; Start 05/15/19 at 09:00 Clopidogrel Bisulfate (Plavix) 75 mg DAILY PO Last administered on 05/22/19 08:11; Start 05/15/19 at 09:00 Docusate Sodium (Colace) 100 mg PRN DAILY PRN PO 1ST CHOICE FOR CONSTIPATION Last administered on 05/20/19 08:05; Start 05/15/19 at 08:45 Donepezil HCl (Aricept) 10 mg QHS PO Last administered on 05/21/19 20:48; Start 05/15/19 at 21:00 Doxazosin Mesylate (Cardura) 4 mg DAILY PO Last administered on 05/22/19 08:10; Start 05/15/19 at 09:00 Hydralazine HCl (Apresoline) 50 mg TID PO Last administered on 05/17/19 08:23; Start 05/15/19 at 09:00; Stop 05/17/19 at 08:30; Status DC Levothyroxine Sodium (Synthroid) 125 mcg DAILY06 PO Last administered on 05/22/19 06:05; Start 05/15/19 at 09:00 Metoprolol Succinate (Toprol Xl) 25 mg BID PO Last administered on 05/17/19 08:23; Start 05/15/19 at 09:00; Stop 05/17/19 at 08:30; Status DC Polyethylene Glycol (miraLAX) 17 gm PRN DAILY PRN PO 2ND CHOICE FOR CONSTIPATION; Start 05/15/19 at 08:45 Simvastatin (Zocor) 20 mg HS PO Last administered on 05/21/19 20:48; Start 05/15/19 at 21:00 Gabapentin (Neurontin) 600 mg QHS PO Last administered on 05/21/19 20:48; Start 05/15/19 at 21:00 Insulin Glargine (Lantus Syringe) 20 unit QHS SQ Last administered on 9/30/19at 20:54; Start 05/15/19 at 21:00 Non-Formulary Medication (Insulin Lispro (Humalog)) sliding scale TIDWMEALS SQ ; Start 05/15/19 at 12:00; Stop 05/15/19 at 12:13; Status DC Magnesium Hydroxide (Milk Of Magnesia) 2,400 mg PRN DAILY PRN PO 3RD CHOICE FOR CONSTIPATION Last administered on 05/20/19at 08:05; Start 05/15/19 at 09:00 Meclizine HCl (Antivert) 25 mg PRN TID PRN PO DIZZINESS; Start 05/15/19 at 09:00 Non-Formulary Medication ([ipratropium-alb] ) . QID INH ; Start 05/15/19 at 09:00; Stop 05/15/19 at 09:06; Status DC Hydrocortisone (Proctosol-Hc) 1 xavier PRN TID PRN RC RECTAL PAIN; Start 05/15/19 at 09:00 Acetaminophen (Tylenol) 650 mg PRN Q6HRS PRN PO PAIN / TEMP Last administered on 05/21/19at 08:24; Start 05/15/19 at 09:00 Albuterol/ Ipratropium (Duoneb) 3 ml RTQID NEB ; Start 05/15/19 at 12:00; Stop 05/15/19 at 11:33; Status DC Albuterol/ Ipratropium (Duoneb) 3 ml PRN QID PRN NEB SHORTNESS OF BREATH; Start 05/15/19 at 12:00 Insulin Human Lispro (HumaLOG) 0-9 UNITS TIDWMEALS SQ Last administered on 05/22/19at 12:05; Start 05/15/19 at 12:15 Dextrose (Dextrose 50%-Water Syringe) 12.5 gm PRN Q15MIN PRN IV SEE COMMENTS; Start 05/15/19 at 12:15 Fluoxetine HCl (PROzac) 10 mg DAILY PO Last administered on 05/22/19at 08:09; Start 05/17/19 at 20:00 Hydralazine HCl (Apresoline) 75 mg TID PO Last administered on 05/22/19at 08:10; Start 05/17/19 at 09:00 Metoprolol Succinate (Toprol Xl) 12.5 mg BID PO Last administered on 05/20/19at 20:32; Start 05/17/19 at 09:00; Stop 05/21/19 at 13:53; Status DC Furosemide (Lasix) 40 mg 1X ONCE IVP Last administered on 05/17/19at 11:32; Start 05/17/19 at 10:45; Stop 05/17/19 at 10:46; Status DC Cyproheptadine HCl (Periactin) 2 mg HS PO Last administered on 05/21/19at 20:47; Start 05/20/19 at 21:00 Ceftriaxone Sodium 1 gm/ Sodium Chloride 50 ml @ 100 mls/hr Q24H IV Last administered on 05/22/19at 10:51; Start 05/22/19 at 10:00 Active Scripts Active Hydralazine Hcl 50 Mg Tablet 1 Tab PO TID 30 Days Metoprolol Succinate ( Xl ) (Metoprolol Succinate) 25 Mg Tab.er.24h 1 Tab PO BID 30 Days Reported [proctosol] 1 Appful RC TID PRN PRN Milk Of Magnesia (Magnesium Hydroxide) 2,400 Mg/10 Ml Oral.susp 2,400 Mg PO DAILY PRN [ipratropium-alb] 0.5-2.5 Mg INH QID Donepezil Hcl 10 Mg Tablet 10 Mg PO QHS [Tylenol Er] 650 Mg PO Q6HRS PRN Furosemide 40 Mg Tablet 40 Mg PO PRN DAILY PRN only take if you have more than 3 lbs weight gain in 1 day Colace (Docusate Sodium) 100 Mg Capsule 100 Mg PO PRN DAILY PRN LAST DOSE GIVEN: DATE: TIME: NEXT DOSE DUE: DATE: TIME: Miralax (Polyethylene Glycol 3350) 17 Gm Powd.pack 17 Gm PO PRN DAILY PRN LAST DOSE GIVEN: DATE: TIME: NEXT DOSE DUE: DATE: TIME: Gabapentin 600 Mg Tablet 600 Mg PO HS LAST DOSE GIVEN: DATE: TIME: NEXT DOSE DUE: DATE: TIME: Meclizine Hcl 25 Mg Tablet 25 Mg PO PRN TID LAST DOSE GIVEN: DATE: TIME: NEXT DOSE DUE: DATE: TIME: Simvastatin 20 Mg Tablet 20 Mg PO HS LAST DOSE GIVEN: DATE: TIME: NEXT DOSE DUE: DATE: TIME: Doxazosin Mesylate 4 Mg Tablet 4 Mg PO DAILY LAST DOSE GIVEN: DATE: TIME: NEXT DOSE DUE: DATE: TIME: Eliquis (Apixaban) 2.5 Mg Tablet 2.5 Mg PO BID LAST DOSE GIVEN: DATE: TIME: NEXT DOSE DUE: DATE: TIME: Humalog (Insulin Lispro) 100 Unit/1 Ml Cartridge 4-12 Unit SQ TIDWMEALS LAST DOSE GIVEN: DATE: TIME: NEXT DOSE DUE: DATE: TIME: Clopidogrel (Clopidogrel Bisulfate) 75 Mg Tablet 75 Mg PO DAILY LAST DOSE GIVEN: DATE: TIME: NEXT DOSE DUE: DATE: TIME: Lantus Solostar (Insulin Glargine,Hum.rec.anlog) 100 Unit/1 Ml Insuln.pen 20 Unit SQ QHS LAST DOSE GIVEN: DATE: TIME: NEXT DOSE DUE: DATE: TIME: Amlodipine Besylate 10 Mg Tablet 10 Tab PO DAILY LAST DOSE GIVEN: DATE: TIME: NEXT DOSE DUE: DATE: TIME: Levothyroxine Sodium 125 Mcg Tablet 125 Mcg PO DAILY LAST DOSE GIVEN: DATE: TIME: NEXT DOSE DUE: DATE: TIME: Vitals/I & O Vital Sign - Last 24 Hours 05/21/19 05/21/19 05/21/19 05/21/19 15:14 15:16 19:39 20:01 Temp 97.4 98.0 Pulse 50 58 61 Resp 16 18 B/P (MAP) 153/54 168/55 (92) 168/53 (91) Pulse Ox 94 93 O2 Delivery Nasal Cannula Nasal Cannula Nasal Cannula O2 Flow Rate 2.0 2.0 2.0 05/21/19 05/21/19 05/22/19 05/22/19 20:49 23:00 06:15 08:00 Temp 98.9 100.2 Pulse 61 64 70 Resp 18 22 B/P (MAP) 168/53 178/54 (95) 182/63 (102) Pulse Ox 95 94 O2 Delivery Nasal Cannula Nasal Cannula Nasal Cannula O2 Flow Rate 2.0 2.0 2.0 05/22/19 05/22/19 05/22/19 05/22/19 08:10 08:10 08:11 11:34 Temp 97.9 Pulse 70 70 70 65 Resp 24 B/P (MAP) 182/63 182/63 182/63 160/54 (89) Pulse Ox 92 O2 Delivery Nasal Cannula O2 Flow Rate 2.0 Intake and Output 05/21/19 05/21/19 05/22/19 15:00 23:00 07:00 Intake Total 120 ml 60 ml Output Total 750 ml Balance 120 ml 60 ml -750 ml SARA PORTILLO MD May 22, 2019 13:21
[2019-05-22 13:23] LABS: CALCIUM 8.2 mg/dL (8.5-10.1); CREATININE 2.8 mg/dL (0.6-1.0); MAGNESIUM 2.3 mg/dL (1.8-2.4); PHOSPHORUS 3.3 mg/dL (2.6-4.7); POTASSIUM 4.2 mmol/L (3.5-5.1)
[2019-05-22 14:42] VITALS: BP 171/53
[2019-05-22 18:49] VITALS: BP 161/51
[2019-05-22] MEDS ORDERED: ACET325T9 PO (20:26)
[2019-05-22] MEDS ORDERED: DONE10TA7 PO (20:27)
[2019-05-22] MEDS ORDERED: FLUO10CA7 PO (20:28)
[2019-05-22] MEDS ORDERED: IPRA3AMP29 NEB (20:28)
[2019-05-22] MEDS ORDERED: CYPR2SYR6 PO (21:41)
--- NOTE | 2019-05-23 03:21 | PN ---
DATE: 05/21/2019 PSYCHIATRIC PROGRESS NOTE This late entry 05/21/2019 covers elements not covered in my initial note. SUBJECTIVE: I met with the patient in the evening. Overall, per nursing report, the patient remains somewhat withdrawn, but more interactive when family visits and the daughter just left a short while before I visited the patient. REVIEW OF SYSTEMS: Complains of tiredness. No CV, , pulmonary, eye, ENT system symptoms on review. MENTAL STATUS EXAM: Reasonably oriented. Speech has some latency, coherent. Abstraction fair, computation impaired, language function intact. Mood and affect still somewhat dysphoric, withdrawn, but improved. No suicidal or homicidal ideation. No clear psychotic symptoms. LABORATORY DATA: Reviewed. IMPRESSION: Major depressive disorder, recurrent, in partial remission. Rest unchanged from initial note. PLAN: No change from initial note and we have initiated Prozac, will adjust gradually as clinically indicated. MAN Soco GARCÍA MD DR: CIARA/ludmila JOB#: [id number] / [id number]
--- NOTE | 2019-05-23 17:15 | PN ---
DATE: 05/21/2019 SUBJECTIVE: The patient denies any new neurological complaints; however, she complains this morning from pain of the left shoulder. OBJECTIVE: GENERAL: A well-developed, well-nourished female, not in acute distress. VITAL SIGNS: Blood pressure 137/69, respiratory rate 16, pulse is 60 and regular, temperature is 97.5, and oxygen saturation is 93% on 2 liters by nasal cannula. HEENT: Normocephalic, atraumatic, otherwise unremarkable. NECK: Supple. Negative for carotid bruit, lymphadenopathy or thyromegaly. LUNGS: Clear to A and P. CARDIOVASCULAR: Regular rate and rhythm, normal S1, S2. ABDOMEN: Soft. Bowel sounds positive. EXTREMITIES: Negative for cyanosis, clubbing or edema. NEUROLOGICAL EXAM: Mental Status: The patient is drowsy, is sleepy, but arousable. She follows 1-step commands. She denies hallucination or delusion. Cranial nerves are intact. Motor examination: No focal muscle bulk was seen. The strength was 4/5 throughout. Sensory examination revealed normal pinprick and light touch senses throughout. Deep tendon reflexes were symmetric and hypoactive with absent Achilles responses. Gait: The patient uses a walker for ambulation. LABORATORY DATA: CBC revealed white blood cells of 7.4 thousand, hemoglobin 9.4, hematocrit 28.8, platelet count 216,000. IMPRESSION: 1. Intermittent mental status changes. No evidence of seizure-like activities. 2. One day history of left shoulder pain, probably due to arthritis. 3. Multiple medical problems include coronary artery disease, paroxysmal atrial fibrillation, diabetes mellitus, hypertension, and anemia. RECOMMENDATION: Continue with current management and Physical Therapy evaluation. M Bret CISNEROS MD DR: ELISA/ludmila JOB#: [id number] / [id number]
--- NOTE | 2019-05-23 17:48 | PN ---
DATE: SUBJECTIVE: The patient denies any new medical or neurological complaints. She feels drowsy all the times. She denies headaches, chest pain, shortness of breath or palpitation, but she complains of difficulty walking. OBJECTIVE: GENERAL: Well-developed, well-nourished female in no acute distress. VITAL SIGNS: Blood pressure 182/63, respiratory rate 22, pulse is 70 and regular, temperature 100.2, oxygen saturation 94% on 2 liters by nasal cannula. HEENT: Normocephalic, atraumatic, otherwise unremarkable. NECK: Supple. Negative for carotid bruit, lymphadenopathy or thyromegaly. LUNGS: Clear to A and P. CARDIOVASCULAR: Regular rhythm, normal S1, S2. ABDOMEN: Soft. Bowel sounds positive. EXTREMITIES: Negative for cyanosis, clubbing or edema. NEUROLOGICAL EXAM: Mental Status: The patient is alert x2. Speech is fluent. There is no language dysfunction. The patient recalls 2/3 immediately and 1/3 after 3 minutes. Judgment and abstracting thinking are fair. The patient denies hallucination or delusion. Cranial nerves are intact. No focal motor or sensory deficit. Strength was 4/5 throughout. Sensory examination revealed normal pinprick, light touch senses throughout. Deep tendon reflexes were symmetric and hypoactive with absent Achilles responses. Gait not tested LABORATORY DATA: CBC revealed white cells of 6900, hemoglobin 9.1, hematocrit 38.4, platelet count 203,000. Chemistry: Sodium 138, potassium 4.2, chloride 104, CO2 of 24, BUN 42, creatinine 2.8, glucose is 268, calcium 8.2. IMPRESSION: 1. Intermittent confusion. No recurrent seizure-like activities. 2. Multiple medical problems include depression, hypertension, hyperlipidemia, diabetes mellitus, chronic kidney disease, coronary artery disease and urinary tract infections. RECOMMENDATION: Continue with current medical and psychiatric care and physical therapy as tolerated. M Bret CISNEROS MD DR: ELISA/ludmila JOB#: [id number] / [id number]
--- NOTE | 2019-05-24 03:11 | PN ---
DATE: 05/22/2019 PSYCHIATRIC PROGRESS NOTE This late entry 05/22/2019 covers elements not covered in my initial note of 05/22/2019. SUBJECTIVE: I met with the patient evening of 05/22/[address] [place] [address], for a followup psychiatric consultation. The patient remains somewhat depressed, withdrawn, and according to nursing staff has voiced passive suicidal ideation, wishing she were gone. I have discussed with military education coordinator Beth Rincon and with nursing staff on [facility] and the plan is to transfer her to [facility] for inpatient psychiatric stabilization later in the evening of 05/22/2019. REVIEW OF SYSTEMS: Positive for impaired ambulation. No CV, , pulmonary, eye, ENT system symptoms on review. MENTAL STATUS EXAMINATION: The patient is reasonably oriented. Speech moderate latency, low in rate and rhythm, low in volume, often responses monosyllabic. Abstraction fair, computation impaired, language function intact. Mood is depressed, withdrawn. She tries to minimize this. Affect is mood congruent. She does have passive suicidal ideation, appears somewhat apathetic. LABORATORY DATA: Reviewed. IMPRESSION: Major depressive disorder, recurrent; anxiety disorder, unspecified. Rest unchanged. PLAN: Continue current psychotropics. Transfer to [facility] evening of 05/22/2019. HANS GARCÍA MD DR: CIARA/ludmila JOB#: [id number] / [id number]
== END 2019-05-22 18:00 | disposition short-term general hospital (02) | DRG 314 ==
LOC: ER 16:44 → 1 SOUTH 05-15 05:08
PROVIDERS: ADMIT Internal Medicine; ATTEND Internal Medicine
DX: I95.9 Hypotension, unspecified (principal); I50.33 Acute on chronic diastolic (congestive) heart failure; E43 Unspecified severe protein-calorie malnutrition; I13.0 Hypertensive heart and chronic kidney disease with heart failure and stage 1 through stage 4 chronic kidney disease, or unspecified chronic kidney disease; N17.9 Acute kidney failure, unspecified; R45.851 Suicidal ideations; N39.0 Urinary tract infection, site not specified; G93.40 Encephalopathy, unspecified; E87.5 Hyperkalemia; N18.9 Chronic kidney disease, unspecified; I50.9 Heart failure, unspecified; E11.22 Type 2 diabetes mellitus with diabetic chronic kidney disease; F41.9 Anxiety disorder, unspecified; I48.0 Paroxysmal atrial fibrillation; E78.5 Hyperlipidemia, unspecified; E03.9 Hypothyroidism, unspecified; I25.10 Atherosclerotic heart disease of native coronary artery without angina pectoris; Z68.30 Body mass index [BMI] 30.0-30.9, adult; H90.3 Sensorineural hearing loss, bilateral; F03.90 Unspecified dementia, unspecified severity, without behavioral disturbance, psychotic disturbance, mood disturbance, and anxiety; K21.9 Gastro-esophageal reflux disease without esophagitis; M19.90 Unspecified osteoarthritis, unspecified site; K59.09 Other constipation; E11.42 Type 2 diabetes mellitus with diabetic polyneuropathy; F33.41 Major depressive disorder, recurrent, in partial remission; B96.20 Unspecified Escherichia coli [E. coli] as the cause of diseases classified elsewhere; D64.9 Anemia, unspecified; Z86.73 Personal history of transient ischemic attack (TIA), and cerebral infarction without residual deficits; I25.2 Old myocardial infarction; Z90.49 Acquired absence of other specified parts of digestive tract; Z95.1 Presence of aortocoronary bypass graft; Z90.710 Acquired absence of both cervix and uterus; Z79.899 Other long term (current) drug therapy; Z79.01 Long term (current) use of anticoagulants; Z88.2 Allergy status to sulfonamides; Z88.8 Allergy status to other drugs, medicaments and biological substances; Z95.5 Presence of coronary angioplasty implant and graft; Z98.42 Cataract extraction status, left eye; Z98.41 Cataract extraction status, right eye
CPT/HCPCS: 36415; 70450; 71045; 72192; 73630; 78306; 80048; 80053; 81001; 82947; 83735; 83880; 84100; 84484; 84550; 85025; 85027; 85610; 85651; 85730; 86140; 87086; 87186; 93005; A9503; J0696; J1815; J1940; 97110; 97116; 97530; 97535; 99285-25; J7030

== ENCOUNTER 2019-05-22 18:00 | Inpatient (IN) | payer MEDICARE, BC ==
[~2019-05-22] VITALS: Ht 154.9 cm; Wt 73.5 kg
[~2019-05-22 18:00] MED LIST changes: +DONE10TA7 PO; +GABA-586 PO; +MAGN2400 PO; +SIMV20TA18 PO; -SIMV20TA3 PO; +TYLENOL ER PO; +[UNRECOGNIZED DRUG - CODE] INH; +proctosol RC
[2019-05-22] MEDS ORDERED: ACET325T9 PO (20:26)
[2019-05-22] MEDS ORDERED: DONE10TA7 PO (20:27)
[2019-05-22] MEDS ORDERED: FLUO10CA7 PO (20:28)
[2019-05-22] MEDS ORDERED: IPRA3AMP29 NEB (20:28)
--- NOTE | 2019-05-22 21:00 | NUR ---
Admission Note with Justification for Admission to [facility] Patient admitted to [facility] for protective oversight for emergency stabilization of acute psychiatric crisis. Pt admitted from: Hospital ER Mode of arrival: Came from [address] [place] Accompanied By: [facility] Staff Precipitating behaviors that initiated intake and admission: Refusing meals, depressed, tearful, withdrawn, passive SI, expressing positive thoughts of dying, Apathetic Description of failure of out patient attempts at stabilization in previous setting list behavior and medication trials: Med changes, Psych eval Behaviors and assessment findings upon admission: calm, cooperative, sad Plan: Admit for protective oversight for adjustment and stabilization of medications, behaviors and mood. Intense treatment regimen including groups, medication adjustments, therapy, consistent regimen for ADL's, self care, and sleep hygiene. Daily monitoring by Inpatient staff, Psychiatry, and Medical Physician.
[2019-05-22 21:21] VITALS: BP 120/72
[2019-05-22] MEDS ORDERED: METHYL SALICYLATE/MENTHOL TOPICAL OINTMENT 57GM TUBE. TP PRN (21:30)
[2019-05-22] MEDS ORDERED: ACETAMINOPHEN 325 MG TABLET PO PRN ×2 (21:30→21:45)
[2019-05-22] MEDS ORDERED: MAGNESIUM HYDROXIDE 2,400 MG/30 ML ORAL.SUSP. PO PRN (21:30)
[2019-05-22] MEDS ORDERED: MAG HYDROX/AL HYDROX/SIMETH 30 ML ORAL.SUSP PO PRN (21:30)
[2019-05-22] MEDS ORDERED: CYPR2SYR6 PO (21:41)
[2019-05-22] MEDS ORDERED: NON FORMULARY ITEM (Magnesium Hydroxide (Milk Of Magnesia) 2,400 MG) PO PRN (21:45)
[2019-05-22] MEDS ORDERED: IPRATRPIUM/ALBUTEROL 0.5/2.5MG 3 ML NEBU. NEB PRN (21:45)
[2019-05-22] MEDS ORDERED: DOCUSATE SODIUM 100 MG CAPSULE PO PRN (21:45)
[2019-05-22] MEDS ORDERED: POLYETHYLENE GLYCOL 3350 17 GM PACKET. PO PRN (21:45)
[2019-05-22] MEDS: SIMVASTATIN 20 MG TABLET PO SCH ×2 (22:00→22:53)
[2019-05-22] MEDS: CYPROHEPTADINE 4 MG TABLET. PO SCH ×2 (22:00→22:53)
[2019-05-22] MEDS: APIXABAN 2.5 MG TABLET PO SCH ×2 (22:00→22:53)
[2019-05-22] MEDS ORDERED: MECLIZINE 12.5 MG TABLET. PO PRN (22:00)
[2019-05-22] MEDS: DONEPEZIL HCL 10 MG TABLET PO SCH ×2 (22:00→22:53)
[2019-05-22] MEDS ORDERED: DEXTROSE 50% 25 GM / 50ML DISP.SYRIN. IV PRN (22:00)
[2019-05-22] MEDS: GABAPENTIN 300 MG CAPSULE. PO SCH ×2 (22:00→22:53)
--- NOTE | 2019-05-22 22:02 | PDOC ---
Exam Note: Pritesh Note: Please also refer to the separate dictated note~for this date of service dictated separately.~Patient seen individually. Discussed the patient with Nursing staff reviewed the chart.~Reviewed interim history and current functioning. Reviewed vital signs,~Labs/ Radiology~and current medications noted below. Continue current treatment with the changes noted in the dictated addendum note Assessment: Vital Signs/I&O: Vital Signs Date Time Temp Pulse Resp B/P (MAP) Pulse Ox O2 Delivery O2 Flow Rate FiO2 05/22/19 21:21 98.3 78 18 120/72 (88) 96 Current Medications: I have reviewed the current psychotropics carefully including drug interactions. Risk benefit ratio favors no change other than as noted in my dictated progress note. Diagnosis: Problems: (1) Anxiety disorder (2) Major depressive disorder, recurrent episode (3) Mild cognitive impairment (4) Altered mental status HANS GARCÍA MD May 22, 2019 22:02
[2019-05-22] MEDS ORDERED: HYDROCORTISONE 2.5% RECTAL CREAM 30GM TUBE. RC PRN (22:15)
[2019-05-22] MEDS: INSULIN GLARGINE SYRINGE. SQ SCH (22:54)
[2019-05-23 05:43] VITALS: BP 129/71
[2019-05-23] MEDS: INSULIN LISPRO 300 UNITS/3 ML VIAL. SQ SCH ×3 (08:00→17:00)
[2019-05-23] MEDS: amLODIPine BESYLATE 10 MG TABLET PO SCH (09:19)
[2019-05-23] MEDS: APIXABAN 2.5 MG TABLET PO SCH ×2 (09:19→19:12)
[2019-05-23] MEDS: CLOPIDOGREL BISULFATE 75 MG TABLET PO SCH (09:19)
[2019-05-23] MEDS: DOXAZOSIN MESYLATE 4 MG TABLET PO SCH (09:20)
[2019-05-23] MEDS: LEVOTHYROXINE 125 MCG TABLET PO SCH (09:20)
[2019-05-23] MEDS: FLUoxetine HCL 10 MG CAPSULE PO SCH (09:20)
--- NOTE | 2019-05-23 13:35 | NUR ---
PSYCHOSOCIAL ASSESSMENT ADMISSION DATE: 05/22/19 CONTACT INFORMATION: DPOA/Guardian Contact Name: Alina Cruz Contact Phone #: [phone] ETHNIC ORIGIN: REASONS FOR ADMISSION: Depressed Sig. Change Appetite Suicidal ideation ADDITIONAL ADMISSION COMMENTS: Per intake record, Margaret has been refusing meals, depressed, tearful, withdrawn, passive SI, expressing positive thoughts of dying, apathetic REASON FOR ADMISSION IN PATIENT/FAMILY'S OWN WORDS: Margaret has lacked motivation to participate in therapy in order to regain her physical abilities and return to her home where her daughter lives with her. She has been refusing meals and fluids and is exhibiting symptoms of depression. PATIENT/FAMILY EXPECTATIONS FOR ADMISSION: Mood stabilization with increased interest in life and regaining strength in order to return home. LIVING SITUATION: Patient lives with: Child/children Other living arrangements: At home, daughter Alina lives with her Contact Address: [address] [place] [id number] Contact Phone #: [phone] FAMILY RELATIONS: Marital Status: # of Marriages: 1 # of Children: 6 [facility] Family Support: Concerned Cooperative Additional Comments r/t Family: Margaret Mac Cruz after meeting in the [employer]. They had six children, Mac, Don, Alina, Sammi, Jolene, and Sera. Margaret recalls the marriage as "we had our ups and downs but is was alright." Mac (spouse) 16 years ago. SIGNIFICANT PSYCHIATRIC/MEDICAL HISTORY: Psychiatric/Treatment History: None reported. Pertinent Family History: None reported. HISTORICAL DATA: Childhood Environment: [place] Childhood Environment Additional Comments: Margaret was born in [facility] to Justin and Tamara Ryan. Her father worked as a buggy driver and mother was a homemaker. Margaret was the fifth child born of five. All four of her siblings are as well as her parents. Psychological Abuse: None Additional Comments: Drug Abuse History last 12 months: No Comment: Margaret does not drink alcohol, smoke, or use drugs. 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 service: Margaret served in the [employer] for two years. Christian background: Margaret is of the [employer] maggie and reports her maggie as very important. She attended services regularly when she was physically able. Sexual orientation: Heterosexual Educational Level: Margaret graduated from the 12th grade. Past/Present Interests/Hobbies: Margaret has enjoyed crocheting, knitting, family, bahai, country western and polEcoSurge music, and danced when she was younger. Financial support/resources: Social Security Monthly income: Unknown Person handling finances: Alina-daughter Do you have a history of legal problems: N Cultural considerations: None reported. SOCIAL RELATIONSHIPS-CURRENT/PAST: Psychiatrist: None PCP: Dr. Espinosa Counselor/Therapist: None [facility]: None Support Group: None Development Lead/Manager Business Management: None Other relationships: Family support STRENGTHS & WEAKNESSES: Patient's strengths: Good family support Good verbal skills Approachable Other patient strengths: Patient's weaknesses: Health problems Other patient weaknesses: decreased motivation, decreased intake of nutrition PRELIMINARY PLAN OF TREATMENT: Preliminary plan: Promote Coping Skill No Suicidal/Gabriela. ideation Medication Stabilization Monitor Med Effects Prevent Deterioration Other preliminary treatment comments: Margaret will be encouraged to attend SW and recreational therapy groups while on the unit. DISCHARGE PLANNING: Discharge planning/disposition: [facility] Placement Needed Additional discharge needs identified: Placement will depend on Margaret's ability to resume caring for herself. She may need to d/c to SNF for post acute rehab upon d/c from [facility] if she is unable to care for herself in order to return home. ADDITIONAL INFORMATION: Other Pertinent Data: Met with Margaret on this date. She was pleasant and cooperative. She was able to answer most questions asked by this worker. Margaret expressed desire to return to her home where her daughter Alina lives with her if able. She will be involved in PT/OT while on the unit. Call placed to Alina, daughter/DAVID, who will be involved in team meeting on 05/24/19.
[2019-05-23] MEDS: CEPHALEXIN 250 MG CAPSULE PO SCH ×2 (14:18→20:18)
--- NOTE | 2019-05-23 15:19 | NUR ---
Patient has been calm, compliant, and appropriate. She denied being depressed this morning, and denied SI. She ate very well at breakfast, not a lot at lunch, stating she wasn't hungry. Patient participated in morning group activities and was withdrawn to her room after lunch. Will continue to monitor.
--- NOTE | 2019-05-23 15:21 | NUR ---
With POA permission, requested [facility] complete CARE assessment on Margaret should she need SNF placement upon discharge from [facility]. Faxed referral to [facility].
[2019-05-23 15:59] VITALS: BP 141/90
[2019-05-23 16:00] VITALS: BP 112/54
[2019-05-23] MEDS: GABAPENTIN 300 MG CAPSULE. PO SCH (19:12)
[2019-05-23] MEDS: DONEPEZIL HCL 10 MG TABLET PO SCH (19:12)
[2019-05-23] MEDS: CYPROHEPTADINE 4 MG TABLET. PO SCH (19:13)
[2019-05-23] MEDS: SIMVASTATIN 20 MG TABLET PO SCH (19:13)
[2019-05-23] MEDS: LACTOBACILLUS RHAMNOSUS GG 1 CAPSULE. PO SCH (19:14)
[2019-05-23] MEDS: INSULIN GLARGINE SYRINGE. SQ SCH (19:47)
--- NOTE | 2019-05-23 21:21 | NUR ---
Nursing note: Assumed care of pt in the day room where she was sitting quietly by herself. She was connected to the oxygen on the wall. Pt stated she wanted to go to bed. She was compliant with meds and assessment. She denies SI and depression. Pt is A&OX4. NO c/o pain, no further needs at this time.
--- NOTE | 2019-05-23 21:24 | PDOC ---
Exam Note: Pritesh Note: Please also refer to the separate dictated note~for this date of service dictated separately.~Patient seen individually. Discussed the patient with Nursing staff reviewed the chart.~Reviewed interim history and current functioning. Reviewed vital signs,~Labs/ Radiology~and current medications noted below. Continue current treatment with the changes noted in the dictated addendum note Assessment: Vital Signs/I&O: Vital Signs Date Time Temp Pulse Resp B/P (MAP) Pulse Ox O2 Delivery O2 Flow Rate FiO2 05/23/19 16:00 97.5 56 16 112/54 (73) 94 Room Air I & O 05/22/19 05/22/19 05/23/19 14:59 22:59 06:59 Intake Total 0 ml 0 ml Balance 0 ml 0 ml Current Medications: Meds: Current Medications Medications (Trade) Dose Ordered Sig/Brendan Route PRN Reason Start Time Stop Time Status Last Admin Dose Admin Acetaminophen (Tylenol) 650 mg PRN Q6HRS PRN PO PAIN / TEMP 05/22/19 21:30 05/23/19 09:19 Donepezil HCl (Aricept) 10 mg QHS PO 05/22/19 22:00 05/23/19 19:12 Fluoxetine HCl (PROzac) 10 mg DAILY PO 05/23/19 09:00 05/23/19 09:20 Amlodipine Besylate (Norvasc) 10 mg DAILY PO 05/23/19 09:00 05/23/19 09:19 Apixaban (Eliquis) 2.5 mg BID PO 05/22/19 22:00 05/23/19 19:12 Clopidogrel Bisulfate (Plavix) 75 mg DAILY PO 05/23/19 09:00 05/23/19 09:19 Cyproheptadine HCl (Periactin) 2 mg QHS PO 05/22/19 22:00 05/23/19 19:13 Doxazosin Mesylate (Cardura) 4 mg DAILY PO 05/23/19 09:00 05/23/19 09:20 Levothyroxine Sodium (Synthroid) 125 mcg DAILY06 PO 05/23/19 06:00 05/23/19 09:20 Simvastatin (Zocor) 20 mg HS PO 05/22/19 22:00 05/23/19 19:13 Gabapentin (Neurontin) 600 mg QHS PO 05/22/19 22:00 05/23/19 19:12 Insulin Glargine (Lantus Syringe) 20 unit QHS SQ 05/22/19 22:00 05/23/19 19:47 Insulin Human Lispro (HumaLOG) 0-9 UNITS TIDWMEALS SQ 05/23/19 08:00 05/23/19 11:57 Cephalexin HCl (Keflex) 250 mg Q8H PO 05/23/19 14:00 05/30/19 07:00 05/23/19 20:18 Lactobacillus Rhamnosus (Culturelle) 1 cap BID PO 05/23/19 21:00 05/23/19 19:14 I have reviewed the current psychotropics carefully including drug interactions. Risk benefit ratio favors no change other than as noted in my dictated progress note. Diagnosis: Problems: (1) Major depressive disorder, recurrent episode (2) Mild cognitive impairment (3) Altered mental status HANS GARCÍA MD May 23, 2019 21:24
--- NOTE | 2019-05-24 01:50 | HP ---
ADMIT DATE: 05/22/2019 HISTORY OF PRESENT ILLNESS: An 88-year-old female initially admitted from [address] [place] [address] for being extremely depressed, tearful, had positive thoughts of dying, very apathetic and not responding to typical antidepressant medications. As a result of that, been [facility] in care of Dr. Gudino. PAST MEDICAL HISTORY: Includes acute encephalopathy secondary to alcohol and possible urinary tract infection, osteoarthritis, seizure-like episodes, type 2 diabetes, hypertension, coronary artery disease, CABG in 2010, chronic kidney disease, hypothyroidism, TIAs, deafness, constipation, major depressive disorder, anxiety, mild cognitive impairment. The patient also is on chronic oxygen. The patient has had heart catheterization with 2 stents, on chronic anticoagulation. She has had a hysterectomy, appendectomy, incontinence, hypothyroidism significant and the like. ALLERGIES: SULFA and CAPTOPRIL. SOCIAL HISTORY: No smoking, alcohol or drug use. FAMILY HISTORY: Significant for diabetes in daughters, mother and sister as well as rheumatoid arthritis in the father; kidney disease in a sister; emphysema in father; sisters with dementia, cancer; mother with hypertension; one son with coronary artery disease. MEDICATIONS: Include that of cyproheptadine 2 mg from a teaspoon 2 mg at bedtime, benazepril 10 mg at bedtime, DuoNeb treatments 4 times a day as needed, Eliquis 2.5 b.i.d., Plavix 75 daily, Zocor 20, doxazosin 4 mg, amlodipine, gabapentin 600 mg daily, fluoxetine 10 mg daily, docusate sodium, polyethylene glycol, meclizine, and levothyroxine 125 mcg daily. She is a DNR. REVIEW OF SYSTEMS: The patient also has been feeling cold. Denies any headaches, visual changes, blurred vision, double vision. Denies any melena, hematochezia, hematemesis. Does have shortness of breath and on chronic oxygen. She is also on Accu-Cheks a.c. and at bedtime. The patient also has depressive ideation. Neurologically, mild memory loss, but other than that very well kept, very pleasant patient. PHYSICAL EXAMINATION: VITAL SIGNS: Blood pressure 140/90, respiratory rate 18, pulse anywhere from 70-105, afebrile. HEENT: The patient's head was atraumatic, normocephalic. Eyes: PERRLA without jaundice. Mouth and throat: Normal, on chronic oxygen. LUNGS: Diminished, but basically clear. CARDIOVASCULAR: Regular sinus rhythm, S1, S2. ____ systolic ejection. ABDOMEN: Soft, nontender, no rebounding, no guarding. Positive bowel sounds, no hepatosplenomegaly. EXTREMITIES: No clubbing or cyanosis. Trace edema noted. NEUROLOGIC: The patient is alert and oriented, very pleasant personality, very calm, sometimes sad, though very cooperative, very pleasant individual. LABORATORY DATA: The patient's labs are still pending. Did have an elevated creatinine of 2.8 with BUN of 42. Blood sugar 268, hemoglobin A1c of 7.6. The patient previously has had problems with thyroid with TSH greater than 70 and multiple other medical issues, chronic anemia and the like. Sed rate elevated at 58, urinary tract infection obvious. PLAN: Continue on oral antibiotics for such as well as aggressive pulmonary toilet. ____ consultation. We will follow along with you and treat her urinary tract infection. Continue on oxygen. Repeat some blood work and make further evaluation on her per the results of those tests. VITALIY ANDERSON MD DR: JULIUS/ludmila JOB#: [id number] / [id number]
[2019-05-24 05:32] VITALS: BP 118/63
[2019-05-24] MEDS: CEPHALEXIN 250 MG CAPSULE PO SCH ×3 (05:56→19:42)
[2019-05-24] MEDS: LEVOTHYROXINE 125 MCG TABLET PO SCH (05:57)
[2019-05-24 06:36] LABS: BASO # 0.1 x10^3/uL (0.0-0.2); BASO % 2 % (0-3); EOS # 0.4 x10^3/uL (0.0-0.7); EOS % 8 % (0-3); HEMATOCRIT 28.6 % (36.0-47.0); HEMOGLOBIN 9.4 g/dL (12.0-15.5); LYMPH % 19 % (24-48); MEAN CORPUSCULAR HEMOGLOBIN 30 pg (25-35); MEAN CORPUSCULAR HGB CONC 33 g/dL (31-37); MEAN CORPUSCULAR VOLUME 90 fL (79-100); MONO # 0.7 x10^3/uL (0.0-1.1); MONO % 13 % (0-9); NEUT # 3.1 x10^3uL (1.8-7.7); NEUT % 58 % (31-73); PLATELET COUNT 212 x10^3/uL (140-400); RED BLOOD COUNT 3.18 x10^6/uL (3.50-5.40); RED CELL DISTRIBUTION WIDTH 14.8 % (11.5-14.5); WHITE BLOOD COUNT 5.3 x10^3/uL (4.0-11.0)
[2019-05-24 06:58] LABS: CALCIUM 8.3 mg/dL (8.5-10.1); CREATININE 2.3 mg/dL (0.6-1.0); GFR 20.1; POTASSIUM 3.9 mmol/L (3.5-5.1)
[2019-05-24 07:33] LABS: % BANDS 3 % (0-9); % BASOS 3 % (0-3); % EOS 6 % (0-5); % LYMPHS 23 % (24-48); % MONOS 9 % (0-10); % SEGS 56 % (35-66); PLT ESTIMATE ADEQUATE (ADEQUATE)
[2019-05-24] MEDS: INSULIN LISPRO 300 UNITS/3 ML VIAL. SQ SCH ×3 (07:48→17:00)
[2019-05-24] MEDS: LACTOBACILLUS RHAMNOSUS GG 1 CAPSULE. PO SCH ×2 (07:49→19:43)
[2019-05-24] MEDS: FLUoxetine HCL 10 MG CAPSULE PO SCH (07:49)
[2019-05-24] MEDS: amLODIPine BESYLATE 10 MG TABLET PO SCH (07:49)
[2019-05-24] MEDS: CLOPIDOGREL BISULFATE 75 MG TABLET PO SCH (07:49)
[2019-05-24] MEDS: APIXABAN 2.5 MG TABLET PO SCH ×2 (07:50→19:42)
[2019-05-24] MEDS: DOXAZOSIN MESYLATE 4 MG TABLET PO SCH (07:50)
--- NOTE | 2019-05-24 09:18 | NUR ---
WEEKLY ACTIVITY THERAPY NOTE Date of Admission: 05/22/2019 Date of AT Assessment: TBD Goal aimed: TBD Initial Goal: TBD Weekly progress towards goal: NA Group participation level: moderate in one group Weekly highlights: Participated in group Tuesday Behaviors observed: uses oxygen, slept Tuesday afternoon Plan: MEET/ASSESS PT Beneficial adaptations: TBD
--- NOTE | 2019-05-24 10:43 | NUR ---
WEEKLY NOTE: Margaret is averaging seven hours of sleep at night and intakes of meals range between 50-75%. She has been calm and compliant with cares and medication administration. Margaret attended two groups on 05/23/19. DAVID Fuller/oxana participated in treatment team via phone today. Estimated d/c middle to late next week.
--- NOTE | 2019-05-24 10:51 | NUR ---
Returned phone call to Edilia, student admissions clerk at [employer]. Should Margaret not be physically able to return home where her daughter Alina lives with her, she could discharge to [place] to continue post acute rehab. Will plan to see how Margaret does over the weekend and follow up with Edilia early next week.
--- NOTE | 2019-05-24 11:20 | NUR ---
ACTIVITY THERAPY ASSESSMENT Completed based on interview and notes. Pt. was in the day room and agreeable to speak with SEO EXECUTIVE, despite being very cold. SEO EXECUTIVE retrieved a blanket from Pt's bed. Pt. joked, saying "people in [place] don't know what a blanket is," but she was appreciative and bundled in the blanket. She knew where she was but was unsure why she was here. She was able to recall leisure interest/hobbies: sindi/knitting, reading, word searches/puzzles. Notes also stated she liked country/western and Polka music. She used to dance when she was younger. Pt. stated she lives with her daughter, Alina, but she shared she has five other children. After SEO EXECUTIVE explained the structure of the unit a bit more, she asked if Pt. generally prefers to be alone or with other. Pt. said "alone, more so." When talking about participation goals, Pt. went with the lower number of group per week when given an option. Participation was encouraged. Notes state Pt. has has increased symptoms of depression and refusing to eat/drink. She has been around group often while on the unit. Initial goal aimed to increase leisure involvement and socialization: Pt. will participate in at least one Activity Therapy group per day.
[2019-05-24 16:36] VITALS: BP 175/63
--- NOTE | 2019-05-24 18:00 | NUR ---
Patient has been calm, compliant, and appropriate. She denied being depressed this morning, and denied SI. Patient participated in morning group activities and was withdrawn to her room after lunch. Will continue to monitor.
--- NOTE | 2019-05-24 18:30 | HP ---
ADMIT DATE: 05/23/2019 This late entry 05/23/2019 covers elements not covered in my initial note of 05/23/2019. SUBJECTIVE: I met with the patient evening of 05/23/2019 for this evaluation. IDENTIFYING DATA: The patient is an 88-year-old female, referred to us from [address] [place] [address] Diza on account of worsening symptoms of depression, tearfulness, refusing to eat, passive suicidal ideation, having thoughts about dying. She has been depressed, apathetic. I had followed her on from a psychiatric standpoint and she continued to be depressed and referred for inpatient psychiatric stabilization. CHIEF COMPLAINT: "I don't know if I am depressed." HISTORY OF PRESENT ILLNESS: The patient initially presented to the ER from [address] [place] [address] following an episode of unresponsiveness, lasting about 15 minutes. Reportedly, she had several such episodes since [facility]. Nothing specific was found to explain this and in the meantime, she appeared more depressed, hopeless, helpless, anxious and made statements to the nursing staff that she would prefer she never wakes up. She minimized being depressed. She is referred initially to me for psychiatric consultation on for her depression and passive suicidal ideation. We did initiate treatment on Prozac, which is what her daughter responded to put the patient continued to be depressed, withdrawn with passive suicidal ideation, resulting in this referral. CHIEF COMPLAINT: "I'm not sure I'm depressed." HISTORY OF PRESENT ILLNESS: The patient has a history of depression, low mood, apathy of motivation, all of which she minimizes. She has been more anxious with passive suicidal ideation. No clear history of bipolar disorder or homicidal ideation. Memory has been reasonable. She does have some short-term memory deficits. PAST PSYCHIATRIC HISTORY: As above. PAST MEDICAL HISTORY: Positive for seizure-like episodes, history of atrial fibrillation, anemia, coronary artery disease, CHF status post CVA, mild cognitive impairment, diabetes mellitus, GERD, heart disease, hypertension, hypothyroidism status post NM and renal disease. PAST SURGICAL HISTORY: Appendectomy, cholecystectomy, coronary artery bypass surgery, hysterectomy. CT head that showed changes consistent with her TIA/CVA. ALLERGIES: CAPTOPRIL, SULFA. CURRENT PSYCHOTROPICS: Prozac 10 mg a day, Aricept 10 mg a day. CODE STATUS: DNR. FAMILY HISTORY: Noncontributory. SOCIAL HISTORY: No history of alcohol, drug abuse, physical, sexual or elder abuse. She is not known to be a perpetrator. REACTION TO HOSPITALIZATION: The patient accepting of this. ASSETS: Supportive family. MENTAL STATUS EXAMINATION: The patient was seen individually evening of 05/23/2019. She is oriented to herself, seated in a wheelchair. Speech moderate latency, often responses monosyllabic. Abstraction fair, computation impaired, language function intact. Speech has moderate latency, often responses monosyllabic. No active suicidal or homicidal ideation. Mood is depressed. Affect is mood congruent. LABORATORY DATA: Reviewed. IMPRESSION: Major depressive disorder, recurrent with passive suicidal ideation; anxiety disorder, unspecified; mild cognitive impairment. Rest as above. PLAN: Admit to Geropsychiatry Unit at [facility]. I will see the patient daily individually from a psychiatric standpoint. Medical followup per Dr. Diaz. Continue the patient on her current psychotropics. Observe baseline, then adjust as clinically indicated. Estimated length of stay 7-9 days. DISPOSITION: Plans back to [facility]. MAN Soco GARCÍA MD DR: CIARA/ludmila JOB#: [id number] / [id number]
[2019-05-24] MEDS: CYPROHEPTADINE 4 MG TABLET. PO SCH (19:42)
[2019-05-24] MEDS: DONEPEZIL HCL 10 MG TABLET PO SCH (19:42)
[2019-05-24] MEDS: GABAPENTIN 300 MG CAPSULE. PO SCH (19:42)
[2019-05-24] MEDS: SIMVASTATIN 20 MG TABLET PO SCH (19:43)
[2019-05-24] MEDS: INSULIN GLARGINE SYRINGE. SQ SCH (20:55)
--- NOTE | 2019-05-24 21:42 | PDOC ---
Exam Note: Pritesh Note: Please also refer to the separate dictated note~for this date of service dictated separately.~Patient seen individually. Discussed the patient with Nursing staff reviewed the chart.~Reviewed interim history and current functioning. Reviewed vital signs,~Labs/ Radiology~and current medications noted below. Continue current treatment with the changes noted in the dictated addendum note Assessment: Vital Signs/I&O: Vital Signs Date Time Temp Pulse Resp B/P (MAP) Pulse Ox O2 Delivery O2 Flow Rate FiO2 05/24/19 16:36 98.2 74 18 175/63 (100) 90.0 05/24/19 05:32 93 05/23/19 16:00 Room Air I & O 05/23/19 05/23/19 05/24/19 15:00 23:00 07:00 Intake Total 600 ml 360 ml Balance 600 ml 360 ml Labs: Laboratory Tests Test 05/24/19 06:08 White Blood Count 5.3 x10^3/uL (4.0-11.0) Red Blood Count 3.18 x10^6/uL (3.50-5.40) L Hemoglobin 9.4 g/dL (12.0-15.5) L Hematocrit 28.6 % (36.0-47.0) L Mean Corpuscular Volume 90 fL (79-100) Mean Corpuscular Hemoglobin 30 pg (25-35) Mean Corpuscular Hemoglobin Concent 33 g/dL (31-37) Red Cell Distribution Width 14.8 % (11.5-14.5) H Platelet Count 212 x10^3/uL (140-400) Neutrophils (%) (Auto) 58 % (31-73) Lymphocytes (%) (Auto) 19 % (24-48) L Monocytes (%) (Auto) 13 % (0-9) H Eosinophils (%) (Auto) 8 % (0-3) H Basophils (%) (Auto) 2 % (0-3) Neutrophils # (Auto) 3.1 x10^3uL (1.8-7.7) Lymphocytes # (Auto) 1.0 x10^3/uL (1.0-4.8) Monocytes # (Auto) 0.7 x10^3/uL (0.0-1.1) Eosinophils # (Auto) 0.4 x10^3/uL (0.0-0.7) Basophils # (Auto) 0.1 x10^3/uL (0.0-0.2) Segmented Neutrophils % 56 % (35-66) Band Neutrophils % 3 % (0-9) Lymphocytes % 23 % (24-48) L Monocytes % 9 % (0-10) Eosinophils % 6 % (0-5) H Basophils % 3 % (0-3) Platelet Estimate Adequate (ADEQUATE) Large Platelets Present Sodium Level 139 mmol/L (136-145) Potassium Level 3.9 mmol/L (3.5-5.1) Chloride Level 105 mmol/L (98-107) Carbon Dioxide Level 24 mmol/L (21-32) Anion Gap 10 (6-14) Blood Urea Nitrogen 35 mg/dL (7-20) H Creatinine 2.3 mg/dL (0.6-1.0) H Estimated GFR (Cockcroft-Gault) 20.1 Glucose Level 99 mg/dL (70-99) Calcium Level 8.3 mg/dL (8.5-10.1) L UF-Xvz-[id number]-Type Natriuretic Peptide 3383 pg/mL (0-449) H Thyroid Stimulating Hormone (TSH) 6.478 uIU/mL (0.358-3.740) Current Medications: I have reviewed the current psychotropics carefully including drug interactions. Risk benefit ratio favors no change other than as noted in my dictated progress note. Diagnosis: Problems: (1) Major depressive disorder, recurrent episode (2) Mild cognitive impairment (3) Altered mental status (4) Anxiety disorder HANS GARCÍA MD May 24, 2019 21:42
--- NOTE | 2019-05-25 00:03 | NUR ---
Pt sitting quietly in the day room at shift change. Pt withdrawn to self with sad and flat affect but interactive with staff when approached. Pt denies SI or thoughts of self harm at this time. Pt cooperative with assessment and compliant with medications administered whole.
[2019-05-25] MEDS: LEVOTHYROXINE 125 MCG TABLET PO SCH (05:12)
[2019-05-25] MEDS: CEPHALEXIN 250 MG CAPSULE PO SCH ×3 (05:13→19:27)
[2019-05-25 05:46] VITALS: BP 122/64
[2019-05-25] MEDS: INSULIN LISPRO 300 UNITS/3 ML VIAL. SQ SCH ×3 (07:48→17:00)
[2019-05-25] MEDS: LACTOBACILLUS RHAMNOSUS GG 1 CAPSULE. PO SCH ×2 (07:48→19:27)
[2019-05-25] MEDS: FLUoxetine HCL 10 MG CAPSULE PO SCH (07:49)
[2019-05-25] MEDS: DOXAZOSIN MESYLATE 4 MG TABLET PO SCH (07:49)
[2019-05-25] MEDS: APIXABAN 2.5 MG TABLET PO SCH ×2 (07:49→19:27)
[2019-05-25] MEDS: amLODIPine BESYLATE 10 MG TABLET PO SCH (07:49)
[2019-05-25] MEDS: CLOPIDOGREL BISULFATE 75 MG TABLET PO SCH (07:50)
--- NOTE | 2019-05-25 16:00 | PN ---
DATE: 05/24/2019 PSYCHIATRIC PROGRESS NOTE This late entry 05/24/2019 covers elements not covered in my initial note. SUBJECTIVE: I met with the patient evening of 05/24/2019. The patient was also staffed at a treatment team meeting with the entire team in the morning and the patient's daughter Alina attended the treatment team meeting. We reviewed the patient's history, diagnosis, progress, current psychotropics. The patient slept 7-3/4 hours previous night. She remains somewhat withdrawn, depressed, but minimizes this subjectively. REVIEW OF SYSTEMS: Ambulation impaired, in wheelchair. No CV, , pulmonary, eye system symptoms on review. MENTAL STATUS EXAM: Oriented to herself and situation. Speech moderate latency, coherent, often responses monosyllabic. Abstraction fair, computation impaired, language function intact, attention span short. Mood and affect withdrawn. LABORATORY DATA: Reviewed. IMPRESSION: Major depressive disorder, recurrent; anxiety disorder, unspecified; mild cognitive impairment. PLAN: Continue Prozac 10 mg daily, Aricept 10 mg a day. May need to increase Prozac in due course. We will make further adjustments as clinically indicated. MAN Soco GARCÍA MD DR: CIARA/ludmila JOB#: [id number] / [id number]
[2019-05-25 16:12] VITALS: BP 158/69
--- NOTE | 2019-05-25 18:36 | NUR ---
Pt up in wc for meals. Compliant with meds and cares. quiet and calm. out to day room at times. Pt c/o constipation. will give PRN.
[2019-05-25] MEDS: DONEPEZIL HCL 10 MG TABLET PO SCH (19:27)
[2019-05-25] MEDS: CYPROHEPTADINE 4 MG TABLET. PO SCH (19:27)
[2019-05-25] MEDS: GABAPENTIN 300 MG CAPSULE. PO SCH (19:27)
[2019-05-25] MEDS: SIMVASTATIN 20 MG TABLET PO SCH (19:28)
[2019-05-25] MEDS: INSULIN GLARGINE SYRINGE. SQ SCH (20:31)
--- NOTE | 2019-05-25 21:32 | PDOC ---
Exam Note: Pritesh Note: Please also refer to the separate dictated note~for this date of service dictated separately.~Patient seen individually. Discussed the patient with Nursing staff reviewed the chart.~Reviewed interim history and current functioning. Reviewed vital signs,~Labs/ Radiology~and current medications noted below. Continue current treatment with the changes noted in the dictated addendum note Assessment: Vital Signs/I&O: Vital Signs Date Time Temp Pulse Resp B/P (MAP) Pulse Ox O2 Delivery O2 Flow Rate FiO2 05/25/19 16:12 98.6 83 18 158/69 (98) 97 05/24/19 16:36 90.0 05/23/19 16:00 Room Air I & O 05/24/19 05/24/19 05/25/19 15:00 23:00 07:00 Intake Total 720 ml 200 ml 120 ml Balance 720 ml 200 ml 120 ml Current Medications: I have reviewed the current psychotropics carefully including drug interactions. Risk benefit ratio favors no change other than as noted in my dictated progress note. Diagnosis: Problems: (1) Anxiety disorder (2) Major depressive disorder, recurrent episode (3) Altered mental status (4) Mild cognitive impairment HANS GARCÍA MD May 25, 2019 21:32
--- NOTE | 2019-05-25 22:13 | NUR ---
Pt sitting quietly in the day room at shift change. Pt calm, pleasant and interactive when approached, stays mostly withdrawn to herself. Pt cooperative with assessment and compliant with medications administered whole. PRN MOM administered this evening for c/o constipation.
[2019-05-26] MEDS: CEPHALEXIN 250 MG CAPSULE PO SCH ×3 (05:32→19:44)
[2019-05-26] MEDS: LEVOTHYROXINE 150 MCG TABLET PO SCH (05:32)
[2019-05-26 05:38] VITALS: BP 125/73
[2019-05-26] MEDS: CLOPIDOGREL BISULFATE 75 MG TABLET PO SCH (07:55)
[2019-05-26] MEDS: LACTOBACILLUS RHAMNOSUS GG 1 CAPSULE. PO SCH ×2 (07:55→19:44)
[2019-05-26] MEDS: DOXAZOSIN MESYLATE 4 MG TABLET PO SCH (07:55)
[2019-05-26] MEDS: APIXABAN 2.5 MG TABLET PO SCH ×2 (07:55→19:44)
[2019-05-26] MEDS: INSULIN LISPRO 300 UNITS/3 ML VIAL. SQ SCH ×3 (07:56→17:00)
[2019-05-26] MEDS: amLODIPine BESYLATE 10 MG TABLET PO SCH (07:56)
[2019-05-26] MEDS: FUROSEMIDE 20 MG TABLET PO SCH (07:59)
[2019-05-26 15:35] VITALS: BP 121/76
--- NOTE | 2019-05-26 18:26 | NUR ---
Pt up in wc for meals and out to day room. Has been calm but quiet. Compliant with meds and cares. Pt constipation. Unable to pass stool. Digitally removed per nurse. Order for stool softener.
[2019-05-26] MEDS: CYPROHEPTADINE 4 MG TABLET. PO SCH (19:44)
[2019-05-26] MEDS: GABAPENTIN 300 MG CAPSULE. PO SCH (19:44)
[2019-05-26] MEDS: DONEPEZIL HCL 10 MG TABLET PO SCH (19:44)
[2019-05-26] MEDS: SIMVASTATIN 20 MG TABLET PO SCH (19:44)
[2019-05-26] MEDS: DOCUSATE SODIUM 100 MG CAPSULE PO SCH (19:46)
--- NOTE | 2019-05-26 19:53 | PN ---
DATE: 05/26/2019 PSYCHIATRIC PROGRESS NOTE This late entry 05/25/2019 covers elements not covered in my initial note. SUBJECTIVE: I met with the patient evening of 05/25/2019. Per DUKE Ludwig, the patient slept 8-1/2 hours previous night. She has been withdrawn, did come out for groups. Complains of significant constipation and after I met with her, we did give her milk of mag and later in the evening, this was effective. She minimizes being depressed, but somewhat isolative, withdrawn, reflective of her mood symptoms. REVIEW OF SYSTEMS: Positive for the constipation and impaired ambulation in wheelchair. No CV, , pulmonary, eye system symptoms on review. MENTAL STATUS EXAM: The patient is oriented to herself and situation. Speech is low in rate and rhythm, low in volume, often responses monosyllabic. Abstraction fair, computation impaired, language function intact, attention span short. Mood and affect somewhat withdrawn. LABORATORY DATA: Reviewed. IMPRESSION: Major depressive disorder, recurrent; anxiety disorder, unspecified. PLAN: Increase Prozac to 15 mg a day. Continue Aricept 10 mg a day. Rest unchanged for now. MAN Soco GARCÍA MD DR: CIARA/ludmila JOB#: [id number] / [id number]
[2019-05-26] MEDS: INSULIN GLARGINE SYRINGE. SQ SCH (20:29)
--- NOTE | 2019-05-26 21:49 | PDOC ---
Exam Note: Pritesh Note: Please also refer to the separate dictated note~for this date of service dictated separately.~Patient seen individually. Discussed the patient with Nursing staff reviewed the chart.~Reviewed interim history and current functioning. Reviewed vital signs,~Labs/ Radiology~and current medications noted below. Continue current treatment with the changes noted in the dictated addendum note Assessment: Vital Signs/I&O: Vital Signs Date Time Temp Pulse Resp B/P (MAP) Pulse Ox O2 Delivery O2 Flow Rate FiO2 05/26/19 15:35 97.6 72 20 121/76 (91) 99 Nasal Cannula 2.0 I & O 05/25/19 05/25/19 05/26/19 15:00 23:00 07:00 Intake Total 600 ml 600 ml Balance 600 ml 600 ml Current Medications: Meds: Current Medications Medications (Trade) Dose Ordered Sig/Brendan Route PRN Reason Start Time Stop Time Status Last Admin Dose Admin Fluoxetine HCl (PROzac ORAL SOLN) 15 mg DAILY PO 05/26/19 09:00 05/26/19 07:55 Levothyroxine Sodium (Synthroid) 150 mcg DAILY06 PO 05/26/19 06:00 05/26/19 05:32 Furosemide (Lasix) 20 mg DAILY PO 05/26/19 09:00 05/26/19 07:59 Docusate Sodium (Colace) 100 mg BID PO 05/26/19 21:00 05/26/19 19:46 I have reviewed the current psychotropics carefully including drug interactions. Risk benefit ratio favors no change other than as noted in my dictated progress note. Diagnosis: Problems: (1) Anxiety disorder (2) Major depressive disorder, recurrent episode (3) Mild cognitive impairment (4) Altered mental status HANS GARCÍA MD May 26, 2019 21:49
--- NOTE | 2019-05-26 23:27 | NUR ---
Pt sitting up in day room at shift change. Pt calm, pleasant, and interactive this evening. Pt cooperative with assessment and compliant with medications administered whole. Pt was very cooperative in the shower, able to transfer herself into the shower chair and participated in care. Pt able to wash herself with the exception of her feet and back. Pt then transferred herself back into her w/c and when taken to her room, was able to transfer self into bed and put her feet up. Pt was very thankful to the staff for their encouragement during cares.
[2019-05-27] MEDS: LEVOTHYROXINE 150 MCG TABLET PO SCH (06:07)
[2019-05-27] MEDS: CEPHALEXIN 250 MG CAPSULE PO SCH ×3 (06:07→19:55)
[2019-05-27 06:32] VITALS: BP 123/65
[2019-05-27] MEDS: APIXABAN 2.5 MG TABLET PO SCH ×2 (07:34→19:55)
[2019-05-27] MEDS: FUROSEMIDE 20 MG TABLET PO SCH (07:34)
[2019-05-27] MEDS: DOXAZOSIN MESYLATE 4 MG TABLET PO SCH (07:34)
[2019-05-27] MEDS: DOCUSATE SODIUM 100 MG CAPSULE PO SCH ×2 (07:34→19:56)
[2019-05-27] MEDS: amLODIPine BESYLATE 10 MG TABLET PO SCH (07:34)
[2019-05-27] MEDS: CLOPIDOGREL BISULFATE 75 MG TABLET PO SCH (07:34)
[2019-05-27] MEDS: LACTOBACILLUS RHAMNOSUS GG 1 CAPSULE. PO SCH ×2 (07:34→19:54)
[2019-05-27] MEDS: INSULIN LISPRO 300 UNITS/3 ML VIAL. SQ SCH ×3 (07:40→17:00)
--- NOTE | 2019-05-27 15:13 | NUR ---
Pt up in wc for meals. Pt out to day room for groups. Has been compliant with meds and cares.
[2019-05-27 16:13] VITALS: BP 134/60
[2019-05-27] MEDS: GABAPENTIN 300 MG CAPSULE. PO SCH (19:54)
[2019-05-27] MEDS: DONEPEZIL HCL 10 MG TABLET PO SCH (19:55)
[2019-05-27] MEDS: SIMVASTATIN 20 MG TABLET PO SCH (19:55)
[2019-05-27] MEDS: CYPROHEPTADINE 4 MG TABLET. PO SCH (19:55)
[2019-05-27] MEDS: INSULIN GLARGINE SYRINGE. SQ SCH (20:00)
--- NOTE | 2019-05-27 20:00 | NUR ---
Pt sitting in day room watching a movie, meds taken whole without difficulty. She is well oriented and denies SI at this time. No behaviors this evening.
--- NOTE | 2019-05-28 02:25 | PN ---
DATE: 05/27/2019 SUBJECTIVE: The patient was seen today, met with the staff, chart reviewed. The patient continues to be depressed. Apparently, she made suicidal statements at the time of admission. She is currently withdrawn, irritable, noncommunicative most of the time. The patient is also on wheelchair. OBSERVATION: VITAL SIGNS: Temperature 98, blood pressure 123/65, pulse 75, respiration 18, O2 sat 96%. GENERAL: Slept about 6 hours last night. CURRENT MEDICATIONS: The patient's current medications include Prozac 15 mg daily, gabapentin 600 mg at night, Aricept 10 mg at night. The patient is not having any side effects to the medications. LABORATORY DATA: The patient's lab reviewed. The patient's BUN still 35, creatinine 2.3. Repeat TSH 6.4. ASSESSMENT: 1. Major depression, recurrent, moderate to severe. 2. Generalized anxiety disorder. 3. Cognitive impairment, mild. PLAN: To continue with the current treatment plan and patient because of generalized weakness, she may be a fall risk. LINDA SHIELDS MD DR: ANNA/ludmila JOB#: [id number] / [id number] KARRIE
[2019-05-28 05:28] VITALS: BP 100/59
[2019-05-28] MEDS: LEVOTHYROXINE 150 MCG TABLET PO SCH (05:31)
[2019-05-28] MEDS: CEPHALEXIN 250 MG CAPSULE PO SCH ×3 (05:31→19:25)
[2019-05-28] MEDS: DOXAZOSIN MESYLATE 4 MG TABLET PO SCH (07:55)
[2019-05-28] MEDS: amLODIPine BESYLATE 10 MG TABLET PO SCH (07:55)
[2019-05-28] MEDS: LACTOBACILLUS RHAMNOSUS GG 1 CAPSULE. PO SCH ×2 (07:55→19:25)
[2019-05-28] MEDS: DOCUSATE SODIUM 100 MG CAPSULE PO SCH ×2 (07:55→19:26)
[2019-05-28] MEDS: CLOPIDOGREL BISULFATE 75 MG TABLET PO SCH (07:56)
[2019-05-28] MEDS: APIXABAN 2.5 MG TABLET PO SCH ×2 (07:56→19:25)
[2019-05-28] MEDS: FUROSEMIDE 20 MG TABLET PO SCH (07:58)
[2019-05-28] MEDS: INSULIN LISPRO 300 UNITS/3 ML VIAL. SQ SCH ×3 (08:00→17:00)
--- NOTE | 2019-05-28 10:23 | NUR ---
Call placed to Alina, oxana/DAVID, to update and discuss discharge planning. Margaret prefers to d/c back to home vs. a post acute rehab center. Discussed with Alina and she was agreeable to Margaret coming home with the supports of some home health services. Medications should be called to [facility]. PCP is Dr. Roman Espinosa and Alina was agreeable for this worker to schedule a follow up appointment. Margaret will d/c home on 05/31/19 and Alina will transport around 4pm.
--- NOTE | 2019-05-28 12:47 | NUR ---
Follow up appointment has been scheduled with PCP Dr. Espinosa on 06/08/19 at 11am in preparation for upcoming discharge.
--- NOTE | 2019-05-28 12:50 | NUR ---
Per GISELA, patient cannot discharge on O2 unless her SpO2 on room air is 88% or less. She was not on O2 until this admit. Patient is on O2 at 2Lpm via NC. Her SpO2=94%. O2 decreased to 1Lpm, will continue to monitor.
--- NOTE | 2019-05-28 14:00 | NUR ---
Patient's O2 was discontinued and she was on room air. After walking with aides, patient's SpO2 was 82%. She was placed back on O2 at 1Lpm via nasal cannula. Will continue to monitor.
[2019-05-28 16:02] VITALS: BP 168/69
--- NOTE | 2019-05-28 18:13 | NUR ---
Patient has been calm, compliant, and appropriate. She denied being depressed or having SI. Patient participated in morning group activities and was in the day room during the afternoon. Will continue to monitor.
[2019-05-28] MEDS: DONEPEZIL HCL 10 MG TABLET PO SCH (19:25)
[2019-05-28] MEDS: SIMVASTATIN 20 MG TABLET PO SCH (19:25)
[2019-05-28] MEDS: CYPROHEPTADINE 4 MG TABLET. PO SCH (19:25)
[2019-05-28] MEDS: GABAPENTIN 300 MG CAPSULE. PO SCH (19:26)
[2019-05-28] MEDS: INSULIN GLARGINE SYRINGE. SQ SCH (20:56)
--- NOTE | 2019-05-28 23:19 | NUR ---
Last evening pt sat quietly in day room she was cooperative with meds social with staff. She is oriented and has had no behaviors.
[2019-05-29] MEDS: LEVOTHYROXINE 150 MCG TABLET PO SCH (05:35)
[2019-05-29] MEDS: CEPHALEXIN 250 MG CAPSULE PO SCH ×3 (05:35→19:39)
[2019-05-29 05:52] VITALS: BP 103/71
--- NOTE | 2019-05-29 06:44 | PN ---
DATE: 05/28/2019 SUBJECTIVE: The patient was seen today, met with the staff, chart reviewed. The patient apparently has not made any suicidal statements. The patient is still taking Prozac 50 mg daily. The patient continues to be withdrawn, irritable and also noncommunicative most of the time. The patient is also on wheelchair, but no falls. OBSERVATION: VITAL SIGNS: Temperature 98.2, blood pressure 100/59, pulse 75, respirations 20, O2 sat 92%. GENERAL: Slept about 6 hours last night. The patient's appetite decreased. MEDICATIONS: The patient's current medications include Prozac 15 mg daily, gabapentin 600 mg at night, Aricept 10 mg at night. The patient is not having any side effects, no major physical complaints. LABORATORY DATA: The patient's lab reviewed. ASSESSMENT: 1. Major depression, recurrent, moderate to severe. 2. Generalized anxiety disorder. 3. Cognitive disorder, mild. PLAN: To continue with the treatment. The patient continues to be a fall risk. LINDA SHIELDS MD DR: ANNA/ludmila JOB#: [id number] / [id number]
[2019-05-29] MEDS: INSULIN LISPRO 300 UNITS/3 ML VIAL. SQ SCH ×3 (08:00→17:00)
[2019-05-29] MEDS: DOXAZOSIN MESYLATE 4 MG TABLET PO SCH (09:28)
[2019-05-29] MEDS: DOCUSATE SODIUM 100 MG CAPSULE PO SCH ×2 (09:28→19:39)
[2019-05-29] MEDS: CLOPIDOGREL BISULFATE 75 MG TABLET PO SCH (09:28)
[2019-05-29] MEDS: amLODIPine BESYLATE 10 MG TABLET PO SCH (09:28)
[2019-05-29] MEDS: LACTOBACILLUS RHAMNOSUS GG 1 CAPSULE. PO SCH ×2 (09:28→19:39)
[2019-05-29] MEDS: FUROSEMIDE 20 MG TABLET PO SCH (09:29)
[2019-05-29] MEDS: APIXABAN 2.5 MG TABLET PO SCH ×2 (09:30→19:39)
[2019-05-29 16:17] VITALS: BP 117/67
--- NOTE | 2019-05-29 18:00 | NUR ---
Patient has been calm, compliant, and appropriate. She denied being depressed or having SI. Patient was withdrawn to her room during the morning, where she was interactive and socializing with her roommate. She was withdrawn to her room and resting in bed for most of the afternoon. Will continue to monitor.
[2019-05-29] MEDS: SIMVASTATIN 20 MG TABLET PO SCH (19:39)
[2019-05-29] MEDS: DONEPEZIL HCL 10 MG TABLET PO SCH (19:39)
[2019-05-29] MEDS: CYPROHEPTADINE 4 MG TABLET. PO SCH (19:39)
[2019-05-29] MEDS: GABAPENTIN 300 MG CAPSULE. PO SCH (19:39)
[2019-05-29] MEDS: INSULIN GLARGINE SYRINGE. SQ SCH (21:08)
--- NOTE | 2019-05-29 21:44 | PDOC ---
Exam Note: Pritesh Note: Please also refer to the separate dictated note~for this date of service dictated separately.~Patient seen individually. Discussed the patient with Nursing staff reviewed the chart.~Reviewed interim history and current functioning. Reviewed vital signs,~Labs/ Radiology~and current medications noted below. Continue current treatment with the changes noted in the dictated addendum note Assessment: Vital Signs/I&O: Vital Signs Date Time Temp Pulse Resp B/P (MAP) Pulse Ox O2 Delivery O2 Flow Rate FiO2 05/29/19 16:17 97.9 70 16 117/67 (84) 92 05/27/19 06:32 Nasal Cannula 2.0 I & O 05/28/19 05/28/19 05/29/19 15:00 23:00 07:00 Intake Total 600 ml 600 ml Balance 600 ml 600 ml Labs: Laboratory Tests Test 05/29/19 07:57 05/29/19 12:29 05/29/19 16:52 05/29/19 19:34 Glucose (Fingerstick) 112 mg/dL (70-99) H 190 mg/dL (70-99) H 150 mg/dL (70-99) H 175 mg/dL (70-99) H Current Medications: I have reviewed the current psychotropics carefully including drug interactions. Risk benefit ratio favors no change other than as noted in my dictated progress note. Diagnosis: Problems: (1) Anxiety disorder (2) Major depressive disorder, recurrent episode (3) Mild cognitive impairment (4) Altered mental status HANS GARCÍA MD May 29, 2019 21:44
--- NOTE | 2019-05-30 01:21 | PN ---
DATE: 05/26/2019 PSYCHIATRIC PROGRESS NOTE This late entry of 05/26/2019 covers the elements not covered in my initial note. SUBJECTIVE: I met with the patient in the morning. Per Vani RN, patient slept 7-1/2 hours previous night. She still complains of constipation, received milk of mag at night and will be repeated on 05/26/2019. REVIEW OF SYSTEMS: Ambulation impaired, in wheelchair. No CV, , pulmonary, eye system symptoms on review. MENTAL STATUS EXAM: Oriented to herself. Speech moderate latency, often responses monosyllabic. Abstraction fair, computation impaired, language function intact. Mood and affect still depressed, withdrawn, anxious. TSH elevated. PLAN: Synthroid has been increased and she gets liquid Prozac, may need to adjust this gradually. Dr. Valenzuela will cover for me 05/27/2019 and 05/28/2019. MAN Soco GARCÍA MD DR: CIARA/ludmila JOB#: [id number] / [id number]
[2019-05-30 04:47] VITALS: BP 100/54
[2019-05-30] MEDS: CEPHALEXIN 250 MG CAPSULE PO SCH (05:45)
[2019-05-30] MEDS: LEVOTHYROXINE 150 MCG TABLET PO SCH (05:45)
[2019-05-30] MEDS: INSULIN LISPRO 300 UNITS/3 ML VIAL. SQ SCH ×3 (08:00→17:00)
[2019-05-30] MEDS: DOCUSATE SODIUM 100 MG CAPSULE PO SCH ×2 (08:06→21:00)
[2019-05-30] MEDS: CLOPIDOGREL BISULFATE 75 MG TABLET PO SCH (08:06)
[2019-05-30] MEDS: FUROSEMIDE 20 MG TABLET PO SCH (08:06)
[2019-05-30] MEDS: amLODIPine BESYLATE 10 MG TABLET PO SCH (08:06)
[2019-05-30] MEDS: LACTOBACILLUS RHAMNOSUS GG 1 CAPSULE. PO SCH ×2 (08:06→21:13)
[2019-05-30] MEDS: DOXAZOSIN MESYLATE 4 MG TABLET PO SCH (08:07)
[2019-05-30] MEDS: APIXABAN 2.5 MG TABLET PO SCH ×2 (08:07→21:13)
[2019-05-30 09:14] LABS: BASO # 0.1 x10^3/uL (0.0-0.2); BASO % 1 % (0-3); EOS # 0.2 x10^3/uL (0.0-0.7); EOS % 4 % (0-3); HEMATOCRIT 25.3 % (36.0-47.0); HEMOGLOBIN 8.2 g/dL (12.0-15.5); LYMPH # 1.1 x10^3/uL (1.0-4.8); LYMPH % 19 % (24-48); MEAN CORPUSCULAR HEMOGLOBIN 29 pg (25-35); MEAN CORPUSCULAR HGB CONC 32 g/dL (31-37); MEAN CORPUSCULAR VOLUME 90 fL (79-100); MONO # 0.6 x10^3/uL (0.0-1.1); MONO % 10 % (0-9); NEUT # 4.1 x10^3uL (1.8-7.7); NEUT % 66 % (31-73); PLATELET COUNT 248 x10^3/uL (140-400); RED BLOOD COUNT 2.81 x10^6/uL (3.50-5.40); RED CELL DISTRIBUTION WIDTH 14.5 % (11.5-14.5); WHITE BLOOD COUNT 6.2 x10^3/uL (4.0-11.0)
[2019-05-30 09:28] LABS: ALBUMIN 2.7 g/dL (3.4-5.0); ALBUMIN/GLOBULIN RATIO 0.7 (1.0-1.7); CALCIUM 8.1 mg/dL (8.5-10.1); CREATININE 2.7 mg/dL (0.6-1.0); GFR 16.7; POTASSIUM 4.6 mmol/L (3.5-5.1); TOTAL BILIRUBIN 0.3 mg/dL (0.2-1.0); TOTAL PROTEIN 6.8 g/dL (6.4-8.2)
--- NOTE | 2019-05-30 13:28 | NUR ---
Margaret will need O2 when she returns home based on RT assessment and dropping O2 saturations when she ambulates. Call placed to DAVID Mccormick/oxana, to inform and to expect a phone call from [facility] to arrange for O2 delivery. Discussed with Dima eRal, 1S nurse insurance case manager, and she will coordinate referral to [facility] for O2 delivery.
--- NOTE | 2019-05-30 13:46 | NUR ---
[facility] Social Work Discharge Planning Form Patient Name MARGARET CRUZ V Admit Date: 05/22/19 DISCHARGE PLAN Discharge Destination: Home with daughter Alina Care Assessment: Completed on 05/30/19 Transportation: [facility] Fuller will transport on 05/31/19 at 4pm. Special Instructions/Notes: Margaret has an appointment with Dr. Espinosa on 06/08/19 at 11am. [facility] care will follow for home health nursing, PT and OT in the home. [facility] contact number is [phone]. Home oxygen will be provided by [facility] at [phone]. DISCHARGE TO HOME: Address: [address] [place] [address] Responsible Republican: Alina Cruz, [facility], Psychiatrist/Mental Health Follow Up: Consider psychiatry follow up at [facility] located at [address] [place] [id number]. Walk in intakes are available Tuesday thru from 9am-2pm. [facility] can be reached at [phone] for further questions. Primary Care: Dr. Espinosa [phone], (fax)
--- NOTE | 2019-05-30 14:01 | NUR ---
Referral completed to Carrie at [facility] with request for start of care on 06/01/19. Requested return phone call to confirm Carrie received faxed referral.
--- NOTE | 2019-05-30 16:08 | NUR ---
Patient has been calm, compliant, and appropriate. Patient participated in morning group and was withdrawn to her room after lunch for the early afternoon then was in the day room. Will continue to monitor and report to oncoming shift.
[2019-05-30 16:12] VITALS: BP 108/65
[2019-05-30] MEDS: SIMVASTATIN 20 MG TABLET PO SCH (21:13)
[2019-05-30] MEDS: CYPROHEPTADINE 4 MG TABLET. PO SCH (21:13)
[2019-05-30] MEDS: DONEPEZIL HCL 10 MG TABLET PO SCH (21:13)
[2019-05-30] MEDS: GABAPENTIN 300 MG CAPSULE. PO SCH (21:14)
[2019-05-30] MEDS: INSULIN GLARGINE SYRINGE. SQ SCH (21:16)
--- NOTE | 2019-05-30 21:48 | PDOC ---
Exam Note: Pritesh Note: Please also refer to the separate dictated note~for this date of service dictated separately.~Patient seen individually. Discussed the patient with Nursing staff reviewed the chart.~Reviewed interim history and current functioning. Reviewed vital signs,~Labs/ Radiology~and current medications noted below. Continue current treatment with the changes noted in the dictated addendum note Assessment: Vital Signs/I&O: Vital Signs Date Time Temp Pulse Resp B/P (MAP) Pulse Ox O2 Delivery O2 Flow Rate FiO2 05/30/19 16:12 97.5 74 18 108/65 (79) 97 05/30/19 04:47 Nasal Cannula 1.0 I & O 05/29/19 05/29/19 05/30/19 15:00 23:00 07:00 Intake Total 600 ml 600 ml Balance 600 ml 600 ml Labs: Laboratory Tests Test 05/30/19 07:30 05/30/19 08:56 05/30/19 11:57 05/30/19 16:56 Glucose (Fingerstick) 77 mg/dL (70-99) 118 mg/dL (70-99) H 149 mg/dL (70-99) H White Blood Count 6.2 x10^3/uL (4.0-11.0) Red Blood Count 2.81 x10^6/uL (3.50-5.40) L Hemoglobin 8.2 g/dL (12.0-15.5) L Hematocrit 25.3 % (36.0-47.0) L Mean Corpuscular Volume 90 fL (79-100) Mean Corpuscular Hemoglobin 29 pg (25-35) Mean Corpuscular Hemoglobin Concent 32 g/dL (31-37) Red Cell Distribution Width 14.5 % (11.5-14.5) Platelet Count 248 x10^3/uL (140-400) Neutrophils (%) (Auto) 66 % (31-73) Lymphocytes (%) (Auto) 19 % (24-48) L Monocytes (%) (Auto) 10 % (0-9) H Eosinophils (%) (Auto) 4 % (0-3) H Basophils (%) (Auto) 1 % (0-3) Neutrophils # (Auto) 4.1 x10^3uL (1.8-7.7) Lymphocytes # (Auto) 1.1 x10^3/uL (1.0-4.8) Monocytes # (Auto) 0.6 x10^3/uL (0.0-1.1) Eosinophils # (Auto) 0.2 x10^3/uL (0.0-0.7) Basophils # (Auto) 0.1 x10^3/uL (0.0-0.2) Sodium Level 136 mmol/L (136-145) Potassium Level 4.6 mmol/L (3.5-5.1) Chloride Level 100 mmol/L (98-107) Carbon Dioxide Level 28 mmol/L (21-32) Anion Gap 8 (6-14) Blood Urea Nitrogen 30 mg/dL (7-20) H Creatinine 2.7 mg/dL (0.6-1.0) H Estimated GFR (Cockcroft-Gault) 16.7 BUN/Creatinine Ratio 11 (6-20) Glucose Level 152 mg/dL (70-99) H Calcium Level 8.1 mg/dL (8.5-10.1) L Total Bilirubin 0.3 mg/dL (0.2-1.0) Aspartate Amino Transferase (AST) 17 U/L (15-37) Alanine Aminotransferase (ALT) 12 U/L (14-59) L Alkaline Phosphatase 69 U/L (46-116) Total Protein 6.8 g/dL (6.4-8.2) Albumin 2.7 g/dL (3.4-5.0) L Albumin/Globulin Ratio 0.7 (1.0-1.7) L Test 05/30/19 20:17 Glucose (Fingerstick) 217 mg/dL (70-99) H Current Medications: I have reviewed the current psychotropics carefully including drug interactions. Risk benefit ratio favors no change other than as noted in my dictated progress note. Diagnosis: Problems: (1) Anxiety disorder (2) Major depressive disorder, recurrent episode (3) Mild cognitive impairment (4) Altered mental status HANS GARCÍA MD May 30, 2019 21:48
--- NOTE | 2019-05-30 23:26 | NUR ---
Nursing Note: Assumed care of pt. this evening, she was lying in her bed. She has been calm, cooperative, and interacting appropriately with staff and other pt's. She has been compliant with taking her HS meds whole floated in pudding. No behaviors noted at this time.
--- NOTE | 2019-05-31 01:55 | PN ---
DATE: 05/29/2019 PSYCHIATRIC PROGRESS NOTE This late entry 05/29/2019 covers elements not covered in my initial note. SUBJECTIVE: I met with the patient evening of 05/29/2019. The patient slept 7-1/2 hours previous night. Discussed the patient with Vani. She has had some constipation, received milk of mag, previous evening and during the day on 05/29/2019, continues to be on liquid Prozac. TSH is elevated. We will defer to Dr. Diaz. She is otherwise calm, pleasant, somewhat withdrawn in bed. REVIEW OF SYSTEMS: Positive for feeling cold and I covered her in an extra blanket. Ambulation impaired, in wheelchair. No CV, , pulmonary, eye system symptoms on review. MENTAL STATUS EXAMIANTION: Oriented to herself and situation. Speech has some latency, coherent. Abstraction fair, computation impaired, language function intact, attention span short. Mood and affect somewhat withdrawn, though she denies being depressed, somewhat anxious. LABORATORY DATA: Reviewed. IMPRESSION: Unchanged from initial note. PLAN: No change from initial note. Synthroid has been adjusted. We will continue Prozac 15 mg a day, Aricept 10 mg a day. MAN Soco GARCÍA MD DR: CIARA/ludmila JOB#: [id number] / [id number]
[2019-05-31] MEDS ORDERED: CYPR4TAB31 PO (02:42)
[2019-05-31] MEDS ORDERED: AMLO10TA8 PO (02:45)
[2019-05-31] MEDS ORDERED: METH28OI2 TP (02:46)
[2019-05-31] MEDS ORDERED: FLUO20SO2 PO (02:49)
[2019-05-31] MEDS ORDERED: MAG30ORA2 PO (02:50)
[2019-05-31] MEDS ORDERED: FURO40TA4 PO (02:50)
[2019-05-31] MEDS ORDERED: DOCU-109 PO (02:53)
[2019-05-31] MEDS ORDERED: MAGN2400 PO (02:54)
[2019-05-31] MEDS ORDERED: LACT1CAP19 PO (02:56)
[2019-05-31] MEDS ORDERED: INSU100V SQ (03:04)
[2019-05-31] MEDS ORDERED: INSU100I11 SQ (03:06)
[2019-05-31] MEDS ORDERED: LEVO150T5 PO (03:12)
[2019-05-31] MEDS ORDERED: HYDR28.311 RC (03:14)
[2019-05-31] MEDS: LEVOTHYROXINE 150 MCG TABLET PO SCH (06:08)
[2019-05-31 06:12] VITALS: BP 102/63
[2019-05-31 07:49] LABS: HEMATOCRIT 23.5 % (36.0-47.0); HEMOGLOBIN 7.7 g/dL (12.0-15.5); RED BLOOD COUNT 2.65 x10^6/uL (3.50-5.40); RED CELL DISTRIBUTION WIDTH 14.4 % (11.5-14.5); WHITE BLOOD COUNT 5.7 x10^3/uL (4.0-11.0)
[2019-05-31 07:58] LABS: CALCIUM 8.2 mg/dL (8.5-10.1); CREATININE 2.5 mg/dL (0.6-1.0); GFR 18.3; POTASSIUM 4.3 mmol/L (3.5-5.1)
[2019-05-31] MEDS: INSULIN LISPRO 300 UNITS/3 ML VIAL. SQ SCH ×2 (08:00→12:00)
[2019-05-31] MEDS: LACTOBACILLUS RHAMNOSUS GG 1 CAPSULE. PO SCH (08:00)
[2019-05-31] MEDS: amLODIPine BESYLATE 10 MG TABLET PO SCH (08:00)
[2019-05-31] MEDS: FUROSEMIDE 20 MG TABLET PO SCH (08:00)
[2019-05-31] MEDS: CLOPIDOGREL BISULFATE 75 MG TABLET PO SCH (08:00)
[2019-05-31 08:01] VITALS: BP 102/63
[2019-05-31] MEDS: APIXABAN 2.5 MG TABLET PO SCH (08:01)
[2019-05-31] MEDS: DOXAZOSIN MESYLATE 4 MG TABLET PO SCH (08:01)
[2019-05-31] MEDS: DOCUSATE SODIUM 100 MG CAPSULE PO SCH (08:01)
--- NOTE | 2019-05-31 09:49 | NUR ---
Patient's RBC, H, & H continue to trend down, MD notified, new orders received, will continue to monitor and update MD as necessary.
--- NOTE | 2019-05-31 09:55 | NUR ---
WEEKLY ACTIVITY THERAPY NOTE Date of Admission: 05/22/2019 Date of AT Assessment: 05/24/2019 Goal aimed: to increase leisure involvement and socialization Initial Goal: Pt. will participate in at least one Activity Therapy group per day. Weekly progress towards goal: did not achieve- no groups on Tuesday Group participation level: minimal to moderate Weekly highlights: socializing with peers throughout the week Behaviors observed: dozes off/sleeps often but independent in groups when awake, working with therapy often Plan: no change to goal Beneficial adaptations: reminders about groups
--- NOTE | 2019-05-31 10:46 | RAD ---
PA and lateral views of the chest. Comparison: 05/17/2019. Indication: Increasing shortness of breath Findings: Sternotomy wires and CABG clips are reidentified. The heart size is enlarged but stable. No pneumothorax or effusion. There is increased bilateral interstitial edema/interstitial markings. The bony structures are intact. Impression: 1. There is increased interstitial opacities and cardiomegaly which suggests possible atypical infection versus CHF. Electronically signed by: Tacho Rodriguez MD (05/31/2019 10:43 AM) [id number]
--- NOTE | 2019-05-31 12:30 | NUR ---
notified of CXR results, new orders received to transfer to medical unit for IV lasix treatment. SW, patient, and beam house inspector notified.
--- NOTE | 2019-05-31 12:46 | NUR ---
Message left for DAVID Fuller/oxana, to inform that Margaret is not medically stable for discharge this date and will be transferred to 1S medical floor. Call placed to [facility] and message left to inform of above. Call placed to [facility] and message left to inform of above information.
--- NOTE | 2019-05-31 15:30 | NUR ---
Transition Record was faxed to follow-up provider with the following elements: Reason for admission, procedures, tests, principal diagnosis, pending studies, patient instructions, 14/03 contact information for unit, phone number to obtain pending test results, plan for follow-up care, physician follow-up, advanced directive information, and medication list with dose, duration and instructions. This information was included in the following documents: History and physical, lab results, study results, progress notes, social work planning form, DC instruction form, patient visit summary, and medication reconciliation form. Date & time record faxed: 12:56 31 May 2019 Record faxed to: [facility] Record discussed with/ report given to: DUKE Connolly
--- NOTE | 2019-05-31 21:47 | PDOC ---
Exam Note: Pritesh Note: Please also refer to the separate dictated note~for this date of service dictated separately.~Patient seen individually. Discussed the patient with Nursing staff reviewed the chart.~Reviewed interim history and current functioning. Reviewed vital signs,~Labs/ Radiology~and current medications noted below. Continue current treatment with the changes noted in the dictated addendum note Assessment: Vital Signs/I&O: Vital Signs Date Time Temp Pulse Resp B/P (MAP) Pulse Ox O2 Delivery O2 Flow Rate FiO2 05/31/19 08:01 89 102/63 05/31/19 06:12 98.4 18 93 1.0 05/30/19 04:47 Nasal Cannula I & O 05/30/19 05/30/19 05/31/19 15:00 23:00 07:00 Intake Total 600 ml 360 ml Balance 600 ml 360 ml Labs: Laboratory Tests Test 05/31/19 07:06 05/31/19 07:15 05/31/19 07:44 05/31/19 11:41 White Blood Count 5.7 x10^3/uL (4.0-11.0) Red Blood Count 2.65 x10^6/uL (3.50-5.40) L Hemoglobin 7.7 g/dL (12.0-15.5) L Hematocrit 23.5 % (36.0-47.0) L Mean Corpuscular Volume 89 fL (79-100) Mean Corpuscular Hemoglobin 29 pg (25-35) Mean Corpuscular Hemoglobin Concent 33 g/dL (31-37) Red Cell Distribution Width 14.4 % (11.5-14.5) Platelet Count 247 x10^3/uL (140-400) Sodium Level 139 mmol/L (136-145) Potassium Level 4.3 mmol/L (3.5-5.1) Chloride Level 104 mmol/L (98-107) Carbon Dioxide Level 28 mmol/L (21-32) Anion Gap 7 (6-14) Blood Urea Nitrogen 32 mg/dL (7-20) H Creatinine 2.5 mg/dL (0.6-1.0) H Estimated GFR (Cockcroft-Gault) 18.3 Glucose Level 52 mg/dL (70-99) L Calcium Level 8.2 mg/dL (8.5-10.1) L Glucose (Fingerstick) 50 mg/dL (70-99) L 84 mg/dL (70-99) 142 mg/dL (70-99) H Current Medications: I have reviewed the current psychotropics carefully including drug interactions. Risk benefit ratio favors no change other than as noted in my dictated progress note. Diagnosis: Problems: (1) Major depressive disorder, recurrent episode (2) Anxiety disorder (3) Mild cognitive impairment (4) Altered mental status HANS GARCÍA MD May 31, 2019 21:47
--- NOTE | 2019-06-01 12:50 | PN ---
DATE: 05/30/2019 PSYCHIATRIC PROGRESS NOTE This late entry 05/30/2019 covers elements not covered in my initial note. SUBJECTIVE: I met with the patient evening of 05/30/2019. The patient slept 7-3/4 hours previous night. She remains a little withdrawn. Denies being depressed. REVIEW OF SYSTEMS: Ambulation impaired with walker. No CV, , pulmonary, eye system symptoms on review. MENTAL STATUS EXAM: Oriented to herself and situation. Speech has some latency, often responses monosyllabic. Abstraction fair, computation impaired, language function intact, attention span short. Mood and affect less withdrawn, less depressed. LABORATORY DATA: Reviewed. IMPRESSION: Unchanged from initial note. PLAN: No change from initial note. The patient did do a 6-minute walking challenge. May transition/discharge 05/31/2019. MAN Soco GARCÍA MD DR: CIARA/ludmila JOB#: [id number] / [id number]
--- NOTE | 2019-06-01 16:45 | DS ---
DATE OF DISCHARGE: 05/31/2019 This late entry for 05/31/2019 covers elements not covered in my initial note. REASON FOR ADMISSION: Please refer to the admission history for details. Briefly, the patient is an 88-year-old female, referred to us from [facility] Medical/Surgical floor by Dr. العراقي/Dr. Harrison after she was medically stabilized and continued to be depressed, withdrawn with fleeting suicidal ideation, positive thoughts of dying apathetic and having failed psychiatric interventions. SIGNIFICANT FINDINGS AND CLINICAL COURSE: Following admission, the patient was seen daily individually by myself from a psychiatric standpoint, medical followup per Dr. Diaz. The patient remained depressed, withdrawn, minimized much of this subjectively. Adjustments were made in her psychotropics and from a psychiatric standpoint, she was doing better on a combination of Prozac 15 mg a day, Aricept 10 mg a day. At this stage, however, she was medically compromised with hypokalemia, CHF and was transferred to the ICU per Dr. Diaz. Prior to discharge on 05/31/2019 from a psychiatric standpoint, she was doing better. Ambulation impaired, in wheelchair, complains of tiredness. No CV, or pulmonary system symptoms on review. MENTAL STATUS EXAM: Reasonably oriented. Speech moderate latency, often responses monosyllabic. Abstraction fair, computation impaired, language function intact, attention span short. Mood and affect, despite the medical condition, was better, but still withdrawn, partly due to the medical decompensation. No active suicidal ideation prior to discharge. FINAL DIAGNOSES: Major depressive disorder, recurrent, in partial remission with no suicidal ideation; anxiety disorder, unspecified, congestive heart failure, hypokalemia, diabetes mellitus, hypertension, hyperlipidemia, coronary artery disease, status post coronary artery bypass graft, chronic kidney disease, hypothyroidism, history of transient ischemic attack, deafness, chronic constipation, history of ESBL. Rest unchanged from admission. DISCHARGE MEDICATIONS: Please refer to the MRAD. DISCHARGE INSTRUCTIONS: Psychiatric and medical followup in ICU per Dr. Diaz. Time for discharge day management greater than 30 minutes. MAN Soco GARCÍA MD DR: CIARA/ludmila JOB#: [id number] / [id number]
[2019-06-02] MEDS ORDERED: INSU100I13 SQ (15:36)
[2019-06-02] MEDS ORDERED: GABA-586 PO (15:36)
[2019-06-02] MEDS ORDERED: ASPI-630 PO (15:53)
== END 2019-05-31 15:26 | disposition home or self-care (01) | DRG 885 ==
LOC: GEROPSY 18:00
PROVIDERS: ADMIT Psychiatry & Neurology Psychiatry; ATTEND Psychiatry & Neurology Psychiatry
DX: F33.2 Major depressive disorder, recurrent severe without psychotic features (principal); R45.851 Suicidal ideations; I13.0 Hypertensive heart and chronic kidney disease with heart failure and stage 1 through stage 4 chronic kidney disease, or unspecified chronic kidney disease; N39.0 Urinary tract infection, site not specified; G31.84 Mild cognitive impairment of uncertain or unknown etiology; F41.9 Anxiety disorder, unspecified; I50.9 Heart failure, unspecified; Z66 Do not resuscitate; E03.9 Hypothyroidism, unspecified; E87.6 Hypokalemia; I25.10 Atherosclerotic heart disease of native coronary artery without angina pectoris; I48.91 Unspecified atrial fibrillation; K21.9 Gastro-esophageal reflux disease without esophagitis; I25.2 Old myocardial infarction; D64.9 Anemia, unspecified; F41.1 Generalized anxiety disorder; K59.00 Constipation, unspecified; Z79.01 Long term (current) use of anticoagulants; Z79.899 Other long term (current) drug therapy; Z82.49 Family history of ischemic heart disease and other diseases of the circulatory system; Z82.5 Family history of asthma and other chronic lower respiratory diseases; Z86.73 Personal history of transient ischemic attack (TIA), and cerebral infarction without residual deficits; Z95.1 Presence of aortocoronary bypass graft; Z99.81 Dependence on supplemental oxygen; Z90.710 Acquired absence of both cervix and uterus; E11.22 Type 2 diabetes mellitus with diabetic chronic kidney disease; N18.9 Chronic kidney disease, unspecified; Z79.4 Long term (current) use of insulin; Z88.2 Allergy status to sulfonamides; Z88.8 Allergy status to other drugs, medicaments and biological substances
CPT/HCPCS: 36415; 71046; 80048; 80053; 82947; 83880; 84443; 85007; 85025; 85027; 94618; J1815; 97110; 97116; 97530; 97535

== ENCOUNTER 2019-05-31 16:04 | Inpatient (IN) | payer MEDICARE, BC ==
[~2019-05-31] VITALS: Ht 154.9 cm; Wt 76.9 kg
[~2019-05-31 16:04] MED LIST changes: +ACET325T9 PO; +CYPR2SYR6 PO; +CYPR4TAB31 PO; +FLUO10CA7 PO; +FLUO20SO2 PO; +HYDR28.311 RC; +INSU100I11 SQ; +INSU100V SQ; +IPRA3AMP29 NEB; +LACT1CAP19 PO; +LEVO150T5 PO; +MAG30ORA2 PO; +METH28OI2 TP; -SIMV20TA18 PO; +SIMV20TA3 PO
[2019-05-31] MEDS ORDERED: DOCUSATE SODIUM 100 MG CAPSULE PO PRN (17:45)
[2019-05-31] MEDS ORDERED: IPRATRPIUM/ALBUTEROL 0.5/2.5MG 3 ML NEBU. NEB PRN (17:45)
[2019-05-31] MEDS ORDERED: DEXTROSE 50% 25 GM / 50ML DISP.SYRIN. IV PRN (17:45)
[2019-05-31] MEDS ORDERED: HYDROCORTISONE 2.5% RECTAL CREAM 30GM TUBE. RC PRN (17:45)
[2019-05-31] MEDS ORDERED: ACETAMINOPHEN 325 MG TABLET PO PRN (17:45)
[2019-05-31] MEDS ORDERED: MAG HYDROX/AL HYDROX/SIMETH 30 ML ORAL.SUSP PO PRN (17:45)
[2019-05-31] MEDS ORDERED: POLYETHYLENE GLYCOL 3350 17 GM PACKET. PO PRN (17:45)
[2019-05-31] MEDS ORDERED: MECLIZINE 12.5 MG TABLET. PO PRN (18:15)
[2019-05-31] MEDS ORDERED: METHYL SALICYLATE/MENTHOL TOPICAL OINTMENT 57GM TUBE. TP PRN (18:15)
[2019-05-31] MEDS ORDERED: MAGNESIUM HYDROXIDE 2,400 MG/30 ML ORAL.SUSP. PO PRN (18:15)
[2019-05-31] MEDS ORDERED: FUROSEMIDE 40 MG/4 ML VIAL IVP ONE (18:15)
--- NOTE | 2019-05-31 18:28 | HP ---
ADMIT DATE: 05/31/2019 HISTORY OF PRESENT ILLNESS: The patient is an 88-year-old female patient who was transferred from [facility] on account of worsening shortness of breath, hypoxia. It was also noted that her H and H have been drifting down, although the patient denied any hematemesis, melena or hematochezia. Denied any hematuria, hemoptysis or epistaxis. In fact, her H and H has dropped from 9.4 to 7.7. Her chest x-ray showed that the patient has cardiomegaly and increased interstitial opacities which suggest possible atypical infection versus congestive heart failure and therefore, the patient was transferred to ICU, was started on IV Lasix and to consult the cardiology team. The patient herself denied any chest pain; however, she is now requiring 2 liters of oxygen to maintain her oxygen saturation above 90. PAST MEDICAL HISTORY: Significant for type 2 diabetes mellitus, hypertension, hyperlipidemia, coronary artery disease, status post coronary artery bypass graft surgery in 2000, did have a PCI with stent deployment in 2009 and 2016. She has chronic kidney disease, hypothyroidism, TIA, osteoarthritis, severe sensorineural deafness, chronic constipation and urinary incontinence. PAST SURGICAL HISTORY: Significant for coronary artery bypass graft surgery and PCI with stent deployment, bilateral cataract extraction, total abdominal hysterectomy, bilateral salpingo-oophorectomy, appendectomy as well as colonoscopy. ALLERGIES: SHE IS ALLERGIC TO SULFA DRUGS WELL CAPTOPRIL. FAMILY HISTORY: Noncontributory. SOCIAL HISTORY: The patient lives with her daughter; however, she came actually transferred from [facility] where she was admitted for severe depression. She does not smoke, drink alcohol or use any recreational drugs. She is usually able to ambulate with a walker. MEDICATIONS: She is currently on following medications: She is on cyproheptadine 2 mg at bedtime, Aricept 10 mg at bedtime, ipratropium bromide, albuterol sulfate 0.5-2.5 mg 3 mL by nebulizer 4 times a day, apixaban 2.5 mg twice a day, Plavix 75 mg daily. She is on simvastatin 20 mg at bedtime. She is on doxazosin 4 mg daily. She is on amlodipine besylate 10 mg daily, analgesic balm 4 times a day, Tylenol 650 mg every 6 hours, gabapentin 600 mg p.o. at bedtime, fluoxetine 50 mg daily. She is on furosemide 40 mg p.o. daily. She is on Mylanta 15 mL after meals, Colace 100 mg twice a day, magnesium hydroxide for milk of magnesia 30 mL p.o. daily p.r.n. for constipation, MiraLax 17 grams daily. She is on meclizine 25 mg 3 times a day, lactobacillus rhamnosus 1 capsule twice a day. She is on Lantus insulin 20 units at bedtime, levothyroxine sodium 150 mcg once a day, hydrocortisone cream applied topically 3 times a day. PHYSICAL EXAMINATION: VITAL SIGNS: Her heart rate was 80. Her oxygen saturation was 96% on 2 liters of oxygen by nasal cannula. Her temperature was 98.3. HEAD, EYES, EARS, NOSE AND THROAT: Showed normocephalic, atraumatic. NECK: Supple. HEART: Showed normal first and second heart sounds. No gallop or murmur. CHEST: Showed central trachea, equally reduced expansion, reduced air entry, vesicular sounds with bilateral basal crepitation. I could not appreciate any rhonchi. ABDOMEN: Distended, soft, nontender. NEUROLOGIC: She is hard of hearing, but otherwise all her cranial nerves are intact. EXTREMITIES: She moves extremities without difficulty. She ambulates with a walker. LABORATORY DATA: As of this morning showed a white cell count 5700, hemoglobin 7.7, hematocrit 23.5, MCV 89 and platelet count 247,000. Her chemistry this morning showed a serum sodium 139, potassium 4.3, chloride 104, bicarbonate 28, anion gap of 7, BUN 32, creatinine 2.5, estimated GFR was 18 mL per minute. Her glucose was 52, calcium was 8.2. ASSESSMENT AND PLAN: In summary, this is an 88-year-old female patient who was admitted with increasing shortness of breath, increased oxygen requirement and a chest x-ray consistent with congestion, cardiomegaly. Her H and H are drifting down also and transpired that she is on apixaban and Plavix. Both can obviously induce or cause GI bleed, so my plan is to start her on IV Lasix 40 mg now and then tomorrow morning. I wonder whether she really needs the apixaban and Plavix. She has had a PCI with stent deployment done a long time ago. I will consult the asian studies professor to see whether we can discontinue both of these as her risk for bleeding is outweighing the benefit. JAIRO GRANT MD DR: ANGEL/ludmila JOB#: [id number] / [id number]
[2019-05-31] MEDS: INSULIN LISPRO 300 UNITS/3 ML VIAL. SQ SCH (18:34)
[2019-05-31 19:28] VITALS: BP 121/83
[2019-05-31] MEDS: LACTOBACILLUS RHAMNOSUS GG 1 CAPSULE. PO SCH (20:49)
[2019-05-31] MEDS: CYPROHEPTADINE 4 MG TABLET. PO SCH (20:50)
[2019-05-31] MEDS: DONEPEZIL HCL 10 MG TABLET PO SCH (20:50)
[2019-05-31] MEDS: DOCUSATE SODIUM 100 MG CAPSULE PO SCH (20:50)
[2019-05-31] MEDS: GABAPENTIN 300 MG CAPSULE. PO SCH (20:50)
[2019-05-31] MEDS: SIMVASTATIN 20 MG TABLET PO SCH (20:50)
[2019-05-31] MEDS ORDERED: INSULIN GLARGINE SYRINGE. SQ SCH (21:00)
[2019-06-01] MEDS: LEVOTHYROXINE 150 MCG TABLET PO SCH (05:52)
[2019-06-01 07:00] VITALS: BP 116/49
[2019-06-01 07:05] LABS: HEMATOCRIT 21.9 % (36.0-47.0); HEMOGLOBIN 7.2 g/dL (12.0-15.5); RED BLOOD COUNT 2.46 x10^6/uL (3.50-5.40); RED CELL DISTRIBUTION WIDTH 14.8 % (11.5-14.5); WHITE BLOOD COUNT 5.7 x10^3/uL (4.0-11.0)
[2019-06-01 07:15] LABS: ALBUMIN 2.4 g/dL (3.4-5.0); ALBUMIN/GLOBULIN RATIO 0.6 (1.0-1.7); CREATININE 2.5 mg/dL (0.6-1.0); GFR 18.3; POTASSIUM 4.5 mmol/L (3.5-5.1); TOTAL BILIRUBIN 0.3 mg/dL (0.2-1.0); TOTAL PROTEIN 6.1 g/dL (6.4-8.2)
[2019-06-01] MEDS ORDERED: INSULIN LISPRO 300 UNITS/3 ML VIAL. SQ SCH (08:00)
[2019-06-01] MEDS: INSULIN LISPRO 300 UNITS/3 ML VIAL. SQ SCH ×3 (08:00→18:20)
[2019-06-01] MEDS: LACTOBACILLUS RHAMNOSUS GG 1 CAPSULE. PO SCH ×2 (08:43→19:30)
[2019-06-01] MEDS: amLODIPine BESYLATE 10 MG TABLET PO SCH (08:43)
[2019-06-01] MEDS: DOCUSATE SODIUM 100 MG CAPSULE PO SCH ×3 (08:43→19:38)
[2019-06-01] MEDS: DOXAZOSIN MESYLATE 4 MG TABLET PO SCH (08:43)
[2019-06-01] MEDS ORDERED: FLU VAX QS 2019-20 (36MOS+)/PF 0.5 ML SYRINGE. VAX IM ONE (09:00)
[2019-06-01] MEDS: FUROSEMIDE 40 MG/4 ML VIAL IVP SCH (09:09)
[2019-06-01 11:00] VITALS: BP 115/61
[2019-06-01] MEDS ORDERED: POLYETHYLENE GLYCOL 3350 17 GM PACKET. PO SCH (11:45)
[2019-06-01] MEDS ORDERED: INSULIN GLARGINE SYRINGE. SQ SCH ×2 (11:45→21:00)
[2019-06-01] MEDS ORDERED: SENNOSIDES 8.6 MG TABLET PO PRN (11:45)
[2019-06-01] MEDS ORDERED: DOCUSATE SODIUM 100 MG CAPSULE PO PRN (11:45)
--- NOTE | 2019-06-01 12:17 | PDOC2 ---
CARDIAC CONSULT DATE OF CONSULT Date Of Consult DATE: 06/01/19 TIME: 12:03 REASON FOR CONSULT Reason for Consult Acute on chronic diastolic HF REFERRING PHYSICIAN Referring Physician Dr. Diaz SOURCE Source: Chart review, Patient HPI History of Present Illness This is a 88 yo female who presented from the [facility] secondary to shortness of breath and hypoxia. Patient reports she has been more short of breath for the last couple of days. Lower extremities have been swollen as well. Hgb has also drifted to 7.3. Is on OAC and Plavix due to history of PAFIB and CAD. Patient denies any chest pain, palpitations, dizziness, diaphoresis, or nausea/vomiting. PAST MEDICAL HISTORY Past Medical History 1. Paroxysmal atrial fibrillation, on anticoagulation. 2. Remote coronary artery disease, status post coronary artery bypass graft, unknown bypass anatomy. 3. Hypertension. 4. Dyslipidemia. 5. Peripheral neuropathy. PAST SURGICAL HISTORY Past Surgical History: Appendectomy, Hysterectomy FAMILY HISTORY Family History: Coronary Artery Disease, Diabetes, Hypertension SOCIAL HISTORY Smoke: No ALCOHOL: none Drugs: None Lives: with Family (has been at rehab and at [facility] ) CURRENT MEDICATIONS Current Medications Current Medications Furosemide (Lasix) 40 mg 1X ONCE IVP Last administered on 05/31/19at 18:28; Start 05/31/19 at 18:15; Stop 05/31/19 at 18:16; Status DC Furosemide (Lasix) 40 mg DAILY IVP Last administered on 06/01/19at 09:09; S tart 06/01/19 at 09:00 Acetaminophen (Tylenol) 650 mg PRN Q6HRS PRN PO PAIN / TEMP; Start 05/31/19 at 17:45 Amlodipine Besylate (Norvasc) 10 mg DAILY PO Last administered on 06/01/19at 08:43; Start 06/01/19 at 09:00 Cyproheptadine HCl (Periactin) 2 mg QHS PO Last administered on 05/31/19at 20:50; Start 05/31/19 at 21:00 Docusate Sodium (Colace) 100 mg BID PO Last administered on 06/01/19at 08:43; Start 05/31/19 at 21:00 Docusate Sodium (Colace) 100 mg PRN DAILY PRN PO CONSTIPATION; Start 05/31/19 at 17:45; Stop 06/01/19 at 11:37; Status DC Donepezil HCl (Aricept) 10 mg QHS PO Last administered on 05/31/19 20:50; Start 05/31/19 at 21:00 Doxazosin Mesylate (Cardura) 4 mg DAILY PO Last administered on 06/01/19 08:43; Start 06/01/19 at 09:00 Fluoxetine HCl (PROzac ORAL SOLN) 15 mg DAILY PO Last administered on 06/01/19 09:08; Start 06/01/19 at 09:00 Hydrocortisone (Proctosol-Hc) 1 bianca PRN TID PRN RC rectal pain; Start 05/31/19 at 17:45 Albuterol/ Ipratropium (Duoneb) 3 ml PRN QID PRN NEB WHEEZING; Start 05/31/19 at 17:45 Lactobacillus Rhamnosus (Culturelle) 1 cap BID PO Last administered on 06/01/19 08:43; Start 05/31/19 at 21:00 Levothyroxine Sodium (Synthroid) 150 mcg DAILY06 PO Last administered on 06/01/19 05:52; Start 06/01/19 at 06:00 Al Hydroxide/Mg Hydroxide (Mylanta Plus Xs) 15 ml PRN AFTMEALHC PRN PO DYSPEPSIA; Start 05/31/19 at 17:45 Polyethylene Glycol (miraLAX) 17 gm PRN DAILY PRN PO CONSTIPATION Last administered on 06/01/19 08:42; Start 05/31/19 at 17:45; Stop 06/01/19 at 11:37; Status DC Simvastatin (Zocor) 20 mg HS PO Last administered on 05/31/19 20:50; Start 05/31/19 at 21:00 Gabapentin (Neurontin) 600 mg HS PO Last administered on 05/31/19 20:50; Start 05/31/19 at 21:00 Insulin Glargine (Lantus Syringe) 20 unit QHS SQ Last administered on 05/31/19 20:52; Start 05/31/19 at 21:00; Stop 06/01/19 at 11:37; Status DC Magnesium Hydroxide (Milk Of Magnesia) 2,400 mg PRN QHS PRN PO CONSTIPATION Last administered on 05/31/19 18:27; Start 05/31/19 at 18:15 Meclizine HCl (Antivert) 25 mg PRN TID PRN PO DIZZINESS; Start 05/31/19 at 18:15 Multi-Ingredient Ointment (Analgesic [place]) 1 bianca PRN QID PRN TP MUSCLE PAIN; Start 05/31/19 at 18:15 Insulin Human Lispro (HumaLOG) 0-9 UNITS TIDWMEALS SQ ; Start 06/01/19 at 08:00; Stop 05/31/19 at 17:55; Status DC Dextrose (Dextrose 50%-Water Syringe) 12.5 gm PRN Q15MIN PRN IV SEE COMMENTS; Start 05/31/19 at 17:45 Insulin Human Lispro (HumaLOG) 0-9 UNITS TIDWMEALS SQ Last administered on 05/31/19at 18:34; Start 05/31/19 at 18:00 Influenza Virus Vaccine Quadrival (Afluria Quad 2019-20 (3yr Up) Syringe) 0.5 ml ONCE ONCE VAX IM Last administered on 06/01/19at 09:11; Start 06/01/19 at 09:00; Stop 06/01/19 at 09:01; Status DC Docusate Sodium (Colace) 100 mg PRN BID PRN PO FIRST CHOICE FOR CONSTIPATION; Start 06/01/19 at 11:45 Insulin Glargine (Lantus Syringe) 15 unit QHS SQ ; Start 06/01/19 at 11:45 Polyethylene Glycol (miraLAX) 17 gm BID PO ; Start 06/01/19 at 11:45 Sennosides (Senna) 17.2 mg PRN BID PRN PO 2ND CHOICE FOR CONSTIPATION; Start 06/01/19 at 11:45 Active Scripts Active Reported Proctosol-Hc (Hydrocortisone) 28.35 Gm Cream..g. 1 Bianca RC PRN TID PRN Levothyroxine Sodium 150 Mcg Tablet 150 Mcg PO DAILY06 Humalog (Insulin Lispro) 100 Unit/1 Ml Insuln.pen 0 SQ TIDWMEALS BG 70-150: 0 units with eating/0 units without eating BG 151-200: 4 units with eating/0 units without eating BG 201-250: 5 units with eating/3 units without eating BG 251-300: 7 units with eating/4 units without eating BG 301-350: 9 units with eating/5 units without eating BG >hs=280: Call provider Give 15 mins before or with meals Culturelle (Lactobacillus Rhamnosus Gg) 1 Each Cap.sprink 1 Cap PO BID Milk Of Magnesia (Magnesium Hydroxide) 2,400 Mg/10 Ml Oral.susp 2,400 Mg PO PRN QHS PRN Colace (Docusate Sodium) 100 Mg Capsule 100 Mg PO BID Mag-Al Plus Xs Suspension (Mag Hydrox/Al Hydrox/Simeth) 30 Ml Oral.susp 15 Ml PO PRN AFTMEALHC PRN Furosemide 40 Mg Tablet 40 Mg PO DAILY Fluoxetine Hcl 20 Mg/5 Ml Solution 15 Mg PO DAILY Analgesic [place] (Methyl Salicylate/Menthol) 28 Gm Oint...g. 1 Bianca TP PRN QID PRN Amlodipine Besylate 10 Mg Tablet 10 Mg PO DAILY Cyproheptadine Hcl 4 Mg Tablet 2 Mg PO QHS Duoneb 0.5-3(2.5) Mg/3 Ml (Albuterol/Ipratropium) 3 Ml Ampul.neb 3 Ml NEB PRN QID PRN Tylenol (Acetaminophen) 325 Mg Tablet 650 Mg PO PRN Q6HRS PRN Donepezil Hcl 10 Mg Tablet 10 Mg PO QHS Colace (Docusate Sodium) 100 Mg Capsule 100 Mg PO PRN DAILY PRN LAST DOSE GIVEN: DATE: TIME: NEXT DOSE DUE: DATE: TIME: Miralax (Polyethylene Glycol 3350) 17 Gm Powd.pack 17 Gm PO PRN DAILY PRN LAST DOSE GIVEN: DATE: TIME: NEXT DOSE DUE: DATE: TIME: Gabapentin 600 Mg Tablet 600 Mg PO HS LAST DOSE GIVEN: DATE: TIME: NEXT DOSE DUE: DATE: TIME: Meclizine Hcl 25 Mg Tablet 25 Mg PO PRN TID LAST DOSE GIVEN: DATE: TIME: NEXT DOSE DUE: DATE: TIME: Simvastatin 20 Mg Tablet 20 Mg PO HS LAST DOSE GIVEN: DATE: TIME: NEXT DOSE DUE: DATE: TIME: Doxazosin Mesylate 4 Mg Tablet 4 Mg PO DAILY LAST DOSE GIVEN: DATE: TIME: NEXT DOSE DUE: DATE: TIME: Eliquis (Apixaban) 2.5 Mg Tablet 2.5 Mg PO BID LAST DOSE GIVEN: DATE: TIME: NEXT DOSE DUE: DATE: TIME: Clopidogrel (Clopidogrel Bisulfate) 75 Mg Tablet 75 Mg PO DAILY LAST DOSE GIVEN: DATE: TIME: NEXT DOSE DUE: DATE: TIME: Lane Solostar (Insulin Glargine,Hum.rec.anlog) 100 Unit/1 Ml Insuln.pen 20 Unit SQ QHS LAST DOSE GIVEN: DATE: TIME: NEXT DOSE DUE: DATE: TIME: ALLERGIES Allergies: Coded Allergies: Sulfa (Sulfonamide Antibiotics) (Unverified Adverse Reaction, Intermediate, 05/15/19) captopril (Verified Adverse Reaction, Intermediate, 05/15/19) ROS Review of Systems 14 point ROS conducted with pertinent positives noted above in HPI. PHYSICAL EXAM General: Alert, Oriented X3, Cooperative, No acute distress HEENT: Atraumatic, Mucous membr. moist/pink Lungs: Clear to auscultation, Normal air movement Heart: Regular rate, Normal S1, Normal S2 Abdomen: Soft, No tenderness Extremities: Normal pulses, Other (1-2+ bilateral LE edema. ) Skin: No rashes, No breakdown Neuro: Normal speech, Sensation intact Psych/Mental Status: Mood NL VITALS Vital Signs Vital Signs Date Time Temp Pulse Resp B/P (MAP) Pulse Ox O2 Delivery O2 Flow Rate FiO2 06/01/19 08:43 81 121/83 06/01/19 08:00 Nasal Cannula 1.5 06/01/19 07:00 98.1 96 05/31/19 23:45 20 LABS LABS Laboratory Tests Test 05/31/19 17:17 05/31/19 18:25 05/31/19 21:05 05/31/19 22:25 Glucose (Fingerstick) 193 mg/dL (70-99) 148 mg/dL (70-99) Troponin I Quantitative 0.066 ng/mL (0-0.055) 0.067 ng/mL (0-0.055) Test 06/01/19 05:35 White Blood Count 5.7 x10^3/uL (4.0-11.0) Red Blood Count 2.46 x10^6/uL (3.50-5.40) Hemoglobin 7.2 g/dL (12.0-15.5) Hematocrit 21.9 % (36.0-47.0) Mean Corpuscular Volume 89 fL (79-100) Mean Corpuscular Hemoglobin 29 pg (25-35) Mean Corpuscular Hemoglobin Concent 33 g/dL (31-37) Red Cell Distribution Width 14.8 % (11.5-14.5) Platelet Count 258 x10^3/uL (140-400) Sodium Level 140 mmol/L (136-145) Potassium Level 4.5 mmol/L (3.5-5.1) Chloride Level 103 mmol/L (98-107) Carbon Dioxide Level 30 mmol/L (21-32) Anion Gap 7 (6-14) Blood Urea Nitrogen 31 mg/dL (7-20) Creatinine 2.5 mg/dL (0.6-1.0) Estimated GFR (Cockcroft-Gault) 18.3 BUN/Creatinine Ratio 12 (6-20) Glucose Level 46 mg/dL (70-99) Calcium Level 8.0 mg/dL (8.5-10.1) Total Bilirubin 0.3 mg/dL (0.2-1.0) Aspartate Amino Transf (AST/SGOT) 16 U/L (15-37) Alanine Aminotransferase (ALT/SGPT) 12 U/L (14-59) Alkaline Phosphatase 62 U/L (46-116) Total Protein 6.1 g/dL (6.4-8.2) Albumin 2.4 g/dL (3.4-5.0) Albumin/Globulin Ratio 0.6 (1.0-1.7) ASSESSMENT/PLAN Assessment/Plan 1. Acute on chronic diastolic CHF; better compensated with diuresis 2. Mild troponin elevation; highest 0.067 3. CAD s/p previous CABG 4. PAFIB 5. PUMA on CKD 6. Hypertension; mildly elevated 7. Hyperlipidemia; statin 8. Diabetes, II 9. Anemia Recommendations Ongoing diuresis Baseline echo to assess LV systolic function statin therapy BB discontinued previously due to bradycardia Discontinue OAC given advanced age, risk for falls, and anemia. Add low-dose ASA for stroke prevention KIN HENDRICKSON APRN Jun 01, 2019 12:17
[2019-06-01] MEDS: SENNOSIDES 8.6 MG TABLET PO SCH ×3 (12:35→19:38)
[2019-06-01 15:00] VITALS: BP 124/58
[2019-06-01 16:26] LABS: HEMOGLOBIN 8.1 g/dL (12.0-15.5)
[2019-06-01 18:29] LABS: FECAL OB PT NEGATIVE (NEG)
[2019-06-01 19:05] VITALS: BP 119/54
[2019-06-01] MEDS: DONEPEZIL HCL 10 MG TABLET PO SCH (19:30)
[2019-06-01] MEDS: SIMVASTATIN 20 MG TABLET PO SCH (19:30)
[2019-06-01] MEDS: GABAPENTIN 300 MG CAPSULE. PO SCH (19:30)
[2019-06-01] MEDS: CYPROHEPTADINE 4 MG TABLET. PO SCH (19:31)
[2019-06-01] MEDS: POLYETHYLENE GLYCOL 3350 17 GM PACKET. PO SCH (19:33)
--- NOTE | 2019-06-01 21:40 | PDOC ---
Exam Note: Pritesh Note: Please also refer to the separate dictated note~for this date of service dictated separately.~Patient seen individually. Discussed the patient with Nursing staff reviewed the chart.~Reviewed interim history and current functioning. Reviewed vital signs,~Labs/ Radiology~and current medications noted below. Continue current treatment with the changes noted in the dictated addendum note Assessment: Vital Signs/I&O: Vital Signs Date Time Temp Pulse Resp B/P (MAP) Pulse Ox O2 Delivery O2 Flow Rate FiO2 06/01/19 19:47 Nasal Cannula 1.5 06/01/19 19:05 97.1 77 18 119/54 (75) 97 I & O 05/31/19 05/31/19 06/01/19 15:00 23:00 07:00 Intake Total 150 ml Balance 150 ml Labs: Laboratory Tests Test 05/31/19 22:25 06/01/19 05:35 06/01/19 12:39 06/01/19 16:20 Troponin I Quantitative 0.067 ng/mL (0-0.055) H White Blood Count 5.7 x10^3/uL (4.0-11.0) Red Blood Count 2.46 x10^6/uL (3.50-5.40) L Hemoglobin 7.2 g/dL (12.0-15.5) L 8.1 g/dL (12.0-15.5) L Hematocrit 21.9 % (36.0-47.0) L 25.0 % (36.0-47.0) L Mean Corpuscular Volume 89 fL (79-100) Mean Corpuscular Hemoglobin 29 pg (25-35) Mean Corpuscular Hemoglobin Concent 33 g/dL (31-37) Red Cell Distribution Width 14.8 % (11.5-14.5) H Platelet Count 258 x10^3/uL (140-400) Sodium Level 140 mmol/L (136-145) Potassium Level 4.5 mmol/L (3.5-5.1) Chloride Level 103 mmol/L (98-107) Carbon Dioxide Level 30 mmol/L (21-32) Anion Gap 7 (6-14) Blood Urea Nitrogen 31 mg/dL (7-20) H Creatinine 2.5 mg/dL (0.6-1.0) H Estimated GFR (Cockcroft-Gault) 18.3 BUN/Creatinine Ratio 12 (6-20) Glucose Level 46 mg/dL (70-99) L Calcium Level 8.0 mg/dL (8.5-10.1) L Iron Level 20 ug/dL (50-170) L Total Iron Binding Capacity 210 ug/dL (250-450) L Iron Saturation 10 % (15-34) L Ferritin 55 ng/mL (8-252) Total Bilirubin 0.3 mg/dL (0.2-1.0) Aspartate Amino Transferase (AST) 16 U/L (15-37) Alanine Aminotransferase (ALT) 12 U/L (14-59) L Alkaline Phosphatase 62 U/L (46-116) Total Protein 6.1 g/dL (6.4-8.2) L Albumin 2.4 g/dL (3.4-5.0) L Albumin/Globulin Ratio 0.6 (1.0-1.7) L Thyroid Stimulating Hormone (TSH) 1.377 uIU/mL (0.358-3.740) Glucose (Fingerstick) 93 mg/dL (70-99) Test 06/01/19 17:10 06/01/19 18:08 06/01/19 20:08 Glucose (Fingerstick) 203 mg/dL (70-99) H 224 mg/dL (70-99) H Stool Occult Blood Negative (NEG) Current Medications: Meds: Current Medications Medications (Trade) Dose Ordered Sig/Brendan Route PRN Reason Start Time Stop Time Status Last Admin Dose Admin Furosemide (Lasix) 40 mg DAILY IVP 06/01/19 09:00 06/01/19 09:09 Amlodipine Besylate (Norvasc) 10 mg DAILY PO 06/01/19 09:00 06/01/19 08:43 Doxazosin Mesylate (Cardura) 4 mg DAILY PO 06/01/19 09:00 06/01/19 08:43 Fluoxetine HCl (PROzac ORAL SOLN) 15 mg DAILY PO 06/01/19 09:00 06/01/19 09:08 Levothyroxine Sodium (Synthroid) 150 mcg DAILY06 PO 06/01/19 06:00 06/01/19 05:52 Influenza Virus Vaccine Quadrival (Afluria Quad 2019-20 (3yr Up) Syringe) 0.5 ml ONCE ONCE VAX IM 06/01/19 09:00 06/01/19 09:01 DC 06/01/19 09:11 Insulin Glargine (Lantus Syringe) 15 unit QHS SQ 06/01/19 21:00 06/01/19 20:26 Polyethylene Glycol (miraLAX) 17 gm BID PO 06/01/19 21:00 06/01/19 19:33 Sennosides (Senna) 17.2 mg BID PO 06/01/19 12:15 06/01/19 12:35 I have reviewed the current psychotropics carefully including drug interactions. Risk benefit ratio favors no change other than as noted in my dictated progress note. Diagnosis: Problems: (1) Anxiety disorder (2) Major depressive disorder, recurrent episode (3) Mild cognitive impairment (4) Altered mental status HANS GARCÍA MD Jun 01, 2019 21:40
[2019-06-01 23:34] VITALS: BP 124/53
[2019-06-02 03:30] VITALS: BP 114/43
--- NOTE | 2019-06-02 04:11 | PN ---
DATE: SUBJECTIVE: The patient is sitting comfortably in her chair in no apparent distress. She is feeling better, less short of breath; however, unfortunately, her H and H is down and this morning her hemoglobin is 7.2 and hematocrit is 21.9. She denied any hematemesis, melena, hematochezia. Denies any hematuria, hemoptysis or epistaxis. I did hold her apixaban and Plavix. Looking at her medical record, I was not sure why she was on apixaban as she does have a history of TIA, but there is no history of atrial fibrillation and/or DVT. PHYSICAL EXAMINATION: GENERAL: When I examined her this morning, she was pale, not jaundice, cyanosis or thyromegaly. No jugular venous distention. No limb edema. VITAL SIGNS: Her heart rate was 95, blood pressure 152/67, temperature was 98.2, respiratory rate 20, and oxygen saturation was 93% on room air. HEAD, EYES, EARS, NOSE AND THROAT: Showed normocephalic, atraumatic. NECK: Supple. HEART: Showed normal first and second heart sounds. No gallop or murmur. CHEST: Clear to auscultation. No crepitation or rhonchi. The chest showed central trachea, equally reduced expansion, ____ bilateral crepitation mostly posteriorly. I could not appreciate any rhonchi. ABDOMEN: Distended, soft, nontender. NEUROLOGIC: She is awake, alert, responding appropriately. All cranial nerves are intact. She moves extremities without difficulty. She ambulates with a walker. Her intake and output are incompletely recorded. LABORATORY DATA: As of this morning, her white cell count was 5700, hemoglobin 7.2, hematocrit 21.9, MCV 89 and platelet count 158,000. Her chemistry showed sodium 140, potassium 4.5, chloride 103, bicarbonate 30, anion gap of 7, BUN 31, creatinine 2.5, estimated GFR was ____ mL per minute. Her glucose was 46, calcium was 8. Total bilirubin, AST, ALT, alkaline phosphatase were normal. Total protein was 6.1, albumin 2.4. So far, 2 sets of cardiac enzymes showed troponin to be 0.066 and 0.067. ASSESSMENT: 1. Acute on chronic diastolic congestive heart failure, responding to IV Lasix. 2. Probably blood loss anemia as her H and H is drifting down and has dropped from 9.4 down to 7.2. She is on apixaban and Plavix that I held. Other medical problems include: A. Type 2 diabetes mellitus. B. Hypertension. C. Hyperlipidemia. D. Coronary artery disease, status post coronary artery bypass graft surgery. E. She also has a PCI with stent deployment in 2009 and 2016. F. She has chronic kidney disease. G. Hypothyroidism. She does have also chronic constipation, osteoarthritis, sensorineural deafness. PLAN: My plan is to continue with IV Lasix. Continue to monitor her H and H and transfuse her if the hemoglobin is equal to 7 or less than 7. Await the evaluation by the private duty aide to see whether we can discontinue the Plavix and apixaban. JAIRO GRANT MD DR: ANGEL/ludmila JOB#: [id number] / [id number]
[2019-06-02] MEDS: LEVOTHYROXINE 150 MCG TABLET PO SCH (04:42)
[2019-06-02] MEDS: POLYETHYLENE GLYCOL 3350 17 GM PACKET. PO SCH (07:42)
[2019-06-02] MEDS: SENNOSIDES 8.6 MG TABLET PO SCH (07:42)
[2019-06-02] MEDS: DOCUSATE SODIUM 100 MG CAPSULE PO SCH (07:43)
[2019-06-02] MEDS: amLODIPine BESYLATE 10 MG TABLET PO SCH (07:43)
[2019-06-02] MEDS: DOXAZOSIN MESYLATE 4 MG TABLET PO SCH (07:43)
[2019-06-02] MEDS: LACTOBACILLUS RHAMNOSUS GG 1 CAPSULE. PO SCH (07:43)
[2019-06-02] MEDS: FUROSEMIDE 40 MG/4 ML VIAL IVP SCH (07:44)
[2019-06-02] MEDS: INSULIN LISPRO 300 UNITS/3 ML VIAL. SQ SCH ×2 (07:45→12:00)
[2019-06-02 07:51] VITALS: BP 119/53
[2019-06-02] MEDS ORDERED: ASPIRIN ENTERIC COATED 81 MG TABLET.DR. PO SCH (08:00)
[2019-06-02 10:47] VITALS: BP 116/60
[2019-06-02 14:01] LABS: HEMATOCRIT 22.1 % (36.0-47.0); HEMOGLOBIN 7.2 g/dL (12.0-15.5); RED BLOOD COUNT 2.48 x10^6/uL (3.50-5.40); RED CELL DISTRIBUTION WIDTH 14.6 % (11.5-14.5); WHITE BLOOD COUNT 5.2 x10^3/uL (4.0-11.0)
[2019-06-02 14:08] LABS: CALCIUM 7.8 mg/dL (8.5-10.1); CREATININE 2.6 mg/dL (0.6-1.0); GFR 17.5; POTASSIUM 4.8 mmol/L (3.5-5.1)
[2019-06-02] MEDS ORDERED: INSU100I13 SQ (15:36)
[2019-06-02] MEDS ORDERED: GABA-586 PO (15:36)
[2019-06-02] MEDS ORDERED: ASPI-630 PO (15:53)
--- NOTE | 2019-06-02 18:48 | PN ---
DATE: 06/01/2019 PSYCHIATRIC PROGRESS NOTE This note covers elements not covered in my initial note of 06/01. SUBJECTIVE: The patient was seen on rounds the evening of 06/01 after I was asked to see the patient for a psychiatric consult for her depression following a transfer from the [facility] for CHF and hypokalemia. She was being stabilized for her depression, tolerating Prozac and developed the CHF and transferred to the ICU. Since being in the ICU, from a psychiatric standpoint she remains withdrawn, but denies being depressed. REVIEW OF SYSTEMS: Ambulation impaired. No CV, , pulmonary, eye system symptoms on review. MENTAL STATUS EXAMINATION: Oriented to herself and situation. Speech has some latency, often responses monosyllabic, low in volume. Abstraction fair, computation impaired, language function intact. Short-term memory has some impairment. Mood and affect dysphoric. LABORATORY DATA: Reviewed. IMPRESSION: Major depressive disorder, recurrent, mild cognitive impairment. Rest unchanged. PLAN: No change from a psychiatric standpoint. Maintain Prozac 15 mg a day. Make further adjustments as clinically indicated. MAN Soco GARCÍA MD DR: CIARA/ludmila JOB#: [id number] / [id number]
--- NOTE | 2019-06-02 21:16 | DS ---
DATE OF DISCHARGE: 06/02/2019 HOSPITAL COURSE: The patient is an 88-year-old female patient with a multitude of medical problems who was transferred from [facility] on account of worsening depression. She was started on Prozac; however, she developed increasing shortness of breath and her oxygen requirement has increased and her H and H has been drifting down. In fact, her hemoglobin had dropped down from 9.4-7.2. She was on Plavix and Eliquis and consultation with the Cardiology team, a decision was made to discontinue both of them and started on a low-dose aspirin. Her iron stores are adequate and given her advanced kidney disease, I spoke with her daughter and advised to make an appointment with her colorectal surgeon as she probably needs to be started soon on Procrit. PHYSICAL EXAMINATION: GENERAL: When I examined her today, she looked well, pale, but no jaundice, cyanosis, or thyromegaly. No jugular venous distention. No limb edema. VITAL SIGNS: Her heart rate was 66, blood pressure 116/60, temperature was 98.1, respiratory rate was 24, and oxygen saturation was 95% on 1-1/2 liters of oxygen. HEAD, EYES, EARS, NOSE, AND THROAT: Showed normocephalic, atraumatic. NECK: Supple. HEART: Showed normal first and second heart sounds. No gallop or murmur. CHEST: Shows central trachea, equal bilateral chest expansion, air entry, vesicular sounds. No crepitation or rhonchi. ABDOMEN: Distended, soft, nontender. NEUROLOGIC: She is awake, alert, responding appropriately. All cranial nerves intact. She moves extremities without difficulty. She ambulates with a walker. Her intake and output were incompletely recorded. LABORATORY DATA: Her lab work this morning showed her serum sodium 136, potassium 4.8, chloride 99, bicarbonate 29, anion gap of 8, BUN 28, creatinine 2.6, estimated GFR was 17.5 mL, her blood sugar was 203 mg/dL, and calcium was 7.8. White cell count was 5200, hemoglobin 7.2, hematocrit 22, MCV 89, and platelet count 233,000. Her serum iron was low at 20, TIBC was low at 210 and iron saturation was 10, her serum ferritin was 55 mcg/mL. DISCHARGE MEDICATIONS: The patient will be discharged home to continue on aspirin 81 mg once a day, polyethylene glycol 17 grams twice a day, her Lantus was cut down to 15 units at bedtime, Senna 2 tablets twice a day, and Colace 100 mg twice a day as needed. She was discharged also on fluoxetine 15 mg daily, Cardura 4 mg once a day, amlodipine 10 mg once a day, furosemide 40 mg p.o. daily if she gains more than 3 pounds, levothyroxine 150 mcg once a day, gabapentin 300 mg at bedtime, simvastatin 20 mg at bedtime, lactobacillus 1 capsule twice a day, Aricept 10 mg at bedtime, Colace 100 mg twice a day, cyproheptadine 2 mg at bedtime, she is also on meclizine 25 mg as needed, magnesium hydroxide for milk of magnesia 30 mL p.o. daily p.r.n. for constipation. She is also on insulin sliding scale before meals, albuterol and Atrovent 4 times a day. She is also on hydrocortisone for Proctosol 3 times a day for rectal pain, and Tylenol 650 mg every 6 hours as needed. FINAL DISCHARGE DIAGNOSES: 1. Rrovp-ci-xwglbys diastolic congestive heart failure, improved. 2. She has stage 4 chronic kidney disease. 3. Anemia of chronic kidney disease. 4. Type 2 diabetes mellitus. 5. Hypertension. 6. Hyperlipidemia. 7. Coronary artery disease, status post coronary artery bypass graft surgery in 2000. She has also PCI with stent deployment in 2009 and 2016. 8. Hypothyroidism. 9. Transient ischemic attack. 10. Osteoarthritis. 11. Osteoporosis. 12. Severe sensorineural deafness. 13. Chronic constipation. 14. Urinary incontinence. JAIRO GRANT MD DR: ANGEL/ludmila JOB#: [id number] / [id number]
--- NOTE | 2019-06-04 07:03 | PN ---
DATE: 06/02/2019 PSYCHIATRIC PROGRESS NOTE This is a late entry date of service 06/02/2019 covers the elements not covered in my initial note. SUBJECTIVE: I met with the patient in the morning of 06/02/2019. Overall, per nursing report, the patient is doing better with possible discharge on 06/02/2019 from a medical standpoint. She denies being depressed. REVIEW OF SYSTEMS: Ambulation impaired. Complains of some tiredness. No CV, , pulmonary, eye system symptoms on review. MENTAL STATUS EXAM: Oriented reasonably. Speech, moderate latency, often responses monosyllabic. Abstraction fair, computation impaired, language function intact. Mood and affect withdrawn. LABORATORY DATA: Reviewed. IMPRESSION: Major depressive disorder in partial remission; anxiety disorder, unspecified. Rest unchanged. PLAN: No change from a psychiatric standpoint. Outpatient psychiatric followup to be arranged at discharge. MAN Soco GARCÍA MD DR: CIARA/ludmila JOB#: [id number] / [id number]
== END 2019-06-02 16:35 | disposition home health service (06) | DRG 291 ==
LOC: ICU 16:04
PROVIDERS: ADMIT Internal Medicine; ATTEND Internal Medicine
DX: I13.0 Hypertensive heart and chronic kidney disease with heart failure and stage 1 through stage 4 chronic kidney disease, or unspecified chronic kidney disease (principal); I50.33 Acute on chronic diastolic (congestive) heart failure; F33.9 Major depressive disorder, recurrent, unspecified; G45.9 Transient cerebral ischemic attack, unspecified; N17.9 Acute kidney failure, unspecified; N18.4 Chronic kidney disease, stage 4 (severe); D50.0 Iron deficiency anemia secondary to blood loss (chronic); D63.1 Anemia in chronic kidney disease; E03.9 Hypothyroidism, unspecified; E11.22 Type 2 diabetes mellitus with diabetic chronic kidney disease; E78.5 Hyperlipidemia, unspecified; F41.9 Anxiety disorder, unspecified; G31.84 Mild cognitive impairment of uncertain or unknown etiology; I25.10 Atherosclerotic heart disease of native coronary artery without angina pectoris; I48.0 Paroxysmal atrial fibrillation; K59.09 Other constipation; M19.90 Unspecified osteoarthritis, unspecified site; M81.0 Age-related osteoporosis without current pathological fracture; R09.02 Hypoxemia; R32 Unspecified urinary incontinence; Z79.01 Long term (current) use of anticoagulants; Z82.49 Family history of ischemic heart disease and other diseases of the circulatory system; Z83.3 Family history of diabetes mellitus; Z86.73 Personal history of transient ischemic attack (TIA), and cerebral infarction without residual deficits; Z90.710 Acquired absence of both cervix and uterus; Z95.1 Presence of aortocoronary bypass graft; Z95.5 Presence of coronary angioplasty implant and graft; Z98.41 Cataract extraction status, right eye; Z98.42 Cataract extraction status, left eye; Z88.2 Allergy status to sulfonamides; Z88.8 Allergy status to other drugs, medicaments and biological substances
CPT/HCPCS: 36415; 80048; 80053; 82274; 82728; 82947; 83540; 83550; 84443; 84484; 85014; 85018; 85027; 90471; 90686; J1815; J1940

== ENCOUNTER → 2019-06-13 | Outpatient (CLI) | payer MEDICARE, BC ==
[2019-06-02 10:47] VITALS: BP 116/60
[~2019-06-13] MED LIST changes: +ASPI-630 PO
[2019-06-13 17:25] LABS: HEMATOCRIT 22.9 % (36.0-47.0); HEMOGLOBIN 7.4 g/dL (12.0-15.5)
[2019-06-13 17:32] LABS: ALBUMIN 2.8 g/dL (3.4-5.0); CALCIUM 8.3 mg/dL (8.5-10.1); CREATININE 2.6 mg/dL (0.6-1.0); GFR 17.5; MAGNESIUM 2.1 mg/dL (1.8-2.4); PHOSPHORUS 4.6 mg/dL (2.6-4.7)
[2019-06-14 02:10] LABS: CALCIUM PTH 8.6 mg/dL (8.7-10.3); CREATININE PTH 2.59 mg/dL (0.57-1.00); MICRO CREAT RATIO 1979.5 mg/g creat (0.0-30.0); MICROALB RD UR 2876.2 ug/mL (Not Estab.); PTH INTACT 217 pg/mL (15-65)
[2019-06-14 13:22] LABS: CREATININE,RANDOM URINE 156.4 mg/dL (Not Establ.)
[2019-06-14 20:07] LABS: TOTAL SERUM CREATININE 2.51 mg/dL (0.57-1.00); TOTAL URINE CREATININE 150.2 mg/dL (Not Estab.); UR PROTEIN 462.6 mg/dL (Not Estab.)
== END | disposition home or self-care (01) ==
LOC: LAB 16:17
PROVIDERS: ATTEND Internal Medicine Nephrology
DX: I12.9 Hypertensive chronic kidney disease with stage 1 through stage 4 chronic kidney disease, or unspecified chronic kidney disease (principal); N18.4 Chronic kidney disease, stage 4 (severe); D64.9 Anemia, unspecified; E21.3 Hyperparathyroidism, unspecified; E21.1 Secondary hyperparathyroidism, not elsewhere classified; E55.9 Vitamin D deficiency, unspecified; D50.9 Iron deficiency anemia, unspecified; R80.9 Proteinuria, unspecified
CPT/HCPCS: 36415; 80069; 82043; 82306; 82570; 82575; 82607; 82728; 83540; 83550; 83735; 83970; 84156; 85014; 85018

== ENCOUNTER 2019-07-05 15:32 | Emergency (ER) | payer MEDICARE, BC ==
[~2019-07-05] VITALS: Ht 154.9 cm; Wt 81.8 kg
[2019-07-05 15:45] VITALS: BP 151/92
--- NOTE | 2019-07-05 16:13 | PHYS DOC ---
Past History Past Medical History: A-Fib, Anemia, CAD, CHF, CVA, Dementia, Diabetes, GERD, Heart Disease, Hypertension, Hypothyroid, VT, Renal Disease, Other Past Surgical History: Appendectomy, Cholecystectomy, Coronary Bypass Surgery, Hysterectomy Alcohol Use: None Drug Use: None Adult General Chief Complaint Chief Complaint: SHOULDER INJURY HPI HPI Patient is a 89-year-old female with no complaints. She was sent here from her primary doctor's office due to a ceiling tile straightened falling from the ceiling and hitting her shoulder. She denies any pain in the left shoulder which was struck. She is right hand dominant. She denies any weakness, numbness, or tingling in the left shoulder or arm. She denies any complaints at all.[] Review of Systems Review of Systems Constitutional: Denies fever or chills [] Eyes: Denies change in visual acuity, redness, or eye pain [] HENT: Denies nasal congestion or sore throat [] Respiratory: Denies cough or shortness of breath [] Cardiovascular: No chest pain or palpitations[] GI: Denies abdominal pain, nausea, vomiting, bloody stools or diarrhea [] : Denies dysuria or hematuria [] Musculoskeletal: Denies back pain, see history of present illness[] Integument: Denies rash or skin lesions [] Neurologic: Denies headache, focal weakness or sensory changes [] Endocrine: Denies polyuria or polydipsia [] All other systems were reviewed and found to be within normal limits, except as documented in this note. Allergies Allergies Allergies Coded Allergies Type Severity Reaction Last Updated Verified Sulfa (Sulfonamide Antibiotics) Adverse Reaction Intermediate 05/15/19 No captopril Adverse Reaction Intermediate 05/15/19 Yes Physical Exam Physical Exam Constitutional: Well developed, well nourished, no acute distress, non-toxic appearance. [] HENT: Normocephalic, atraumatic, bilateral external ears normal, oropharynx moist, no oral exudates, nose normal. [] Eyes: PERRLA, EOMI, conjunctiva normal, no discharge. [] Neck: Normal range of motion, no tenderness, supple, no stridor. [] Cardiovascular:Heart rate regular rhythm, no murmur [] Lungs & Thorax: Bilateral breath sounds clear to auscultation [] Abdomen: Not examined. [] Skin: Warm, dry, no erythema, no rash. [] Back: No tenderness, no CVA tenderness. [] Extremities: Left shoulder has no tenderness, no bruising, full active range of motion abduction, flexion, extension, she is distally neurovascularly intact. No clavicular tenderness. The other 3 extremities show: No tenderness, no cyanosis, no clubbing, ROM intact, no edema. [] Neurologic: Alert and oriented X 3, normal motor function, normal sensory function, no focal deficits noted. [] Psychologic: Affect normal, judgement normal, mood normal. [] Current Patient Data Vital Signs Vital Signs Date Time Temp Pulse Resp B/P (MAP) Pulse Ox O2 Delivery O2 Flow Rate FiO2 07/05/19 15:45 98.2 84 18 95 Nasal Cannula 2.0 EKG EKG [] Radiology/Procedures Radiology/Procedures [] Course & Med Decision Making Course & Med Decision Making Pertinent Labs and Imaging studies reviewed. (See chart for details) ED course: Patient arrived, was placed in bed, and tolerated exam well. Discussed findings, options, and subsequent plan with patient and family who voiced understanding. All questions were answered. She was discharged in improved condition. Medical decision making: There is no evidence of a fracture or dislocation. Discussed options to include imaging versus no imaging. Given that the patient has no pain patient and family elected to forego imaging at this time. There is no evidence of neurologic or vascular compromise.[] Dragon Disclaimer Dragon Disclaimer This electronic medical record was generated, in whole or in part, using a voice recognition dictation system. Departure Departure: Impression: Primary Impression: Contusion of left shoulder Disposition: 01 HOME, SELF-CARE Condition: IMPROVED Referrals: CALIN MA MD (PCP) Follow-up in 2 days Patient Instructions: Contusion Additional Instructions: Follow-up with your regular doctor in 2 days. Continue your current medications. Return to the ER if worsening pain, difficulty breathing, or any other concerns. Problem Qualifiers Primary Impression: Contusion of left shoulder Encounter type: initial encounter Qualified Codes: S40.012A - Contusion of left shoulder, initial encounter SEKOUMICHAELA GRACIA Jul 05, 2019 16:13
== END 2019-07-05 16:33 | disposition home or self-care (01) ==
LOC: ER 15:32
DX: S40.012A Contusion of left shoulder, initial encounter (principal); I48.91 Unspecified atrial fibrillation; Z86.2 Personal history of diseases of the blood and blood-forming organs and certain disorders involving the immune mechanism; I25.810 Atherosclerosis of coronary artery bypass graft(s) without angina pectoris; I11.0 Hypertensive heart disease with heart failure; I50.9 Heart failure, unspecified; E11.9 Type 2 diabetes mellitus without complications; K21.9 Gastro-esophageal reflux disease without esophagitis; E03.9 Hypothyroidism, unspecified; I25.2 Old myocardial infarction; F03.90 Unspecified dementia, unspecified severity, without behavioral disturbance, psychotic disturbance, mood disturbance, and anxiety; Z88.2 Allergy status to sulfonamides; Z88.8 Allergy status to other drugs, medicaments and biological substances; W20.8XXA Other cause of strike by thrown, projected or falling object, initial encounter; Y93.89 Activity, other specified; Y92.89 Other specified places as the place of occurrence of the external cause; Y99.8 Other external cause status
CPT/HCPCS: 99283

== ENCOUNTER → 2019-07-05 | Outpatient (CLI) | payer MEDICARE, BC ==
[~2019-07-05] MED LIST changes: +SIMV20TA18 PO; -SIMV20TA3 PO
[2019-07-05 15:45] VITALS: BP 151/92
[2019-07-05 17:48] LABS: ALBUMIN 2.9 g/dL (3.4-5.0); CALCIUM 8.2 mg/dL (8.5-10.1); CREATININE 2.7 mg/dL (0.6-1.0); GFR 16.7; PHOSPHORUS 2.4 mg/dL (2.6-4.7); POTASSIUM 3.8 mmol/L (3.5-5.1)
== END | disposition home or self-care (01) ==
LOC: LAB 16:26
PROVIDERS: ATTEND Nurse Practitioner Adult Health
DX: I12.9 Hypertensive chronic kidney disease with stage 1 through stage 4 chronic kidney disease, or unspecified chronic kidney disease (principal); E11.22 Type 2 diabetes mellitus with diabetic chronic kidney disease; N18.4 Chronic kidney disease, stage 4 (severe); E11.21 Type 2 diabetes mellitus with diabetic nephropathy; E21.1 Secondary hyperparathyroidism, not elsewhere classified; E55.9 Vitamin D deficiency, unspecified; F41.8 Other specified anxiety disorders; D50.9 Iron deficiency anemia, unspecified
CPT/HCPCS: 36415; 80069

== ENCOUNTER 2019-12-31 20:28 | Emergency (ER) | payer MEDICARE, BC ==
[~2019-12-31] VITALS: Ht 154.9 cm; Wt 64.7 kg
[~2019-12-31 20:28] MED LIST changes: +FLUO10CA14 PO; -FLUO10CA7 PO; -MAGN2400 PO; +MAGN24003 PO; +MECL-75 PO; -MECL25TA3 PO
--- NOTE | 2019-12-31 20:31 | PHYS DOC ---
Past History Past Medical History: A-Fib, Anemia, CAD, CHF, CVA, Dementia, Diabetes, GERD, Heart Disease, Hypertension, Hypothyroid, [place], Renal Disease, Other Past Surgical History: Appendectomy, Cholecystectomy, Coronary Bypass Surgery, Hysterectomy Alcohol Use: None Drug Use: None General Adult HPI: HPI: ..." I ve been sick since ..or Tuesday... it start with eating a [employer] [place]... my daughter bought... it at [employer].. I ate 1/2 night before..and then next day.. I starting getting a lot of nausea.. vomiting x 4... No diarrhea... I do have some constipation.. I I am still constipated.. I did try to have a stool.. and only had some hard balls yesterday... but then I started getting bright red blood ... It's not stopped.. . when I wiped...I am having clumps bright red clots.. and stool is full of blood... "..I am so weak..." Patient is a 89 year old female who presents with above hx and complaints GI upset, nausea, vomiting and then bright red on attempts to pass a stool. Patient has history of previous episodes of constipation. Patient has been passing gas but no stool. Patient reports the only thing past has been clots of blood. Patient has a past medical history of dementia, diabetes, hypertension, hyperlipidemia, chf, coronary artery disease, status post coronary artery bypass and stent placement, has history of chronic renal disease, hypothyroidi sm, TIAs, osteoarthritis, severe deafness, and urinary incontinence. Patient denies any recent trauma or falls. No recent travel or specific ill contacts. Patient has had previous hysterectomy, who pleurectomy and appendectomy,. Patient does not remember the results of her previous colonoscopy . The pt. lives with her daughter. No history of specific ill contacts. Patient denies any history immunosuppression. Pt. follow s with Dr. Espinosa. He was called yesterday and pt. advised to come in. Review of Systems: Review of Systems: Constitutional: Denies fever or chills Eyes: Denies change in visual acuity HENT: Denies nasal congestion or sore throat Respiratory: Denies cough or shortness of breath Cardiovascular: Denies chest pain or edema GI: Complaints of abdominal pain, nausea, vomiting, bloody stools . : Denies dysuria Musculoskeletal: Denies back pain or joint pain Integument: Denies rash Neurologic: Denies headache, focal weakness or sensory changes Endocrine: Denies polyuria or polydipsia Lymphatic: Denies swollen glands Psychiatric: Denies depression or anxiety Heart Score: HEART Score for Chest Pain: HEART Score for Chest Pain Response (Comments) Value History Slighlty/Non-Suspicious 0 ECG Nonspecific Repolarizatio 1 Age > 65 2 Risk Factors >3 Risk Factors or Hx CAD 2 Troponin < Normal Limit 0 Total 5 Risk Factors: Risk Factors: DM, Current or recent (<one month) smoker, HTN, HLP, family history of CAD, obesity. Risk Scores: Score 0 - 3: 2.5% MACE over next 6 weeks - Discharge Home Score 4 - 6: 20.3% MACE over next 6 weeks - Admit for Clinical Observation Score 7 - 10: 72.7% MACE over next 6 weeks - Early Invasive Strategies Family History: Family History: Noncontributory to presentation Current Medications: Current Meds: See nursing for home meds Allergies: Allergies: Allergies Coded Allergies Type Severity Reaction Last Updated Verified Sulfa (Sulfonamide Antibiotics) Adverse Reaction Intermediate 05/15/19 No captopril Adverse Reaction Intermediate 05/15/19 Yes Physical Exam: PE: Constitutional: Moderately acute distress, non-toxic appearance. [] HENT: Normocephalic, atraumatic, bilateral external ears normal, oropharynx moist, no oral exudates, nose normal. Pt. very hard of hearing. Eyes: PERRLA, EOMI, conjunctiva normal, no discharge. Glasses Neck: Normal range of motion, no tenderness, supple, no stridor. [] Cardiovascular:Heart rate regular rhythm, no murmur, PMI to the left Lungs & Thorax: Bilateral breath sounds equal apex with few scattered wheezes on auscultation [] has reproducible left chest wall pain on palpation. Abdomen: Bowel sounds hyperactive , soft, generalized tenderness, no masses, no pulsatile masses. Obese. Multiple surgical scars. Bright red blood per rectal. Incontinent-urine Skin: Warm, dry, no erythema, no rash. Poor turgor Back: No tenderness, no CVA tenderness. [] Extremities: No tenderness, no cyanosis, no clubbing, , bilateral ankle edema. No cording appreciated. Arthritic changes. Very weak. Unable to set up without help. Neurologic: Alert and oriented X 3, moves extremities on request, has distal sensory, no focal deficits noted. Very hard of hearing. Psychologic: Affect anxious, some memory issues., mood normal. [] EKG: EKG: My interpretation EKG shows a sinus rhythm at 64 bpm. Does have leftward axis. There is nonspecific T wave changes. [] Radiology/Procedures: Radiology/Procedures: [][address] [address] IMAGING REPORT Signed PATIENT: YUNIOR GUIDO V ACCOUNT: [id number] : 1930 LOCATION: ER AGE: 89 SEX: F EXAM STATUS: REG ER ORD. PHYSICIAN: NAOMY DOUGLASS MD REASON: n, pain, PROCEDURE: ACUTE ABDOMEN SERIES Acute Abdominal Series: Technique: PA view of the chest and supine and upright views of the abdomen were obtained. History: Pain. Comparison: None. Findings: The heart is top normal limits in size. The pulmonary vessels appear normal. Increased reticular opacities of lungs is likely chronic pulmonary fibrosis. There is median sternotomy wires. There is air and stool scattered throughout the colon. There is a relative paucity of small bowel gas. There is calcification of the splenic artery. There is no free air. Impression: Nonobstructive bowel gas pattern. Possible mild constipation or colonic ileus. Electronically signed by: Tejal Gusman III, MD (12/31/2019 11:03 PM) [id number] DICTATED AND SIGNED BY: TEJAL GUSMAN III, MD DATE: 12/31/19 3339 CC: CALIN ESPINOSA MD; NAOMY DOUGLASS MD ~ Course & Med Decision Making: Course & Med Decision Making Pertinent Labs and Imaging studies reviewed. (See chart for details) Discussed presentation, testing and tx. plan with Dr. Diaz- Transfer to [facility] . Possible GI consult. Impression: 1. Abdomen Pain 2. GI bleed- suspect lower GI , ( Diverticular / Outlet/ Constipation/AVM) 3. Elevated Bun/ Creat 37/2.5 4. Diabetes 232 5. Constipation 6. Weakness [] Dragon Disclaimer: Dragon Disclaimer: This electronic medical record was generated, in whole or in part, using a voice recognition dictation system. Departure Departure: Disposition: 01 HOME/RESIDENCE PRIOR TO ADM Condition: STABLE Referrals: ACLIN ESPINOSA MD (PCP) [place] Disclaimer This chart was dictated in whole or in part using Voice Recognition software in a busy, high-work load, and often noisy Emergency Department environment. It may contain unintended and wholly unrecognized errors or omissions. Dragon Disclaimer This chart was dictated in whole or in part using Voice Recognition software in a busy, high-work load, and often noisy Emergency Department environment. It may contain unintended and wholly unrecognized errors or omissions. Dragon Disclaimer This chart was dictated in whole or in part using Voice Recognition software in a busy, high-work load, and often noisy Emergency Department environment. It may contain unintended and wholly unrecognized errors or omissions. NAOMY DOUGLASS MD December 31, 2019 20:31
[2019-12-31] MEDS ORDERED: IV RINGERS SOLUTION,LACTATED 1,000 ML IV SCH (21:18)
[2019-12-31] MEDS ORDERED: ONDANSETRON PF 4 MG/2 ML VIAL. IVP ONE (21:45)
[2019-12-31] MEDS ORDERED: FAMOTIDINE 20 MG/2 ML VIAL IVP ONE (21:45)
--- NOTE | 2019-12-31 21:50 | EKG ---
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
[2019-12-31 22:03] LABS: BASO # 0.1 x10^3/uL (0.0-0.2); BASO % 1 % (0-3); EOS # 0.3 x10^3/uL (0.0-0.7); EOS % 5 % (0-3); HEMATOCRIT 35.5 % (36.0-47.0); LYMPH # 1.4 x10^3/uL (1.0-4.8); LYMPH % 23 % (24-48); MEAN CORPUSCULAR HEMOGLOBIN 32 pg (25-35); MEAN CORPUSCULAR HGB CONC 34 g/dL (31-37); MEAN CORPUSCULAR VOLUME 95 fL (79-100); MONO # 0.6 x10^3/uL (0.0-1.1); MONO % 9 % (0-9); NEUT # 3.7 x10^3uL (1.8-7.7); NEUT % 61 % (31-73); PLATELET COUNT 221 x10^3/uL (140-400); RED BLOOD COUNT 3.74 x10^6/uL (3.50-5.40); RED CELL DISTRIBUTION WIDTH 13.3 % (11.5-14.5); WHITE BLOOD COUNT 6.1 x10^3/uL (4.0-11.0)
[2019-12-31 22:14] LABS: CALCIUM 8.8 mg/dL (8.5-10.1); CREATININE 2.5 mg/dL (0.6-1.0); GFR 18.2; POTASSIUM 3.7 mmol/L (3.5-5.1)
[2019-12-31 22:20] LABS: ALBUMIN 3.2 g/dL (3.4-5.0); DIRECT BILIRUBIN 0.1 mg/dL (0.0-0.2); TOTAL BILIRUBIN 0.3 mg/dL (0.2-1.0); TOTAL PROTEIN 7.2 g/dL (6.4-8.2)
--- NOTE | 2019-12-31 23:06 | RAD ---
Acute Abdominal Series: Technique: PA view of the chest and supine and upright views of the abdomen were obtained. History: Pain. Comparison: None. Findings: The heart is top normal limits in size. The pulmonary vessels appear normal. Increased reticular opacities of lungs is likely chronic pulmonary fibrosis. There is median sternotomy wires. There is air and stool scattered throughout the colon. There is a relative paucity of small bowel gas. There is calcification of the splenic artery. There is no free air. Impression: Nonobstructive bowel gas pattern. Possible mild constipation or colonic ileus. Electronically signed by: Martínez Chavez III, MD (12/31/2019 11:03 PM) [id number]
[2020-01-01 00:04] LABS: AMPHETAMINE/METHAMPHETAMINE NEG (NEG); BARBITURATES NEG (NEG); BENZODIAZEPINES NEG (NEG); CANNABINOIDS NEG (NEG); COCAINE NEG (NEG); METHADONE NEG (NEG); OPIATES NEG (NEG); PHENCYCLIDINE NEG (NEG)
[2020-01-01 00:13] LABS: BACTERIA,URINE FEW /HPF (0-FEW); BILIRUBIN,URINE NEG (NEG); CLARITY,URINE CLEAR; COLOR,URINE YELLOW; GLUCOSE,URINE 100 mg/dL (NEG); NITRITE,URINE NEG (NEG); SQUAMOUS EPITHELIAL CELL,UR OCC /LPF; UROBILINOGEN,URINE 0.2 mg/dL (0.2 mg/dL); WBC,URINE OCC /HPF (0-4)
[2020-01-01 00:14] LABS: RBC,URINE OCC /HPF (0-2)
[2020-01-01] MEDS ORDERED: MAGNESIUM HYDROXIDE 2,400 MG/30 ML ORAL.SUSP. PO ONE (00:15)
[2020-01-01 01:00] VITALS: BP 193/75
== END 2020-01-01 01:46 | disposition short-term general hospital (02) ==
LOC: ER 20:28
DX: K92.2 Gastrointestinal hemorrhage, unspecified (principal); K59.00 Constipation, unspecified; R79.89 Other specified abnormal findings of blood chemistry; R53.1 Weakness; E11.9 Type 2 diabetes mellitus without complications; E78.5 Hyperlipidemia, unspecified; I11.0 Hypertensive heart disease with heart failure; I50.9 Heart failure, unspecified; I25.810 Atherosclerosis of coronary artery bypass graft(s) without angina pectoris; E11.22 Type 2 diabetes mellitus with diabetic chronic kidney disease; I13.0 Hypertensive heart and chronic kidney disease with heart failure and stage 1 through stage 4 chronic kidney disease, or unspecified chronic kidney disease; N18.9 Chronic kidney disease, unspecified; E03.9 Hypothyroidism, unspecified; M19.90 Unspecified osteoarthritis, unspecified site; K21.9 Gastro-esophageal reflux disease without esophagitis; I48.91 Unspecified atrial fibrillation; I25.2 Old myocardial infarction; Z86.2 Personal history of diseases of the blood and blood-forming organs and certain disorders involving the immune mechanism; Z86.73 Personal history of transient ischemic attack (TIA), and cerebral infarction without residual deficits
CPT/HCPCS: 36415; 74022; 80048; 80076; 80307; 81001; 82150; 82550; 83690; 84484; 85025; 85610; 85730; 86850; 86900; 86901; 93005; 96361; 96374; 96375; 99285; J2405; J3490; J7120

== ENCOUNTER → 2020-02-06 | Outpatient (CLI) | payer MEDICARE, BC ==
--- NOTE | 2020-02-06 17:17 | RAD ---
EXAM: Head CT without contrast. HISTORY: Dizziness and giddiness. TECHNIQUE: Computed tomographic images of the head were obtained without contrast. *One or more of the following individualized dose reduction techniques were utilized for this examination: 1. Automated exposure control. 2. Adjustment of the mA and/or kV according to patient size. 3. Use of iterative reconstruction technique. COMPARISON: 05/14/2019. FINDINGS: There is no acute or subacute extra-axial or intraparenchymal hemorrhage. There is no mass effect or midline shift. There is no hydrocephalus. There is extensive decreased attenuation throughout the cerebral white matter, most commonly due to chronic small vessel disease. There is cerebral volume loss with compensatory enlargement of the ventricles. There is also cerebellar volume loss. The visualized portions of the orbits, paranasal sinuses and mastoid air cells are unremarkable. No suspicious calvarial lesion is seen. IMPRESSION: 1. No acute intercranial finding. Note is made that MRI is more sensitive for acute infarction. 2. Extensive bilateral cerebral white matter changes, likely due to chronic small vessel disease. 3. Cerebral and cerebellar volume loss. Electronically signed by: Amanda Mullins MD (02/06/2020 5:14 PM) [facility]
== END | disposition home or self-care (01) ==
LOC: CT 16:54
PROVIDERS: ATTEND Family Medicine
DX: I73.9 Peripheral vascular disease, unspecified (principal); I63.9 Cerebral infarction, unspecified; R42 Dizziness and giddiness
CPT/HCPCS: 70450

== ENCOUNTER → 2020-06-06 | Outpatient (CLI) | payer MEDICARE, BC ==
[~2020-06-06] MED LIST changes: +AMLO-187 PO; -AMLO10TA8 PO; -FLUO10CA14 PO; +FLUO10CA15 PO
[2020-06-06 17:10] LABS: HEMATOCRIT 34.5 % (36.0-47.0); HEMOGLOBIN 11.3 g/dL (12.0-15.5)
[2020-06-06 17:13] LABS: ALBUMIN 3.3 g/dL (3.4-5.0); CALCIUM 8.7 mg/dL (8.5-10.1); CREATININE 2.7 mg/dL (0.6-1.0); GFR 16.7; PHOSPHORUS 4.9 mg/dL (2.6-4.7); POTASSIUM 4.4 mmol/L (3.5-5.1)
[2020-06-11 07:12] LABS: TOTAL SERUM CREATININE 2.68 mg/dL (0.57-1.00); TOTAL URINE CREATININE 113.2 mg/dL (Not Estab.)
== END ==
LOC: LAB 15:58
PROVIDERS: ATTEND Internal Medicine Nephrology
DX: I12.9 Hypertensive chronic kidney disease with stage 1 through stage 4 chronic kidney disease, or unspecified chronic kidney disease (principal); E11.22 Type 2 diabetes mellitus with diabetic chronic kidney disease; E11.21 Type 2 diabetes mellitus with diabetic nephropathy; N18.4 Chronic kidney disease, stage 4 (severe); E21.1 Secondary hyperparathyroidism, not elsewhere classified; E55.9 Vitamin D deficiency, unspecified; D52.9 Folate deficiency anemia, unspecified; E11.65 Type 2 diabetes mellitus with hyperglycemia; Z68.27 Body mass index [BMI] 27.0-27.9, adult
CPT/HCPCS: 36415; 80069; 82575; 84156; 85014; 85018

== ENCOUNTER 2020-09-09 14:22 | Emergency (ER) | payer MEDICARE, BC ==
[~2020-09-09] VITALS: Ht 154.9 cm; Wt 66.3 kg
--- NOTE | 2020-09-09 14:39 | RAD ---
EXAM: CT Head without IV contrast INDICATION: Reason: code stroke, slurred speech / Spl. Instructions: / History: TECHNIQUE: Multi-detector row CT images were obtained of the head without the use of IV contrast. All CT scans performed at this facility utilize dose optimization techniques as appropriate to the exam, including the following: Automated exposure control and adjustment of the mA and/or KV according to patient size (this includes techniques or standardized protocols for targeted exams where dose is ind ication/reason for exam). COMPARISON: 02/06/[address] FINDINGS: BRAIN PARENCHYMA: No evidence of acute intraparenchymal hemorrhage or infarct. Redemonstrated is gene ralized parenchymal volume loss and extensive white matter low density compatible with chronic ischem ic microvascular change VENTRICLES & EXTRA-AXIAL SPACES: Ventricles are enlarged in proportion to the degree of parenchymal volume loss present, similar to prior. Basilar cisterns are patent. No pathologic extra-axial fluid c ollection or mass. ORBITS: Orbital contents are unremarkable. SINUSES: Visualized paranasal sinuses and mastoid air cells are clear. OSSEOUS & SOFT TISSUES: Calvarium and skull base are intact. IMPRESSION: No acute intracranial pathology FOR INTERNAL CODING PURPOSES Critical result: Findings discussed with Dr. Sosa at 09/09/2020 2:36 PM. RESULT CODE: (C) Electronically signed by: Amber Mercedes MD (09/09/2020 2:36 PM) [id number]
[2020-09-09] MEDS: MECLIZINE 12.5 MG TABLET. PO ONE (15:06)
[2020-09-09] MEDS: hydrALAZINE 10 MG TABLET PO ONE (15:06)
[2020-09-09] MEDS: amLODIPine BESYLATE 5 MG TABLET PO ONE (15:06)
--- NOTE | 2020-09-09 15:08 | PHYS DOC ---
Past History Past Medical History: A-Fib, Anemia, CAD, CHF, CVA, Dementia, Diabetes, GERD, Heart Disease, Hypertension, Hypothyroid, [place], Renal Disease Past Surgical History: Appendectomy, Cholecystectomy, Coronary Bypass Surgery, Hysterectomy Alcohol Use: None Drug Use: None General Adult EDM: Chief Complaint: NEURO SYMPTOMS/DEFICITS HPI: HPI: Patient is a 89-year-old female who was brought here by EMS from home due to episode woozy dizziness. Patient got up this morning around 8 AM, she fell woozy, so she went back to sleep, around 10 AM she woke up again she feel dizzy, she feels like she is drunk. She felt like she had a headache. She denies any blurry vision, no chest pain or any trouble breathing. Patient had not taken any of her medication today. Patient has history of renal failure, hypertension, diabetic, atrial fibrillation. Patient is on Eliquis, Norvasc, hydralazine. Patient said whenever she sits up she feels dizzy. Patient says she had history of dizziness in the past, her doctor put her on meclizine so that she can take as needed. Patient denies any weakness or numbness anywhere. Patient's daughter reports that it appeared that patient had not taken her blood pressure medication in the morning for a week now. Review of Systems: Review of Systems: Constitutional: Denies fever or chills Eyes: Denies change in visual acuity HENT: Denies nasal congestion or sore throat Respiratory: Denies cough or shortness of breath Cardiovascular: Denies chest pain or edema GI: Denies abdominal pain, nausea, vomiting, bloody stools or diarrhea : Denies dysuria Musculoskeletal: Denies back pain or joint pain Integument: Denies rash Neurologic: Positive for headache, dizziness. Endocrine: Denies polyuria or polydipsia Lymphatic: Denies swollen glands Psychiatric: Denies depression or anxiety Current Medications: Current Meds: Current Medications Medications (Trade) Dose Ordered Sig/Brendan Start Time Stop Time Status Last Admin Dose Admin Amlodipine Besylate (Norvasc) 10 mg 1X ONCE 09/09/20 15:15 09/09/20 15:16 Hydralazine HCl (Apresoline) 50 mg 1X ONCE 09/09/20 15:15 09/09/20 15:16 Meclizine HCl (Antivert) 25 mg 1X ONCE 09/09/20 15:15 09/09/20 15:16 Allergies: Allergies: Allergies Coded Allergies Type Severity Reaction Last Updated Verified Sulfa (Sulfonamide Antibiotics) Adverse Reaction Intermediate 05/15/19 No captopril Adverse Reaction Intermediate 05/15/19 Yes Physical Exam: PE: Constitutional: Well developed, well nourished, no acute distress, non-toxic appearance. [] HENT: Normocephalic, atraumatic, bilateral external ears normal, oropharynx moist, no oral exudates, nose normal. [] Eyes: PERRLA, EOMI, conjunctiva normal, no discharge. [] Neck: Normal range of motion, no tenderness, supple, no stridor. [] Cardiovascular:Heart rate regular rhythm, no murmur [] Lungs & Thorax: Bilateral breath sounds clear to auscultation [] Abdomen: Bowel sounds normal, soft, no tenderness, no masses, no pulsatile mas ses. [] Skin: Warm, dry, no erythema, no rash. [] Back: No tenderness, no CVA tenderness. [] Extremities: No tenderness, no cyanosis, no clubbing, ROM intact, no edema. [] Neurologic: Alert and oriented X 3, normal motor function, normal sensory function, no focal deficits noted. [] Psychologic: Affect normal, judgement normal, mood normal. [] Current Patient Data: Vital Signs: Vital Signs Date Time Temp Pulse Resp B/P (MAP) Pulse Ox O2 Delivery O2 Flow Rate FiO2 09/09/20 14:40 97.9 76 16 211/76 (121) 99 Room Air EKG: EKG: EKG was done at 1435, heart rate of 75 bpm, atrial fibrillation, no ST segment elevation. [] Radiology/Procedures: Radiology/Procedures: [][address] [address] IMAGING REPORT Signed PATIENT: YUNIOR GUIDO V ACCOUNT: [id number] : 1930 LOCATION: ER AGE: 89 SEX: F EXAM STATUS: REG ER ORD. PHYSICIAN: VITALIY JI DO REASON: code stroke, slurred speech PROCEDURE: CT CODE STROKE HEAD WO EXAM: CT Head without IV contrast INDICATION: Reason: code stroke, slurred speech / Spl. Instructions: / History: TECHNIQUE: Multi-detector row CT images were obtained of the head without the use of IV contrast. All CT scans performed at this facility utilize dose optimization techniques as appropriate to the exam, including the following: Automated exposure control and adjustment of the mA and/or KV according to patient size (this includes techniques or standardized protocols for targeted exams where dose is indication/reason for exam). COMPARISON: 02/06/[address] FINDINGS: BRAIN PARENCHYMA: No evidence of acute intraparenchymal hemorrhage or infarct. Redemonstrated is generalized parenchymal volume loss and extensive white matter low density compatible with chronic ischemic microvascular change VENTRICLES & EXTRA-AXIAL SPACES: Ventricles are enlarged in proportion to the degree of parenchymal volume loss present, similar to prior. Basilar cisterns are patent. No pathologic extra-axial fluid collection or mass. ORBITS: Orbital contents are unremarkable. SINUSES: Visualized paranasal sinuses and mastoid air cells are clear. OSSEOUS & SOFT TISSUES: Calvarium and skull base are intact. IMPRESSION: No acute intracranial pathology FOR INTERNAL CODING PURPOSES Critical result: Findings discussed with Dr. Ji at 09/09/2020 2:36 PM. RESULT CODE: (C) Electronically signed by: Yissel Mercedes MD (09/09/2020 2:36 PM) [id number] DICTATED AND SIGNED BY: YISSEL MERCEDES MD DATE: 09/09/20 1434 CC: CALIN MA MD; VITALIY JI DO ~MTH0 0 Heart Score: Risk Factors: Risk Factors: DM, Current or recent (<one month) smoker, HTN, HLP, family history of CAD, obesity. Risk Scores: Score 0 - 3: 2.5% MACE over next 6 weeks - Discharge Home Score 4 - 6: 20.3% MACE over next 6 weeks - Admit for Clinical Observation Score 7 - 10: 72.7% MACE over next 6 weeks - Early Invasive Strategies Course & Med Decision Making: Course & Med Decision Making Pertinent Labs and Imaging studies reviewed. (See chart for details) Patient is an 89-year-old female who was brought here by EMS from home due to feeling dizzy, her blood pressure was elevated. Patient had not taken her morning dose of her blood pressure medications for a week. Patient had not taken her medications today either. Patient was given medication in the ER, she feels much better. Patient's daughter will make sure that patient will take her medications at home as prescribed. Her NIH stroke scale is 0. Patient had no deficits neurologically. Dragon Disclaimer: Dragon Disclaimer: This electronic medical record was generated, in whole or in part, using a voice recognition dictation system. Departure Departure: Impression: Primary Impression: Hypertensive urgency Additional Impression: Dizziness Disposition: 01 DC HOME SELF CARE/HOMELESS Condition: IMPROVED Referrals: CALIN MA MD (PCP) follow up with your doctor this week for reevaluation Patient Instructions: Dizziness, Hypertension Additional Instructions: Thank you for visiting our Emergency Department. We appreciate you trusting us with your care. If any additional problems come up don't hesitate to return to visit us. Please follow up with your primary care provider so they can plan additional care if needed and know about the problem that you had. If symptoms worsen come back to the Emergency Department. Any concerning symptoms that start such as chest pain, shortness of air, weakness or numbness on one side of the body, running high fevers or any other concerning symptoms return to the ER. VITALIY JI DO Sep 09, 2020 15:08
[2020-09-09 15:41] LABS: CALCIUM 8.2 mg/dL (8.5-10.1); CREATININE 3.1 mg/dL (0.6-1.0); GFR 14.2; POTASSIUM 4.5 mmol/L (3.5-5.1)
[2020-09-09 15:49] LABS: BASO # 0.1 x10^3/uL (0.0-0.2); BASO % 2 % (0-3); EOS # 0.4 x10^3/uL (0.0-0.7); EOS % 7 % (0-3); HEMATOCRIT 35.6 % (36.0-47.0); HEMOGLOBIN 11.5 g/dL (12.0-15.5); LYMPH # 1.8 x10^3/uL (1.0-4.8); LYMPH % 31 % (24-48); MEAN CORPUSCULAR HEMOGLOBIN 30 pg (25-35); MEAN CORPUSCULAR HGB CONC 32 g/dL (31-37); MEAN CORPUSCULAR VOLUME 92 fL (79-100); MONO # 0.4 x10^3/uL (0.0-1.1); MONO % 7 % (0-9); NEUT # 3.2 x10^3uL (1.8-7.7); NEUT % 53 % (31-73); PLATELET COUNT 258 x10^3/uL (140-400); RED BLOOD COUNT 3.87 x10^6/uL (3.50-5.40); RED CELL DISTRIBUTION WIDTH 13.5 % (11.5-14.5)
[2020-09-09 15:51] LABS: ALBUMIN 3.1 g/dL (3.4-5.0); ALBUMIN/GLOBULIN RATIO 0.7 (1.0-1.7); MAGNESIUM 2.3 mg/dL (1.8-2.4); TOTAL BILIRUBIN 0.2 mg/dL (0.2-1.0); TOTAL PROTEIN 7.3 g/dL (6.4-8.2)
--- NOTE | 2020-09-09 16:12 | EKG ---
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
[2020-09-09 16:19] VITALS: BP 161/49
[2020-09-09 16:47] LABS: BILIRUBIN,URINE NEG (NEG); CLARITY,URINE CLEAR; COLOR,URINE YELLOW; GLUCOSE,URINE 100 mg/dL (NEG)
[2020-09-09 16:48] LABS: AMORPHOUS SEDIMENT,UR PRESENT /HPF; BACTERIA,URINE 0 /HPF (0-FEW); NITRITE,URINE NEG (NEG); RBC,URINE 0 /HPF (0-2); SQUAMOUS EPITHELIAL CELL,UR MOD /LPF; UROBILINOGEN,URINE 0.2 mg/dL (0.2 mg/dL)
== END 2020-09-09 17:02 | disposition home or self-care (01) ==
LOC: ER 14:22
DX: I16.0 Hypertensive urgency (principal); R42 Dizziness and giddiness; R51.9 Headache, unspecified; I48.91 Unspecified atrial fibrillation; I25.810 Atherosclerosis of coronary artery bypass graft(s) without angina pectoris; I13.0 Hypertensive heart and chronic kidney disease with heart failure and stage 1 through stage 4 chronic kidney disease, or unspecified chronic kidney disease; E11.22 Type 2 diabetes mellitus with diabetic chronic kidney disease; N18.9 Chronic kidney disease, unspecified; I50.9 Heart failure, unspecified; E03.9 Hypothyroidism, unspecified; I25.2 Old myocardial infarction; Z86.2 Personal history of diseases of the blood and blood-forming organs and certain disorders involving the immune mechanism; Z86.73 Personal history of transient ischemic attack (TIA), and cerebral infarction without residual deficits; Z88.2 Allergy status to sulfonamides; Z88.8 Allergy status to other drugs, medicaments and biological substances
CPT/HCPCS: 36415; 70450; 80053; 81001; 82947; 83735; 84484; 85025; 85610; 85730; 93005; 99285-25

== ENCOUNTER → 2020-09-19 | Outpatient (CLI) | payer MEDICARE, BC ==
[2020-09-09 16:19] VITALS: BP 161/49
[2020-09-19 17:51] LABS: ALBUMIN 2.9 g/dL (3.4-5.0); CALCIUM 8.5 mg/dL (8.5-10.1); CREATININE 3.4 mg/dL (0.6-1.0); GFR 12.7; PHOSPHORUS 5.4 mg/dL (2.6-4.7); POTASSIUM 4.8 mmol/L (3.5-5.1)
== END ==
LOC: LAB 16:31
PROVIDERS: ATTEND Nurse Practitioner Family
DX: N18.4 Chronic kidney disease, stage 4 (severe) (principal)
CPT/HCPCS: 36415; 80069

== ENCOUNTER 2020-10-03 16:25 | Emergency (ER) | payer MEDICARE, BC ==
[~2020-10-03] VITALS: Ht 154.9 cm; Wt 66.3 kg
--- NOTE | 2020-10-03 17:04 | PHYS DOC ---
Past History Past Medical History: A-Fib, Anemia, CAD, CHF, CVA, Dementia, Diabetes, GERD, Heart Disease, Hypertension, Hypothyroid, CT, Renal Disease (SHABBIR CAREY MD) Past Medical History: Renal Failure (NAOMY NGUYEN MD) Past Surgical History: Appendectomy, Cholecystectomy, Coronary Bypass Surgery, Hysterectomy (SHABBIR CAREY MD) Alcohol Use: None Drug Use: None (SHABBIR CAREY MD) General Adult EDM: Chief Complaint: WEAKNESS/GENERALIZED HPI: HPI: Patient is a 89-year-old female brought in by daughter for weakness. Patient was actually here to have outpatient labs drawn ordered by her primary care provider but daughter decided to check her into the emergency department. Patient states that she has been getting more weak over the past few days. Slid out of her chair today and she was unable to get herself up. Daughter had a difficult time getting her up from the floor. She is normally able to ambulate with assistance. Says she has also felt felt shaky. Denies any fevers, cough, shortness of breath, chest pain or pressure, vomiting or diarrhea. Patient states she has had normal p.o. intake. Denies any lower extremity edema. No new medications. No known sick contacts. She has a history of worsening kidney disease. (SHABBIR CAREY MD) Review of Systems: Review of Systems: All other systems within normal limits except for as noted in the HPI (SHABBIR CAREY MD) Allergies: Allergies: Allergies Coded Allergies Type Severity Reaction Last Updated Verified Sulfa (Sulfonamide Antibiotics) Adverse Reaction Intermediate 05/15/19 No captopril Adverse Reaction Intermediate 05/15/19 Yes (SHABBIR CAREY MD) Physical Exam: PE: Constitutional: Well developed, well nourished, no acute distress, non-toxic appearance. [] HENT: Normocephalic, atraumatic, bilateral external ears normal, nose normal. [] Eyes: PERRLA, conjunctiva normal, no discharge. [] Neck: No rigidity, supple, no stridor. [] Cardiovascular: Regular rate and rhythm, brisk cap refill [] Lungs & Thorax: Non labored symmetric respirations, no tachypnea or respiratory distress [] Abdomen: Soft, nondistended, no tenderness to palpation. Skin: Warm, dry, no erythema, no rash. [] Back: Unremarkable Extremities: No deformities, range of motion grossly intact, no lower extremity edema [] Neurologic: Alert and oriented X 3, no focal deficits noted. [] Psychologic: Affect normal, judgement normal, mood normal. [] (SHABBIR ACREY MD) Current Patient Data: Vital Signs: Vital Signs Date Time Temp Pulse Resp B/P (MAP) Pulse Ox O2 Delivery O2 Flow Rate FiO2 10/03/20 16:44 97.6 60 16 191/79 (116) 89 Room Air (SHABBIR CAREY MD) EKG: EKG: Sinus rhythm with left axis deviation. Heart rate 67 bpm, no ST elevation or depression. Normal intervals, no ectopy. [] (SHABBIR CAREY MD) EKG: My interpretation EKG shows a sinus rhythm at 67 bpm. Left axis. Some nonspecific T wave changes. Ventricular strain. No findings of acute STEMI of contralateral changes. (NAOMY NGUYEN MD) Radiology/Procedures: Radiology/Procedures: [ Exam: Chest one view INDICATION: Low oxygen saturation TECHNIQUE: Frontal view of the chest Comparisons: 05/23/2019 FINDINGS: Sternotomy wires are noted. Surgical clips at the left and right heart border. Heart is mildly enlarged. Pulmonary vessels are within normal limits. Patchy airspace disease lung bases bilaterally. No pleural effusion. IMPRESSION: Patchy bilateral airspace disease may be infectious or inflammatory in etiology. ] (SHABBIR CAREY MD) Radiology/Procedures: [address] [address] IMAGING REPORT Signed PATIENT: YUNIOR GUIDO V ACCOUNT: [id number] : 1930 LOCATION: ER AGE: 89 SEX: F EXAM STATUS: REG ER ORD. PHYSICIAN: SHABBIR CAREY MD REASON: low o2 sat PROCEDURE: CHEST AP ONLY Exam: Chest one view INDICATION: Low oxygen saturation TECHNIQUE: Frontal view of the chest Comparisons: 05/23/2019 FINDINGS: Sternotomy wires are noted. Surgical clips at the left and right heart border. Heart is mildly enlarged. Pulmonary vessels are within normal limits. Patchy airspace disease lung bases bilaterally. No pleural effusion. IMPRESSION: Patchy bilateral airspace disease may be infectious or inflammatory in etiology. Electronically signed by: Justice Patel MD (10/03/2020 5:31 PM) [facility] DICTATED AND SIGNED BY: JUSTICE PATEL MD DATE: 10/03/20 1730 CC: CALIN ESPINOSA MD; SHABBIR CAREY MD ~MTH0 0 (NAOMY NGUYEN MD) Heart Score: Risk Factors: Risk Factors: DM, Current or recent (<one month) smoker, HTN, HLP, family history of CAD, obesity. Risk Scores: Score 0 - 3: 2.5% MACE over next 6 weeks - Discharge Home Score 4 - 6: 20.3% MACE over next 6 weeks - Admit for Clinical Observation Score 7 - 10: 72.7% MACE over next 6 weeks - Early Invasive Strategies (SHABBIR CAREY MD) HEART Score for Chest Pain: HEART Score for Chest Pain Response (Comments) Value History Slighlty/Non-Suspicious 0 ECG Normal 0 Age > 65 2 Risk Factors 1 or 2 Risk Factors 1 Troponin < Normal Limit 0 Total 3 Course & Med Decision Making: Course & Med Decision Making Pertinent Labs and Imaging studies reviewed. (See chart for details) Care transitioned to Dr. Nguyen at shift change. Patient has a drop in her hemoglobin of 3 g over the last month. She was satting 85% on room air with bilateral patchy infiltrates on x-ray. Received her second Covid vaccine earlier this month. Pending CMP and fecal occult blood. [] (SHABBIR CAREY MD) Course & Med Decision Making See Dr. Carey chart for details. Labs pending at 1730 hrs. . Suspect will need transfer- [facility] for Cardiology, Renal and GI input if anemic again and exacerbation of chronic renal ins ufficiency. Plan transfer when labs available. Pt. unable to stand due weakness. No longer on Plavix but is on ASA and Apixab an. Possible candidate for retirement placement or increased assistance at home for her care. Hx. Completed COVID vaccination 1st in Aug, and Sep. second vaccination at [place] Has placement HD Fistula . No HD as yet- needed graft to have increase flow.on Sep.26 eval. Plan to be scheduled in Sep. Discussed presentation, testing and tx. plan with Dr. Diaz- Accepted at [facility]. 1800. Pt.Did not keep follow up with Dr. Espinosa primary or for lab draws because of weakness this week. Pt. follows with Dr. Espinosa, [place],, Dr. Talley, and cardiology at [facility]. Impression: 1. Weakness-multifactorial 2. Anemia Hgb 8.5 3. Acute on Chronic Renal Failuire Bun 45/Creat. 3.2 4. DM Glucose 196 5. CHF diastolic dysfunction- Bun 8605 6. Malnutrition Alb. 2.6 7. Accelerated HTN 8. Pulmonary Fluid Overload 9. Deconditioned 10..Hx. COVID Moderna Vaccinations 08/29/20 and 10/06/20 at [place] (NAOMY NGUYEN MD) Dragon Disclaimer: Dragon Disclaimer: This electronic medical record was generated, in whole or in part, using a voice recognition dictation system. (SHABBIR CAREY MD) Departure Departure: Referrals: CALIN ESPINOSA MD (PCP) Dragon Disclaimer This chart was dictated in whole or in part using Voice Recognition software in a busy, high-work load, and often noisy Emergency Department environment. It may contain unintended and wholly unrecognized errors or omissions. (NAOMY NGUYEN MD) SHABBIR CAREY MD Oct 03, 2020 17:04 NAOMY NGUYEN MD Oct 03, 2020 18:39
--- NOTE | 2020-10-03 17:16 | EKG ---
[address] [address] Test Date: 2020-10-03 Test Time: 16:55:04 Pat Name: YUNIOR GUIDO Department: Room: Gender: F Web Site Specialist: AFSHAN : 1930 Requested By: SHABBIR CAREY Order Number: [id number] Reading MD: Guilherme Brewster MD Measurements Intervals Redfox Rate: 67 P: 90 DC: 174 QRS: -10 QRSD: 94 T: 117 QT: 416 QTc: 443 Interpretive Statements SINUS RHYTHM LEFTWARD AXIS ST & T ABNORMALITY, CONSIDER HIGH LATERAL ISCHEMIA OR LEFT VENTRICULAR STRAIN ABNORMAL ECG Electronically Signed On 10-04-2020 15:45:51 BONE TENDER by Guilherme Brewster MD
[2020-10-03 17:24] LABS: BASO # 0.1 x10^3/uL (0.0-0.2); BASO % 2 % (0-3); EOS # 0.3 x10^3/uL (0.0-0.7); EOS % 4 % (0-3); HEMATOCRIT 25.6 % (36.0-47.0); HEMOGLOBIN 8.5 g/dL (12.0-15.5); LYMPH # 1.4 x10^3/uL (1.0-4.8); LYMPH % 20 % (24-48); MEAN CORPUSCULAR HEMOGLOBIN 31 pg (25-35); MEAN CORPUSCULAR HGB CONC 33 g/dL (31-37); MEAN CORPUSCULAR VOLUME 93 fL (79-100); MONO # 0.7 x10^3/uL (0.0-1.1); MONO % 10 % (0-9); NEUT # 4.6 x10^3uL (1.8-7.7); NEUT % 65 % (31-73); PLATELET COUNT 220 x10^3/uL (140-400); RED BLOOD COUNT 2.76 x10^6/uL (3.50-5.40); WHITE BLOOD COUNT 7.1 x10^3/uL (4.0-11.0)
[2020-10-03 17:29] LABS: BILIRUBIN,URINE NEG (NEG); CLARITY,URINE CLEAR; COLOR,URINE YELLOW; GLUCOSE,URINE 100 mg/dL (NEG); NITRITE,URINE NEG (NEG); UROBILINOGEN,URINE 0.2 mg/dL (0.2 mg/dL)
[2020-10-03 17:33] LABS: AMORPHOUS SEDIMENT,UR PRESENT /HPF; BACTERIA,URINE FEW /HPF (0-FEW); RBC,URINE OCC /HPF (0-2); SQUAMOUS EPITHELIAL CELL,UR FEW /LPF; WBC,URINE OCC /HPF (0-4)
--- NOTE | 2020-10-03 17:34 | RAD ---
Exam: Chest one view INDICATION: Low oxygen saturation TECHNIQUE: Frontal view of the chest Comparisons: 05/23/2019 FINDINGS: Sternotomy wires are noted. Surgical clips at the left and right heart border. Heart is mildly enlarged. Pulmonary vessels are within normal limits. Patchy airspace disease lung bases bilaterally. No pleural effusion. IMPRESSION: Patchy bilateral airspace disease may be infectious or inflammatory in etiology. Electronically signed by: Justice Tomlin MD (10/03/2020 5:31 PM) [facility]
[2020-10-03 18:00] LABS: CALCIUM 7.9 mg/dL (8.5-10.1); CREATININE 3.2 mg/dL (0.6-1.0); GFR 13.7; POTASSIUM 4.2 mmol/L (3.5-5.1)
[2020-10-03 18:13] LABS: ALBUMIN 2.6 g/dL (3.4-5.0); ALBUMIN/GLOBULIN RATIO 0.6 (1.0-1.7); MAGNESIUM 2.1 mg/dL (1.8-2.4); PHOSPHORUS 4.1 mg/dL (2.6-4.7); TOTAL BILIRUBIN 0.3 mg/dL (0.2-1.0); TOTAL PROTEIN 6.8 g/dL (6.4-8.2)
[2020-10-03 18:35] VITALS: BP 204/69
[2020-10-04] MEDS ORDERED: DOCUSATE SODIUM 100 MG CAPSULE PO PRN (10:00)
[2020-10-04] MEDS ORDERED: POLYETHYLENE GLYCOL 3350 17 GM PACKET. PO PRN (10:00)
[2020-10-04] MEDS ORDERED: NON FORMULARY ITEM (Methyl Salicylate/Menthol (Analgesic Balm) 1 APP) TP PRN (10:00)
[2020-10-04] MEDS ORDERED: ACETAMINOPHEN 325 MG TABLET PO PRN (10:00)
[2020-10-04] MEDS ORDERED: MAG HYDROX/AL HYDROX/SIMETH 30 ML ORAL.SUSP PO PRN (10:00)
[2020-10-04] MEDS ORDERED: NON FORMULARY ITEM (Meclizine Hcl 25 MG) PO SCH (10:00)
[2020-10-04] MEDS ORDERED: IPRATRPIUM/ALBUTEROL 0.5/2.5MG 3 ML NEBU. NEB PRN (10:00)
[2020-10-04] MEDS ORDERED: NON FORMULARY ITEM (Magnesium Hydroxide (Milk Of Magnesia) 2,400 MG) PO PRN (10:00)
[2020-10-04] MEDS ORDERED: HYDROCORTISONE 2.5% RECTAL CREAM 30GM TUBE. RC PRN (10:00)
[2020-10-04] MEDS ORDERED: CYPROHEPTADINE 4 MG TABLET. PO SCH (21:00)
[2020-10-04] MEDS ORDERED: DONEPEZIL HCL 10 MG TABLET PO SCH (21:00)
[2020-10-04] MEDS ORDERED: GABAPENTIN 300 MG CAPSULE. PO SCH (21:00)
[2020-10-04] MEDS ORDERED: DOCUSATE SODIUM 100 MG CAPSULE PO SCH (21:00)
[2020-10-04] MEDS ORDERED: NON FORMULARY ITEM (Insulin Glargine,Hum.rec.anlog (Lantus Solostar) 15 UNIT) SQ SCH (21:00)
[2020-10-04] MEDS ORDERED: LACTOBACILLUS RHAMNOSUS GG 1 CAPSULE. PO SCH (21:00)
[2020-10-04] MEDS ORDERED: SIMVASTATIN 20 MG TABLET PO SCH (21:00)
[2020-10-05] MEDS ORDERED: LEVOTHYROXINE 150 MCG TABLET PO SCH (06:00)
[2020-10-05] MEDS ORDERED: DOXAZOSIN MESYLATE 4 MG TABLET PO SCH (09:00)
[2020-10-05] MEDS ORDERED: ASPIRIN CHEWABLE 81 MG TABLET. PO SCH (09:00)
[2020-10-05] MEDS ORDERED: amLODIPine BESYLATE 10 MG TABLET PO SCH (09:00)
[2020-10-05] MEDS ORDERED: FUROSEMIDE 40 MG TABLET PO SCH (09:00)
== END 2020-10-03 19:33 | disposition short-term general hospital (02) ==
LOC: ER 16:25
DX: R53.1 Weakness (principal); D64.9 Anemia, unspecified; D11.9 Benign neoplasm of major salivary gland, unspecified; I50.30 Unspecified diastolic (congestive) heart failure; E46 Unspecified protein-calorie malnutrition; I10 Essential (primary) hypertension; E87.79 Other fluid overload; Z90.89 Acquired absence of other organs; Z90.49 Acquired absence of other specified parts of digestive tract; Z90.710 Acquired absence of both cervix and uterus; Z98.890 Other specified postprocedural states; Z88.8 Allergy status to other drugs, medicaments and biological substances
CPT/HCPCS: 36415; 71045; 80053; 81001; 82803; 83605; 83735; 83880; 84100; 84443; 84484; 85025; 93005; 99285